=== PATIENT | male | born 1945 | race Caucasian/White ===

== ENCOUNTER 2017-05-13 07:11 | Day surgery (SDC) | payer MEDICARE ==
[~2017-05-13 07:11] MED LIST: DEXAMETHASONE SOD PHOSPHATE 10 MG/ML 1 ML VIAL IV ONE; HEPARIN SODIUM,PORCINE 5,000 UNIT/ML 1 ML VIAL SQ ONE; HYDROmorphone 0.5 MG/0.5 ML SYRINGE IVP PRN; MIDAZOLAM 2 MG/2 ML VIAL IV PRN; ONDANSETRON 4 MG/2 ML VIAL IVP ONE; ceFAZolin IN SWFI 2 GM/20 ML SYRINGE IVP ONE
[2017-05-13] MEDS ORDERED: LIDOCAINE 1% 20 ML VIAL (10MG/ML) FOR IV START INTRADERMA ONE ×2 (07:39→07:49)
[2017-05-13] MEDS: LACTATED RINGERS 1,000 ML IV SCH ×2 (07:39→07:49)
--- NOTE | 2017-05-13 07:51 | P.GSHP ---
History of Present Illness H&P Date: 05/13/17 Chief Complaint: Left inguinal hernia This is a 70-year-old male who presents today for laparoscopic robotic-assisted repair of left inguinal hernia. Patient's complaints of pain in his left groin. He was seen in the office and found have a reducible left inguinal hernia. Past Medical History Past Medical History: Hyperlipidemia Additional Past Medical History / Comment(s): RECENTLY HAD AN ALLERGIC REACTION TO AN UNKNOWN SOURCE; PATIENT STATES HE HAD FACIAL SWELLING; DR. Stephanie ALANIZ HAD ORDERED ALLEGY TESTING. History of Any Multi-Drug Resistant Organisms: None Reported Past Surgical History: Hernia Repair Additional Past Surgical History / Comment(s): RIGHT ING HERNIA. BILATERAL CATARACTS. CIRCUMSION Past Anesthesia/Blood Transfusion Reactions: No Reported Reaction Past Psychological History: No Psychological Hx Reported Smoking Status: Never smoker Past Alcohol Use History: Rare Past Drug Use History: None Reported - Past Family History Father Family Medical History: Cancer Medications and Allergies Home Medications Medication Instructions Recorded Confirmed Type Aspirin [Adult Low Dose Aspirin EC] 81 mg PO DAILY 05/09/17 05/09/17 History Calcium Carbonate/Vitamin D3 1 tab PO DAILY 05/09/17 05/09/17 History [Calcium 500-Vit D3 200 Tablet] Cetirizine HCl [Zyrtec] 10 mg PO QAM 05/09/17 05/09/17 History Simvastatin [Zocor] 40 mg PO QAM 05/09/17 05/09/17 History Allergies Allergy/AdvReac Type Severity Reaction Status Date / Time mold Allergy Nausea & Verified 05/13/17 07:31 Vomiting Surgical - Exam Vital Signs Temp Pulse Resp BP Pulse Ox 97.9 F 62 16 162/91 98 05/13/17 07:34 05/13/17 07:34 05/13/17 07:34 05/13/17 07:34 05/13/17 07:34 - General well developed, no distress - Eyes PERRL - ENT normal pinna - Neck no masses - Respiratory normal expansion - Cardiovascular Rhythm: regular - Abdomen Abdomen: soft, non tender Hernia: inguinal (Reducible left inguinal hernia) Assessment and Plan Assessment: Left inguinal hernia. We'll perform laparoscopic robotic system repair.
[2017-05-13] MEDS ORDERED: NEOSTIGMINE 1 MG/ML 10 ML VIAL ONE (07:58)
[2017-05-13] MEDS ORDERED: KETOROLAC 30 MG/ML 1 ML VIAL ONE (07:58)
[2017-05-13] MEDS ORDERED: LIDOCAINE 1% INJ 10MG/ML (20 ML MDV) ONE (07:58)
[2017-05-13] MEDS ORDERED: GLYCOPYRROLATE 0.2 MG/ML 2 ML VIAL ONE (07:58)
[2017-05-13] MEDS ORDERED: ePHEDrine SULFATE/0.9% NACL/PF 50 MG/5 ML SYRINGE IV ONE (07:58)
[2017-05-13] MEDS ORDERED: PROPOFOL 10 MG/ML 20 ML VIAL IV ONE (07:58)
[2017-05-13] MEDS ORDERED: fentaNYL (PF) 50 MCG/ML 2 ML AMP ONE (07:58)
[2017-05-13] MEDS ORDERED: ROCURONIUM BROMIDE 10 MG/ML 10 ML VIAL IV ONE (07:58)
[2017-05-13] MEDS ORDERED: SUCCINYLCHOLINE CHLORIDE 100 MG/5 ML SYR IV ONE (07:58)
[2017-05-13] MEDS ORDERED: MIDAZOLAM 2 MG/2 ML VIAL ONE (07:58)
[2017-05-13] MEDS ORDERED: BUPIVACAINE (PF) 0.5% 30 ML VIAL SQ ONE (08:27)
[2017-05-13 09:18] VITALS: TEMP 97.1
[2017-05-13 10:07] VITALS: RESP 18
[2017-05-13 10:18] VITALS: PULSE 62
[2017-05-13 10:44] VITALS: BP 118/72
--- NOTE | 2017-05-13 11:16 | P.OP ---
Date of Procedure: 05/13/17 Preoperative Diagnosis: Left inguinal hernia Postoperative Diagnosis: Left inguinal hernia Procedure(s) Performed: Laparoscopic robotic system repair of left internal hernia Excision of left cord lipoma Anesthesia: DENY Surgeon: Ezio Galan Estimated Blood Loss (ml): 5 Pathology: other (Cord lipoma) Condition: stable Disposition: PACU Description of Procedure: The patient's placed on the operating table in the supine position. The patient received general anesthesia. The patient's abdomen was prepped and draped in usual sterile fashion. The skin was anesthetized 1% local Xylocaine at the incision sites. Using an 11 blade a skin incision was made at the umbilicus. The fascia was grasped with a Miriam and then the peritoneal cavity was entered with the Veress needle. Position of the Veress needle was confirmed with a positive drop test. After adequate insufflation a 5 mm trocar was placed into the peritoneal cavity. The Laparoscope was placed the peritoneal cavity. And a robotic 8 mm trocar was placed in the right lateral position and then another 8 mm robotic trochars placed in the left lateral position. The original 5 mm trocar was exchanged for a 12 mm trocar. The patient was placed in reverse Trendelenburg and then the patient was docked to the robot. Next the peritoneum over top of the hernia was incised and then using blunt and sharp dissection and electrocautery the hernia sac was dissected free from the floor of the inguinal canal. The hernia sac was completely reduced into the peritoneal cavity. The cord lipoma was dissected free from the spermatic cord and excised. And then using the Pro director of sports performance mesh the hernia was repaired. The peritoneum was then sutured with 20V lock suture. The patient was then undocked the robot. The needle was withdrawn from the peritoneal cavity. The cord lipoma was removed from the perineal cavity. The umbilical trocar site was closed with 0 Ethibond suture. The skin was closed interrupted 3-0 Monocryl suture. Dermabond dressing was applied. Patient was sent to recovery in stable condition.
== END 2017-05-13 12:17 | disposition home or self-care (01) ==
LOC: OR 07:11
PROVIDERS: ATTEND Surgery
DX: K40.90 Unilateral inguinal hernia, without obstruction or gangrene, not specified as recurrent (principal); D17.6 Benign lipomatous neoplasm of spermatic cord; E78.5 Hyperlipidemia, unspecified; Z91.048 Other nonmedicinal substance allergy status; Z79.82 Long term (current) use of aspirin; Z79.899 Other long term (current) drug therapy; Z80.9 Family history of malignant neoplasm, unspecified
CPT/HCPCS: 49650; 88304; C1781; J2250; J1644; J1100; J2710; J0690; J2405; J2001; J3010; J1885; J0330; J2704

== ENCOUNTER 2017-05-16 11:10 | Emergency (ER) | payer MEDICARE ==
[2017-05-16] MEDS ORDERED: diphenhydrAMINE 50 MG/ML 1 ML VIAL ONE (12:10)
[2017-05-16] MEDS ORDERED: FAMOTIDINE 20 MG/2 ML VIAL ONE (12:10)
[2017-05-16] MEDS ORDERED: methylPREDNISolone SOD SUCCI 125 MG/2 ML VIAL ONE (12:10)
== END 2017-05-16 13:18 | disposition home or self-care (01) ==
LOC: EC 11:10
DX: T78.3XXA Angioneurotic edema, initial encounter (principal); Z79.82 Long term (current) use of aspirin; Z79.899 Other long term (current) drug therapy
CPT/HCPCS: 96374; 96375; 99283

== ENCOUNTER → 2018-04-04 | Outpatient (CLI) | payer MEDICARE ==
[2018-04-04 11:44] LABS: Appearance,Urine Clear (Clear); Bilirubin,Urine Negative (Negative); Blood,Urine Negative (Negative); Color,Urine Yellow; Glucose,Urine (UA) Negative (Negative); Ketones,Urine 1+ (Negative); Leukocyte Esterase,Urine Negative (Negative); Nitrite,Urine Negative (Negative); PH, Urine 5.5 (5.0-8.0); Protein,Urine Negative (Negative); Urobilinogen,Urine <2.0 mg/dL (<2.0)
[2018-04-04 11:48] LABS: HCT 44.2 % (39.0-53.0); HGB 14.2 gm/dL (13.0-17.5); MCH 29.6 pg (25.0-35.0); MCHC 32.1 g/dL (31.0-37.0); MCV 92.2 fL (80.0-100.0); Mean Platelet Volume 7.7; Platelet Count 282 k/uL (150-450); RBC 4.79 m/uL (4.30-5.90); RDW 13.2 % (11.5-15.5); WBC 4.8 k/uL (3.8-10.6)
[2018-04-04 12:23] LABS: Eosinophils # (M) 0.14 k/uL (0-0.7); Lymphocytes # (M) 1.73 k/uL (1.0-4.8); Monocytes # (M) 0.72 k/uL (0-1.0); Neutrophils # (M) 2.21 k/uL (1.3-7.7); Neutrophils % (M) 46 %; Nucleated Red Blood Cells 0 /100 WBC (0-0); Total Cells Counted 100
[2018-04-04 16:55] LABS: Albumin 4.5 g/dL (3.80-4.90); Albumin/Globulin Ratio 1.96 (1.20-2.10); Anion Gap 5.9 mmol/L (4.00-12.00); Calcium 9.4 mg/dL (8.7-10.3); Carbon Dioxide 28.1 mmol/L (21.6-31.8); Globulin 2.3 g/dL (2.1-3.7); LDL Cholesterol,Calculated 76.4 mg/dL (0.0-131.0); Potassium 4.3 mmol/L (3.5-5.5); Total Bilirubin 1.2 mg/dL (0.2-1.2); Total Protein 6.8 g/dL (6.2-8.2); VLDL Calculation 10.6 mg/dL (5.00-40.00)
[2018-04-04 18:32] LABS: Hemoglobin A1C 5.7 % (4.0-6.0)
== END | disposition home or self-care (01) ==
LOC: LABWHC1 10:59
PROVIDERS: ATTEND Family Medicine
DX: N39.0 Urinary tract infection, site not specified (principal); I10 Essential (primary) hypertension; Z79.899 Other long term (current) drug therapy
CPT/HCPCS: 36415; 80053; 80061; 81003; 83036; 84153; 84443; 85025

== ENCOUNTER 2018-12-30 18:12 | Inpatient (IN) | payer MEDICARE ==
[2018-12-30] MEDS ORDERED: MORPHINE SULFATE 2 MG/ML SYRINGE IVP STA (18:31)
[2018-12-30] MEDS ORDERED: SODIUM CHLORIDE 0.9% 500 ML 500 ML IV STA (18:31)
--- NOTE | 2018-12-30 18:41 | ED ---
General Adult HPI - General Chief complaint: Abdominal Pain Stated complaint: abd pain Time Seen by Provider: 12/30/18 18:19 Source: patient, RN notes reviewed Mode of arrival: wheelchair Limitations: no limitations - History of Present Illness Initial comments: 73-year-old male with a past medical history of hyperlipidemia, hernia repair, kidney stones presents to the emergency department for a chief complaint of left lower quadrant pain. Patient states this started about 4 hours ago. Patient has also vomited several times in the past 4 hours. States the pain radiates to his upper abdomen as well. Patient originally presented to urgent care and they referred him here to the emergency department. No fevers or chills. Patient does admit to loose stools as well for the past 4 hours. Patient ate a bologna sandwich earlier today as well as scrambled eggs. Denies any chest pain or shortness of breath.Patient has no other complaints at this time including shortness of breath, chest pain, abdominal pain, nausea or vomiting, headache, or visual changes. - Related Data Home Medications Medication Instructions Recorded Confirmed Aspirin [Adult Low Dose Aspirin EC] 81 mg PO DAILY 05/09/17 12/30/18 Simvastatin [Zocor] 40 mg PO HS 05/09/17 12/30/18 Calcium Carbonate [Calcium] 600 mg PO DAILY 12/30/18 12/30/18 Cetirizine HCl [Zyrtec] 10 mg PO DAILY 12/30/18 12/30/18 Memantine HCl [Namenda] 5 mg PO BID 12/30/18 12/30/18 Multivitamins, Thera [Multivitamin 1 tab PO DAILY 12/30/18 12/30/18 (formulary)] predniSONE See Taper PO DIRECTED 12/30/18 12/30/18 Allergies Allergy/AdvReac Type Severity Reaction Status Date / Time mold Allergy Nausea & Verified 12/30/18 18:28 Vomiting Review of Systems ROS Statement: Those systems with pertinent positive or pertinent negative responses have been documented in the HPI. ROS Other: All systems not noted in ROS Statement are negative. Past Medical History Past Medical History: Hyperlipidemia History of Any Multi-Drug Resistant Organisms: None Reported Past Surgical History: Hernia Repair Additional Past Surgical History / Comment(s): cataract bilateral eyes Past Psychological History: No Psychological Hx Reported Smoking Status: Never smoker Past Alcohol Use History: None Reported Past Drug Use History: None Reported General Exam Limitations: no limitations General appearance: alert, in no apparent distress Head exam: Present: atraumatic, normocephalic, normal inspection Eye exam: Present: normal appearance, PERRL, EOMI. Absent: scleral icterus, conjunctival injection, periorbital swelling ENT exam: Present: normal exam, mucous membranes moist Neck exam: Present: normal inspection, full ROM. Absent: tenderness, meningismus, lymphadenopathy Respiratory exam: Present: normal lung sounds bilaterally. Absent: respiratory distress, wheezes, rales, rhonchi, stridor Cardiovascular Exam: Present: regular rate, normal rhythm, normal heart sounds. Absent: systolic murmur, diastolic murmur, rubs, gallop, clicks GI/Abdominal exam: Present: soft, tenderness (Patient has voluntary guarding in the epigastric area as well as the left lower quadrant. Negative Osuna sign. No significant right upper quadrant tenderness.), normal bowel sounds. Absent: distended, guarding, rebound, rigid Neurological exam: Present: alert, oriented X3 Psychiatric exam: Present: normal affect, normal mood Course Vital Signs 12/30/18 12/30/18 12/30/18 18:13 19:52 22:39 Temperature 97.5 F L 98.1 F 98 F Pulse Rate 53 L 57 L 71 Respiratory 18 18 18 Rate Blood Pressure 143/73 153/79 150/81 O2 Sat by Pulse 100 100 99 Oximetry Procedures - Sepsis Sepsis Focused Exam #1 Sepsis Focused Exam Date: 12/30/18 Sepsis Focused Exam Time: 20:30 Sepsis Focused Exam Complete: Yes Vital Signs & RN Notes Reviewed: Yes Capillary Refill: > 2 Seconds: Fingers, Toes Peripheral Pulses: Strong: Radial (R), Radial (L) Skin Color: Normal for Patient Respiratory Exam: normal lung sounds Cardiovascular Exam: bradycardia Medical Decision Making - Medical Decision Making 73-year-old male with a past medical history of hyperlipidemia, hernia repair, kidney stones presents to the emergency department for a chief complaint of lower left quadrant pain and epigastric pain. States this started about 4 hours ago. He has also been vomiting several times in the past 4 hours. Vitals are stable, patient is afebrile with a mild sinus bradycardia. On presentation patient does have significant epigastric and left lower quadrant abdominal pain with guarding. CBC shows a white blood cell count of 29 as well as a lactic acid of 4.2. Lipase is 20,000 which is likely the cause of the leukocytosis and lactic acidosis. Patient was given 30 mL/kg of fluids based on his ideal body weight of 67.1 kg. He was started on Zosyn less than 3 hours. Lactic acid was repeated after fluids and it decreased to 2.9. CT abdomen and pelvis shows findings consistent with diffuse pancreatitis and fluid seen throughout the entire anterior pararenal space. Ultrasound shows no acute sonographic process. On further history patient denies any alcohol use. Patient however did start on steroids 2 weeks ago for a rash of his lower extremities which is likely the cause of his pancreatitis. Patient will be admitted with pain control, antiemetics, parenteral hydration. He will be kept nothing by mouth. GI will be consulted. - Lab Data Result diagrams: 12/30/18 19:35 12/30/18 19:35 Lab Results 12/30/18 12/30/18 12/30/18 Range/Units 19:35 19:35 19:35 WBC 29.0 H (3.8-10.6) k/uL RBC 5.25 (4.30-5.90) m/uL Hgb 15.5 (13.0-17.5) gm/dL Hct 47.0 (39.0-53.0) % MCV 89.5 (80.0-100.0) fL MCH 29.6 (25.0-35.0) pg MCHC 33.0 (31.0-37.0) g/dL RDW 13.6 (11.5-15.5) % Plt Count 368 (150-450) k/uL Neutrophils % 86 % Lymphocytes % 4 % Monocytes % 9 % Eosinophils % 1 % Basophils % 0 % Neutrophils # 24.9 H (1.3-7.7) k/uL Lymphocytes # 1.1 (1.0-4.8) k/uL Monocytes # 2.5 H (0-1.0) k/uL Eosinophils # 0.3 (0-0.7) k/uL Basophils # 0.1 (0-0.2) k/uL Sodium 138 (137-145) mmol/L Potassium 4.2 (3.5-5.1) mmol/L Chloride 103 (98-107) mmol/L Carbon Dioxide 25 (22-30) mmol/L Anion Gap 10 mmol/L BUN 38 H (9-20) mg/dL Creatinine 1.06 (0.66-1.25) mg/dL Est GFR (CKD-EPI)AfAm 81 (>60 ml/min/1.73 sqM) Est GFR (CKD-EPI)NonAf 70 (>60 ml/min/1.73 sqM) Glucose 190 H (74-99) mg/dL Lactic Ac Sepsis Rflx Plasma Lactic Acid Jack 4.2 H* (0.7-2.0) mmol/L Calcium 10.3 H (8.4-10.2) mg/dL Total Bilirubin 1.1 (0.2-1.3) mg/dL AST 28 (17-59) U/L ALT 32 (21-72) U/L Alkaline Phosphatase 69 (38-126) U/L Total Protein 7.5 (6.3-8.2) g/dL Albumin 4.5 (3.5-5.0) g/dL Amylase 4634 H* (30-110) U/L Lipase >14457 H (23-300) U/L Urine Color Urine Appearance (Clear) Urine pH (5.0-8.0) Ur Specific [place] (1.001-1.035) Urine Protein (Negative) Urine Glucose (UA) (Negative) Urine Ketones (Negative) Urine Blood (Negative) Urine Nitrite (Negative) Urine Bilirubin (Negative) Urine Urobilinogen (<2.0) mg/dL Ur Leukocyte Esterase (Negative) 12/30/18 12/30/18 12/30/18 Range/Units 19:35 20:05 22:10 WBC (3.8-10.6) k/uL RBC (4.30-5.90) m/uL Hgb (13.0-17.5) gm/dL Hct (39.0-53.0) % MCV (80.0-100.0) fL MCH (25.0-35.0) pg MCHC (31.0-37.0) g/dL RDW (11.5-15.5) % Plt Count (150-450) k/uL Neutrophils % % Lymphocytes % % Monocytes % % Eosinophils % % Basophils % % Neutrophils # (1.3-7.7) k/uL Lymphocytes # (1.0-4.8) k/uL Monocytes # (0-1.0) k/uL Eosinophils # (0-0.7) k/uL Basophils # (0-0.2) k/uL Sodium (137-145) mmol/L Potassium (3.5-5.1) mmol/L Chloride (98-107) mmol/L Carbon Dioxide (22-30) mmol/L Anion Gap mmol/L BUN (9-20) mg/dL Creatinine (0.66-1.25) mg/dL Est GFR (CKD-EPI)AfAm (>60 ml/min/1.73 sqM) Est GFR (CKD-EPI)NonAf (>60 ml/min/1.73 sqM) Glucose (74-99) mg/dL Lactic Ac Sepsis Rflx Y Plasma Lactic Acid Jack 2.9 H* (0.7-2.0) mmol/L Calcium (8.4-10.2) mg/dL Total Bilirubin (0.2-1.3) mg/dL AST (17-59) U/L ALT (21-72) U/L Alkaline Phosphatase (38-126) U/L Total Protein (6.3-8.2) g/dL Albumin (3.5-5.0) g/dL Amylase (30-110) U/L Lipase (23-300) U/L Urine Color Yellow Urine Appearance Clear (Clear) Urine pH 6.0 (5.0-8.0) Ur Specific [place] 1.019 (1.001-1.035) Urine Protein Trace H (Negative) Urine Glucose (UA) Negative (Negative) Urine Ketones Trace H (Negative) Urine Blood Negative (Negative) Urine Nitrite Negative (Negative) Urine Bilirubin Negative (Negative) Urine Urobilinogen <2.0 (<2.0) mg/dL Ur Leukocyte Esterase Negative (Negative) Disposition Clinical Impression: Pancreatitis, Leukocytosis Disposition: ADMITTED IP TO THIS HOSP Condition: Fair Is patient prescribed a controlled substance at d/c from ED?: No Referrals: None,Stated [REFERRING] - 1-2 days Time of Disposition: 23:16
[2018-12-30 19:46] LABS: Basophils # (A) 0.1 k/uL (0-0.2); Basophils % (A) 0 %; Eosinophils # (A) 0.3 k/uL (0-0.7); Eosinophils % (A) 1 %; HGB 15.5 gm/dL (13.0-17.5); Lymphocytes # (A) 1.1 k/uL (1.0-4.8); Lymphocytes % (A) 4 %; MCH 29.6 pg (25.0-35.0); MCV 89.5 fL (80.0-100.0); Mean Platelet Volume 8.3; Monocytes # (A) 2.5 k/uL (0-1.0); Monocytes % (A) 9 %; Neutrophils # (A) 24.9 k/uL (1.3-7.7); Neutrophils % (A) 86 %; Platelet Count 368 k/uL (150-450); RBC 5.25 m/uL (4.30-5.90); RDW 13.6 % (11.5-15.5)
[2018-12-30 19:47] LABS: Appearance,Urine Clear (Clear); Bilirubin,Urine Negative (Negative); Blood,Urine Negative (Negative); Color,Urine Yellow; Glucose,Urine (UA) Negative (Negative); Ketones,Urine Trace (Negative); Leukocyte Esterase,Urine Negative (Negative); Nitrite,Urine Negative (Negative); Protein,Urine Trace (Negative); Specific Gravity,Urine 1.019 (1.001-1.035); Urobilinogen,Urine <2.0 mg/dL (<2.0)
[2018-12-30 19:55] LABS: ALT 32 U/L (21-72); AST 28 U/L (17-59); African American GFR (CKD) 81 (>60 ml/min/1.73 sqM); Albumin 4.5 g/dL (3.5-5.0); Alkaline Phosphatase 69 U/L (38-126); Anion Gap 10 mmol/L; Blood Urea Nitrogen 38 mg/dL (9-20); Calcium 10.3 mg/dL (8.4-10.2); Carbon Dioxide 25 mmol/L (22-30); Chloride 103 mmol/L (98-107); Glucose 190 mg/dL (74-99); Non-African American GFR(CKD) 70 (>60 ml/min/1.73 sqM); Potassium 4.2 mmol/L (3.5-5.1); Sodium 138 mmol/L (137-145); Total Bilirubin 1.1 mg/dL (0.2-1.3); Total Protein 7.5 g/dL (6.3-8.2)
[2018-12-30] MEDS ORDERED: SODIUM CHLORIDE 0.9% 1,000 ML IV STA (20:03)
[2018-12-30] MEDS ORDERED: PIPERACILLIN-TAZOBACTAM 3.375 GM in SODIUM CHLORIDE 0.9% 100 ML IVPB STA (20:07)
[2018-12-30 20:20] LABS: Amylase 4634 U/L (30-110)
[2018-12-30] MEDS ORDERED: SODIUM CHLORIDE 0.9% 600 ML IV STA (20:21)
--- NOTE | 2018-12-30 21:40 | CT ---
EXAMINATION TYPE: CT abdomen pelvis w con DATE OF EXAM: 12/30/2018 COMPARISON: None HISTORY: abdomen pain CT DLP: 492.9 mGycm Automated exposure control for dose reduction was used. TECHNIQUE: Helical acquisition of images was performed from the lung bases through the pelvis. CONTRAST: Performed without Oral Contrast and with IV Contrast, patient injected with 100 mL of Isovu e 300. FINDINGS: LUNG BASES: No acute findings. LIVER/GB: No significant liver abnormality noted. Biliary tree is unremarkable. PANCREAS: There is diffuse loss of the pancreatic parenchymal acinar pattern, consistent with diffuse edema. Much more conspicuous is the homogeneous fluid density seen throughout the entire anterior pa rarenal space and extending down along the root of the mesentery within the subperitoneal spaces of t he extraperitoneum. Again, the gallbladder, extrahepatic biliary tree and intrahepatic biliary tree has unremarkable ap pearance. SPLEEN: No significant abnormality is seen. ADRENALS: No significant abnormality is seen. KIDNEYS, URETERS, AND BLADDER: No hydronephrosis or hydroureter or renal masses. Moderate urinary bladder distention noted; no focal bladder findings. Prostate enlargement noted. PERITONEAL CAVITY: No pneumoperitoneum. No peritoneal fluid. RETROPERITONEAL ADENOPATHY: None visualized REPRODUCTIVE ORGANS: No significant abnormality is seen PELVIC ADENOPATHY: None visualized. OSSEOUS STRUCTURES: No significant abnormality is seen. BOWEL: No significant abnormality is seen. OTHER: No acute vascular findings. IMPRESSION: CT FINDINGS CONSISTENT WITH DIFFUSE PANCREATITIS, WITH FLUID SEEN THROUGHOUT THE ENTIRE ANTERIOR PARA RENAL SPACE. SHORT INTERVAL FOLLOW-UP CT RECOMMENDED. Incidental: Prostate enlargement with moderate urinary bladder distention.
--- NOTE | 2018-12-30 22:07 | US ---
EXAMINATION TYPE: US abdomen limited DATE OF EXAM: 12/30/2018 COMPARISON: CT same day CLINICAL HISTORY: RUQ, pancreatitis. RUQ pain x 1 day. Pancreatitis. Hx kidney stones. EXAM MEASUREMENTS: Liver Length: 14.09 cm Gallbladder Wall: 0.24 cm CBD: 0.59 cm Right Kidney: 10.4 x 5.5 x 5.4 cm Pancreas: appears enlarged; slightly heterogeneous Liver: appears wnl. Fluid-filled bowel adjacent to liver/right kidney. Gallbladder: Length: 9.7 cm. Measurement upper limits of normal Evidence for sonographic Osuna's sign: no CBD: Measurement upper limits of normal Right Kidney: No hydronephrosis or masses seen IMPRESSION: No acute sonographic process.
[2018-12-30] MEDS ORDERED: HYDROmorphone 0.5 MG/0.5 ML SYRINGE IVP STA (22:29)
[2018-12-30] MEDS ORDERED: NALOXONE 0.4 MG/ML 1 ML VIAL IV PRN (23:04)
[2018-12-30] MEDS ORDERED: ONDANSETRON 4 MG/2 ML VIAL IVP PRN (23:04)
[2018-12-30] MEDS ORDERED: MORPHINE SULFATE 4 MG/ML SYRINGE IV PRN (23:04)
[2018-12-31] MEDS: SODIUM CHLORIDE 0.9% 1,000 ML IV SCH ×4 (01:56→20:50)
[2018-12-31 02:13] VITALS: BMI 19.2
[2018-12-31] MEDS: HYDROmorphone 0.5 MG/0.5 ML SYRINGE IVP PRN ×4 (03:58→22:43)
[2018-12-31 09:23] LABS: Basophils % (A) 0 %; Eosinophils # (A) 0.1 k/uL (0-0.7); Eosinophils % (A) 0 %; HCT 43.4 % (39.0-53.0); HGB 14.3 gm/dL (13.0-17.5); Lymphocytes # (A) 1.4 k/uL (1.0-4.8); Lymphocytes % (A) 7 %; MCH 30.4 pg (25.0-35.0); MCV 92.2 fL (80.0-100.0); Mean Platelet Volume 9.7; Monocytes % (A) 9 %; Neutrophils # (A) 17.8 k/uL (1.3-7.7); Neutrophils % (A) 83 %; RBC 4.71 m/uL (4.30-5.90); RDW 15.1 % (11.5-15.5); WBC 21.6 k/uL (3.8-10.6)
[2018-12-31 09:39] LABS: Platelet Count 320 k/uL (150-450)
[2018-12-31 09:43] LABS: African American GFR (CKD) >90 (>60 ml/min/1.73 sqM); Anion Gap 7 mmol/L; Blood Urea Nitrogen 33 mg/dL (9-20); Calcium 8.7 mg/dL (8.4-10.2); Carbon Dioxide 24 mmol/L (22-30); Chloride 110 mmol/L (98-107); Glucose 135 mg/dL (74-99); Non-African American GFR(CKD) >90 (>60 ml/min/1.73 sqM); Sodium 141 mmol/L (137-145)
[2018-12-31 09:57] LABS: Amylase 1018 U/L (30-110)
--- NOTE | 2018-12-31 10:56 | P.CONS ---
History of Present Illness - Reason for Consult Consult date: 12/31/18 Pancreatitis Requesting physician: German Galo - Chief Complaint Abdominal pain - History of Present Illness 73-year-old male admitted with acute upper abdominal pain yesterday with nausea vomiting. Admission white count 29 presently 21.6. Hemoglobin 14.3. Lipase greater than 20,000. Amylase 4634. LFTs normal total bilirubin 1.1. AST 20. ALT 32. AP 69. Lactic acid 4.2 with hydration 0.9. Presently lipase is 2981. Amylase 1018. Receiving IV antibiotics. BUN on admission 38 improved today 33. Creatinine 0.7. Denies weight loss, hematemesis hematochezia or melena. No history of pancreatitis. No history of alcoholism. Recent steroids and antibiotic for a foot/leg rash that started less than 2 weeks ago. Ultrasound abdomen no acute process. CT abdomen and pelvis consistent with diffuse pancreatitis, , [place] fluid density seen throughout the entire anterior pararenal space and extending down along the root of the mesentery. Gallbladder extra hepatic and intrahepatic biliary tree unremarkable. Review of Systems Constitutional: Denies fever, chills, sweats, weight gain, or loss. HEENT: Negative for migraines, blurred vision or loss, earaches, drainage, tinnitus, oral mucosal lesions, dysphagia, or odynophagia. Cardiac: Negative for chest pain, arrhythmias, or palpitation. Respiratory: Negative for shortness of breath, hemoptysis, cough, or sputum production. Gastrointestinal: See HPI for pertinent findings. Genitourinary: Negative for hematuria, urgency, frequency, polyuria, dysuria, or penile discharge. Musculoskeletal: Negative for muscle aches, swelling, arthritis, and arthralgias. Neurologic: Negative for stroke or TIA. Endocrine: Negative for thyroid problems. Skin: Negative for rash or itching. Psychiatric: Negative history for depression and anxiety Past Medical History Past Medical History: Hyperlipidemia History of Any Multi-Drug Resistant Organisms: None Reported Past Surgical History: Hernia Repair Additional Past Surgical History / Comment(s): cataract bilateral eyes Past Anesthesia/Blood Transfusion Reactions: No Reported Reaction Past Psychological History: No Psychological Hx Reported Smoking Status: Never smoker Past Alcohol Use History: None Reported Past Drug Use History: None Reported - Past Family History Mother Family Medical History: Liver Disease Additional Family Medical History / Comment(s): heavy drinker Medications and Allergies Home Medications Medication Instructions Recorded Confirmed Type Aspirin [Adult Low Dose Aspirin EC] 81 mg PO DAILY 05/09/17 12/31/18 History Simvastatin [Zocor] 40 mg PO HS 05/09/17 12/31/18 History Calcium Carbonate [Calcium] 600 mg PO DAILY 12/30/18 12/31/18 History Cetirizine HCl [Zyrtec] 10 mg PO DAILY 12/30/18 12/31/18 History Memantine HCl [Namenda] 5 mg PO BID 12/30/18 12/31/18 History Multivitamins, Thera [Multivitamin 1 tab PO DAILY 12/30/18 12/31/18 History (formulary)] Allergies Allergy/AdvReac Type Severity Reaction Status Date / Time mold Allergy Nausea & Verified 12/30/18 18:28 Vomiting Physical Exam Vitals: Vital Signs Temp Pulse Pulse Resp BP BP Pulse Ox 12/31/18 08:00 18 12/31/18 02:20 98.2 F 69 18 152/80 96 12/31/18 02:00 18 12/31/18 01:05 62 18 130/82 96 12/30/18 22:39 98 F 71 18 150/81 99 12/30/18 19:52 98.1 F 57 L 18 153/79 100 12/30/18 18:13 97.5 F L 53 L 18 143/73 100 Intake and Output 12/30/18 12/31/18 12/31/18 22:59 06:59 14:59 Other: Voiding Method Toilet Toilet Urinal Urinal # Voids 1 Weight 55.61 kg General appearance: The patient is alert, oriented, in no acute distress. HET: Head is normocephalic and atraumatic. Pupils are equal and reactive. Oropharynx is clear without lesions. Neck: Supple without lymphadenopathy. Trachea midline. Heart: S1 S2. Regular rate and rhythm. Lungs: No crackles or wheezes are heard. Abdomen: Soft, mild to moderate tenderness upper abdomen but as well as diffusely down midline, nondistended with bowel sounds. No peritoneal signs. No palpable organomegaly or masses. Extremities: Normal skin color and turgor. No cyanosis, rash, ulceration, clubbing, or edema. Radial and pedal pulses are 2/4 bilaterally. Neurological: No focal deficits. Strength and sensation are grossly intact. Results CBC & Chem 7: 12/31/18 06:18 12/31/18 06:18 Labs: Abnormal Lab Results - Last 24 Hours (Table) 12/30/18 12/30/18 12/30/18 Range/Units 19:35 19:35 19:35 WBC 29.0 H (3.8-10.6) k/uL Neutrophils # 24.9 H (1.3-7.7) k/uL Monocytes # 2.5 H (0-1.0) k/uL Chloride (98-107) mmol/L BUN 38 H (9-20) mg/dL Glucose 190 H (74-99) mg/dL Plasma Lactic Acid Jack 4.2 H* (0.7-2.0) mmol/L Calcium 10.3 H (8.4-10.2) mg/dL Amylase 4634 H* (30-110) U/L Lipase >56150 H (23-300) U/L Urine Protein (Negative) Urine Ketones (Negative) 12/30/18 12/30/18 12/31/18 Range/Units 19:35 22:10 01:56 WBC (3.8-10.6) k/uL Neutrophils # (1.3-7.7) k/uL Monocytes # (0-1.0) k/uL Chloride (98-107) mmol/L BUN (9-20) mg/dL Glucose (74-99) mg/dL Plasma Lactic Acid Jack 2.9 H* 2.5 H* (0.7-2.0) mmol/L Calcium (8.4-10.2) mg/dL Amylase (30-110) U/L Lipase (23-300) U/L Urine Protein Trace H (Negative) Urine Ketones Trace H (Negative) 12/31/18 12/31/18 Range/Units 06:18 06:18 WBC 21.6 H (3.8-10.6) k/uL Neutrophils # 17.8 H (1.3-7.7) k/uL Monocytes # 2.0 H (0-1.0) k/uL Chloride 110 H (98-107) mmol/L BUN 33 H (9-20) mg/dL Glucose 135 H (74-99) mg/dL Plasma Lactic Acid Jack (0.7-2.0) mmol/L Calcium (8.4-10.2) mg/dL Amylase 1018 H* (30-110) U/L Lipase 2981 H (23-300) U/L Urine Protein (Negative) Urine Ketones (Negative) CT scan - abdomen: report reviewed (Dr. Sampson) US - abdomen: report reviewed (Dr. Sampson) Assessment and Plan (1) Pancreatitis Narrative/Plan: Severe acute pancreatitis first documented episode etiology unclear with leukocytosis. Current Visit: Yes Status: Acute Code(s): K85.90 - ACUTE PANCREATITIS WITHOUT NECROSIS OR INFECTION, UNSP SNOMED Code(s): 00599021 (2) Leukocytosis Current Visit: Yes Status: Acute Code(s): D72.829 - ELEVATED WHITE BLOOD CELL COUNT, UNSPECIFIED SNOMED Code(s): 307339823 Plan: 1. IV maintenance 125 mL an hour. Merrem 1 g every 8 hours. Daily CBC BMP amylase lipase. Biochemically pancreatic enzymes are improving abdominal pain is improving as well. Nothing by mouth except for medications ice chips and popsicles. We'll request triglyceride VANNA IgG subclass 1-4. Will follow closely with you. Thank you for this kind referral and the opportunity to participate in the care of your patient. This consultation was discussed with Dr. Sampson. The impression and plan of care have been directed as dictated.
[2018-12-31] MEDS: MEROPENEM 1 GM in SODIUM CHLORIDE 0.9% 100 ML IVPB SCH ×3 (11:24→23:38)
--- NOTE | 2018-12-31 13:33 | HP ---
HISTORY AND PHYSICAL CHIEF COMPLAINT: This 73-year-old male came in with acute nausea, vomiting, and abdominal pain. White count was 29, down to 21, hemoglobin is 14.3. Lipase is greater than 20,000. Amylase is 4634. LFTs were normal. He was admitted with acute pancreatitis, unclear etiology. No history of alcoholism or pancreatitis. He was on steroids and antibiotics for foot rash for the past 2 weeks. Ultrasound and CAT scan were reviewed. REVIEW OF SYSTEMS: Fourteen point review of systems negative except for mentioned in HPI. PAST MEDICAL HISTORY: Dyslipidemia, history of cataract surgery. No smoking, no alcohol, no illicit drugs. Mother of liver disease, but was a heavy drinker. HOME MEDICATIONS: Home medications Include: 1. Namenda 5 mg b.i.d. 2. Multivitamin daily. 3. Zyrtec 10 daily. 4. Calcium daily. 5. Zocor 40 daily. 6. Aspirin 81 mg daily. ALLERGIES: Allergies are to MOLD. PHYSICAL EXAMINATION: Temperature 98.2, that is T-max, pulse 62 to 50s, respiratory rate 18 to 20, blood pressure is 130s to 150s over 70s to 80s, O2 96 to 100. CARDIOVASCULAR: S1, S. LUNGS: Transmitted upper airway sounds. HEMATOLOGY: Negative Homans. PSYCH: Fair mood and affect. ABDOMEN: Mild to moderate tenderness in the upper abdomen, nondistended. No peritoneal signs. No organomegaly. EXTREMITIES: Normal skin color. cyanosis. ASSESSMENT: 1. Leukocytosis of unclear etiology, possibly infectious from the skin cellulitis versus cholecystitis. 2. Acute pancreatitis. 3. Lactic acidosis. 4. Dehydration. Unclear cause of pancreatitis with acute nature with leukocytosis. We will get Infectious Disease consult. Start Merrem IV q.8 hours, fluids, Surgical and GI consult, Infectious Disease for elevated white count. Please see further orders. MMODL / IJN: [id number] /
[2018-12-31] MEDS: ATORVASTATIN 20 MG TAB PO SCH (20:49)
[2018-12-31] MEDS: MEMANTINE 5 MG TAB PO SCH (20:49)
--- NOTE | 2018-12-31 22:04 | P.CONS ---
History of Present Illness - Reason for Consult Consult date: 12/31/18 Rash and leukocytosis Requesting physician: German Galo - Chief Complaint Bilateral lower extremity rash x 2 weeks and abdominal pain and vomiting 1 - History of Present Illness Patient is a 73-year-old male who [place] and stayed in [place] in a cabin, the patient developed multiple lesion on his bilateral feet most marked on his left foot with some rash noticed on the bilateral medial thigh area and to lesion on his back patient did not recall any bug bites and none of the other family member with him have the similar rash the patient denies starting any new medication patient was initially evaluated at an urgent care diagnosed with possible staph infection and was treated with oral amoxicillin subsequently treated by his primary care physician with a tapering course of prednisone and antibiotic with the patient is not sure about it subsequently has been reevaluated by his PCP in most regards any different antibiotic afterwards for the patient started having abdominal pain pain has been mostly epigastric area show a burning in nature 5-600 and with associated vomiting multiple times with asymptomatic the patient presented to [facility] ER with the patient was evaluate by the physician patient did have an ultrasound of the gallbladder was negative CT abdominal with evidence of diffuse pancreatitis patient did have elevated white count 29,000 but no fever patient was initially started on Zosyn that has been switched over to meropenem by GI patient did have elevated amylase and lipase also to see the patient for his elevated white count and rash on his lower extremity looking at the pictures pr ovided by the patient and his the lesion has much improved comparing to when it the initially started Review of Systems Positive points has been mentioned in HPI rest of the systems are negative Past Medical History Past Medical History: Hyperlipidemia History of Any Multi-Drug Resistant Organisms: None Reported Past Surgical History: Hernia Repair Additional Past Surgical History / Comment(s): cataract bilateral eyes Past Anesthesia/Blood Transfusion Reactions: No Reported Reaction Past Psychological History: No Psychological Hx Reported Smoking Status: Never smoker Past Alcohol Use History: None Reported Past Drug Use History: None Reported - Past Family History Mother Family Medical History: Liver Disease Additional Family Medical History / Comment(s): heavy drinker Medications and Allergies Home Medications Medication Instructions Recorded Confirmed Type Aspirin [Adult Low Dose Aspirin EC] 81 mg PO DAILY 05/09/17 12/31/18 History Simvastatin [Zocor] 40 mg PO HS 05/09/17 12/31/18 History Calcium Carbonate [Calcium] 600 mg PO DAILY 12/30/18 12/31/18 History Cetirizine HCl [Zyrtec] 10 mg PO DAILY 12/30/18 12/31/18 History Memantine HCl [Namenda] 5 mg PO BID 12/30/18 12/31/18 History Multivitamins, Thera [Multivitamin 1 tab PO DAILY 12/30/18 12/31/18 History (formulary)] Allergies Allergy/AdvReac Type Severity Reaction Status Date / Time mold Allergy Nausea & Verified 12/30/18 18:28 Vomiting Physical Exam Vitals: Vital Signs Temp Pulse Pulse Resp BP BP Pulse Ox 12/31/18 15:46 16 12/31/18 11:55 97.7 F 77 16 145/68 94 L 12/31/18 08:00 18 12/31/18 02:20 98.2 F 69 18 152/80 96 12/31/18 02:00 18 12/31/18 01:05 62 18 130/82 96 12/30/18 22:39 98 F 71 18 150/81 99 12/30/18 19:52 98.1 F 57 L 18 153/79 100 Intake and Output 12/31/18 12/31/18 12/31/18 06:59 14:59 22:59 Other: Voiding Method Toilet Toilet Toilet Urinal Urinal Urinal # Voids 1 1 1 GENERAL DESCRIPTION: Elderly male lying in bed, no distress. No tachypnea or accessory muscle of respiration use. HEENT: Shows Pallor , no scleral icterus. Oral mucous membrane is dry. No ph aryngeal erythema or thrush NECK: Trachea central, no thyromegaly. LUNGS: Unlabored breathing. Clear to auscultation anteriorly. No wheeze or crackle. HEART: S1, S2, regular rate and rhythm. No loud murmur ABDOMEN: Soft, mild epigastric tenderness , no guarding or rigidity, no organomegaly EXTREMITIES: No edema of feet. SKIN: Rash on the foot and the medial thigh area that is currently in the heal ing stages and much improved from when it initially started no masses palpable. NEUROLOGICAL: The patient is awake, alert, oriented x3, mood and affect normal. Results CBC & Chem 7: 12/31/18 06:18 12/31/18 06:18 Labs: Abnormal Lab Results - Last 24 Hours (Table) 12/30/18 12/30/18 12/30/18 Range/Units 19:35 19:35 19:35 WBC 29.0 H (3.8-10.6) k/uL Neutrophils # 24.9 H (1.3-7.7) k/uL Monocytes # 2.5 H (0-1.0) k/uL Chloride (98-107) mmol/L BUN 38 H (9-20) mg/dL Glucose 190 H (74-99) mg/dL Plasma Lactic Acid Jack 4.2 H* (0.7-2.0) mmol/L Calcium 10.3 H (8.4-10.2) mg/dL Amylase 4634 H* (30-110) U/L Lipase >85897 H (23-300) U/L Urine Protein (Negative) Urine Ketones (Negative) 12/30/18 12/30/18 12/31/18 Range/Units 19:35 22:10 01:56 WBC (3.8-10.6) k/uL Neutrophils # (1.3-7.7) k/uL Monocytes # (0-1.0) k/uL Chloride (98-107) mmol/L BUN (9-20) mg/dL Glucose (74-99) mg/dL Plasma Lactic Acid Jack 2.9 H* 2.5 H* (0.7-2.0) mmol/L Calcium (8.4-10.2) mg/dL Amylase (30-110) U/L Lipase (23-300) U/L Urine Protein Trace H (Negative) Urine Ketones Trace H (Negative) 12/31/18 12/31/18 Range/Units 06:18 06:18 WBC 21.6 H (3.8-10.6) k/uL Neutrophils # 17.8 H (1.3-7.7) k/uL Monocytes # 2.0 H (0-1.0) k/uL Chloride 110 H (98-107) mmol/L BUN 33 H (9-20) mg/dL Glucose 135 H (74-99) mg/dL Plasma Lactic Acid Jack (0.7-2.0) mmol/L Calcium (8.4-10.2) mg/dL Amylase 1018 H* (30-110) U/L Lipase 2981 H (23-300) U/L Urine Protein (Negative) Urine Ketones (Negative) Assessment and Plan Assessment: 1-patient with a rash on his lower extremity that seems to have improved comparing to when he started about 2 weeks ago and more likely representing possible insect bite with no evidence of any secondary cellulitis 2-leukocytosis likely multifactorial possibly related to steroid the patient was on in outpatient setting and secondary to his acute pancreatitis more likely drug related Plan: 1-no specific treatment for the rash on his leg which is in the healing stages almost healed up 2-meropenem 1 g. Every 8 hour for his underlying diffuse pancreatitis 3-gentle IV fluid we will follow on clinical condition and culture to further adjust medication if needed Thank you for this consultation will follow this patient along with you Time with Patient: Greater than 30
[2019-01-01] MEDS: ASPIRIN 81 MG PO SCH (08:17)
[2019-01-01] MEDS: MEROPENEM 1 GM in SODIUM CHLORIDE 0.9% 100 ML IVPB SCH ×3 (08:17→23:07)
[2019-01-01] MEDS: MULTIVITAMINS, THERA 1 EACH TAB PO SCH (08:18)
[2019-01-01] MEDS: LORATADINE 10 MG TAB PO SCH (08:18)
[2019-01-01] MEDS: CALCIUM CARBONATE 500 MG CHEWABLE PO SCH (08:18)
[2019-01-01] MEDS: MEMANTINE 5 MG TAB PO SCH ×2 (08:19→20:00)
[2019-01-01 08:47] LABS: Basophils % (A) 0 %; Eosinophils # (A) 0.1 k/uL (0-0.7); Eosinophils % (A) 0 %; HCT 43.4 % (39.0-53.0); HGB 14.2 gm/dL (13.0-17.5); Lymphocytes # (A) 0.8 k/uL (1.0-4.8); Lymphocytes % (A) 4 %; MCH 30.3 pg (25.0-35.0); MCHC 32.6 g/dL (31.0-37.0); MCV 92.8 fL (80.0-100.0); Mean Platelet Volume 7.8; Monocytes # (A) 2.4 k/uL (0-1.0); Monocytes % (A) 12 %; Neutrophils # (A) 16.7 k/uL (1.3-7.7); Neutrophils % (A) 82 %; Platelet Count 281 k/uL (150-450); RBC 4.68 m/uL (4.30-5.90); RDW 13.7 % (11.5-15.5); WBC 20.4 k/uL (3.8-10.6)
[2019-01-01 08:59] LABS: ALT 21 U/L (21-72); AST 18 U/L (17-59); African American GFR (CKD) >90 (>60 ml/min/1.73 sqM); Alkaline Phosphatase 54 U/L (38-126); Amylase 299 U/L (30-110); Anion Gap 5 mmol/L; Blood Urea Nitrogen 21 mg/dL (9-20); Calcium 8.8 mg/dL (8.4-10.2); Carbon Dioxide 28 mmol/L (22-30); Chloride 107 mmol/L (98-107); Glucose 111 mg/dL (74-99); Non-African American GFR(CKD) >90 (>60 ml/min/1.73 sqM); Potassium 4.5 mmol/L (3.5-5.1); Sodium 140 mmol/L (137-145); Total Bilirubin 1.2 mg/dL (0.2-1.3); Total Protein 5.6 g/dL (6.3-8.2); Triglycerides 66 mg/dL (<150)
[2019-01-01 11:04] LABS: IgG Subclass 3 21.7 mg/dL (11.0-85.0); IgG Subclass 4 54.3 mg/dL (3.0-175.0)
--- NOTE | 2019-01-01 12:01 | P.PN ---
Subjective Progress Note Date: 01/01/19 Principal diagnosis: Severe acute pancreatitis Feeling better. [place] reticulocyte enzymes improving. Afebrile. No appetite. No bowel movements or flatus. White count 20.4. BUN improved 21. Lipase 429. Amylase 299. VANNA, IgG subclass 1-4 negative. Objective - Vital Signs Vital signs: Vital Signs Temp 97.7 F 01/01/19 04:50 Pulse 70 01/01/19 04:50 Resp 18 01/01/19 08:00 BP 152/80 01/01/19 04:50 Pulse Ox 95 01/01/19 04:50 Intake & Output 12/31/18 01/01/19 01/01/19 18:59 06:59 18:59 Output Total 700 500 Balance -700 -500 Output: Urine 700 500 Other: Voiding Method Toilet Toilet Urinal Urinal # Voids 1 - Exam General appearance: The patient is alert, oriented, in no acute distress. HET: Head is normocephalic and atraumatic. Pupils are equal and reactive. Oropharynx is clear without lesions. Neck: Supple without lymphadenopathy. Trachea midline. Heart: S1 S2. Regular rate and rhythm. Lungs: No crackles or wheezes are heard. Abdomen: Soft, mild tenderness to the bilateral upper abdomen, nondistended with bowel sounds. No peritoneal signs. No palpable organomegaly or masses. Extremities: Normal skin color and turgor. No cyanosis, rash, ulceration, clubbing, or edema. Radial and pedal pulses are 2/4 bilaterally. Neurological: No focal deficits. Strength and sensation are grossly intact. - Labs CBC & Chem 7: 01/01/19 08:10 01/01/19 08:10 Labs: Abnormal Lab Results - Last 24 Hours (Table) 01/01/19 01/01/19 Range/Units 08:10 08:10 WBC 20.4 H (3.8-10.6) k/uL Neutrophils # 16.7 H (1.3-7.7) k/uL Lymphocytes # 0.8 L (1.0-4.8) k/uL Monocytes # 2.4 H (0-1.0) k/uL BUN 21 H (9-20) mg/dL Creatinine 0.64 L (0.66-1.25) mg/dL Glucose 111 H (74-99) mg/dL Total Protein 5.6 L (6.3-8.2) g/dL Albumin 3.0 L (3.5-5.0) g/dL Amylase 299 H (30-110) U/L Lipase 429 H (23-300) U/L Microbiology - Last 24 Hours (Table) 12/30/18 22:10 Blood Culture - Preliminary Blood No Growth after 24 hours Assessment and Plan (1) Pancreatitis Narrative/Plan: Severe acute pancreatitis first documented episode etiology unclear with leukocytosis. Current Visit: Yes Status: Acute Code(s): K85.90 - ACUTE PANCREATITIS WITHOUT NECROSIS OR INFECTION, UNSP SNOMED Code(s): 13646812 (2) Leukocytosis Current Visit: Yes Status: Acute Code(s): D72.829 - ELEVATED WHITE BLOOD CELL COUNT, UNSPECIFIED SNOMED Code(s): 774739940 Plan: 1. Continue the IV hydration 125 mL an hour. Clear liquids and advance as tolerated. Continue to monitor CBC BMP daily. Discharge when tolerating a diet. Return to office in 3-4 weeks. We'll follow with you. Assessment and plan a care discussed with Dr. Sampson
[2019-01-01] MEDS: SODIUM CHLORIDE 0.9% 1,000 ML IV SCH ×3 (12:50→23:10)
--- NOTE | 2019-01-01 15:58 | P.GSCN ---
History of Present Illness Consult date: 01/01/19 Reason for Consult: pancreatitis Requesting physician: German Galo History of present illness: CHIEF COMPLAINT: abdominal pain HISTORY OF PRESENT ILLNESS: 73-year-old male admitted to hospital secondary to pancreatitis. General surgery was consulted for further evaluation. Patient denies previous episodes of known pancreatitis. He denies alcohol use. lipase greater than 20,000 on admission. Amylase 4634. amylase 299 today. Lipase 429. WBC 20.4. He has been afebrile. On IV antibiotics. Abdominal ultrasound negative for acute process. No gallstones visualized. CT abdomen and pelvis completed revealing findings consistent with diffuse pancreatitis with fluid seen throughout the entire parerenal space. Patient reports improvement in his abdominal pain. Denies nausea or vomiting. He has been NPO. PAST MEDICAL HISTORY: See list. PAST SURGICAL HISTORY: See list. SOCIAL HISTORY: No illicit drug use. REVIEW OF SYSTEMS: CONSTITUTIONAL: Denies fever or chills. HEENT: Denies blurred vision, vision changes, or eye pain. Denies hemoptysis CARDIOVASCULAR: Denies chest pain or pressure. RESPIRATORY: No shortness of breath. GASTROINTESTINAL: Refer to HPI for pertinent findings HEMATOLOGIC: Denies bleeding disorders. GENITOURINARY: Denies any blood in urine. SKIN: Denies pruitis. Denies rash. PHYSICAL EXAM: VITAL SIGNS: Reviewed. GENERAL: Well-developed in no acute distress. HEENT: No sclera icterus. Extraocular movements grossly intact. Moist buccal mucosa. Head is atraumatic, normocephalic. ABDOMEN: Soft. Nondistended. Mild tenderness with palpation. Positive bowel sounds. NEUROLOGIC: Alert and oriented. Cranial nerves II through XII grossly intact. ASSESSMENT: 1. Acute pancreatitis, etiology unclear 2. Leukocytosis 3. Elevated lactic acid PLAN: 1. Begin clear liquid diet 2. Daily CBC, amylase, lipase 3. Continue antibiotics 4. GI consulted and following 5. No surgical intervention recommended Nurse practitioner note has been reviewed by physician. Signing provider agrees with the documented findings, assessment, and plan of care. Past Medical History Past Medical History: Hyperlipidemia History of Any Multi-Drug Resistant Organisms: None Reported Past Surgical History: Hernia Repair Additional Past Surgical History / Comment(s): cataract bilateral eyes Past Anesthesia/Blood Transfusion Reactions: No Reported Reaction Past Psychological History: No Psychological Hx Reported Smoking Status: Never smoker Past Alcohol Use History: None Reported Past Drug Use History: None Reported - Past Family History Mother Family Medical History: Liver Disease Additional Family Medical History / Comment(s): heavy drinker Medications and Allergies Home Medications Medication Instructions Recorded Confirmed Type Aspirin [Adult Low Dose Aspirin EC] 81 mg PO DAILY 05/09/17 12/31/18 History Simvastatin [Zocor] 40 mg PO HS 05/09/17 12/31/18 History Calcium Carbonate [Calcium] 600 mg PO DAILY 12/30/18 12/31/18 History Cetirizine HCl [Zyrtec] 10 mg PO DAILY 12/30/18 12/31/18 History Memantine HCl [Namenda] 5 mg PO BID 12/30/18 12/31/18 History Multivitamins, Thera [Multivitamin 1 tab PO DAILY 12/30/18 12/31/18 History (formulary)] Allergies Allergy/AdvReac Type Severity Reaction Status Date / Time mold Allergy Nausea & Verified 12/30/18 18:28 Vomiting Surgical - Exam Vital Signs Temp Pulse Resp BP Pulse Ox 97.5 F L 53 L 18 143/73 100 12/30/18 18:13 12/30/18 18:13 12/30/18 18:13 12/30/18 18:13 12/30/18 18:13 Results - Labs 01/01/19 08:10 01/01/19 08:10 Abnormal Lab Results - Last 24 Hours (Table) 01/01/19 01/01/19 Range/Units 08:10 08:10 WBC 20.4 H (3.8-10.6) k/uL Neutrophils # 16.7 H (1.3-7.7) k/uL Lymphocytes # 0.8 L (1.0-4.8) k/uL Monocytes # 2.4 H (0-1.0) k/uL BUN 21 H (9-20) mg/dL Creatinine 0.64 L (0.66-1.25) mg/dL Glucose 111 H (74-99) mg/dL Total Protein 5.6 L (6.3-8.2) g/dL Albumin 3.0 L (3.5-5.0) g/dL Amylase 299 H (30-110) U/L Lipase 429 H (23-300) U/L Microbiology - Last 24 Hours (Table) 12/30/18 22:10 Blood Culture - Preliminary Blood No Growth after 24 hours Diabetes panel 01/01/19 Range/Units 08:10 Sodium 140 (137-145) mmol/L Potassium 4.5 (3.5-5.1) mmol/L Chloride 107 (98-107) mmol/L Carbon Dioxide 28 (22-30) mmol/L BUN 21 H (9-20) mg/dL Creatinine 0.64 L (0.66-1.25) mg/dL Glucose 111 H (74-99) mg/dL Calcium 8.8 (8.4-10.2) mg/dL AST 18 (17-59) U/L ALT 21 (21-72) U/L Alkaline Phosphatase 54 (38-126) U/L Total Protein 5.6 L (6.3-8.2) g/dL Albumin 3.0 L (3.5-5.0) g/dL Triglycerides 66 (<150) mg/dL Calcium panel 01/01/19 Range/Units 08:10 Calcium 8.8 (8.4-10.2) mg/dL Albumin 3.0 L (3.5-5.0) g/dL Pituitary panel 01/01/19 Range/Units 08:10 Sodium 140 (137-145) mmol/L Potassium 4.5 (3.5-5.1) mmol/L Chloride 107 (98-107) mmol/L Carbon Dioxide 28 (22-30) mmol/L BUN 21 H (9-20) mg/dL Creatinine 0.64 L (0.66-1.25) mg/dL Glucose 111 H (74-99) mg/dL Calcium 8.8 (8.4-10.2) mg/dL Adrenal panel 01/01/19 Range/Units 08:10 Sodium 140 (137-145) mmol/L Potassium 4.5 (3.5-5.1) mmol/L Chloride 107 (98-107) mmol/L Carbon Dioxide 28 (22-30) mmol/L BUN 21 H (9-20) mg/dL Creatinine 0.64 L (0.66-1.25) mg/dL Glucose 111 H (74-99) mg/dL Calcium 8.8 (8.4-10.2) mg/dL Total Bilirubin 1.2 (0.2-1.3) mg/dL AST 18 (17-59) U/L ALT 21 (21-72) U/L Alkaline Phosphatase 54 (38-126) U/L Total Protein 5.6 L (6.3-8.2) g/dL Albumin 3.0 L (3.5-5.0) g/dL
--- NOTE | 2019-01-01 18:25 | PN ---
PROGRESS NOTE DATE OF SERVICE: 01/01/2019. REASON FOR FOLLOWUP VISIT: 1. Lower extremity rash, possibly a bug bite. 2. Leukocytosis. INTERVAL HISTORY: The patient is currently afebrile. The patient has been breathing comfortably. Abdominal pain is improved. No further nausea, no vomiting. Has been started on a clear liquid diet today. No chest pain, shortness of breath. No cough and no worsening rash. PHYSICAL EXAMINATION: Blood pressure 156/83 with a pulse of 71, temperature 98.7. He is 96% on room air. General description is an elderly male up in the bed in no distress. Respiratory system unlabored breathing. Clear to auscultation anteriorly. Heart S1, S2. Regular rate and rhythm. Abdomen soft, no tenderness. EXTREMITIES: No edema of the feet. LEGS: Rash much improved. LABS: Hemoglobin 14.1, white count 20.4, BUN of 21, creatinine 0.64. DIAGNOSTIC IMPRESSION AND PLAN: 1. Patient with lower extremity rash more likely insect bite [place] this seemed to already has resolved. Will monitor closely. 2. Elevated white count, multifactorial, with possible steroid effect and a component of pancreatitis being managed by Gastroenterology. The patient is currently on merrem to continue. We will monitor clinical course closely. Continue supportive care. MMODL / IJN: [id number] / MTDD
--- NOTE | 2019-01-01 18:33 | P.PN ---
Subjective Progress Note Date: 01/01/19 This is a 73-year-old gentleman admitted with acute pancreatitis, dehydration and multiple other medical issues. Evaluated by infectious disease, surgery, GI with recommendations noted and appreciated. No surgical intervention recommended. Continues on Merrem as per ID, cultures pending. VANNA screen neg ative Afebrile, WBC trending down, 20.4. Significant improvement in amylase and lipase, down to 299 and 429. Renal function improving. Objective - Vital Signs Vital signs: Vital Signs Temp 98.7 F 01/01/19 14:27 Pulse 71 01/01/19 14:27 Resp 16 01/01/19 14:27 BP 166/83 01/01/19 14:27 Pulse Ox 96 01/01/19 14:27 Intake & Output 12/31/18 01/01/19 01/01/19 18:59 06:59 18:59 Output Total 700 1300 Balance -700 -1300 Output: Urine 700 1300 Other: Voiding Method Toilet Toilet Urinal Urinal # Voids 1 - Exam PHYSICAL EXAM: VITAL SIGNS: [As above] GENERAL: Sitting up in bed, no acute distress, HEENT: Pale, Conjunctivae normal. eyes normal. Oral mucosa dry. NECK: No JVD. No thyroid enlargement. No LNs CARDIOVASCULAR: S1, S2 regular.. No murmur RESPIRATION: Breath sounds diminished in the bases. No rhonchi or crackles. No wheezes No bronchial breathing. ABDOMEN: Soft, nondistended, mild upper /mid epigastric tenderness. No gua rding. no masses palpable.Bowel sounds heard. LEGS: No edema. no swelling PSYCHIATRY: Alert and oriented X3, mood and affect normal. NERVOUS SYSTEM: Cranial N 2-12 grossly normal. Moves all 4 limbs. Diffuse weakness No focal deficits. Skin: Medial thigh and foot rash improving - Labs CBC & Chem 7: 01/01/19 08:10 01/01/19 08:10 Labs: Abnormal Lab Results - Last 24 Hours (Table) 01/01/19 01/01/19 Range/Units 08:10 08:10 WBC 20.4 H (3.8-10.6) k/uL Neutrophils # 16.7 H (1.3-7.7) k/uL Lymphocytes # 0.8 L (1.0-4.8) k/uL Monocytes # 2.4 H (0-1.0) k/uL BUN 21 H (9-20) mg/dL Creatinine 0.64 L (0.66-1.25) mg/dL Glucose 111 H (74-99) mg/dL Total Protein 5.6 L (6.3-8.2) g/dL Albumin 3.0 L (3.5-5.0) g/dL Amylase 299 H (30-110) U/L Lipase 429 H (23-300) U/L Microbiology - Last 24 Hours (Table) 12/30/18 22:10 Blood Culture - Preliminary Blood No Growth after 24 hours Assessment and Plan Assessment: -Acute pancreatitis, etiology unclear -Dehydration -Rash on thigh and foot, without cellulitis, suspect insect bite -Leukocytosis secondary to acute pancreatitis and prior steroid use Plan: Continue on current medication regime ,monitoring and symptomatic treatmen t. Maintain IV fluid hydration, IV antibiotics of Merrem. Follow cultures closely. Diet advancement as per GI . Discharge planning in progress. The impression and plan of care has been dictated as directed. : I performed a history and examination of this patient, discussed the same with the dictator. I agree with the dictator's note ,documented as a scribe. Any additional findings or plans will be noted.
[2019-01-01] MEDS: PANTOPRAZOLE 40 MG/10 ML VIAL IVP SCH (20:00)
[2019-01-01] MEDS: ATORVASTATIN 20 MG TAB PO SCH (20:00)
[2019-01-02] MEDS: MEROPENEM 1 GM in SODIUM CHLORIDE 0.9% 100 ML IVPB SCH ×2 (07:28→16:16)
[2019-01-02] MEDS: LORATADINE 10 MG TAB PO SCH (07:33)
[2019-01-02] MEDS: PANTOPRAZOLE 40 MG/10 ML VIAL IVP SCH (07:33)
[2019-01-02] MEDS: MEMANTINE 5 MG TAB PO SCH ×2 (07:33→20:53)
[2019-01-02] MEDS: CALCIUM CARBONATE 500 MG CHEWABLE PO SCH (07:33)
[2019-01-02] MEDS: MULTIVITAMINS, THERA 1 EACH TAB PO SCH (07:33)
[2019-01-02] MEDS: ASPIRIN 81 MG PO SCH (07:33)
[2019-01-02 08:26] LABS: Basophils % (A) 0 %; Eosinophils # (A) 0.2 k/uL (0-0.7); Eosinophils % (A) 1 %; HCT 42.7 % (39.0-53.0); HGB 14.1 gm/dL (13.0-17.5); Lymphocytes # (A) 1.1 k/uL (1.0-4.8); Lymphocytes % (A) 6 %; MCH 30.2 pg (25.0-35.0); MCV 91.4 fL (80.0-100.0); Mean Platelet Volume 8.1; Monocytes # (A) 1.6 k/uL (0-1.0); Monocytes % (A) 9 %; Neutrophils % (A) 83 %; Platelet Count 260 k/uL (150-450); RBC 4.67 m/uL (4.30-5.90); RDW 13.5 % (11.5-15.5); WBC 18.2 k/uL (3.8-10.6)
[2019-01-02 08:37] LABS: African American GFR (CKD) >90 (>60 ml/min/1.73 sqM); Anion Gap 6 mmol/L; Blood Urea Nitrogen 15 mg/dL (9-20); Calcium 8.6 mg/dL (8.4-10.2); Carbon Dioxide 28 mmol/L (22-30); Chloride 103 mmol/L (98-107); Glucose 100 mg/dL (74-99); Non-African American GFR(CKD) >90 (>60 ml/min/1.73 sqM); Potassium 3.9 mmol/L (3.5-5.1); Sodium 137 mmol/L (137-145)
[2019-01-02] MEDS: SODIUM CHLORIDE 0.9% 1,000 ML IV SCH ×2 (08:58→16:13)
--- NOTE | 2019-01-02 10:35 | PN ---
PROGRESS NOTE DATE OF SERVICE: 01/02/2019 The patient is a 73 -year-old pleasant white male admitted to the hospital with 1st episode of acute severe pancreatitis. He is feeling much better today. He still has some epigastric discomfort but no nausea, vomiting. He is not taking any pain medications for the last 2 days. Complains of some constipation. No fever, chills, night sweats. PHYSICAL EXAMINATION: He appears comfortable. No apparent distress. VITAL SIGNS: Stable. Blood pressure is 166/83, pulse 71, temperature 97. HEENT examination unremarkable. Conjunctivae pink. Sclerae anicteric. Oral cavity no lesions. Neck no JVD or lymph node enlargement. Chest was clear to auscultation. HEART: Regular rate and rhythm. ABDOMEN: Soft. Bowel sounds are positive. Mild tenderness in the epigastric area. Extremities: No pedal edema. Skin no rashes. NEUROLOGIC: Alert and oriented x3. No focal deficits. LABS: From today WBC 18.2, hemoglobin 14.1, platelets are normal. BUN 15, creatinine 0.65. Lipase is down to 1 9. Fasting triglycerides 66. IgG4 levels are normal. IMPRESSION: 1. Acute severe pancreatitis, gradually improving. Lipase levels have normalized today. Overall, patient has significant clinical improvement. Etiology of pancreatitis remains unclear. So far, workup has been negative. The patient has no history of alcohol abuse. 2. Leukocytosis, probably related to acute pancreatitis. The patient on broad- spectrum antibiotics also. RECOMMENDATIONS: 1. We will advance to full liquid diet. 2. Pain medications as needed. 3. Increase ambulation. 4. Continue with antibiotics and we will follow the patient closely during her hospital stay. Thank you for this consultation. MMODL / IJN: [id number] /
--- NOTE | 2019-01-02 13:44 | P.PN ---
Subjective Progress Note Date: 01/02/19 CHIEF COMPLAINT: Acute pancreatitis HISTORY OF PRESENT ILLNESS: The patient is a 73-year-old male who presents with acute pancreatitis. He has history of epigastric abdominal pain including sepsis. He reports improvement of his epigastric abdominal pain and tolerated yogurt. He complains of gas pains. ROS: Mild nausea. He has bowel movements. No fevers or chills. No new chest pain. No productive sputum PHYSICAL EXAM: VITAL SIGNS: Reviewed CONSTITUTIONAL: Well developed and in no acute distress. EYES: Conjuctivae without sclera icterus. Extraocular movements grossly intact. HEAD, EARS, NOSE, THROAT: Moist buccal mucosa. Head is atraumatic, normocephalic. Hears conversational speech. No nasal drainage. NECK: Supple. No thyroidomegaly. RESPIRATORY: Non-labored respirations and equal bilateral excursions. CARDIOVASCULAR: Palpable 2+ radial pulses. Regular rate. Regular rhythm. ABDOMEN: Soft, mild tenderness along the epigastrium. No peritonitis. MUSCULOSKELETAL: No gross deformity of the lower extremities noted. No clubbing. No cyanosis. SKIN: Good skin turgor. Well perfused. NEUROLOGIC: Cranial nerves I through XII grossly intact. No focal or lateralizing signs. PSYCH: Appropriate affect. Alert and oriented to person, place and time. CLINCAL LABS: White blood cell count over 18,000 STUDIES: The abdomen and pelvis independently reviewed demonstrated a mild inflammation along the pancreas. Mild free fluid in the pelvis identified. RADIOLOGY: Report reviewed with finding of pancreatitis. ASSESSMENT: 1. Acute pancreatitis PLAN: 1. Continue current diet. 2. Repeat lipase. 3. No acute surgical intervention at this time. Objective - Vital Signs Vital signs: Vital Signs Temp 97.8 F 01/02/19 05:49 Pulse 74 01/02/19 05:49 Resp 14 01/02/19 05:49 BP 155/80 01/02/19 05:49 Pulse Ox 97 01/02/19 05:49 Intake & Output 01/01/19 01/02/19 01/02/19 18:59 06:59 18:59 Intake Total 200 Output Total 1300 600 Balance -1300 -600 200 Intake: Oral 200 Output: Urine 1300 600 Other: Voiding Method Toilet Urinal # Voids 1 - Labs CBC & Chem 7: 01/02/19 08:02 01/02/19 08:02 Labs: Abnormal Lab Results - Last 24 Hours (Table) 01/02/19 01/02/19 Range/Units 08:02 08:02 WBC 18.2 H (3.8-10.6) k/uL Neutrophils # 15.0 H (1.3-7.7) k/uL Monocytes # 1.6 H (0-1.0) k/uL Creatinine 0.65 L (0.66-1.25) mg/dL Glucose 100 H (74-99) mg/dL Microbiology - Last 24 Hours (Table) 12/30/18 22:10 Blood Culture - Preliminary Blood No Growth after 48 hours Assessment and Plan (1) Acute pancreatitis Current Visit: Yes Status: Acute Code(s): K85.90 - ACUTE PANCREATITIS WITHOUT NECROSIS OR INFECTION, UNSP SNOMED Code(s): 235774127 (2) Sepsis Current Visit: Yes Status: Acute Code(s): A41.9 - SEPSIS, UNSPECIFIED ORGANISM SNOMED Code(s): 82388289 (3) Epigastric pain Current Visit: Yes Status: Acute Code(s): R10.13 - EPIGASTRIC PAIN SNOMED Code(s): 45402426 (4) Leukocytosis Current Visit: Yes Status: Acute Code(s): D72.829 - ELEVATED WHITE BLOOD CELL COUNT, UNSPECIFIED SNOMED Code(s): 984397248
[2019-01-02] MEDS ORDERED: methylPREDNISolone SOD SUCCI 125 MG/2 ML VIAL IV STA (19:43)
[2019-01-02] MEDS ORDERED: diphenhydrAMINE 50 MG/ML 1 ML VIAL IVP PRN (19:44)
[2019-01-02] MEDS: ATORVASTATIN 20 MG TAB PO SCH (20:53)
--- NOTE | 2019-01-03 00:23 | PN ---
PROGRESS NOTE SUBJECTIVE: A 73-year-old white male with pancreatitis, leukocytosis, IV meropenem has been discontinued due to lip and mouth swelling and possible allergic reaction. His amylase and lipase are greatly improving. He is going to be added to soft diet from clear liquid diet. Possible discharge home in the next 24 to 48 hours because he is greatly improved. GI increased bowel sounds x4. Cardiovascular S1, S2. Lungs clear. Hematology negative Homans. PLAN: Continue current treatment for pancreatitis and advance diet. Stop antibiotics. His white count is normal and there is no signs of infection of the pancreas at this time and possible drug reaction. MMODL / IJN: [id number] /
[2019-01-03] MEDS: SODIUM CHLORIDE 0.9% 1,000 ML IV SCH ×2 (00:32→07:56)
[2019-01-03 06:07] VITALS: BP 172/85; PULSE 71; RESP 16; TEMP 98
[2019-01-03] MEDS: MULTIVITAMINS, THERA 1 EACH TAB PO SCH (07:30)
[2019-01-03] MEDS: MEMANTINE 5 MG TAB PO SCH (07:30)
[2019-01-03] MEDS: ASPIRIN 81 MG PO SCH (07:30)
[2019-01-03] MEDS: LORATADINE 10 MG TAB PO SCH (07:30)
[2019-01-03] MEDS: PANTOPRAZOLE 40 MG/10 ML VIAL IVP SCH (07:30)
[2019-01-03] MEDS: CALCIUM CARBONATE 500 MG CHEWABLE PO SCH (07:30)
--- NOTE | 2019-01-03 09:10 | P.PN ---
Subjective Progress Note Date: 01/03/19 CHIEF COMPLAINT: Acute pancreatitis HISTORY OF PRESENT ILLNESS: The patient is a 73-year-old male who presents with acute pancreatitis. Family is at bedside. He has tolerated his meal. He denies any abdominal pain. ROS: No fevers or chills. No new chest pain. No productive sputum PHYSICAL EXAM: VITAL SIGNS: Reviewed CONSTITUTIONAL: Well developed and in no acute distress. EYES: Conjuctivae without sclera icterus. Extraocular movements grossly intact. HEAD, EARS, NOSE, THROAT: Moist buccal mucosa. Head is atraumatic, normocephalic. Hears conversational speech. No nasal drainage. NECK: Supple. No thyroidomegaly. RESPIRATORY: Non-labored respirations and equal bilateral excursions. CARDIOVASCULAR: Palpable 2+ radial pulses. Regular rate. Regular rhythm. ABDOMEN: Soft, non-tender to palpation. MUSCULOSKELETAL: No gross deformity of the lower extremities noted. No clubbing. No cyanosis. SKIN: Good skin turgor. Well perfused. NEUROLOGIC: Cranial nerves I through XII grossly intact. No focal or lateralizing signs. PSYCH: Appropriate affect. Alert and oriented to person, place and time. CLINCAL LABS: White blood cell count pending. Previous 18,000. ASSESSMENT: 1. Acute pancreatitis 2. Leukocytosis PLAN: 1. Will advance to low fat diet 2. No surgical intervention needed at this time. Objective - Vital Signs Vital signs: Vital Signs Temp 98.0 F 01/03/19 04:41 Pulse 71 01/03/19 04:41 Resp 16 01/03/19 04:41 BP 172/85 01/03/19 04:41 Pulse Ox 96 01/03/19 04:41 Intake & Output 01/02/19 01/03/19 01/03/19 18:59 06:59 18:59 Intake Total 200 Output Total 900 950 Balance -700 -950 Intake: Oral 200 Output: Urine 900 950 Other: Voiding Method Toilet Toilet # Voids 2 # Bowel Movements 1 - Labs CBC & Chem 7: 01/02/19 08:02 01/02/19 08:02 Labs: Microbiology - Last 24 Hours (Table) 12/30/18 22:10 Blood Culture - Preliminary Blood No Growth after 72 hours Assessment and Plan (1) Acute pancreatitis Current Visit: Yes Status: Acute Code(s): K85.90 - ACUTE PANCREATITIS WITHOUT NECROSIS OR INFECTION, UNSP SNOMED Code(s): 736066351 (2) Sepsis Current Visit: Yes Status: Acute Code(s): A41.9 - SEPSIS, UNSPECIFIED ORGANISM SNOMED Code(s): 83482160 (3) Epigastric pain Current Visit: Yes Status: Acute Code(s): R10.13 - EPIGASTRIC PAIN SNOMED Code(s): 44023976 (4) Leukocytosis Current Visit: Yes Status: Acute Code(s): D72.829 - ELEVATED WHITE BLOOD CELL COUNT, UNSPECIFIED SNOMED Code(s): 396482342
--- NOTE | 2019-01-03 09:48 | PN ---
PROGRESS NOTE Patient is a 73-year-old pleasant white male admitted to the hospital with acute pancreatitis. He is feeling much better today. On a full liquid diet, tolerating well. Occasional epigastric discomfort, but has not taken any pain medications in the last few days. He reports no nausea, vomiting. He had 2 bowel movements this morning. No fever, chills, night sweats. Overall he feels much better. PHYSICAL EXAMINATION: He appears comfortable. No apparent distress. VITAL SIGNS: Stable. Blood pressure 172/85, pulse rate 71, temperature 98. HEENT: Examination unremarkable. Conjunctivae pink. Sclerae anicteric. Oral cavity no lesions. NECK: No JVD or lymph node enlargement. CHEST: Clear to auscultation. HEART: Regular rate and rhythm. ABDOMEN: Soft. There was very minimal tenderness in the epigastric area. Rest of the abdomen was benign. EXTREMITIES: No pedal edema. SKIN: No rashes. NEUROLOGIC: Alert and oriented x3. No focal deficits. LAB: Basic metabolic panel is within normal limits. CBC from today is still pending. IMPRESSION: 1. Acute pancreatitis with significant improvement in his symptoms on full liquid diet, tolerating well. Lipase is normalized yesterday. 2. Leukocytosis related to acute pancreatitis. The patient was started on broad- spectrum antibiotics with Merrem 3 days ago. RECOMMENDATIONS: 1. Repeat labs today. 2. Advance to low fat diet. 3. If his labs show resolving leukocytosis, he can be discharged home today or tomorrow with outpatient followup in 2-3 weeks. Thank you for this consultation. MMODL / IJN: [id number] /
[2019-01-03 09:56] LABS: Basophils % (A) 0 %; Eosinophils # (A) 0.1 k/uL (0-0.7); Eosinophils % (A) 1 %; HCT 40.2 % (39.0-53.0); HGB 13.1 gm/dL (13.0-17.5); Lymphocytes # (A) 0.5 k/uL (1.0-4.8); Lymphocytes % (A) 4 %; MCH 30.2 pg (25.0-35.0); MCHC 32.6 g/dL (31.0-37.0); MCV 92.5 fL (80.0-100.0); Mean Platelet Volume 8.5; Monocytes # (A) 0.5 k/uL (0-1.0); Monocytes % (A) 4 %; Neutrophils # (A) 9.5 k/uL (1.3-7.7); Neutrophils % (A) 90 %; Platelet Count 242 k/uL (150-450); RBC 4.34 m/uL (4.30-5.90); RDW 15.6 % (11.5-15.5); WBC 10.5 k/uL (3.8-10.6)
[2019-01-03 10:01] LABS: ALT 30 U/L (21-72); AST 23 U/L (17-59); African American GFR (CKD) >90 (>60 ml/min/1.73 sqM); Albumin 2.9 g/dL (3.5-5.0); Alkaline Phosphatase 49 U/L (38-126); Anion Gap 7 mmol/L; Blood Urea Nitrogen 19 mg/dL (9-20); Calcium 8.4 mg/dL (8.4-10.2); Carbon Dioxide 26 mmol/L (22-30); Chloride 103 mmol/L (98-107); Glucose 220 mg/dL (74-99); Non-African American GFR(CKD) >90 (>60 ml/min/1.73 sqM); Potassium 3.9 mmol/L (3.5-5.1); Sodium 136 mmol/L (137-145); Total Bilirubin 1.3 mg/dL (0.2-1.3); Total Protein 5.6 g/dL (6.3-8.2)
--- NOTE | 2019-01-04 06:10 | DS ---
DISCHARGE SUMMARY SUBJECTIVE: A 73-year-old white male admitted with pancreatitis, leukocytosis. Lipase is now normal. He is on regular food. Questionable allergic reaction to something possibly meropenem which was discontinued 24 hours ago. His white count is normal. No fevers. He will go home on no antibiotics. He is on regular diet. Lipase is normal. No abdominal pain. MEDS: See list. CONDITION: Stable. PROGNOSIS: Guarded. Ambulate as tolerated. Follow up in the office in 3 to 4 days. MMODL / IJN: [id number] /
== END 2019-01-03 12:25 | disposition home or self-care (01) | DRG 871 ==
LOC: EC 18:12 → 4MS4W 12-31 01:00
PROVIDERS: ADMIT Family Medicine; ATTEND Family Medicine
DX: A41.9 Sepsis, unspecified organism (principal); K85.90 Acute pancreatitis without necrosis or infection, unspecified; E87.2 Acidosis; E78.5 Hyperlipidemia, unspecified; E86.0 Dehydration; K59.00 Constipation, unspecified; Z79.82 Long term (current) use of aspirin; Z79.899 Other long term (current) drug therapy; Z87.442 Personal history of urinary calculi; Z91.048 Other nonmedicinal substance allergy status; S70.369A Insect bite (nonvenomous), unspecified thigh, initial encounter; T36.1X5A Adverse effect of cephalosporins and other beta-lactam antibiotics, initial encounter; R60.9 Edema, unspecified
CPT/HCPCS: 36415; 74177; 76705; 80048; 80053; 81003; 82150; 82787; 83605; 83690; 84478; 85025; 86038; 87040; 96361; 96365; 96375; 99285

== ENCOUNTER 2019-01-27 08:21 | Day surgery (SDC) | payer MEDICARE ==
[2019-01-22 14:49] VITALS: BMI 18.1
[~2019-01-27 08:21] MED LIST changes: +LACTATED RINGERS 1,000 ML IV SCH; -ceFAZolin IN SWFI 2 GM/20 ML SYRINGE IVP ONE
[2019-01-27 10:37] LABS: Glucose,Whole Blood 81 mg/dL (75-99)
--- NOTE | 2019-01-27 10:50 | P.GSHP ---
History of Present Illness H&P Date: 01/27/19 Chief Complaint: Right upper quadrant pain This is a 74-year-old male referred from Dr. German Crespo. Patient's has complaints of with right upper quadrant pain. He is worked up found have cholelithiasis. He presents today for laparoscopic cholecystectomy. Past Medical History Past Medical History: Hearing Disorder / Deafness, Hyperlipidemia, Memory Impairment, Osteoarthritis (OA) Additional Past Medical History / Comment(s): Uses hearing aids. Hx kidney stones X1. Weight loss over last 6 months, recent rash and hospitalization (12/818 - 01/03/19) for pancreatitis. Current generalized weakness, frequent pudding like bowel movements and more weight loss. History of Any Multi-Drug Resistant Organisms: None Reported Past Surgical History: Hernia Repair Additional Past Surgical History / Comment(s): Cataract surgery bilateral eyes, kidney stone surgery, circumcision. Past Anesthesia/Blood Transfusion Reactions: No Reported Reaction Past Psychological History: No Psychological Hx Reported Smoking Status: Former smoker Past Alcohol Use History: None Reported Additional Past Alcohol Use History / Comment(s): Smoked briefly as a teen. Past Drug Use History: None Reported - Past Family History Mother Family Medical History: Liver Disease Additional Family Medical History / Comment(s): Was a heavy drinker. Father Family Medical History: Cancer Additional Family Medical History / Comment(s): Prostate cancer. Medications and Allergies Home Medications Medication Instructions Recorded Confirmed Type Aspirin [Adult Low Dose Aspirin EC] 81 mg PO DAILY 05/09/17 01/22/19 History Simvastatin [Zocor] 40 mg PO HS 05/09/17 01/22/19 History Calcium Carbonate [Calcium] 600 mg PO DAILY 12/30/18 01/22/19 History Cetirizine HCl [Zyrtec] 10 mg PO DAILY 12/30/18 01/22/19 History Memantine HCl [Namenda] 5 mg PO BID 12/30/18 01/22/19 History Multivitamins, Thera [Multivitamin 1 tab PO DAILY 12/30/18 01/22/19 History (formulary)] Sulfamethox-Tmp 800-160Mg [Bactrim 1 tab PO BID 01/22/19 01/22/19 History DS 800-160 mg] Allergies Allergy/AdvReac Type Severity Reaction Status Date / Time meropenem Allergy Swelling Verified 01/27/19 10:04 mold Allergy Nausea & Verified 01/27/19 10:04 Vomiting Surgical - Exam Vital Signs Temp Pulse Resp BP Pulse Ox 98.5 F 59 L 18 157/73 100 01/27/19 10:07 01/27/19 10:07 01/27/19 10:07 01/27/19 10:01/27/19 10:07 - General well developed, well nourished, no distress - Eyes PERRL - ENT normal pinna - Neck no masses - Respiratory normal expansion - Cardiovascular Rhythm: regular - Abdomen Abdomen: soft, non tender Assessment and Plan Assessment: Right upper quadrant pain Cholelithiasis We will perform laparoscopic cholecystectomy.
[2019-01-27] MEDS ORDERED: ROCURONIUM BROMIDE 10 MG/ML 10 ML VIAL IV ONE (11:04)
[2019-01-27] MEDS ORDERED: fentaNYL (PF) 50 MCG/ML 2 ML AMP ONE (11:04)
[2019-01-27] MEDS ORDERED: GLYCOPYRROLATE 0.2 MG/ML 2 ML VIAL ONE (11:04)
[2019-01-27] MEDS ORDERED: LIDOCAINE 1% INJ 10MG/ML (20 ML MDV) ONE (11:04)
[2019-01-27] MEDS ORDERED: ESMOLOL 100 MG/10 ML VIAL ONE (11:04)
[2019-01-27] MEDS ORDERED: NEOSTIGMINE 1 MG/ML 10 ML VIAL ONE (11:04)
[2019-01-27] MEDS ORDERED: PROPOFOL 10 MG/ML 20 ML VIAL IV ONE (11:04)
[2019-01-27] MEDS ORDERED: BUPIVACAIN-EPI 0.25%-1:200,000 30 ML VIAL SQ ONE (11:34)
[2019-01-27] MEDS ORDERED: LACTATED RINGERS 1,000 ML IV ONE ×2 (11:51→14:49)
--- NOTE | 2019-01-27 12:01 | P.OP ---
Date of Procedure: 01/27/19 Preoperative Diagnosis: Cholecystitis Postoperative Diagnosis: Cholecystitis Procedure(s) Performed: Laparoscopic cholecystectomy Anesthesia: DENY Surgeon: Ezio Galan Estimated Blood Loss (ml): 5 Pathology: other (Gallbladder) Condition: stable Disposition: PACU Description of Procedure: The patient was placed on the operating table. The patient received a general endotracheal tube anesthesia. The patients abdomen was prepped and draped in the usual sterile fashion. Through an infraumbilical stab incision, the fascia of the anterior abdominal wall was grasped with a pair of Kochers and then the Veress needle was placed in the peritoneal cavity. Position of the Veress needle was confirmed with positive drop test. The abdomen was then insufflated. After adequate insufflation, the 10 mm trocar was placed in the peritoneal cavity. Following this the laparoscope was placed in the peritoneal cavity. The patient was placed in the head-up, right side up position and then a 5 mm trocar was placed in the right lateral and right subcostal position under direct visualization. A 8 mm trocar was placed in the epigastric position. The gallbladder was grasped in the fundus and infundibulum. Traction on the gallbladder was placed in the lateral and the cephalad positions. The triangle of Calot was visualized.. The cystic duct was bluntly dissected until the union of the cystic duct and common bile duct was seen. A critical view of safety was achieved. The cystic duct was then divided and sealed with the Harmonic scissors. A PDS Endoloop was then placed throughout the cystic duct stump. The cystic artery divided and sealed with the Harmonic scissors. The gallbladder was then removed from the liver bed using Harmonic scissors. The gallbladder was then extracted through the epigastric port site. Operative field was checked for any bleeding spots and Harmonic scissors was used to coagulate the liver bed. The abdomen was irrigated. The trocars were removed. The skin was closed using interrupted 3-0 Vicryl suture. Dermabond dressing were applied. The patient tolerated the procedure well.
[2019-01-27 12:17] VITALS: TEMP 97.1
[2019-01-27 14:37] VITALS: RESP 16
[2019-01-27 16:39] VITALS: BP 135/59; PULSE 54
== END 2019-01-27 17:02 | disposition home or self-care (01) ==
LOC: OR 08:21
PROVIDERS: ATTEND Surgery
DX: K81.1 Chronic cholecystitis (principal); H91.90 Unspecified hearing loss, unspecified ear; E78.5 Hyperlipidemia, unspecified; M19.90 Unspecified osteoarthritis, unspecified site; R41.3 Other amnesia; Z87.442 Personal history of urinary calculi; Z97.4 Presence of external hearing-aid; Z98.890 Other specified postprocedural states; Z98.42 Cataract extraction status, left eye; Z98.41 Cataract extraction status, right eye; Z87.19 Personal history of other diseases of the digestive system; Z87.891 Personal history of nicotine dependence; Z79.82 Long term (current) use of aspirin; Z79.2 Long term (current) use of antibiotics; Z79.899 Other long term (current) drug therapy; Z91.09 Other allergy status, other than to drugs and biological substances; Z88.1 Allergy status to other antibiotic agents; Z80.42 Family history of malignant neoplasm of prostate; Z83.79 Family history of other diseases of the digestive system; Z81.1 Family history of alcohol abuse and dependence
CPT/HCPCS: 88304

== ENCOUNTER → 2019-02-09 | Outpatient (CLI) | payer MEDICARE ==
--- NOTE | 2019-02-12 09:44 | US ---
EXAMINATION TYPE: US bladder DATE OF EXAM: 02/09/2019 COMPARISON: NONE CLINICAL HISTORY: R33.9 Urin Retention. EXAM MEASUREMENTS: Post Void Residual Volume: 254.59 mL Urinary bladder is sonolucent. Posterior wall is normal. Color Doppler performed to assess ureteral jets. Bilateral Jets seen: Yes Normal Post Void Residual (less than 50ml): no, 254.59 ml IMPRESSION: 1. Large post void residual.
== END | disposition home or self-care (01) ==
LOC: RADUSWWP 14:52
PROVIDERS: ATTEND Family Medicine
DX: R33.9 Retention of urine, unspecified (principal)
CPT/HCPCS: 76857

== ENCOUNTER → 2019-04-08 | Outpatient (CLI) | payer MEDICARE ==
[2019-04-08 12:38] LABS: Basophils % (A) 1 %; Eosinophils # (A) 0.1 k/uL (0-0.7); Eosinophils % (A) 3 %; HGB 12.7 gm/dL (13.0-17.5); Lymphocytes # (A) 1.6 k/uL (1.0-4.8); Lymphocytes % (A) 35 %; MCH 30.7 pg (25.0-35.0); MCHC 32.6 g/dL (31.0-37.0); MCV 94.2 fL (80.0-100.0); Monocytes # (A) 0.5 k/uL (0-1.0); Monocytes % (A) 11 %; Neutrophils # (A) 2.2 k/uL (1.3-7.7); Neutrophils % (A) 47 %; Platelet Count 300 k/uL (150-450); RBC 4.14 m/uL (4.30-5.90); RDW 13.1 % (11.5-15.5); WBC 4.6 k/uL (3.8-10.6)
[2019-04-08 19:53] LABS: Hemoglobin A1C 5.3 % (4.0-6.0)
[2019-04-08 20:16] LABS: African American GFR (CKD) 107.7 (60.0-200.0); Albumin 4.3 g/dL (3.80-4.90); Albumin/Globulin Ratio 2.05 (1.60-3.17); Anion Gap 8.2 mmol/L (4.00-12.00); BUN/Creat Ratio 28.57 Ratio (12.00-20.00); Calcium 9.4 mg/dL (8.7-10.3); Carbon Dioxide 27.8 mmol/L (21.6-31.8); Chol/HDL Ratio 2.14; Globulin 2.1 g/dL (1.6-3.3); LDL Cholesterol,Calculated 70.4 mg/dL (0.0-131.0); Potassium 4.7 mmol/L (3.5-5.5); Total Protein 6.4 g/dL (6.2-8.2); VLDL Calculation 11.6 mg/dL (5.00-40.00)
== END ==
LOC: LABWHC1 10:42
PROVIDERS: ATTEND Family Medicine
DX: Z00.00 Encounter for general adult medical examination without abnormal findings (principal); I10 Essential (primary) hypertension; B89 Unspecified parasitic disease; R97.20 Elevated prostate specific antigen [PSA]; Z79.899 Other long term (current) drug therapy
CPT/HCPCS: 36415; 80053; 80061; 83036; 84153; 84443; 85025

== ENCOUNTER → 2019-05-14 | Day surgery (SDC) | payer MEDICARE ==
[2019-05-12 09:33] VITALS: BMI 18.8
[~2019-05-14] MED LIST changes: -DEXAMETHASONE SOD PHOSPHATE 10 MG/ML 1 ML VIAL IV ONE; -HEPARIN SODIUM,PORCINE 5,000 UNIT/ML 1 ML VIAL SQ ONE; -HYDROmorphone 0.5 MG/0.5 ML SYRINGE IVP PRN; -LACTATED RINGERS 1,000 ML IV SCH; -MIDAZOLAM 2 MG/2 ML VIAL IV PRN; -ONDANSETRON 4 MG/2 ML VIAL IVP ONE; +PROPOFOL 10 MG/ML 20 ML VIAL IV ONE
[2019-05-14 09:29] VITALS: TEMP 97.8
[2019-05-14] MEDS: LACTATED RINGERS 1,000 ML IV SCH ×2 (09:38→09:39)
--- NOTE | 2019-05-14 09:57 | P.OP ---
Date of Procedure: 05/14/19 Preoperative Diagnosis: constipation Postoperative Diagnosis: normal colon Procedure(s) Performed: colonoscopy Anesthesia: MAC Surgeon: Ezoi Galan Pathology: none sent Condition: stable Disposition: PACU Description of Procedure: the patient's placed on the endoscopy table in the lateral position. SC IV sedation. Digital rectal exam was performed which revealed no abnormalities. The flexor colonoscope was then placed patient anus pasand passed throughout the colon. The scope was placed into the right colon. The ileocecal valve could not be visualized sigmoid tortuosity the valve. This point the scope was withdrawn. The ascending, transverse, descending and sigmoid colon was normal except for a few scattered diverticula. The patient had a very tortuous colon. Scope was then brought back the rectum this appeared normal. Scope withdrawn for patient.
--- NOTE | 2019-05-14 10:06 | P.GSHP ---
History of Present Illness H&P Date: 05/14/19 Chief Complaint: constipation this a 70 for male with history of constipation. Patient's today for colonoscopy. Past Medical History Past Medical History: Hearing Disorder / Deafness, Hyperlipidemia, Memory Impairment, Osteoarthritis (OA) Additional Past Medical History / Comment(s): Uses hearing aids. Hx kidney stones X1. recent hospitalization (12/818 - 01/03/19) for pancreatitis, had weight loss but slowly putting back on, frequent diarrhea, trouble emptying bladder completely since surg. WAS ON ANTIBIOTICS FOR BACTERIA IN COLON-LAST DOSE 05/08/19 History of Any Multi-Drug Resistant Organisms: None Reported Past Surgical History: Cholecystectomy, Hernia Repair Additional Past Surgical History / Comment(s): Cataract surgery bilateral eyes, kidney stone surgery, circumcision, lap airam 2018, COLONOSCOPY Past Anesthesia/Blood Transfusion Reactions: No Reported Reaction Additional Past Anesthesia/Blood Transfusion Reaction / Comment(s): slow to wake up after lap airam & trouble urinating, ended up w/acuña cath. for week post-op Smoking Status: Former smoker - Past Family History Mother Family Medical History: Liver Disease Additional Family Medical History / Comment(s): Was a heavy drinker. Father Family Medical History: Cancer Additional Family Medical History / Comment(s): Prostate cancer. Medications and Allergies Home Medications Medication Instructions Recorded Confirmed Type Aspirin [Adult Low Dose Aspirin EC] 81 mg PO DAILY 05/09/17 05/14/19 History Simvastatin [Zocor] 40 mg PO HS 05/09/17 05/14/19 History Calcium Carbonate [Calcium] 600 mg PO DAILY 12/30/18 05/14/19 History Cetirizine HCl [Zyrtec] 10 mg PO DAILY 12/30/18 05/14/19 History Memantine HCl [Namenda] 5 mg PO BID 12/30/18 05/14/19 History Multivitamins, Thera [Multivitamin 1 tab PO DAILY 12/30/18 05/14/19 History (formulary)] Alfuzosin HCl [Uroxatral ER] 10 mg PO DAILY 04/16/19 05/14/19 History Cholestyramine (with Sugar) 4 gm PO BID 04/16/19 05/14/19 History [Cholestyramine Packet] Donepezil [Aricept] 10 mg PO HS 04/16/19 05/14/19 History Allergies Allergy/AdvReac Type Severity Reaction Status Date / Time cephalexin Allergy Swelling Verified 05/14/19 09:22 meropenem Allergy Swelling Verified 05/14/19 09:22 mold Allergy Nausea & Verified 05/14/19 09:22 Vomiting Surgical - Exam Vital Signs Temp Pulse Resp BP Pulse Ox 97.8 F 58 L 18 143/66 98 05/14/19 09:27 05/14/19 09:27 05/14/19 09:27 05/14/19 09:27 05/14/19 09:27 - General well developed, well nourished, no distress - Eyes PERRL - ENT normal pinna - Neck no masses - Respiratory normal expansion - Cardiovascular Rhythm: regular - Abdomen Abdomen: soft, non tender Assessment and Plan Assessment: past patient. We'll perform colonoscopy
[2019-05-14 10:33] VITALS: BP 137/65; PULSE 52; RESP 16
== END | disposition home or self-care (01) ==
LOC: ORWHC2ENDO 09:07
PROVIDERS: ATTEND Surgery
DX: K57.30 Diverticulosis of large intestine without perforation or abscess without bleeding (principal); Q43.8 Other specified congenital malformations of intestine; K59.00 Constipation, unspecified; H91.90 Unspecified hearing loss, unspecified ear; E78.5 Hyperlipidemia, unspecified; R41.3 Other amnesia; M19.90 Unspecified osteoarthritis, unspecified site; Z87.442 Personal history of urinary calculi; Z90.49 Acquired absence of other specified parts of digestive tract; Z98.42 Cataract extraction status, left eye; Z98.41 Cataract extraction status, right eye; Z87.891 Personal history of nicotine dependence; Z83.79 Family history of other diseases of the digestive system; Z80.42 Family history of malignant neoplasm of prostate; Z79.82 Long term (current) use of aspirin; Z79.899 Other long term (current) drug therapy; Z88.1 Allergy status to other antibiotic agents; Z91.048 Other nonmedicinal substance allergy status
CPT/HCPCS: 45378; J2704

== ENCOUNTER → 2019-06-21 | Outpatient (CLI) | payer MEDICARE ==
--- NOTE | 2019-06-21 20:50 | XR ---
Thoracic spine HISTORY: Pain 3 views of the thoracic spine There is a spinal curvature present which could be positional. There is multilevel spondylosis. No ev ident paraspinal mass. Thoracic vertebral bodies show preserved height and alignment. There is multil evel spondylosis. Bone mineralization is reduced. IMPRESSION: Degenerative disc disease and osteopenia. Mild spinal curvature.
== END | disposition home or self-care (01) ==
LOC: RADXRMAIN 14:38
PROVIDERS: ATTEND Family Medicine
DX: M51.34 Other intervertebral disc degeneration, thoracic region (principal); M43.8X4 Other specified deforming dorsopathies, thoracic region
CPT/HCPCS: 72072

== ENCOUNTER → 2021-02-08 | Outpatient (CLI) | payer MEDICARE ==
[2021-02-08 11:38] LABS: Basophils # (A) 0.1 k/uL (0-0.2); Basophils % (A) 1 %; Eosinophils # (A) 0.2 k/uL (0-0.7); Eosinophils % (A) 3 %; HCT 40.4 % (39.0-53.0); HGB 13.6 gm/dL (13.0-17.5); Lymphocytes # (A) 1.7 k/uL (1.0-4.8); Lymphocytes % (A) 30 %; MCH 31.2 pg (25.0-35.0); MCHC 33.7 g/dL (31.0-37.0); MCV 92.4 fL (80.0-100.0); Mean Platelet Volume 8.5; Monocytes # (A) 0.6 k/uL (0-1.0); Monocytes % (A) 10 %; Neutrophils # (A) 2.9 k/uL (1.3-7.7); Neutrophils % (A) 53 %; Platelet Count 388 k/uL (150-450); RBC 4.37 m/uL (4.30-5.90); RDW 13.2 % (11.5-15.5); WBC 5.5 k/uL (3.8-10.6)
== END | disposition home or self-care (01) ==
LOC: LABPAT 10:24
PROVIDERS: ATTEND Urology
DX: Z01.812 Encounter for preprocedural laboratory examination (principal); N40.1 Benign prostatic hyperplasia with lower urinary tract symptoms
CPT/HCPCS: 36415; 85025

== ENCOUNTER 2021-02-15 07:00 | Day surgery (SDC) | payer MEDICARE ==
--- NOTE | 2021-02-14 06:53 | P.GSHP ---
History of Present Illness H&P Date: 02/12/21 Chief Complaint: Weak urinary stream The patient is a 76-year-old white male with a long history of BPH. He underwent cystolithotripsy in 2010. He experienced urinary retention in 2019. He is currently taking alfuzosin but feels that his voiding symptoms are inadequately controlled. The postvoid residual is 201 mL. cystoscopy shows bilobar BPH, with no bladder calculi. His primary symptoms are weak urinary stream, straining, intermittency, nocturia, and a feeling of incomplete emptying. - EENT Ears: bilateral: decreased hearing - Genitourinary (Male) Genitourinary: Reports as per HPI Past Medical History Past Medical History: Hearing Disorder / Deafness, Hyperlipidemia, Memory Impairment, Osteoarthritis (OA) Additional Past Medical History / Comment(s): Uses hearing aids. Hx kidney stones X1. recent hospitalization (12/818 - 01/03/19) for pancreatitis, had weight loss but slowly putting back on, frequent diarrhea, trouble emptying bladder completely since surg. WAS ON ANTIBIOTICS FOR BACTERIA IN COLON-LAST DOSE 05/08/19 History of Any Multi-Drug Resistant Organisms: None Reported Past Surgical History: Cholecystectomy, Hernia Repair Additional Past Surgical History / Comment(s): Cataract surgery bilateral eyes, kidney stone surgery, circumcision, lap airam 2018, COLONOSCOPY Past Anesthesia/Blood Transfusion Reactions: No Reported Reaction Additional Past Anesthesia/Blood Transfusion Reaction / Comment(s): slow to wake up after lap airam & trouble urinating, ended up w/acuña cath. for week post-op Past Psychological History: No Psychological Hx Reported Past Alcohol Use History: None Reported Additional Past Alcohol Use History / Comment(s): Smoked briefly as a teen. Past Drug Use History: None Reported - Past Family History Mother Family Medical History: Liver Disease Additional Family Medical History / Comment(s): Was a heavy drinker. Father Family Medical History: Cancer Additional Family Medical History / Comment(s): Prostate cancer. Medications and Allergies Home Medications Medication Instructions Recorded Confirmed Type Aspirin [Adult Low Dose Aspirin EC] 81 mg PO DAILY 05/09/17 05/14/19 History Simvastatin [Zocor] 40 mg PO HS 05/09/17 05/14/19 History Calcium Carbonate [Calcium] 600 mg PO DAILY 12/30/18 05/14/19 History Cetirizine HCl [Zyrtec] 10 mg PO DAILY 12/30/18 05/14/19 History Memantine HCl [Namenda] 5 mg PO BID 12/30/18 05/14/19 History Multivitamins, Thera [Multivitamin 1 tab PO DAILY 12/30/18 05/14/19 History (formulary)] Alfuzosin HCl [Uroxatral ER] 10 mg PO DAILY 04/16/19 05/14/19 History Cholestyramine (with Sugar) 4 gm PO BID 04/16/19 05/14/19 History [Cholestyramine Packet] Donepezil [Aricept] 10 mg PO HS 04/16/19 05/14/19 History Allergies Allergy/AdvReac Type Severity Reaction Status Date / Time cephalexin Allergy Swelling Verified 05/14/19 09:22 meropenem Allergy Swelling Verified 05/14/19 09:22 mold Allergy Nausea & Verified 05/14/19 09:22 Vomiting Surgical - Exam - General well developed, no distress - Respiratory normal respiratory effort - Abdomen Abdomen: soft, non tender, no guarding, no rigid, no rebound - Genitourinary normal penis with no external lesions, testicles non-tender - Psychiatric oriented to time, oriented to person, oriented to place, speech is normal, tara ry intact Assessment and Plan (1) Benign prostatic hyperplasia with lower urinary tract symptoms Status: Acute Code(s): N40.1 - BENIGN PROSTATIC HYPERPLASIA WITH LOWER URINARY TRACT SYMP SNOMED Code(s): 416513908 Plan: I have discussed alternative BPH treatment options with the patient and his ., along with the various treatments. These treatments include continued treatment with alfuzosin, the addition of finasteride, minimally invasive therapies, and transurethral resection of prostate (TURP). After weighing the pros and cons of each, he has elected to undergo a TURP. He is aware of potential risks, which include anesthesia, bleeding, infection, retrograde ejaculation, incontinence, erectile dysfunction, and vesical neck contracture.
[2021-02-14 08:49] VITALS: BMI 18.1
[~2021-02-15 07:00] MED LIST changes: +CLINDAMYCIN 900 MG in DEXTROSE 5% IN WATER 50 ML IVPB PRN; +GENTAMICIN 260 MG in SODIUM CHLORIDE 0.9% 100 ML IVPB PRN; -PROPOFOL 10 MG/ML 20 ML VIAL IV ONE
[2021-02-15] MEDS ORDERED: HYDROmorphone 0.5 MG/0.5 ML SYRINGE IVP PRN (07:22)
[2021-02-15] MEDS ORDERED: ONDANSETRON 4 MG/2 ML VIAL IVP ONE (07:22)
[2021-02-15] MEDS ORDERED: DEXAMETHASONE SOD PHOSPHATE 4 MG/ML 1 ML VIAL IV ONE (07:22)
[2021-02-15] MEDS ORDERED: LACTATED RINGERS 1,000 ML IV SCH (07:22)
[2021-02-15] MEDS ORDERED: NEOSTIGMINE 1 MG/ML 10 ML VIAL ONE (09:04)
[2021-02-15] MEDS ORDERED: LIDOCAINE 1% INJ 10MG/ML (20 ML MDV) ONE (09:04)
[2021-02-15] MEDS ORDERED: SUCCINYLCHOLINE CHLORIDE 100 MG/5 ML SYR IV ONE (09:04)
[2021-02-15] MEDS ORDERED: GLYCOPYRROLATE 0.2 MG/ML 2 ML VIAL ONE (09:04)
[2021-02-15] MEDS ORDERED: PROPOFOL 10 MG/ML 20 ML VIAL IV ONE (09:04)
[2021-02-15] MEDS ORDERED: ROCURONIUM 10 MG/ML (5 ML VIAL) IV ONE (09:04)
[2021-02-15] MEDS ORDERED: fentaNYL (PF) 50 MCG/ML 2 ML AMP ONE (09:04)
--- NOTE | 2021-02-15 10:50 | P.OP ---
Date of Procedure: 02/15/21 Preoperative Diagnosis: BPH with obstruction Postoperative Diagnosis: Same Procedure(s) Performed: Cystoscopy, bipolar transurethral resection of prostate (TURP) Anesthesia: DENY Surgeon: Erik Valencia Estimated Blood Loss (ml): 30 IV fluids (ml): 500 Pathology: other (Prostate tissue, prostatic calculi) Condition: stable Disposition: PACU Indications for Procedure: The patient is a 76-year-old white male with a long history of BPH. He underwent cystolithotripsy in 2010. He experienced urinary retention in 2019. He is currently taking alfuzosin but feels that his voiding symptoms are inadequately controlled. The postvoid residual is 201 mL. cystoscopy shows bilobar BPH, with no bladder calculi. His primary symptoms are weak urinary stream, straining, intermittency, nocturia, and a feeling of incomplete emptying. Operative Findings: Bilobar BPH Description of Procedure: The patient was taken in the operating room and placed in the dorsolithotomy position. The external genitalia was prepped and draped sterilely. The 25- Setswana ACMI resectoscope sheath was introduced into the bladder. The bladder was inspected. Both ureteral orifices were of normal anatomic location and con figuration, and clear urine effluxed from both. No tumors or foreign bodies were seen. Examination of the prostate revealed complete obstruction with a bilobar configuration and a high median bar. Using the bipolar cutting loop, the lateral lobes were resected down to the surgical capsule. The floor of the prostate was then resected, proximal to the verumontanum. Next, the remaining anterior tissue was resected. The residual apical tissue was then carefully resected, with care taken to avoid injury to the external urinary sphincter. The resection was carried down to the surgical capsule in all 4 quadrants. Multiple bladder calculi were removed, particularly from the left apex. The resection didn't extend subtrigonal he to some degree. The prostatic fossa was carefully examined, and any areas of bleeding were controlled with electrocautery. Excellent hemostasis was attained. The resectoscope was withdrawn into the bulbous urethra. The external urinary sphincter remained int act. The prostatic fossa was open. All prostate chips and calculi were removed from the bladder. These were saved and sent for pathologic examination. A 0.038 inch Glidewire was passed through the resectoscope and into the bladder, where it coiled. The resectoscope was removed, and an 18 Setswana Romano catheter was placed over the wire. The return was essentially clear. The patient tolerated the procedure well was taken to the recovery room in stable condition.
[2021-02-15 10:53] VITALS: TEMP 97
[2021-02-15 13:11] VITALS: BP 130/70; PULSE 68; RESP 20
== END 2021-02-15 13:12 | disposition home or self-care (01) ==
LOC: OR 07:00
PROVIDERS: ATTEND Urology
DX: N40.1 Benign prostatic hyperplasia with lower urinary tract symptoms (principal); N13.8 Other obstructive and reflux uropathy; N41.0 Acute prostatitis; N41.1 Chronic prostatitis; R33.8 Other retention of urine; H91.90 Unspecified hearing loss, unspecified ear; R35.1 Nocturia; R39.12 Poor urinary stream; E78.5 Hyperlipidemia, unspecified; F03.90 Unspecified dementia, unspecified severity, without behavioral disturbance, psychotic disturbance, mood disturbance, and anxiety; Z87.442 Personal history of urinary calculi; Z90.49 Acquired absence of other specified parts of digestive tract; Z87.891 Personal history of nicotine dependence; Z97.4 Presence of external hearing-aid; Z88.1 Allergy status to other antibiotic agents; Z91.09 Other allergy status, other than to drugs and biological substances; Z83.79 Family history of other diseases of the digestive system; Z79.899 Other long term (current) drug therapy; Z79.82 Long term (current) use of aspirin
CPT/HCPCS: 52601; 88305; 87635; C1769; J1100; J2710; J2405; J2001; J3010; J1580; J0330; J2704

== ENCOUNTER → 2021-04-12 | Outpatient (CLI) | payer MEDICARE ==
--- NOTE | 2021-04-12 12:43 | NM ---
EXAMINATION TYPE: NM stress lexiscan cardiolite DATE OF EXAM: 04/12/2021 COMPARISON: NONE HISTORY: Abnormal EKG TECHNIQUE: After the intravenous administration of 9.8 mCi Tc 99m Sestamibi - Cardiolite resting SPE CT images acquired 45 minutes post injection. The patient received 0.4mg Lexiscan, 26.1 mCi Tc 99m Sestamibi - Stress images obtained [address] injection FINDINGS: Review of stress and rest SPECT images demonstrates no distinct perfusion abnormality. Gated analysi s shows normal wall motion with an estimated left ventricular ejection fraction of 52 %. IMPRESSION: No scintigraphic evidence for reversible ischemia.
--- NOTE | 2021-04-12 12:44 | P.STRESS ---
- Stress Test Note Stress Test Results/Findings: Exam Performed: NM stress lexiscan cardiolite Exam Date: 04/12/21 Reason for Exam: Abnormal EKG Height: 5 ft 9 in Weight: 56.699 kg Protocol: Lexiscan Stage: na Duration of Exercise: na Resting Heart Rate: 52 Resting Blood Pressure: 115/76 Maximum Achieved Heart Rate: 89 Maximum Achieved Blood Pressure: 140/71 85% PMHR: 122 100% PMHR: 144 METS: na Technologist Comment: Stress Test Results/Findings: At baseline EKG showed normal sinus rhythm, normal axis, incomplete left bundle branch block, nonspecific 0.[address] depressions in the inferior and lateral leads. Patient recieved IV infusion of Lexiscan 0.4mg and at peak infusion EKG showed no significant change from baseline. Conclusions: 1. Normal EKG response to Lexiscan infusion 2. Nuclear imaging to be reported separately.
== END | disposition home or self-care (01) ==
LOC: RADNMMAIN 07:28
PROVIDERS: ATTEND Family Medicine
DX: R94.31 Abnormal electrocardiogram [ECG] [EKG] (principal)
CPT/HCPCS: 93017; 78452; A9500

== ENCOUNTER 2021-06-20 13:34 | Emergency (ER) | payer MEDICARE ==
[2021-06-20 13:44] VITALS: BP 147/77; PULSE 65; RESP 18; TEMP 97.2
[2021-06-20] MEDS ORDERED: DIPH,PERTUS(ACELL)TETVAC-LF 0.5 ML VIAL IM ONE (14:21)
[2021-06-20] MEDS ORDERED: LIDOCAINE/EPINEPHR/TETRACAINE 5 ML BOTTLE TOPICAL ONE (14:26)
[2021-06-20] MEDS ORDERED: LIDOCAINE 1% INJ 10MG/ML (20 ML MDV) SQ ONE (14:27)
--- NOTE | 2021-06-20 14:32 | ED ---
General Adult HPI - General Chief complaint: Wound/Laceration Stated complaint: fall, head injury Time Seen by Provider: 06/20/21 14:20 Source: patient, family, RN notes reviewed Mode of arrival: ambulatory Limitations: no limitations - History of Present Illness Initial comments: Well-appearing 76-year-old male, alert and oriented 4, presents to the e mergency room after tripping and falling over the dog this morning around 9:30 - 10 AM. Patient states he hit the left side of his head on the floor sustaining the laceration. He did not lose consciousness. His family member put a dressing on it. They did go to urgent care and they sent him to ER for CAT scan. Patient denies any pain at this time. He is not sure if his tetnus is up-to-date. -: hour(s) (5) Location: head (Above left eye) Severity scale (1-10): 0 Treatments Prior to Arrival: other (bandage) - Related Data Home Medications Medication Instructions Recorded Confirmed Aspirin [Adult Low Dose Aspirin EC] 81 mg PO DAILY 05/09/17 02/15/21 Simvastatin [Zocor] 40 mg PO DAILY 05/09/17 02/15/21 Calcium Carbonate [Calcium] 600 mg PO DAILY 12/30/18 02/15/21 Cetirizine HCl [Zyrtec] 10 mg PO BID 12/30/18 02/15/21 Memantine HCl [Namenda] 5 mg PO BID 12/30/18 02/15/21 Multivitamins, Thera [Multivitamin 1 tab PO DAILY 12/30/18 02/15/21 (formulary)] Alfuzosin HCl [Uroxatral ER] 10 mg PO DAILY 04/16/19 02/15/21 Donepezil [Aricept] 10 mg PO HS 04/16/19 02/15/21 Dicyclomine HCl 20 mg PO QID 02/14/21 02/15/21 Previous Rx's Medication Instructions Recorded Ciprofloxacin HCl [Cipro] 250 mg PO Q12HR #10 tablet 02/15/21 Allergies Allergy/AdvReac Type Severity Reaction Status Date / Time cephalexin Allergy Swelling Verified 06/20/21 13:44 meropenem Allergy Swelling Verified 06/20/21 13:44 mold Allergy Nausea & Verified 06/20/21 13:44 Vomiting sulfamethoxazole Allergy Swelling Verified 06/20/21 13:44 [From Bactrim] trimethoprim [From Bactrim] Allergy Swelling Verified 06/20/21 13:44 Review of Systems ROS Statement: Those systems with pertinent positive or pertinent negative responses have been documented in the HPI. ROS Other: All systems not noted in ROS Statement are negative. Past Medical History Past Medical History: Hearing Disorder / Deafness, Hyperlipidemia, Memory Impairment, Osteoarthritis (OA) Additional Past Medical History / Comment(s): Uses hearing aids. Hx kidney stones X1. recent hospitalization (12/818 - 01/03/19) for pancreatitis, had weight loss but slowly putting back on, frequent diarrhea, trouble emptying bladder completely since surg. WAS ON ANTIBIOTICS FOR BACTERIA IN COLON-LAST DOSE 05/08/19 History of Any Multi-Drug Resistant Organisms: None Reported Past Surgical History: Bladder Surgery Additional Past Surgical History / Comment(s): Cataract surgery bilateral eyes, kidney stone surgery, circumcision, lap airam 2018, COLONOSCOPY Past Anesthesia/Blood Transfusion Reactions: No Reported Reaction Additional Past Anesthesia/Blood Transfusion Reaction / Comment(s): slow to wake up after lap airam & trouble urinating, ended up w/acuña cath. for week post-op Past Psychological History: No Psychological Hx Reported Smoking Status: Never smoker Past Alcohol Use History: None Reported Past Drug Use History: None Reported - Past Family History Mother Family Medical History: Liver Disease Additional Family Medical History / Comment(s): Was a heavy drinker. Father Family Medical History: Cancer Additional Family Medical History / Comment(s): Prostate cancer. Sister(s) Family Medical History: Unable to Obtain General Exam Limitations: no limitations General appearance: alert, in no apparent distress Head exam: Present: other (Irregular 1 cm laceration left outer edge of eyebrow) Eye exam: Present: normal appearance, EOMI. Absent: scleral icterus, conjunctival injection, nystagmus Neck exam: Present: normal inspection, full ROM. Absent: tenderness, meningismus, lymphadenopathy, thyromegaly Respiratory exam: Present: normal lung sounds bilaterally. Absent: respiratory distress, wheezes, rales, rhonchi, stridor Cardiovascular Exam: Present: regular rate, normal rhythm, normal heart sounds. Absent: systolic murmur, diastolic murmur, rubs, gallop, clicks, JVD GI/Abdominal exam: Present: soft Neurological exam: Present: alert, oriented X3 Psychiatric exam: Present: normal affect, normal mood Skin exam: Present: warm, dry, normal color, other (Irregularly-shaped laceration to the left outer upper orbital edge). Absent: rash, cyanosis, diaphoretic, petechiae, pallor Course Vital Signs 06/20/21 13:38 Temperature 97.2 F L Pulse Rate 65 Respiratory 18 Rate Blood Pressure 147/77 O2 Sat by Pulse 97 Oximetry Procedures - Laceration Laceration #1 Consent Obtained: verbal consent Indication: laceration Site: face Size (cm): 2 Description: irregular Depth: simple, single layer Sedation/Analgesia: none Anesthetic Used: lidocaine 1% (LET) Pre-repair: irrigated extensively Size of Sutures: 6-0 Number of Sutures: 4 Technique: simple, interrupted Patient Tolerated Procedure: well Medical Decision Making - Medical Decision Making 76-year-old male presents to the emergency room after tripping over the dog today hitting his head on the floor in the house. Denies loss of consciousness. He does have a approximately 2 cm irregularly shaped laceration above the left eye. This wound copiously irrigated with saline and was closed with 4 sutures a nd butterfly strips. patient's tetanus shot was updated at this visit. CT of the brain was negative for skull fracture or intracranial bleed, no acute process noted. Patient was instructed to follow up with his primary care doctor within the next 5-7 days for suture removal. Return to the emergency room with any new or concerning symptoms including signs of infection increased pain or drainage. Case discussed with Dr. Hanley Disposition Clinical Impression: Laceration Disposition: HOME SELF-CARE Condition: Good Additional Instructions: Keep wound clean and dry. Return to emergency room if any new or concerning symptoms. Sutures to be removed in the next 5-7 days. You can see your primary care doctor or return to the emergency room for suture removal. Is patient prescribed a controlled substance at d/c from ED?: No Referrals: German Galo MD [Primary Care Provider] - 1-2 days Time of Disposition: 15:34
--- NOTE | 2021-06-20 14:57 | CT ---
EXAMINATION TYPE: CT brain wo con DATE OF EXAM: 06/20/2021 HISTORY: fall, right eye laceration CT DLP: 1099.4 mGycm. Automated Exposure Control for Dose Reduction was Utilized. TECHNIQUE: CT scan of the head is performed without contrast. COMPARISON: None. FINDINGS: There is no acute intracranial hemorrhage or midline shift identified. There is moderate to borderline severe diffuse ventricular and sulcal prominence consistent with diffuse cerebral atrop hy. There is mild to moderate low-attenuation in the periventricular white matter greatest over the bilateral parietal-occipital regions consistent with chronic small vessel ischemic change in patient this age. The globes are intact and the visualized sinuses are clear. The calvarium is intact. Ove rlying bandage or gauze material left lateral supraorbital region. Partial visualization of air fluid level in the left maxillary sinus otherwise paranasal sinuses are clear. There is elongated appearan ce to both lobes only partially imaged. IMPRESSION: No acute intracranial hemorrhage or midline shift. There is moderate to severe diffuse cerebral atrophy and mild to moderate chronic small vessel ischemic change along with left maxillary sinus disease all noted.
== END 2021-06-20 16:04 | disposition home or self-care (01) ==
LOC: EC 13:34
DX: S01.81XA Laceration without foreign body of other part of head, initial encounter (principal); E78.5 Hyperlipidemia, unspecified; Z91.048 Other nonmedicinal substance allergy status; Z88.8 Allergy status to other drugs, medicaments and biological substances; Z88.1 Allergy status to other antibiotic agents; Z88.2 Allergy status to sulfonamides; Z79.899 Other long term (current) drug therapy; Z23 Encounter for immunization; W01.0XXA Fall on same level from slipping, tripping and stumbling without subsequent striking against object, initial encounter; Y92.009 Unspecified place in unspecified non-institutional (private) residence as the place of occurrence of the external cause
CPT/HCPCS: 70450; 90715; 99283; 12011; 90471; J2001

== ENCOUNTER 2023-07-04 20:20 | Inpatient (IN) | payer MEDICARE ==
[2023-07-04 20:54] LABS: Glucose,Whole Blood 152 mg/dL (70-110)
[2023-07-04 20:55] LABS: Basophils % (A) 0 %; Eosinophils # (A) 0.2 k/uL (0-0.7); Eosinophils % (A) 1 %; Lymphocytes # (A) 0.5 k/uL (1.0-4.8); Lymphocytes % (A) 3 %; MCH 30.3 pg (25.0-35.0); MCHC 33.3 g/dL (31.0-37.0); MCV 91.1 fL (80.0-100.0); Monocytes # (A) 0.9 k/uL (0-1.0); Monocytes % (A) 5 %; Neutrophils % (A) 91 %; Platelet Count 206 k/uL (150-450); RBC 4.28 m/uL (4.30-5.90); RDW 12.7 % (11.5-15.5); WBC 18.8 k/uL (3.8-10.6)
[2023-07-04 21:05] LABS: INR 0.9 (<1.2); Partial Thromboplastin Time 25.4 sec (22.0-30.0); Prothrombin Time 10.3 sec (10.0-12.5)
--- NOTE | 2023-07-04 21:12 | ED ---
Fever HPI - General Chief Complaint: Altered Mental Status Stated Complaint: ALTER MENTAL Time Seen by Provider: 07/04/23 20:23 Source: family, EMS, RN notes reviewed, old records reviewed Mode of arrival: EMS Limitations: altered mental status - History of Present Illness Initial Comments: This is a 78-year-old male to the ER for evaluation today. Patient presents today for evaluation of severe altered mental status not acting appropriate for a few days at home now per family, patient has significant fever on arrival to the ER but is completely altered unable to provide history MD Complaint: fever, malaise, weakness -: days(s) Temperature Source: subjective Context: sick contacts Associated Symptoms: chills, rigors, myalgias Treatments Prior to Arrival: none - Related Data Home Medications Medication Instructions Recorded Confirmed Aspirin [Adult Low Dose Aspirin EC] 81 mg PO HS 05/09/17 07/04/23 Simvastatin [Zocor] 40 mg PO HS 05/09/17 07/04/23 Memantine HCl [Namenda] 5 mg PO BID 12/30/18 07/04/23 Donepezil [Aricept] 10 mg PO DAILY 04/16/19 07/04/23 Cyclobenzaprine [Flexeril] 5 mg PO DAILY PRN 07/04/23 07/04/23 Furosemide [Lasix] 20 mg PO DAILY 07/04/23 07/04/23 Lactase [Lactaid] 3,000 unit PO DAILY 07/04/23 07/04/23 Montelukast [Singulair] 10 mg PO DAILY 07/04/23 07/04/23 Omeprazole 40 mg PO DAILY 07/04/23 07/04/23 Previous Rx's Medication Instructions Recorded Acetaminophen Tab [Tylenol] 650 mg PO Q6HR PRN tab 07/11/23 Folic Acid 1 mg PO DAILY@1200 tab 07/11/23 Ibuprofen [Motrin] 400 mg PO Q6HR PRN tab 07/11/23 Lacosamide [Vimpat] 50 mg PO BID #60 tab 07/11/23 Multivitamins, Thera [Multivitamin 1 each PO DAILY@1200 tab 07/11/23 (formulary)] Tamsulosin [Flomax] 0.4 mg PO PC-BRKFST cap 07/11/23 Thiamine [Vitamin B-1] 100 mg PO BID-W/MEALS tab 07/11/23 Allergies Allergy/AdvReac Type Severity Reaction Status Date / Time cephalexin Allergy Swelling Verified 07/04/23 22:35 meropenem Allergy Swelling Verified 07/04/23 22:35 mold Allergy Nausea & Verified 07/04/23 22:35 Vomiting sulfamethoxazole Allergy Swelling Verified 07/04/23 22:35 [From Bactrim] trimethoprim [From Bactrim] Allergy Swelling Verified 07/04/23 22:35 Review of Systems ROS Statement: Those systems with pertinent positive or pertinent negative responses have been documented in the HPI. ROS Other: All systems not noted in ROS Statement are negative. Past Medical History Past Medical History: Hearing Disorder / Deafness, Hyperlipidemia, Memory Impairment, Osteoarthritis (OA) Additional Past Medical History / Comment(s): Uses hearing aids. Hx kidney stones X1. recent hospitalization (12/818 - 01/03/19) for pancreatitis, had weight loss but slowly putting back on, frequent diarrhea, trouble emptying bladder completely since surg. WAS ON ANTIBIOTICS FOR BACTERIA IN COLON-LAST DOSE 05/08/19 History of Any Multi-Drug Resistant Organisms: None Reported Past Surgical History: Bladder Surgery Additional Past Surgical History / Comment(s): Cataract surgery bilateral eyes, kidney stone surgery, circumcision, lap airam 2018, COLONOSCOPY Past Anesthesia/Blood Transfusion Reactions: No Reported Reaction Additional Past Anesthesia/Blood Transfusion Reaction / Comment(s): slow to wake up after lap airam & trouble urinating, ended up w/acuña cath. for week post-op Past Psychological History: No Psychological Hx Reported Smoking Status: Never smoker Past Alcohol Use History: None Reported Past Drug Use History: None Reported - Past Family History Mother Family Medical History: Liver Disease Additional Family Medical History / Comment(s): Was a heavy drinker. Father Family Medical History: Cancer Additional Family Medical History / Comment(s): Prostate cancer. Sister(s) Family Medical History: Unable to Obtain General Exam Limitations: altered mental status General appearance: alert, anxious, in distress Head exam: Present: atraumatic, normocephalic, normal inspection Eye exam: Present: normal appearance, PERRL, EOMI. Absent: scleral icterus, conjunctival injection, periorbital swelling ENT exam: Present: normal exam, mucous membranes moist Neck exam: Present: normal inspection. Absent: tenderness, meningismus, lymp hadenopathy Respiratory exam: Present: normal lung sounds bilaterally. Absent: respiratory distress, wheezes, rales, rhonchi, stridor Cardiovascular Exam: Present: normal rhythm, tachycardia, normal heart sounds. Absent: systolic murmur, diastolic murmur, rubs, gallop, clicks GI/Abdominal exam: Present: soft, normal bowel sounds. Absent: distended, tenderness, guarding, rebound, rigid Extremities exam: Present: normal inspection, full ROM, normal capillary refill. Absent: tenderness, pedal edema, joint swelling, calf tenderness Back exam: Present: normal inspection Neurological exam: Present: alert, oriented X3, CN II-XII intact Psychiatric exam: Present: normal affect, normal mood Skin exam: Present: warm, dry, intact, normal color. Absent: rash Course Vital Signs 07/04/23 07/05/23 07/05/23 20:24 00:27 01:06 Temperature 102.4 F H 97.9 F Pulse Rate 111 H 96 Respiratory 22 22 Rate Blood Pressure 150/85 150/85 O2 Sat by Pulse 96 94 L Oximetry - Reevaluation(s) Reevaluation #1: 07/04/23 23:36 Medical record is reviewed Reevaluation #2: 07/04/23 23:36 Patient symptoms unchanged Reevaluation #3: 07/04/23 23:36 Patient informed of results and questions answered Reevaluation #4: 07/04/23 23:36 Was pt. sent in by a medical professional or institution (, PA, ALODIZE MACHINE OPERATOR, urgent care, hospital, or group home...) When possible be specific @ -no Did you speak to anyone other than the patient for history (EMS, parent, family, police, friend...)? What history was obtained from this source @ -no Did you review nursing and triage notes (agree or disagree)? Why? @ -agree Are old charts reviewed (outside hosp., previous admission, EMS record, old EKG, old radiological studies, urgent care reports/EKG's, group home records)? Report findings @ -yes Differential Diagnosis (chest pain, altered mental status, abdominal pain women, abdominal pain men, vaginal bleeding, weakness, fever, dyspnea, syncope, headache, dizziness, GI bleed, back pain, seizure, CVA, palpatations, mental he alth, musculoskeletal)? @ -prior EKG interpreted by me (3pts min.). @ -yes X-rays interpreted by me (1pt min.). @ -yes negative for acute disease CT interpreted by me (1pt min.). @ -Yes negative for acute disease U/S interpreted by me (1pt. min.). @ -no What testing was considered but not performed or refused? (CT, X-rays, U/S, labs)? Why? @ -none What meds were considered but not given or refused? Why? @ -none Did you discuss the management of the patient with other professionals (chirag ragland i.e. , PA, ALODIZE MACHINE OPERATOR, lab, RT, psych nurse, social media manager, claims assistant, teacher, community arts officer, continuous pillowcase cutter)? Give summary @ -no Was smoking cessation discussed for >3mins.? @ -no Was critical care preformed (if so, how long)? @ -yes31 Were there social determinants of health that impacted care today? How? (Homelessness, low income, unemployed, alcoholism, drug addiction, transportation, low edu. Level, literacy, decrease access to med. care, care home, rehab)? @ -none Was there de-escalation of care discussed even if they declined (Discuss DNR or withdrawal of care, Hospice)? DNR status @ -no What co-morbidities impacted this encounter? (DM, HTN, Smoking, COPD, CAD, Cancer, CVA, ARF, Chemo, Hep., AIDS, mental health diagnosis, sleep apnea, morbid obesity)? @ -none Was patient admitted / discharged? Hospital course, mention meds given and route, prescriptions, significant lab abnormalities, going to OR and other pertinent info. @ - 78 male to ER for evaluation patient presented for evaluation of fever and altered mental status. Patient will be admitted for IV antibiotics and mon itoring of symptoms hydration and fever control Admitted Undiagnosed new problem with uncertain prognosis? @ -no Drug Therapy requiring intensive monitoring for toxicity (Heparin, Nitro, Insulin, Cardizem)? @ -no Were any procedures done? @ -no Diagnosis/symptom? @ -UTI sepsis altered mental status Acute, or Chronic, or Acute on Chronic? @ -Acute Uncomplicated (without systemic symptoms) or Complicated (systemic symptoms)? @ -Complicated Side effects of treatment? @ -no Exacerbation, Progression, or Severe Exacerbation? @ -exacerbation Poses a threat to life or bodily function? How? (Chest pain, [place], [place], pneumonia, PE, COPD, DKA, ARF, appy, cholecystitis, CVA, Diverticulitis, Homicidal, Suicidal, threat to staff... and all critical care pts) @ -yes with significant sepsis Reevaluation #5: 07/04/23 23:37 Differential Fever: Pneumonia, viral URI, endocarditis, myocarditis, pericarditis, otitis, sinusitis, peritonsillar Abscess, retropharyngeal Abscess, epiglottitis, peritonitis, appendicitis, Delfina cystitis, diverticulitis, hepatitis, colitis, UTI, PID, TOA, pyelonephritis, prostatitis, epididymitis, meningitis, encephalitis, pulmonary embolism, CVA, thyroid storm, pancreatitis, adrenal crisis, cavernous sinus thrombosis, this is not meant to be an all-inclusive list. Differential Altered Mental Status: Hypoglycemia, DKA, hypercapnia, ETOH, overdose, CO poisoning, trauma, myxedema coma, HTN encephalopathy, infection, encephalitis, psychosis, intercranial hemorrhage, hepatic encephalopathy, meningitis, CVA, this is not meant to be an all-inclusive list - Consultations Consultation #1: Spoke with admitting who agreed to admit this patient Procedures - Sepsis Sepsis Focused Exam #1 Time Sepsis Criteria Met: 02:55 Sepsis Focused Exam Date: 07/04/23 Sepsis Focused Exam Time: 23:00 Sepsis Focused Exam Complete: Yes Vital Signs & RN Notes Reviewed: Yes Capillary Refill: < 2 Seconds: Fingers Peripheral Pulses: Normal: Radial (R), Radial (L), Posterior Tibialis (R), Posterior Tibialis (L), Dorsalis Pedis (R), Dorsalis Pedis (L) Skin Color: Normal for Patient Respiratory Exam: normal lung sounds Cardiovascular Exam: tachycardia Medical Decision Making - Medical Decision Making 78 male to ER for evaluation patient presented for evaluation of fever and altered mental status. Patient will be admitted for IV antibiotics and monit oring of symptoms hydration and fever control - Lab Data Result diagrams: 07/10/23 12:22 07/10/23 12:22 Lab Results 07/04/23 07/04/23 07/04/23 Range/Units 20:40 20:40 20:40 WBC 18.8 H (3.8-10.6) k/uL RBC 4.28 L (4.30-5.90) m/uL Hgb 13.0 (13.0-17.5) gm/dL Hct 39.0 (39.0-53.0) % MCV 91.1 (80.0-100.0) fL MCH 30.3 (25.0-35.0) pg MCHC 33.3 (31.0-37.0) g/dL RDW 12.7 (11.5-15.5) % Plt Count 206 (150-450) k/uL MPV 9.0 Neutrophils % 91 % Lymphocytes % 3 % Monocytes % 5 % Eosinophils % 1 % Basophils % 0 % Neutrophils # 17.0 H (1.3-7.7) k/uL Lymphocytes # 0.5 L (1.0-4.8) k/uL Monocytes # 0.9 (0-1.0) k/uL Eosinophils # 0.2 (0-0.7) k/uL Basophils # 0.0 (0-0.2) k/uL PT 10.3 (10.0-12.5) sec INR 0.9 (<1.2) APTT 25.4 (22.0-30.0) sec Sodium 137 (137-145) mmol/L Potassium 3.9 (3.5-5.1) mmol/L Chloride 106 (98-107) mmol/L Carbon Dioxide 20 L (22-30) mmol/L Anion Gap 11 mmol/L BUN 34 H (9-20) mg/dL Creatinine 0.87 (0.66-1.25) mg/dL Est GFR (CKD-EPI)AfAm >90 (>60 ml/min/1.73 sqM) Est GFR (CKD-EPI)NonAf 83 (>60 ml/min/1.73 sqM) Glucose 155 H (74-99) mg/dL POC Glucose (mg/dL) (70-110) mg/dL POC Glu Garment Manufacturer ID Calcium 8.8 (8.4-10.2) mg/dL Total Bilirubin 0.7 (0.2-1.3) mg/dL AST 64 H (17-59) U/L ALT 41 (4-49) U/L Alkaline Phosphatase 91 (38-126) U/L Ammonia (<30) umol/L Troponin I (0.000-0.034) ng/mL Total Protein 7.2 (6.3-8.2) g/dL Albumin 4.0 (3.5-5.0) g/dL Serum Alcohol <10 mg/dL 07/04/23 07/04/23 07/04/23 Range/Units 20:40 20:40 20:51 WBC (3.8-10.6) k/uL RBC (4.30-5.90) m/uL Hgb (13.0-17.5) gm/dL Hct (39.0-53.0) % MCV (80.0-100.0) fL MCH (25.0-35.0) pg MCHC (31.0-37.0) g/dL RDW (11.5-15.5) % Plt Count (150-450) k/uL MPV Neutrophils % % Lymphocytes % % Monocytes % % Eosinophils % % Basophils % % Neutrophils # (1.3-7.7) k/uL Lymphocytes # (1.0-4.8) k/uL Monocytes # (0-1.0) k/uL Eosinophils # (0-0.7) k/uL Basophils # (0-0.2) k/uL PT (10.0-12.5) sec INR (<1.2) APTT (22.0-30.0) sec Sodium (137-145) mmol/L Potassium (3.5-5.1) mmol/L Chloride (98-107) mmol/L Carbon Dioxide (22-30) mmol/L Anion Gap mmol/L BUN (9-20) mg/dL Creatinine (0.66-1.25) mg/dL Est GFR (CKD-EPI)AfAm (>60 ml/min/1.73 sqM) Est GFR (CKD-EPI)NonAf (>60 ml/min/1.73 sqM) Glucose (74-99) mg/dL POC Glucose (mg/dL) 152 H (70-110) mg/dL POC Glu Garment Manufacturer ID Diana Morales Calcium (8.4-10.2) mg/dL Total Bilirubin (0.2-1.3) mg/dL AST (17-59) U/L ALT (4-49) U/L Alkaline Phosphatase (38-126) U/L Ammonia <9 (<30) umol/L Troponin I 0.013 (0.000-0.034) ng/mL Total Protein (6.3-8.2) g/dL Albumin (3.5-5.0) g/dL Serum Alcohol mg/dL - EKG Data -: EKG Interpreted by Me (EKG is sinus 109 [place] 199 QRS 100 QTc 393) - Radiology Data Radiology results: report reviewed (Chest x-ray is negative for acute disease), image reviewed Critical Care Time Critical Care Time: Yes Total Critical Care Time: 31 Disposition Clinical Impression: Altered mental status, Fever, UTI (urinary tract infection), Sepsis Disposition: ADMITTED IP TO THIS HOSP Condition: Fair Is patient prescribed a controlled substance at d/c from ED?: No Time of Disposition: 22:25
[2023-07-04 21:19] LABS: ALT 41 U/L (4-49); AST 64 U/L (17-59); African American GFR (CKD) >90 (>60 ml/min/1.73 sqM); Alcohol <10 mg/dL; Alkaline Phosphatase 91 U/L (38-126); Anion Gap 11 mmol/L; Blood Urea Nitrogen 34 mg/dL (9-20); Calcium 8.8 mg/dL (8.4-10.2); Carbon Dioxide 20 mmol/L (22-30); Chloride 106 mmol/L (98-107); Glucose 155 mg/dL (74-99); Non-African American GFR(CKD) 83 (>60 ml/min/1.73 sqM); Potassium 3.9 mmol/L (3.5-5.1); Sodium 137 mmol/L (137-145); Total Bilirubin 0.7 mg/dL (0.2-1.3); Total Protein 7.2 g/dL (6.3-8.2)
--- NOTE | 2023-07-04 21:46 | XR ---
EXAMINATION TYPE: XR chest 1V DATE OF EXAM: 07/04/2023 9:31 PM CLINICAL INDICATION:Male, 78 years old with history of ams; COMPARISON: Chest radiographs from TECHNIQUE: XR chest 1V Frontal view of the chest. FINDINGS: Lungs/Pleura: There is no evidence of pleural effusion, focal consolidation, or pneumothorax. Pulmonary vascularity: Unremarkable. Heart/mediastinum: Cardiomediastinal silhouette is unremarkable. Musculoskeletal: No acute osseous pathology. IMPRESSION: No acute cardiopulmonary disease/process.
[2023-07-04] MEDS: ACETAMINOPHEN IV (For NPO) 1,000 MG in EMPTY BAG 1 BAG IVPB STA (22:12)
[2023-07-04] MEDS: SODIUM CHLORIDE 0.9% 1,000 ML IV ONE (22:17)
[2023-07-04] MEDS ORDERED: NALOXONE 0.4 MG/ML 1 ML VIAL IV PRN (22:21)
[2023-07-04] MEDS ORDERED: MORPHINE SULFATE 4 MG/ML SYRINGE IV PRN (22:21)
[2023-07-04] MEDS ORDERED: ONDANSETRON 4 MG/2 ML VIAL IVP PRN (22:21)
[2023-07-04] MEDS: IBUPROFEN IV 800 MG in SODIUM CHLORIDE 0.9% 250 ML IV ONE (22:55)
[2023-07-04] MEDS: LORazepam 2 MG/ML INJ IV PRN (23:22)
[2023-07-04 23:34] LABS: Appearance,Urine Clear (Clear); Bilirubin,Urine Negative (Negative); Blood,Urine Large (Negative); Color,Urine Light Yellow; Glucose,Urine (UA) Negative (Negative); Hyaline Casts,Urine 1 /lpf (0-2); Ketones,Urine 2+ (Negative); Leukocyte Esterase,Urine Negative (Negative); Mucus,Urine Rare /hpf; Nitrite,Urine Negative (Negative); Protein,Urine 1+ (Negative); RBC,Urine 55 /hpf (0-5); Specific Gravity,Urine 1.021 (1.001-1.035); Squamous Epithelial Cell,Urine <1 /hpf (0-4); Urobilinogen,Urine <2.0 mg/dL (<2.0); WBC,Urine 1 /hpf (0-5)
[2023-07-04 23:52] LABS: Amphetamine Screen,Urine Not Detected (NotDetected); Barbiturate Screen,Urine Not Detected (NotDetected); Benzodiazepines Screen,Urine Not Detected (NotDetected); Cocaine Screen,Urine Not Detected (NotDetected); Methadone Screen, Urine Not Detected (NotDetected); Opiate Screen,Urine Not Detected (NotDetected); Oxycodone Screen, Urine Not Detected (NotDetected); Phencyclidine Screen,Urine Not Detected (NotDetected); Tricyclic Antidepressant,Urine Not Detected (NotDetected); Urn Cannabinoid Scrn Not Detected (NotDetected)
[2023-07-05] MEDS: LEVOFLOXACIN 750MG-D5W PMX 750 MG in DEXTROSE/WATER 1 150ML.BAG IVPB STA (00:13)
--- NOTE | 2023-07-05 00:53 | CT ---
EXAM: CT Head Without Intravenous Contrast CLINICAL HISTORY: ITS.REASON CT Reason: ams TECHNIQUE: Axial computed tomography images of the head/brain without intravenous contrast. CTDI is 49.1 mGy and DLP is 1207.4 mGy-cm. This CT exam was performed using one or more of the following dose reduction techniques: automated exposure control, adjustment of the mA and/or kV according to patient size, and/or use of iterative reconstruction technique. COMPARISON: CT Head dated 06/20/21 FINDINGS: Brain: Volume loss with prominent ventricles and sulci. Periventricular white matter hypoattenuation likely reflects chronic small vessel disease. No hemorrhage. Ventricles: See above. Bones/joints: Unremarkable. No acute fracture. Soft tissues: Unremarkable. Sinuses: Unremarkable as visualized. No acute sinusitis. Mastoid air cells: Unremarkable as visualized. No mastoid effusion. IMPRESSION: No acute findings in the head/brain.
[2023-07-05] MEDS: SODIUM CHLORIDE 0.9% 1,000 ML IV SCH (02:42)
[2023-07-05 08:12] LABS: Basophils % (A) 0 %; Eosinophils % (A) 0 %; HGB 12.3 gm/dL (13.0-17.5); Lymphocytes # (A) 0.6 k/uL (1.0-4.8); Lymphocytes % (A) 4 %; MCH 30.5 pg (25.0-35.0); MCHC 33.2 g/dL (31.0-37.0); MCV 91.8 fL (80.0-100.0); Mean Platelet Volume 10.1; Monocytes # (A) 1.3 k/uL (0-1.0); Monocytes % (A) 7 %; Neutrophils % (A) 86 %; Platelet Count 180 k/uL (150-450); RBC 4.03 m/uL (4.30-5.90); RDW 13.1 % (11.5-15.5); WBC 17.4 k/uL (3.8-10.6)
[2023-07-05 08:25] LABS: ALT 37 U/L (4-49); AST 61 U/L (17-59); African American GFR (CKD) >90 (>60 ml/min/1.73 sqM); Albumin 3.2 g/dL (3.5-5.0); Alkaline Phosphatase 80 U/L (38-126); Anion Gap 4 mmol/L; Blood Urea Nitrogen 23 mg/dL (9-20); Calcium 8.6 mg/dL (8.4-10.2); Carbon Dioxide 25 mmol/L (22-30); Chloride 114 mmol/L (98-107); Glucose 109 mg/dL (74-99); Magnesium 2.4 mg/dL (1.6-2.3); Non-African American GFR(CKD) >90 (>60 ml/min/1.73 sqM); Phosphorus 2.4 mg/dL (2.5-4.5); Potassium 3.5 mmol/L (3.5-5.1); Sodium 143 mmol/L (137-145); Total Bilirubin 0.5 mg/dL (0.2-1.3)
--- NOTE | 2023-07-05 15:13 | HP ---
HISTORY AND PHYSICAL CHIEF COMPLAINT: Change in mental status. HISTORY OF PRESENT ILLNESS: This 78-year-old gentleman with a past medical history of multiple medical problems, including dementia, being followed by Dr. Galo in the outpatient, change in mental status. The noted some incontinence of stool at nighttime and the patient was confused. The patient also had fever, UTI was suspected. The patient was admitted for further evaluation and treatment. The patient is unable to give a coherent history. Most of the history is taken by discussion with staff and as well as discussion with at the bedside. The patient is confused. PAST MEDICAL HISTORY: Reviewed include dementia. Rest of the history and chart was also reviewed. HOME MEDICATIONS: Reviewed, include omeprazole dose and rest of medications reviewed. ALLERGIES: Reviewed, include Keflex. FAMILY HISTORY: History of liver disease in the family. SOCIAL HISTORY: No history of smoke, no history of alcohol intake. REVIEW OF SYSTEMS: Could not be taken. PHYSICAL EXAMINATION: VITAL SIGNS: Pulse 84, blood pressure 141/82, respirations 20. HEENT: Conjunctivae normal. NECK: No jugular venous distention. CARDIOVASCULAR: S1, S2. RESPIRATION: few scattered rhonchi. ABDOMEN: Soft. Nontender. NERVOUS SYSTEM: No focal deficit. LABORATORY DATA: WBC 17.4. ASSESSMENT: 1. Acute urinary tract infection with change in mental status. 2. Dementia with behavioral abnormalities. Rule out seizures. 3. Hyperlipidemia. 4. Degenerative joint disease. 5. Gait dysfunction. 6. Full code. RECOMMENDATIONS: This 78-year-old gentleman presented with multiple complex medical issues, we will monitor the patient closely. We will initiate broad-spectrum IV antibiotics. The patient has allergy to cephalexin. I would recommend Levaquin IV. Follow the cultures, urine and blood. Infectious Disease evaluation with Dr. Gallagher. I would also recommend EEG to rule out possibility of seizures and continue to monitor as well. Cautious IV fluids. Repeat labs. DVT prophylaxis. Prognosis guarded. Further recommendations to follow. See orders for details. MMODL / IJN: [id number] / MTDD
[2023-07-05] MEDS: THIAMINE 100 MG TAB PO SCH (17:17)
[2023-07-05] MEDS: HEPARIN SODIUM,PORCINE 5,000 UNIT/ML 1 ML VIAL SQ SCH (20:41)
[2023-07-05] MEDS: ASPIRIN 81 MG PO SCH (20:41)
[2023-07-05] MEDS: MEMANTINE 5 MG TAB PO SCH (20:41)
[2023-07-05] MEDS: ATORVASTATIN 20 MG TAB PO SCH (20:41)
--- NOTE | 2023-07-05 22:52 | P.CONS ---
History of Present Illness - Reason for Consult Consult date: 07/05/23 - History of Present Illness Patient is a 78-year-old male with a past medical history significant for hyperlipidemia osteoarthritis and memory impairment patient was brought into the ER for evaluation of mental status changes as apparently the patient was not acting herself patient apparently did have diarrhea for 3 days afterwards the patient was noticed to having fever and not acting appropriately with the s ymptoms the patient has been brought into the ER with a history obtained mostly from the at the bedside there was no complaint of any headache nausea vomiting or any abdominal pain symptom has been mostly diarrhea with multiple loose stools no blood or mucus in the stool patient on presentation to the hospital did have a fever of 102.4 F patient was nontachycardic hypertensive was hypoxic with O2 sats of 89% currently on 2 L nasal cannula oxygen patient did have a white count of 18.8 creatinine was normal liver enzymes are normal urine was mildly positive ureteroscopy was negative influenza RSV COVID testing was negative patient did have a chest x-ray no acute cardiopulmonary disease p rocess patient was started on Rocephin infectious disease was consulted for further management of antibiotic therapy at the time my evaluation the patient is more awake and alert he appears that he is in the hospital denies any headache there has no photophobia denies any nausea no vomiting no chest pain shortness of breath or cough and no abdominal pain Past Medical History Past Medical History: Hearing Disorder / Deafness, Hyperlipidemia, Memory Impairment, Osteoarthritis (OA) Additional Past Medical History / Comment(s): Uses hearing aids. Hx kidney stones X1.pancreatitis, had weight loss but slowly putting back on, frequent diarrhea, trouble emptying bladder completely since surg. WAS ON ANTIBIOTICS FOR BACTERIA IN COLON-LAST DOSE 05/08/19 History of Any Multi-Drug Resistant Organisms: None Reported Past Surgical History: Bladder Surgery Additional Past Surgical History / Comment(s): Cataract surgery bilateral eyes, kidney stone surgery, circumcision, lap airam 2018, COLONOSCOPY Past Anesthesia/Blood Transfusion Reactions: No Reported Reaction Additional Past Anesthesia/Blood Transfusion Reaction / Comm: slow to wake up after lap airam & trouble urinating, ended up w/acuña cath. for week post-op Past Psychological History: No Psychological Hx Reported Smoking Status: Never smoker Past Alcohol Use History: None Reported Additional Past Alcohol Use History / Comment(s): Smoked briefly as a teen. Past Drug Use History: None Reported - Past Family History Mother Family Medical History: Liver Disease Additional Family Medical History / Comment(s): Was a heavy drinker. Father Family Medical History: Cancer Additional Family Medical History / Comment(s): Prostate cancer. Sister(s) Family Medical History: Unable to Obtain Medications and Allergies Home Medications Medication Instructions Recorded Confirmed Type Aspirin [Adult Low Dose Aspirin EC] 81 mg PO HS 05/09/17 07/04/23 History Simvastatin [Zocor] 40 mg PO HS 05/09/17 07/04/23 History Memantine HCl [Namenda] 5 mg PO BID 12/30/18 07/04/23 History Donepezil [Aricept] 10 mg PO DAILY 04/16/19 07/04/23 History Dicyclomine HCl 20 mg PO QID 02/14/21 07/04/23 History Cyclobenzaprine [Flexeril] 5 mg PO DAILY PRN 07/04/23 07/04/23 History Furosemide [Lasix] 20 mg PO DAILY 07/04/23 07/04/23 History Lactase [Lactaid] 3,000 unit PO DAILY 07/04/23 07/04/23 History Montelukast [Singulair] 10 mg PO DAILY 07/04/23 07/04/23 History Omeprazole 40 mg PO DAILY 07/04/23 07/04/23 History Allergies Allergy/AdvReac Type Severity Reaction Status Date / Time cephalexin Allergy Swelling Verified 07/04/23 22:35 meropenem Allergy Swelling Verified 07/04/23 22:35 mold Allergy Nausea & Verified 07/04/23 22:35 Vomiting sulfamethoxazole Allergy Swelling Verified 07/04/23 22:35 [From Bactrim] trimethoprim [From Bactrim] Allergy Swelling Verified 07/04/23 22:35 Physical Exam Vitals: Vital Signs Temp Pulse Pulse Resp BP BP Pulse Ox 07/05/23 12:58 98.9 F 95 18 146/73 100 07/05/23 09:35 98 07/05/23 07:08 97.5 F L 84 20 141/82 99 07/05/23 02:00 97.7 F 83 16 163/84 89 L 07/05/23 01:06 97.9 F 07/05/23 00:27 96 22 150/85 94 L Intake and Output 07/05/23 07/05/23 07/05/23 06:59 14:59 22:59 Other: Voiding Method External Catheter # Voids 0 3 # Bowel Movements 3 Weight 63.503 kg Results CBC & Chem 7: 07/06/23 06:10 07/06/23 06:10 Labs: Abnormal Lab Results - Last 24 Hours (Table) 07/04/23 07/05/23 07/05/23 Range/Units 23:00 07:30 07:30 WBC 17.4 H (3.8-10.6) k/uL RBC 4.03 L (4.30-5.90) m/uL Hgb 12.3 L (13.0-17.5) gm/dL Hct 37.0 L (39.0-53.0) % Neutrophils # 15.0 H (1.3-7.7) k/uL Lymphocytes # 0.6 L (1.0-4.8) k/uL Monocytes # 1.3 H (0-1.0) k/uL Chloride 114 H (98-107) mmol/L BUN 23 H (9-20) mg/dL Glucose 109 H (74-99) mg/dL Phosphorus 2.4 L (2.5-4.5) mg/dL Magnesium 2.4 H (1.6-2.3) mg/dL AST 61 H (17-59) U/L Total Protein 6.0 L (6.3-8.2) g/dL Albumin 3.2 L (3.5-5.0) g/dL Urine Protein 1+ H (Negative) Urine Ketones 2+ H (Negative) Urine Blood Large H (Negative) Urine RBC 55 H (0-5) /hpf Urine Mucus Rare H (None) /hpf Assessment and Plan Plan: 1patient presented to hospital with sepsis in this patient with fever elevated white count did have significant diarrhea patient did have a negative UA and a chest x-ray and did not have any neck rigidity or significant tenderness of abdominal wall with main symptom of diarrhea possible source of his sepsis. 2we will obtain stool for C. difficile and stool culture. 3 patient with multiple antibiotic ALLERGIES that would limit the number of antibiotic safe to use 4we will check a CT of abdominal pelvis 5continue with empiric Levaquin and Flagyl while waiting for the workup to be completed We will follow on clinical condition and cultures to further adjust medication if needed Thank you for this consultation we will follow the patient along with you Dictation was produced using [employer] dictation software. please excuse any grammatical, word or spelling errors. Time with Patient: Greater than 30
[2023-07-05] MEDS: metroNIDAZOLE 500 MG TAB PO SCH (23:42)
[2023-07-06] MEDS: LEVOFLOXACIN 750MG-D5W PMX 750 MG in DEXTROSE/WATER 1 150ML.BAG IVPB SCH (01:06)
[2023-07-06] MEDS: PANTOPRAZOLE 40 MG TABLET PO SCH (06:42)
[2023-07-06] MEDS: FUROSEMIDE 20 MG TAB PO SCH (08:49)
[2023-07-06] MEDS: IOPAMIDOL CONTRAST (ORAL USE) VIAL PO PRN (08:49)
[2023-07-06] MEDS: DONEPEZIL 10 MG TAB PO SCH (08:50)
[2023-07-06 09:32] LABS: HCT 33.8 % (39.6-50.0); HGB 11.1 g/dL (13.0-17.0); MCH 29.7 pg (27.0-32.0); MCHC 32.8 g/dL (32.0-37.0); MCV 90.4 FL (80.0-97.0); Mean Platelet Volume 11.8 FL (9.5-12.2); NRBC Per 100 WBC 0 X 10*3/uL (0.00-0.01); Platelet Count 203 X 10*3/uL (140-440); RBC 3.74 X 10*6/uL (4.40-5.60); RDW 13.5 % (11.5-14.5); WBC 13.44 X 10*3/uL (4.50-10.00)
[2023-07-06 09:54] LABS: ALT 33 U/L (10-49); AST 49 U/L (14-35); Alkaline Phosphatase 63 U/L (41-126); BUN/Creat Ratio 14.39 Ratio (12.00-20.00); Blood Urea Nitrogen 33.1 mg/dL (9.0-27.0); Calcium 8.9 mg/dL (8.7-10.3); Carbon Dioxide 20.9 mmol/L (21.6-31.8); Chloride 111 mmol/L (96-109); Globulin 2.3 g/dL (1.6-3.3); Glucose 119 mg/dL (70-110); Potassium 3.5 mmol/L (3.5-5.5); Sodium 144 mmol/L (135-145); Total Bilirubin 0.3 mg/dL (0.3-1.2); Total Protein 5.3 g/dL (6.2-8.2)
[2023-07-06 10:11] LABS: Basophils # (A) 0.02 X 10*3/uL (0.00-0.10); Basophils % (A) 0.1 %; Eosinophils # (A) 0 X 10*3/uL (0.04-0.35); Eosinophils % (A) 0 %; Lymphocytes # (A) 0.87 X 10*3/uL (0.90-5.00); Lymphocytes % (A) 6.5 %; Monocytes # (A) 1.94 X 10*3/uL (0.20-1.00); Monocytes % (A) 14.4 %; Neutrophils # (A) 10.53 X 10*3/uL (1.80-7.70); Neutrophils % (A) 78.4 %; RBC Morphology Normal (Normal)
--- NOTE | 2023-07-06 11:32 | CT ---
EXAMINATION TYPE: CT abdomen pelvis w con DATE OF EXAM: 07/06/2023 COMPARISON: 12/30/2018 HISTORY: Sepsis, diarrhea, UTI, fever. CT DLP: 649 mGycm Automated exposure control for dose reduction was used. TECHNIQUE: Helical acquisition of images was performed from the lung bases through the pelvis. CONTRAST: Performed with Oral Contrast and with IV Contrast, patient injected with 100 mL of Isovue 300. FINDINGS: There are small bilateral pleural effusions and bibasilar atelectasis. There surgical absence of the gallbladder. There is no organomegaly or focal mass within the solid visceral organs of the upper abdomen. There is no solid renal mass but there is [id number] bilateral hydronephrosis and hydroureter i n the urinary bladder is markedly distended measuring 16 cm in AP dimension and 11 cm in transverse d imension. There are multiple large calcifications in the dependent portion of the urinary bladder, th e largest of which measures approximately 11 mm. There is a 12 mm calcification within the prostatic urethra. The findings are consistent with bladder and urethral outlet obstruction. The bowel loops are normal in caliber is no evidence of bowel obstruction. There is no free intraperi toneal air or fluid. The osseous structures are intact. IMPRESSION: 1. Marked bladder and urethral outlet obstruction secondary to calcifications described above. Urinar y bladder is markedly dilated and there is mild to moderate bilateral hydronephrosis and hydroureter. 2. Small bilateral pleural effusions and bibasilar atelectasis.
--- NOTE | 2023-07-06 13:04 | P.PN ---
Subjective Progress Note Date: 07/06/23 Principal diagnosis: Reason for follow-up is sepsis/UTI Patient is a 78-year-old male with a past medical history significant for hyperlipidemia osteoarthritis and memory impairment patient was brought into the ER for evaluation of mental status changes, patient to have a positive UA concerning for UTI also have a significant diarrhea patient did have a CT abdominal pelvis completed with evidence of marked bladder and ureteral or renal obstruction no evidence of any colitis or abscess. On today's evaluation that is 07/06/2023,the patient r did have resolution of his fever and is afebrile today, patient is on 3 L nasal cannula supplemental oxygen and patient slightly more awake and alert denies any chest pain or cough no vomiting and no further diarrhea has been reported. Patient did have a creatinine of 2.3 white count is down to 13.44 cultures are pending Objective - Vital Signs Vital signs: Vital Signs Temp 98.5 F 07/06/23 08:15 Pulse 95 07/06/23 08:15 Resp 21 07/06/23 08:15 BP 143/77 07/06/23 08:15 Pulse Ox 99 07/06/23 08:15 FiO2 Intake & Output 07/05/23 07/06/23 07/06/23 18:59 06:59 18:59 Intake Total 900 Balance 900 Intake: Intake, IV Titration 900 Amount Sodium Chloride 0.9% 1, 900 000 ml @ 75 mls/hr IV . [id number] [facility] Rx#:[id number] Other: Voiding Method External Catheter Diaper # Voids 3 1 # Bowel Movements 3 - Exam GENERAL DESCRIPTION: An elderly male lying in bed in no distress RESPIRATORY SYSTEM: Unlabored breathing , decreased breath sounds at bases HEART: S1 S2 regular rate and rhythm , ABDOMEN: Soft , no tenderness EXTREMITIES: No edema feet - Labs CBC & Chem 7: 07/06/23 06:10 07/06/23 06:10 Labs: Abnormal Lab Results - Last 24 Hours (Table) 07/06/23 07/06/23 07/06/23 Range/Units 06:10 06:10 06:10 WBC 13.44 H (4.50-10.00) X 10*3/uL RBC 3.74 L (4.40-5.60) X 10*6/uL Hgb 11.1 L (13.0-17.0) g/dL Hct 33.8 L (39.6-50.0) % Immature Gran # 0.08 H (0.00-0.04) X 10*3/uL Neutrophils # 10.53 H (1.80-7.70) X 10*3/uL Lymphocytes # 0.87 L (0.90-5.00) X 10*3/uL Monocytes # 1.94 H (0.20-1.00) X 10*3/uL Eosinophils # 0 L (0.04-0.35) X 10*3/uL Chloride 111 H (96-109) mmol/L Carbon Dioxide 20.9 L (21.6-31.8) mmol/L Anion Gap 12.10 H (4.00-12.00) mmol/L BUN 33.1 H (9.0-27.0) mg/dL Creatinine 2.3 H (0.6-1.5) mg/dL Est GFR (CKD-EPI) 28 L (>=60) Glucose 119 H (70-110) mg/dL AST 49 H (14-35) U/L C-Reactive Protein 18.80 H (0.00-0.80) mg/dL Total Protein 5.3 L (6.2-8.2) g/dL Albumin 3.0 L (3.8-4.9) g/dL Albumin/Globulin Ratio 1.30 L (1.60-3.17) Ratio Procalcitonin 1.97 H (0.02-0.09) ng/mL Microbiology - Last 24 Hours (Table) 07/04/23 23:55 Blood Culture - Preliminary Blood Assessment and Plan (1) UTI (urinary tract infection) Current Visit: Yes Status: Acute Code(s): N39.0 - URINARY TRACT INFECTION, SITE NOT SPECIFIED SNOMED Code(s): 27090704 (2) Allergy to cephalosporin Current Visit: Yes Status: Acute Code(s): Z88.1 - ALLERGY STATUS TO OTHER ANTIBIOTIC AGENTS SNOMED Code(s): 556350388 (3) Sepsis Current Visit: No Status: Acute Code(s): A41.9 - SEPSIS, UNSPECIFIED ORGANISM SNOMED Code(s): 76721850 Plan: 1patient presented to hospital with sepsis in this patient with fever elevated white count did have significant diarrhea patient did have a negative UA and a chest x-ray and did not have any neck rigidity or significant tenderness of abdominal wall with main symptom of diarrhea possible source of his sepsis. 2patient did have resolution of his diarrhea and stool studies could not be obtained 3 patient with multiple antibiotic ALLERGIES that would limit the number of antibiotic safe to use 4patient did have a CT of abdominal pelvis with evidence of significant distention of the bladder Romano catheter placement has been ordered 5patient to continue with Levaquin while waiting for the culture to finalize and discontinue Flagyl Dictation was produced using [employer] dictation software. please excuse any grammatical, word or spelling errors. Time with Patient: Less than 30
[2023-07-06] MEDS: FOLIC ACID 1 MG TAB PO SCH (13:56)
[2023-07-06] MEDS: MULTIVITAMINS, THERA 1 EACH TAB PO SCH (13:56)
--- NOTE | 2023-07-06 14:26 | P.CNNES ---
History of Present Illness Consult date: 07/06/23 Requesting physician: Candida Galvez Reason for Consult: AMS acute History of Present Illness: Patient is a 78-year-old right-handed male with history of mild dementia, came to the hospital by ambulance day before yesterday, 07/04/2023 at 8:20 PM Patient's was present, who provided with a history. Patient's ment ions that for 2 days prior to arrival, patient had a very significant black diarrhea, to the point that he was incontinent of the diarrhea, and leaked all over on the bed 2 consecutive nights. 1 time he did all on the bathroom as well. He did not have any nausea or vomiting. No abdominal pain. On the day of admission, patient's noticed that he was slightly foggy, as once he was done with bowel movement, he got up and did not know where to go although was supposed to sit on the pushback chair which was right close to him. He sat in there, and went to sleep at 2 PM. Patient's tried to wake him up at 6 PM to give him his pills, but she could not wake him up, she tried to shake him and he would not respond. Therefore she called the ambulance, and patient was brought to the hospital. Patient's has not noticed any strokelike symptoms like slurred speech, facial droop, problem with the vision focal weakness. Patient denies any headache at this time. As per EMS flow sheet, it was reported that patient has been minimally responsive and not talking since approximately 2 PM this afternoon. Family mentioned patient has history of dementia but usually talks and is able to walk around. Patient has been having diarrhea since yesterday. No other recent history of illness. On examination patient was alert but nonverbal, skin hard and dry. Pupils equal round and reacting. Patient is moving all extremities and has strong gold tooler bilaterally. Patient is agitated and grabbing and everything near him. Cardiac monitoring revealed sinus tachycardia. Patient had temperature of 102.8 axillary. Blood pressure was 150/80, pulse rate 118, respiration 20, saturation 98%, blood glucose 149 mg/dL. Patient's temperature on arrival was 102.4. Blood test shows WBC 18.8, hemoglobin 13.0, platelets 206. PT/PTT normal, electrolytes are normal, BUN 34 creatinine 0.87. AST is 64, ALT 41. Troponin negative, ammonia normal. UA shows no signs of infection. Urine drug screen negative, blood alcohol level negative. Influenza, RSV and Song virus PCR negative. Patient's mentions that patient has dementia, only mild degree. He usually cannot find staff like phone and then gets frustrated. He still drives, knows all his family members everybody around. He goes to [employer] every morning, locks the door and remembers to check to make sure the doors are locked. He walks without use of any assistive device. Review of Systems Constitutional: Reports chills, Reports fever Eyes: denies blurred vision, denies diplopia, denies pain, denies loss of peripheral vision Ears: bilateral: decreased hearing (Aids), deny: ear discharge Ears, nose, mouth and throat: Denies headache, Denies sore throat, Denies vertigo Cardiovascular: Reports lightheadedness, Denies chest pain, Denies shortness of breath Respiratory: Denies cough, Denies excessive sputum Gastrointestinal: Reports abdominal pain, Reports diarrhea, Denies nausea, Denies vomiting Genitourinary: Reports incontinence, Reports nocturia (Now and then), Reports urinary retention Musculoskeletal: Reports low back pain, Denies myalgias, Denies neck pain Integumentary: Denies pruritus, Denies rash Neurological: Reports as per HPI Psychiatric: Denies anxiety, Denies depression Endocrine: Reports fatigue, Denies weight change Hematologic/Lymphatic: Reports easy bleeding, Reports easy bruising Past Medical History Past Medical History: Hearing Disorder / Deafness, Hyperlipidemia, Memory Impairment, Osteoarthritis (OA) Additional Past Medical History / Comment(s): Uses hearing aids. Hx kidney stones X1.pancreatitis, had weight loss but slowly putting back on, frequent diarrhea, trouble emptying bladder completely since surg. WAS ON ANTIBIOTICS FOR BACTERIA IN COLON-LAST DOSE 05/08/19 History of Any Multi-Drug Resistant Organisms: None Reported Past Surgical History: Bladder Surgery Additional Past Surgical History / Comment(s): Cataract surgery bilateral eyes, kidney stone surgery, circumcision, lap airam 2018, COLONOSCOPY Past Anesthesia/Blood Transfusion Reactions: No Reported Reaction Additional Past Anesthesia/Blood Transfusion Reaction / Comment(s): slow to wake up after lap airam & trouble urinating, ended up w/acuña cath. for week post-op Past Psychological History: No Psychological Hx Reported Smoking Status: Never smoker Past Alcohol Use History: None Reported Additional Past Alcohol Use History / Comment(s): Smoked briefly as a teen. Past Drug Use History: None Reported - Past Family History Mother Family Medical History: Liver Disease Additional Family Medical History / Comment(s): Was a heavy drinker. Father Family Medical History: Cancer Additional Family Medical History / Comment(s): Prostate cancer. Sister(s) Family Medical History: Unable to Obtain Medications and Allergies Home Medications Medication Instructions Recorded Confirmed Type Aspirin [Adult Low Dose Aspirin EC] 81 mg PO HS 05/09/17 07/04/23 History Simvastatin [Zocor] 40 mg PO HS 05/09/17 07/04/23 History Memantine HCl [Namenda] 5 mg PO BID 12/30/18 07/04/23 History Donepezil [Aricept] 10 mg PO DAILY 04/16/19 07/04/23 History Dicyclomine HCl 20 mg PO QID 02/14/21 07/04/23 History Cyclobenzaprine [Flexeril] 5 mg PO DAILY PRN 07/04/23 07/04/23 History Furosemide [Lasix] 20 mg PO DAILY 07/04/23 07/04/23 History Lactase [Lactaid] 3,000 unit PO DAILY 07/04/23 07/04/23 History Montelukast [Singulair] 10 mg PO DAILY 07/04/23 07/04/23 History Omeprazole 40 mg PO DAILY 07/04/23 07/04/23 History Allergies Allergy/AdvReac Type Severity Reaction Status Date / Time cephalexin Allergy Swelling Verified 07/04/23 22:35 meropenem Allergy Swelling Verified 07/04/23 22:35 mold Allergy Nausea & Verified 07/04/23 22:35 Vomiting sulfamethoxazole Allergy Swelling Verified 07/04/23 22:35 [From Bactrim] trimethoprim [From Bactrim] Allergy Swelling Verified 07/04/23 22:35 Physical Examination - Vital Signs Vital Signs: Vital Signs Temp Pulse Resp BP Pulse Ox 07/06/23 08:15 98.5 F 95 21 143/77 99 07/06/23 02:00 98.8 F 89 125/66 96 07/05/23 20:00 97.8 F 101 H 152/82 95 07/05/23 12:58 98.9 F 95 18 146/73 100 Intake and Output 07/05/23 07/06/23 07/06/23 22:59 06:59 14:59 Intake Total 900 Output Total 1650 Balance 900 -1650 Intake: Intake, IV Titration 900 Amount Sodium Chloride 0.9% 1, 900 000 ml @ 75 mls/hr IV . [id number] [facility] Rx#:[id number] Output: Urine 1650 Uretheral (Acuña) 1650 Other: Voiding Method Diaper External Catheter # Voids 3 1 # Bowel Movements 3 Patient is an elderly male, who appears somewhat frail, slightly sick but in no obvious respiratory distress. Patient is alert awake, could not tell the current month or the year although he knows that he lives in [facility]. Patient could not tell name of the current president, although he states "I should know that". He knows name of his Marta. Speech and language functions are normal. Patient can name and repeat very well, although he has very delayed response, takes time to respond. No aphasia or dysarthria. Attention, concentration is significantly impaired and fund of knowledge is somewhat limited due to his underlying cognitive impairment. On cranial nerve examination, pupils are equal, round and reacting to light, visual magallanes are full on confrontation, with no neglect on double simultaneous stimulation. Extraocular muscles are intact with no nystagmus. Face is symmetric, tongue protrudes to the midline. Palatal elevation and sensation normal, hearing and shoulder shrug normal, facial sensation normal. His tongue is very dry. Lips are slightly chapped. On muscle strength testing, there is no pronator drift and the strength is normal in arms and legs distally and proximally, except left hip flexion which was about 5-. Deep tendon reflexes are symmetric 2 at the biceps, 1+ brachioradialis, 2 at the knees, 1+ at the ankles and plantars are possible upgoing bilaterally. Sensory to touch is equal with no neglect on double simultaneous stimulation. Cerebellar function showed no ataxia for [id number] testing. No dysdiadochokinesia. No ataxia for [id number] testing on either side. Tone and bulk of muscles normal. Gait deferred.. On general examination, there is no carotid bruit or murmur, S1-S2 audible. Chest is clear on consultation. Abdomen is soft nontender. No organomegaly, bowel sounds present. Peripheral pulses are present. No peripheral edema. Results - Laboratory Findings CBC and BMP: 07/06/23 06:10 07/06/23 06:10 Abnormal Lab Findings: Abnormal Labs 07/04/23 07/04/23 07/04/23 20:40 20:40 20:51 WBC 18.8 H RBC 4.28 L Hgb Hct Immature Gran # Neutrophils # 17.0 H Lymphocytes # 0.5 L Monocytes # Eosinophils # Chloride Carbon Dioxide 20 L Anion Gap BUN 34 H Creatinine Est GFR (CKD-EPI) Glucose 155 H POC Glucose (mg/dL) 152 H Phosphorus Magnesium AST 64 H C-Reactive Protein Total Protein Albumin Albumin/Globulin Ratio Procalcitonin Urine Protein Urine Ketones Urine Blood Urine RBC Urine Mucus 07/04/23 07/05/23 07/05/23 23:00 07:30 07:30 WBC 17.4 H RBC 4.03 L Hgb 12.3 L Hct 37.0 L Immature Gran # Neutrophils # 15.0 H Lymphocytes # 0.6 L Monocytes # 1.3 H Eosinophils # Chloride 114 H Carbon Dioxide Anion Gap BUN 23 H Creatinine Est GFR (CKD-EPI) Glucose 109 H POC Glucose (mg/dL) Phosphorus 2.4 L Magnesium 2.4 H AST 61 H C-Reactive Protein Total Protein 6.0 L Albumin 3.2 L Albumin/Globulin Ratio Procalcitonin Urine Protein 1+ H Urine Ketones 2+ H Urine Blood Large H Urine RBC 55 H Urine Mucus Rare H 07/06/23 07/06/23 07/06/23 06:10 06:10 06:10 WBC 13.44 H RBC 3.74 L Hgb 11.1 L Hct 33.8 L Immature Gran # 0.08 H Neutrophils # 10.53 H Lymphocytes # 0.87 L Monocytes # 1.94 H Eosinophils # 0 L Chloride 111 H Carbon Dioxide 20.9 L Anion Gap 12.10 H BUN 33.1 H Creatinine 2.3 H Est GFR (CKD-EPI) 28 L Glucose 119 H POC Glucose (mg/dL) Phosphorus Magnesium AST 49 H C-Reactive Protein 18.80 H Total Protein 5.3 L Albumin 3.0 L Albumin/Globulin Ratio 1.30 L Procalcitonin 1.97 H Urine Protein Urine Ketones Urine Blood Urine RBC Urine Mucus Assessment and Plan Assessment: * Episode of unresponsiveness, unclear cause. Possible syncope due to sepsis/hypovolemia/dehydration from severe diarrhea. * Altered mental status, likely due to toxic metabolic encephalopathy * Acute gastroenteritis * Acute kidney injury with renal failure * Hydronephrosis with urinary retention * Possible UTI * Mild dementia * Hyperlipidemia Plan: * Patient undergoing EEG in the morning. * Check carotid Doppler * Check B12, folate. * Patient has acute kidney failure. Patient's metabolic encephalopathy is likely related to underlying medical conditions as mentioned above. * Other management as per IM and other specialties. * Dr. Beni Hernandez will resume neurology service in the morning. Thank you for the consult.
--- NOTE | 2023-07-06 15:11 | US ---
EXAMINATION TYPE: US carotid duplex BILAT DATE OF EXAM: 07/06/2023 COMPARISON: NONE CLINICAL INDICATION: Male, 78 years old with history of syncope; could not wake him while sleepi ng, no h/o stroke TECHNIQUE: Carotid duplex ultrasound examination. Indirect Doppler criteria was utilized. FINDINGS: EXAM MEASUREMENTS: RIGHT: Peak Systolic Velocity (PSV) cm/sec ----- Right CCA: 83.2 ----- Right ICA: 90.4 ----- Right ECA: 103 ICA/CCA ratio: 1.1 RIGHT: End Diastole cm/sec ----- Right CCA: 14.9 ----- Right ICA: 27.2 ----- Right ECA: 0.0 LEFT: Peak Systolic Velocity (PSV) cm/sec ----- Left CCA: 91.8 ----- Left ICA: 115.0 ----- Left ECA: 133.0 ICA/CCA ratio: 1.3 LEFT: End Diastole cm/sec ----- Left CCA: 14.9 ----- Left ICA: 32.4 ----- Left ECA: 0.0 Rhythm: Normal IMPRESSION: Mild scattered atherosclerotic disease without significant stenosis.
[2023-07-06] MEDS: ACETAMINOPHEN TAB 325 MG TAB PO PRN (18:17)
--- NOTE | 2023-07-07 00:39 | PN ---
PROGRESS NOTE DATE OF SERVICE: 07/06/2023 SUBJECTIVE: This is a 78-year-old gentleman, who was admitted with acute urinary tract infection and retention. Had a Romano catheter in place. The patient also had an abdominopelvic CAT scan. The patient has also features of sepsis. The patient continues confused. CT scan showed marked bladder and urethral outlet obstruction secondary to calcifications. Urinary bladder is markedly dilated. Bilateral hydronephrosis is also noted. The evaluation with Urology is in progress. PAST MEDICAL HISTORY: Reviewed. REVIEW OF SYSTEMS: Could not be taken. CURRENT MEDICATIONS: Reviewed and include Levaquin. Dose and rest of medications noted. PHYSICAL EXAMINATION: VITAL SIGNS: Pulse is 96, blood pressure 147/99, and respirations 22. CHEST: Clear to auscultation. CARDIOVASCULAR: S1, S2. ABDOMEN: Soft. NERVOUS SYSTEM: Nonfocal. LABORATORY DATA: WBC 13.4, rest of the labs are noted. Procalcitonin 0.97. ASSESSMENT: 1. Acute urinary tract infection with change in mental status, present on admission. 2. Dementia with behavioral abnormalities. 3. Possible bladder outlet obstruction with bilateral hydronephrosis in the CTA scan. 4. Rule out seizures. 5. Hyperlipidemia. 6. Degenerative joint disease. 7. Gait dysfunction. 8. Multiple complex medical issues. 9. Full code. RECOMMENDATIONS: Recommended to continue current management and current treatment. Otherwise, we will follow the patient closely with Infectious Disease. Continue the antibiotics. Follow the cultures. Urology evaluation. Neurology consultation. An EEG has been ordered. Repeat labs will be recommended. See orders for further details. Further recommendations to follow. Prognosis guarded. Discussed with family at length. MMODL / IJN: [id number] /
[2023-07-07 08:33] LABS: Basophils # (A) 0.04 X 10*3/uL (0.00-0.10); Basophils % (A) 0.4 %; Eosinophils # (A) 0 X 10*3/uL (0.04-0.35); Eosinophils % (A) 0 %; HCT 36.5 % (39.6-50.0); HGB 12.2 g/dL (13.0-17.0); Lymphocytes # (A) 1.19 X 10*3/uL (0.90-5.00); Lymphocytes % (A) 11.4 %; MCH 29.7 pg (27.0-32.0); MCHC 33.4 g/dL (32.0-37.0); MCV 88.8 FL (80.0-97.0); Mean Platelet Volume 11.9 FL (9.5-12.2); Monocytes # (A) 1.46 X 10*3/uL (0.20-1.00); NRBC Per 100 WBC 0 X 10*3/uL (0.00-0.01); Neutrophils # (A) 7.69 X 10*3/uL (1.80-7.70); Neutrophils % (A) 73.7 %; Platelet Count 248 X 10*3/uL (140-440); RBC 4.11 X 10*6/uL (4.40-5.60); RDW 13.1 % (11.5-14.5); WBC 10.43 X 10*3/uL (4.50-10.00)
[2023-07-07 08:53] LABS: BUN/Creat Ratio 22.25 Ratio (12.00-20.00); Blood Urea Nitrogen 17.8 mg/dL (9.0-27.0); Calcium 9.1 mg/dL (8.7-10.3); Carbon Dioxide 27.9 mmol/L (21.6-31.8); Chloride 104 mmol/L (96-109); Glucose 101 mg/dL (70-110); Sodium 143 mmol/L (135-145)
[2023-07-07] MEDS ORDERED: Potassium Replacement Protocol 1 EACH MISC MISCELLANE PRN (09:06)
[2023-07-07] MEDS: POTASSIUM CHLORIDE ER 20 MEQ TAB.ER PO SCH ×2 (11:15→21:00)
[2023-07-07] MEDS: LEVOFLOXACIN 750 MG TAB PO SCH (11:20)
--- NOTE | 2023-07-07 11:45 | P.PN ---
Subjective Progress Note Date: 07/07/23 Principal diagnosis: Reason for follow-up is sepsis/UTI Patient is a 78-year-old male with a past medical history significant for hyperlipidemia osteoarthritis and memory impairment patient was brought into the ER for evaluation of mental status changes, patient to have a positive UA concerning for UTI also have a significant diarrhea patient did have a CT abdominal pelvis completed with evidence of marked bladder and ureteral or renal obstruction no evidence of any colitis or abscess. On today's evaluation that is 07/07/2023, the patient continues to be afebrile, the patient is on 3 L nasal cannula oxygen and breathing comfortably, the Pt denies having any chest pain or cough, the patient denies having any abdominal pain no vomiting or any diarrhea has been reported by the nursing staff. Patient white count on 10.43, creatinine 0.8 cultures so far negative Objective - Vital Signs Vital signs: Vital Signs Temp 97.5 F L 07/07/23 07:15 Pulse 75 07/07/23 07:15 Resp 20 07/07/23 07:15 BP 150/75 07/07/23 07:15 Pulse Ox 100 07/07/23 07:15 FiO2 Intake & Output 07/06/23 07/07/23 07/07/23 18:59 06:59 18:59 Intake Total 750 Output Total 4450 2300 Balance -3700 -2300 Intake: Intake, IV Titration 750 Amount Sodium Chloride 0.9% 1, 750 000 ml @ 75 mls/hr IV . [id number] [facility] Rx#:[id number] Output: Urine 4450 2300 Uretheral (Romano) 1650 Other: Voiding Method External Catheter Indwelling Catheter Indwelling Catheter # Voids 2 - Exam GENERAL DESCRIPTION: An elderly male lying in bed in no distress RESPIRATORY SYSTEM: Unlabored breathing , decreased breath sounds at bases HEART: S1 S2 regular rate and rhythm , ABDOMEN: Soft , no tenderness EXTREMITIES: No edema feet - Labs CBC & Chem 7: 07/07/23 05:36 07/07/23 05:36 Labs: Abnormal Lab Results - Last 24 Hours (Table) 07/06/23 07/06/23 07/06/23 Range/Units 06:10 06:10 06:10 WBC (4.50-10.00) X 10*3/uL RBC (4.40-5.60) X 10*6/uL Hgb (13.0-17.0) g/dL Hct (39.6-50.0) % Immature Gran # 0.08 H (0.00-0.04) X 10*3/uL Neutrophils # 10.53 H (1.80-7.70) X 10*3/uL Lymphocytes # 0.87 L (0.90-5.00) X 10*3/uL Monocytes # 1.94 H (0.20-1.00) X 10*3/uL Eosinophils # 0 L (0.04-0.35) X 10*3/uL Potassium (3.5-5.5) mmol/L Chloride 111 H (96-109) mmol/L Carbon Dioxide 20.9 L (21.6-31.8) mmol/L Anion Gap 12.10 H (4.00-12.00) mmol/L BUN 33.1 H (9.0-27.0) mg/dL Creatinine 2.3 H (0.6-1.5) mg/dL Est GFR (CKD-EPI) 28 L (>=60) BUN/Creatinine Ratio (12.00-20.00) Ratio Glucose 119 H (70-110) mg/dL AST 49 H (14-35) U/L C-Reactive Protein 18.80 H (0.00-0.80) mg/dL Total Protein 5.3 L (6.2-8.2) g/dL Albumin 3.0 L (3.8-4.9) g/dL Albumin/Globulin Ratio 1.30 L (1.60-3.17) Ratio Procalcitonin 1.97 H (0.02-0.09) ng/mL 07/07/23 07/07/23 Range/Units 05:36 05:36 WBC 10.43 H (4.50-10.00) X 10*3/uL RBC 4.11 L (4.40-5.60) X 10*6/uL Hgb 12.2 L (13.0-17.0) g/dL Hct 36.5 L (39.6-50.0) % Immature Gran # 0.05 H (0.00-0.04) X 10*3/uL Neutrophils # (1.80-7.70) X 10*3/uL Lymphocytes # (0.90-5.00) X 10*3/uL Monocytes # 1.46 H (0.20-1.00) X 10*3/uL Eosinophils # 0 L (0.04-0.35) X 10*3/uL Potassium 3.0 L (3.5-5.5) mmol/L Chloride (96-109) mmol/L Carbon Dioxide (21.6-31.8) mmol/L Anion Gap (4.00-12.00) mmol/L BUN (9.0-27.0) mg/dL Creatinine (0.6-1.5) mg/dL Est GFR (CKD-EPI) (>=60) BUN/Creatinine Ratio 22.25 H (12.00-20.00) Ratio Glucose (70-110) mg/dL AST (14-35) U/L C-Reactive Protein (0.00-0.80) mg/dL Total Protein (6.2-8.2) g/dL Albumin (3.8-4.9) g/dL Albumin/Globulin Ratio (1.60-3.17) Ratio Procalcitonin (0.02-0.09) ng/mL Microbiology - Last 24 Hours (Table) 07/04/23 23:55 Blood Culture - Preliminary Blood Assessment and Plan (1) UTI (urinary tract infection) Current Visit: Yes Status: Acute Code(s): N39.0 - URINARY TRACT INFECTION, SITE NOT SPECIFIED SNOMED Code(s): 09726389 (2) Allergy to cephalosporin Current Visit: Yes Status: Acute Code(s): Z88.1 - ALLERGY STATUS TO OTHER ANTIBIOTIC AGENTS SNOMED Code(s): 424768917 (3) Sepsis Current Visit: No Status: Acute Code(s): A41.9 - SEPSIS, UNSPECIFIED ORGANISM SNOMED Code(s): 53297267 Plan: 1patient presented to hospital with sepsis in this patient with fever elevated white count did have significant diarrhea patient did have a negative UA and a chest x-ray and did not have any neck rigidity or significant tenderness of abdominal wall with main symptom of diarrhea possible source of his sepsis. 2patient did have resolution of his diarrhea and stool studies could not be obtained 3 patient with multiple antibiotic ALLERGIES that would limit the number of antibiotic safe to use 4patient did have a CT of abdominal pelvis with evidence of significant distention of the bladder Romano catheter has been placed 5patient seem to have shown clinical improvement with resolution of his fever white count is trending down, patient to continue with Levaquin we will repeat his UA and culture Dictation was produced using [employer] dictation software. please excuse any grammatical, word or spelling errors. Time with Patient: Less than 30
[2023-07-07 12:28] LABS: Appearance,Urine Clear (Clear); Bacteria,Urine Rare /hpf; Bilirubin,Urine Negative (Negative); Blood,Urine Large (Negative); Color,Urine Colorless; Glucose,Urine (UA) Negative (Negative); Hyaline Casts,Urine 1 /lpf (0-2); Ketones,Urine Negative (Negative); Leukocyte Esterase,Urine Negative (Negative); Mucus,Urine Rare /hpf; Nitrite,Urine Negative (Negative); PH, Urine 5.5 (5.0-8.0); Protein,Urine Negative (Negative); RBC,Urine 72 /hpf (0-5); Specific Gravity,Urine 1.008 (1.001-1.035); Squamous Epithelial Cell,Urine <1 /hpf (0-4); Urobilinogen,Urine <2.0 mg/dL (<2.0); WBC,Urine 4 /hpf (0-5)
[2023-07-07] MEDS: TAMSULOSIN 0.4 MG CAP.ER.24H PO STA (12:48)
[2023-07-07 17:54] VITALS: BMI 21.2
[2023-07-07 18:04] LABS: Potassium 3.4 mmol/L (3.5-5.1)
--- NOTE | 2023-07-07 19:32 | P.PN ---
Subjective Progress Note Date: 07/07/23 I am seeing the patient for the first time during this admission. Please refer to Dr. Whyte's note for further details. The patient is accompanied with his who stated at home she could not wake him up. No history of seizures. She stated he has mild dementia. Patient feels he is doing well and no compliants. Objective - Vital Signs Vital signs: Vital Signs Temp 99.5 F 07/07/23 13:02 Pulse 96 07/07/23 13:02 Resp 20 07/07/23 13:02 BP 143/92 07/07/23 13:02 Pulse Ox 99 07/07/23 13:02 FiO2 Intake & Output 07/07/23 07/07/23 07/08/23 06:59 18:59 06:59 Output Total 2300 1500 Balance -2300 -1500 Weight 63.503 kg Output: Urine 2300 1500 Other: Voiding Method Indwelling Catheter Indwelling Catheter # Voids 2 - Exam General: Resting on recliner chair. Neuro: Somewhat limited. Patient was sleeping initially but then was wakeable to voice. He is oriented to self and place but not time. Is following simple commands. Is hypophonic. No aphasia. No facial weakness. No dysarthria. Motor: Strength is lifting all extremities above gravity and appears symmetrical. - Labs CBC & Chem 7: 07/07/23 05:36 07/07/23 17:25 Labs: Abnormal Lab Results - Last 24 Hours (Table) 07/07/23 07/07/23 07/07/23 Range/Units 05:36 05:36 12:21 WBC 10.43 H (4.50-10.00) X 10*3/uL RBC 4.11 L (4.40-5.60) X 10*6/uL Hgb 12.2 L (13.0-17.0) g/dL Hct 36.5 L (39.6-50.0) % Immature Gran # 0.05 H (0.00-0.04) X 10*3/uL Monocytes # 1.46 H (0.20-1.00) X 10*3/uL Eosinophils # 0 L (0.04-0.35) X 10*3/uL Potassium 3.0 L (3.5-5.5) mmol/L BUN/Creatinine Ratio 22.25 H (12.00-20.00) Ratio Urine Blood Large H (Negative) Urine RBC 72 H (0-5) /hpf Urine Bacteria Rare H (None) /hpf Urine Mucus Rare H (None) /hpf 07/07/23 Range/Units 17:25 WBC (4.50-10.00) X 10*3/uL RBC (4.40-5.60) X 10*6/uL Hgb (13.0-17.0) g/dL Hct (39.6-50.0) % Immature Gran # (0.00-0.04) X 10*3/uL Monocytes # (0.20-1.00) X 10*3/uL Eosinophils # (0.04-0.35) X 10*3/uL Potassium 3.4 L (3.5-5.5) mmol/L BUN/Creatinine Ratio (12.00-20.00) Ratio Urine Blood (Negative) Urine RBC (0-5) /hpf Urine Bacteria (None) /hpf Urine Mucus (None) /hpf Microbiology - Last 24 Hours (Table) 07/05/23 23:50 Urine Culture - Final Urine,Voided 07/04/23 23:55 Blood Culture - Preliminary Blood Assessment and Plan Assessment: * Episode of unresponsiveness, unclear cause but on EEG preliminary had rare discharges and unsure if he had seizure. Cannot rule out process especially with one time fever with leukoctyosis of unknown cause---currently back to baseline. * Acute gastroenteritis * Acute kidney injury with renal failure * Hydronephrosis with urinary retention * Possible UTI * Mild dementia * Hyperlipidemia Plan: * Routine EEG: Preliminary showed rare discharges but no seizure. I started him on Vimpat 50mg bid. No keppra because side-effects of mood/behavioral issues which was concerned. * I notified the patient to avoid driving for concern for seizure or 6 month until no further episodes, avoid heights, avoids swimming unassisted or using heavy machinery. * Carotid Doppler: Reported as mild scattered atherosclerotic disease without significant stenosis. * B12: 861, ammonia <9 * CT head ir reported as no acute finding in the head/brain. * I ordered MRI Brain w/ and w/o * Pending folate level * Pending C.diff, stool culture ordered by I.D. team. * Patient was notified as well as his that he needs to follow-up with a neurologist as an outpatient within 2 weeks. Time with Patient: Less than 30
[2023-07-07] MEDS: IBUPROFEN 400 MG TAB PO PRN (20:03)
[2023-07-07] MEDS: LACOSAMIDE 50 MG TABLET PO SCH (21:00)
--- NOTE | 2023-07-07 23:46 | PN ---
PROGRESS NOTE DATE OF SERVICE: 07/07/2023 SUBJECTIVE: This is a 78-year-old gentleman who was admitted with change in mental status, possibly UTI, also had retention. The patient had Romano catheter inserted. The neurovascular workup is underway. The patient is also being evaluated to rule out possible seizure as well. WBC is still elevated to 0.43 and the cultures are negative so far. Multiple consultants are following the patient closely. PAST MEDICAL HISTORY: Reviewed. REVIEW OF SYSTEMS: Could not be obtained as the patient is confused. CURRENT MEDICATIONS: Reviewed include dose and rest of medications noted. PHYSICAL EXAMINATION: VITAL SIGNS: Pulse is 75, blood pressure 150/70, respirations 20. CHEST: Clear to auscultation. CARDIOVASCULAR: S1, S2. ABDOMEN: Soft, NERVOUS SYSTEM: Diffusely weak. LABORATORY DATA: Reviewed, potassium 3. ASSESSMENT: 1. Acute urinary UTI with change in mental status, present on admission. 2. Dementia with behavioral abnormalities. 3. Possible bladder outlet obstruction with bilateral hydronephrosis and CAT scan on Romano catheter. 4. Rule out seizures. 5. Hyperlipidemia. 6. Degenerative joint disease. 7. Gait dysfunction. 8. Multiple complex medical issues. 9. Full code. RECOMMENDATIONS: Recommended to continue current management, continue symptomatic treatment. Continue with antibiotics. Nephrology evaluation, otherwise I would replace and supplement potassium. We will continue to monitor the creatinine is normal. IV fluids. Further recommendations to follow. See orders for details. MMODL / IJN: [id number] / MTDD
--- NOTE | 2023-07-08 01:22 | EEG ---
ELECTROENCEPHALOGRAM REPORT CLINICAL HISTORY: This is a 78-year-old gentleman with episode of unresponsiveness. The video EEG is obtained to evaluate for seizure epileptiform activity. RELEVANT MEDICATION: Aricept. EEG TYPE: This is a routine 21-channel EEG with video using the 10/20 electrode placement system. DESCRIPTION: Wakefulness and drowsiness are obtained. During awake state, the posterior- dominant rhythm consists of [id number] voltage of 8.5 hertz activity that is well modulated and sustained. There is no physiological stage 2 sleep architecture. There is temporal slowing over the left temporal-central region. Interictal and ictal: There is questionable rare spike/sharp and slow waves and appears tending from the left temporal-central region. No seizures noted during the study. PHOTIC STIMULATION: There is no photic driving noted during the study. There is no abnormality during the photic stimulation. Hyperventilation is not performed. CLINICAL INTERPRETATION: This is an abnormal routine EEG. The focal slowing is suggestive of cerebral dysfunction in the involved region. There is questionable rare sharply contoured activity over the left temporal-central region that can cause cortical irritability. No seizures noted during the study. Clinical correlation is recommended. MMODL / IJN: [id number] / MTDD
[2023-07-08] MEDS: TAMSULOSIN 0.4 MG CAP.ER.24H PO SCH (08:02)
[2023-07-08 11:41] LABS: BUN/Creat Ratio 23.86 Ratio (12.00-20.00); Blood Urea Nitrogen 16.7 mg/dL (9.0-27.0); Calcium 8.7 mg/dL (8.7-10.3); Carbon Dioxide 28.6 mmol/L (21.6-31.8); Chloride 104 mmol/L (96-109); Glucose 98 mg/dL (70-110); Potassium 4.2 mmol/L (3.5-5.5); Sodium 142 mmol/L (135-145)
[2023-07-08 11:50] LABS: Basophils # (A) 0.04 X 10*3/uL (0.00-0.10); Basophils % (A) 0.4 %; Eosinophils # (A) 0.01 X 10*3/uL (0.04-0.35); Eosinophils % (A) 0.1 %; HCT 37.4 % (39.6-50.0); HGB 12.4 g/dL (13.0-17.0); Lymphocytes # (A) 1.24 X 10*3/uL (0.90-5.00); Lymphocytes % (A) 12.1 %; MCHC 33.2 g/dL (32.0-37.0); MCV 90.6 FL (80.0-97.0); Mean Platelet Volume 11.7 FL (9.5-12.2); Monocytes # (A) 1.57 X 10*3/uL (0.20-1.00); Monocytes % (A) 15.3 %; NRBC Per 100 WBC 0 X 10*3/uL (0.00-0.01); Neutrophils # (A) 7.33 X 10*3/uL (1.80-7.70); Neutrophils % (A) 71.3 %; Platelet Count 243 X 10*3/uL (140-440); RBC 4.13 X 10*6/uL (4.40-5.60); RDW 13.1 % (11.5-14.5); WBC 10.27 X 10*3/uL (4.50-10.00)
--- NOTE | 2023-07-08 12:42 | P.GSCN ---
History of Present Illness Consult date: 07/07/23 Reason for Consult: Urinary retention Requesting physician: Candida Galvez History of present illness: The patient is a 78-year-old white male well-known to me. He has a long history of BPH. He underwent cystolithotripsy in 2010. He then developed urinary retention in 2018. The retention resolved, but he continued to empty his bladder incompletely. Therefore, he underwent a TURP in January 2021. He stated that his urinary stream was much improved following that, and bladder emptying improved. He was last seen in April 2021. Pathology showed no evidence of malignancy. Unfortunately, he now has a history of dementia and presented to the ER with mental status changes. He was found to be in urinary retention, as CT scan showed bilateral mild to moderate hydronephrosis with bladder distention up to the umbilicus. Multiple bladder calculi were seen, including an 11 mm calculus within the prostatic urethra. He was febrile upon initial presentation and noted to have leukocytosis. However, urinalysis did not suggest the presence of a UTI. Review of Systems ROS unobtainable: due to mental status Past Medical History Past Medical History: Hearing Disorder / Deafness, Hyperlipidemia, Memory Impairment, Osteoarthritis (OA) Additional Past Medical History / Comment(s): Uses hearing aids. Hx kidney stones X1.pancreatitis, had weight loss but slowly putting back on, frequent diarrhea, trouble emptying bladder completely since surg. WAS ON ANTIBIOTICS FOR BACTERIA IN COLON-LAST DOSE 05/08/19 History of Any Multi-Drug Resistant Organisms: None Reported Past Surgical History: Bladder Surgery Additional Past Surgical History / Comment(s): Cataract surgery bilateral eyes, kidney stone surgery, circumcision, lap airam 2018, COLONOSCOPY Past Anesthesia/Blood Transfusion Reactions: No Reported Reaction Additional Past Anesthesia/Blood Transfusion Reaction / Comm: slow to wake up after lap airam & trouble urinating, ended up w/acuña cath. for week post-op Past Psychological History: No Psychological Hx Reported Smoking Status: Never smoker Past Alcohol Use History: None Reported Additional Past Alcohol Use History / Comment(s): Smoked briefly as a teen. Past Drug Use History: None Reported - Past Family History Mother Family Medical History: Liver Disease Additional Family Medical History / Comment(s): Was a heavy drinker. Father Family Medical History: Cancer Additional Family Medical History / Comment(s): Prostate cancer. Sister(s) Family Medical History: Unable to Obtain Medications and Allergies Home Medications Medication Instructions Recorded Confirmed Type Aspirin [Adult Low Dose Aspirin EC] 81 mg PO HS 05/09/17 07/04/23 History Simvastatin [Zocor] 40 mg PO HS 05/09/17 07/04/23 History Memantine HCl [Namenda] 5 mg PO BID 12/30/18 07/04/23 History Donepezil [Aricept] 10 mg PO DAILY 04/16/19 07/04/23 History Dicyclomine HCl 20 mg PO QID 02/14/21 07/04/23 History Cyclobenzaprine [Flexeril] 5 mg PO DAILY PRN 07/04/23 07/04/23 History Furosemide [Lasix] 20 mg PO DAILY 07/04/23 07/04/23 History Lactase [Lactaid] 3,000 unit PO DAILY 07/04/23 07/04/23 History Montelukast [Singulair] 10 mg PO DAILY 07/04/23 07/04/23 History Omeprazole 40 mg PO DAILY 07/04/23 07/04/23 History Allergies Allergy/AdvReac Type Severity Reaction Status Date / Time cephalexin Allergy Swelling Verified 07/04/23 22:35 meropenem Allergy Swelling Verified 07/04/23 22:35 mold Allergy Nausea & Verified 07/04/23 22:35 Vomiting sulfamethoxazole Allergy Swelling Verified 07/04/23 22:35 [From Bactrim] trimethoprim [From Bactrim] Allergy Swelling Verified 07/04/23 22:35 Surgical - Exam Vital Signs Temp Pulse Resp BP Pulse Ox 102.4 F H 111 H 22 150/85 96 07/04/23 20:24 07/04/23 20:24 07/04/23 20:24 07/04/23 20:24 07/04/23 20:24 - General well developed, well nourished, no distress - Respiratory normal respiratory effort - Abdomen Abdomen: soft, non tender, no guarding, no rigid, no rebound - Genitourinary normal penis with no external lesions, testicles non-tender - Psychiatric oriented to time, oriented to person, oriented to place, speech is normal, memory intact Results - Labs 07/08/23 05:50 07/08/23 05:50 Abnormal Lab Results - Last 24 Hours (Table) 07/06/23 07/06/23 07/06/23 Range/Units 06:10 06:10 06:10 WBC 13.44 H (4.50-10.00) X 10*3/uL RBC 3.74 L (4.40-5.60) X 10*6/uL Hgb 11.1 L (13.0-17.0) g/dL Hct 33.8 L (39.6-50.0) % Immature Gran # 0.08 H (0.00-0.04) X 10*3/uL Neutrophils # 10.53 H (1.80-7.70) X 10*3/uL Lymphocytes # 0.87 L (0.90-5.00) X 10*3/uL Monocytes # 1.94 H (0.20-1.00) X 10*3/uL Eosinophils # 0 L (0.04-0.35) X 10*3/uL Chloride 111 H (96-109) mmol/L Carbon Dioxide 20.9 L (21.6-31.8) mmol/L Anion Gap 12.10 H (4.00-12.00) mmol/L BUN 33.1 H (9.0-27.0) mg/dL Creatinine 2.3 H (0.6-1.5) mg/dL Est GFR (CKD-EPI) 28 L (>=60) Glucose 119 H (70-110) mg/dL AST 49 H (14-35) U/L C-Reactive Protein 18.80 H (0.00-0.80) mg/dL Total Protein 5.3 L (6.2-8.2) g/dL Albumin 3.0 L (3.8-4.9) g/dL Albumin/Globulin Ratio 1.30 L (1.60-3.17) Ratio Procalcitonin 1.97 H (0.02-0.09) ng/mL Microbiology - Last 24 Hours (Table) 07/04/23 23:55 Blood Culture - Preliminary Blood Diabetes panel 07/06/23 Range/Units 06:10 Sodium 144 (135-145) mmol/L Potassium 3.5 (3.5-5.5) mmol/L Chloride 111 H (96-109) mmol/L Carbon Dioxide 20.9 L (21.6-31.8) mmol/L BUN 33.1 H (9.0-27.0) mg/dL Creatinine 2.3 H (0.6-1.5) mg/dL Glucose 119 H (70-110) mg/dL Calcium 8.9 (8.7-10.3) mg/dL AST 49 H (14-35) U/L ALT 33 (10-49) U/L Alkaline Phosphatase 63 (41-126) U/L Total Protein 5.3 L (6.2-8.2) g/dL Albumin 3.0 L (3.8-4.9) g/dL Calcium panel 07/06/23 Range/Units 06:10 Calcium 8.9 (8.7-10.3) mg/dL Albumin 3.0 L (3.8-4.9) g/dL Pituitary panel 07/06/23 Range/Units 06:10 Sodium 144 (135-145) mmol/L Potassium 3.5 (3.5-5.5) mmol/L Chloride 111 H (96-109) mmol/L Carbon Dioxide 20.9 L (21.6-31.8) mmol/L BUN 33.1 H (9.0-27.0) mg/dL Creatinine 2.3 H (0.6-1.5) mg/dL Glucose 119 H (70-110) mg/dL Calcium 8.9 (8.7-10.3) mg/dL Adrenal panel 07/06/23 Range/Units 06:10 Sodium 144 (135-145) mmol/L Potassium 3.5 (3.5-5.5) mmol/L Chloride 111 H (96-109) mmol/L Carbon Dioxide 20.9 L (21.6-31.8) mmol/L BUN 33.1 H (9.0-27.0) mg/dL Creatinine 2.3 H (0.6-1.5) mg/dL Glucose 119 H (70-110) mg/dL Calcium 8.9 (8.7-10.3) mg/dL Total Bilirubin 0.3 (0.3-1.2) mg/dL AST 49 H (14-35) U/L ALT 33 (10-49) U/L Alkaline Phosphatase 63 (41-126) U/L Total Protein 5.3 L (6.2-8.2) g/dL Albumin 3.0 L (3.8-4.9) g/dL - Imaging CT scan - abdomen: report reviewed, image reviewed Assessment and Plan Assessment: The patient was admitted with mental status changes. Urinalysis did not suggest a UTI. CT scan showed marked bladder distention. A Acuña catheter was placed. The amount of urine obtained upon catheter placement was not recorded, but the patient's states that "4 bottles" was drained from the bladder. The differential diagnosis includes prostatic obstruction from BPH regrowth, prostatic obstruction from an impacted urethral calculus, or an atonic bladder. (1) Retention of urine, unspecified Current Visit: Yes Status: Acute Code(s): R33.9 - RETENTION OF URINE, UNSPECIFIED SNOMED Code(s): 218884616 (2) Calculus in bladder Current Visit: Yes Status: Acute Code(s): N21.0 - CALCULUS IN BLADDER SNOMED Code(s): 47487822 (3) Unspecified hydronephrosis Current Visit: Yes Status: Acute Code(s): N13.30 - UNSPECIFIED HYDRONEPHROSIS SNOMED Code(s): 55367755 Plan: I explained to the patient and his that he will need to be discharged home with a Acuña catheter. Arrangements will be made for him to undergo urodynamic testing and cystoscopy later this month for further evaluation of his urologic condition. He will not require any urologic intervention during this hospitalization. Time with Patient: Greater than 30
--- NOTE | 2023-07-08 12:48 | P.PN ---
Subjective Progress Note Date: 07/08/23 Principal diagnosis: Reason for follow-up is sepsis/UTI Patient is a 78-year-old male with a past medical history significant for hyperlipidemia osteoarthritis and memory impairment patient was brought into the ER for evaluation of mental status changes, patient to have a positive UA concerning for UTI also have a significant diarrhea patient did have a CT abdominal pelvis completed with evidence of marked bladder and ureteral or renal obstruction no evidence of any colitis or abscess. On today's evaluation that is 07/08/2023, Patient is afebrile , patient is cur rently on 3 L nasal cannula oxygen and denies having any shortness of breath, the patient denies any chest pain or cough, the patient denies any nausea vomiting did not have any abdominal pain and no diarrhea. White count is 10.27 blood culture so far pending urine culture remain negative repeat UA is negative Objective - Vital Signs Vital signs: Vital Signs Temp 98.4 F 07/08/23 07:45 Pulse 71 07/08/23 07:45 Resp 16 07/08/23 07:45 BP 149/84 07/08/23 07:45 Pulse Ox 100 07/08/23 07:45 FiO2 Intake & Output 07/07/23 07/08/23 07/08/23 18:59 06:59 18:59 Intake Total 450 90 Output Total 1500 1050 100 Balance -1500 -600 -10 Weight 63.503 kg Intake: Oral 450 90 Output: Urine 1500 1050 100 Uretheral (Romano) 100 Other: Voiding Method Indwelling Catheter Indwelling Catheter Indwelling Catheter - Exam GENERAL DESCRIPTION: An elderly male lying in bed in no distress RESPIRATORY SYSTEM: Unlabored breathing , decreased breath sounds at bases HEART: S1 S2 regular rate and rhythm , ABDOMEN: Soft , no tenderness EXTREMITIES: No edema feet - Labs CBC & Chem 7: 07/08/23 05:50 07/08/23 05:50 Labs: Abnormal Lab Results - Last 24 Hours (Table) 07/07/23 07/08/23 07/08/23 Range/Units 17:25 05:50 05:50 WBC 10.27 H (4.50-10.00) X 10*3/uL RBC 4.13 L (4.40-5.60) X 10*6/uL Hgb 12.4 L (13.0-17.0) g/dL Hct 37.4 L (39.6-50.0) % Immature Gran # 0.08 H (0.00-0.04) X 10*3/uL Monocytes # 1.57 H (0.20-1.00) X 10*3/uL Eosinophils # 0.01 L (0.04-0.35) X 10*3/uL Potassium 3.4 L (3.5-5.1) mmol/L BUN/Creatinine Ratio 23.86 H (12.00-20.00) Ratio Microbiology - Last 24 Hours (Table) 07/04/23 23:55 Blood Culture - Preliminary Blood 07/05/23 23:50 Urine Culture - Final Urine,Voided Assessment and Plan (1) UTI (urinary tract infection) Current Visit: Yes Status: Acute Code(s): N39.0 - URINARY TRACT INFECTION, SITE NOT SPECIFIED SNOMED Code(s): 07556233 (2) Allergy to cephalosporin Current Visit: Yes Status: Acute Code(s): Z88.1 - ALLERGY STATUS TO OTHER ANTIBIOTIC AGENTS SNOMED Code(s): 447188851 (3) Sepsis Current Visit: No Status: Acute Code(s): A41.9 - SEPSIS, UNSPECIFIED ORG ANISM SNOMED Code(s): 46061869 Plan: 1patient presented to hospital with sepsis in this patient with fever elevated white count did have significant diarrhea patient did have a negative UA and a chest x-ray and did not have any neck rigidity or significant tenderness of abdominal wall with main symptom of diarrhea possible source of his sepsis. 2patient did have resolution of his diarrhea and stool studies could not be obtained 3 patient with multiple antibiotic ALLERGIES that would limit the number of antibiotic safe to use 4patient did have a CT of abdominal pelvis with evidence of significant distention of the bladder Romano catheter has been placed 5patient has shown clinical improvement and did have resolution of his fever w canelo count is trending down, patient to continue with Levaquin, repeat UA is clear Family at the bedside questions answered Dictation was produced using [employer] dictation software. please excuse any gr ammatical, word or spelling errors. Time with Patient: Less than 30
--- NOTE | 2023-07-08 13:50 | P.PN ---
Subjective Progress Note Date: 07/08/23 This is a 78-year-old male who was recently admitted with change in mental status, with concerns of acute urinary tract infection also retention requiring indwelling Romano catheter. Patient undergoing neurological workup including EEG which was done yesterday as there was concerns of possible seizure-like activity. Infectious disease following and patient is maintained on antibiotics in the form of Levaquin. Patient with extensive weakness and difficulty with ambulation being evaluated by physical therapy recommending rehab and patient family is agreeable. Patient's fluids have been discontinued and kidney functions are much improved and urology has evaluated the patient. Encouraged oral intake and increased activity as tolerated. Patient is currently afebrile with no reports of chest pain or shortness of breath. No reported nausea or vomiting noted. Continue with indwelling Romano catheter for now and Flomax has been added. Review of systems: Constitutional: No reports of fatigue, fever, or chills Cardiovascular: No reports of chest pain or palpitations Respiratory: No reports of shortness of breath or cough GI: No reports of nausea, no reports of vomiting, no diarrhea : No reports of dysuria, patient was retaining requiring indwelling Romano catheter Neurovascular: reports of generalized weakness, difficulty ambulating All medications have been reviewed Active Medications Acetaminophen (Acetaminophen Tab 325 Mg Tab) 650 mg PO Q6HR PRN PRN Reason: Mild Pain or Fever > 100.5 Last Admin: 07/07/23 16:41 Dose: 650 mg Aspirin (Aspirin 81 Mg) 81 mg PO [facility] Last Admin: 07/07/23 21:00 Dose: 81 mg Atorvastatin Calcium (Atorvastatin 20 Mg Tab) 20 mg PO [facility] Last Admin: 07/07/23 21:00 Dose: 20 mg Donepezil HCl (Donepezil 10 Mg Tab) 10 mg PO DAILY [facility] Last Admin: 07/08/23 08:02 Dose: 10 mg Folic Acid (Folic Acid 1 Mg Tab) 1 mg PO DAILY@1200 [facility] Last Admin: 07/08/23 13:13 Dose: 1 mg Furosemide (Furosemide 20 Mg Tab) 20 mg PO DAILY [facility] Last Admin: 07/08/23 08:00 Dose: 20 mg Heparin Sodium (Porcine) (Heparin Sodium,Porcine 5,000 Unit/Ml 1 Ml Vial) 5,000 unit SQ Q12HR [facility] Last Admin: 07/08/23 08:00 Dose: 5,000 unit Ibuprofen (Ibuprofen 400 Mg Tab) 400 mg PO Q6HR PRN PRN Reason: Mild Pain or Fever > 100.5 Last Admin: 07/08/23 12:02 Dose: 400 mg Lacosamide (Lacosamide 50 Mg Tablet) 50 mg PO BID [facility] Last Admin: 07/08/23 08:02 Dose: 50 mg Levofloxacin (Levofloxacin 750 Mg Tab) 750 mg PO Q24H [facility] Last Admin: 07/08/23 10:07 Dose: 750 mg Lorazepam (Lorazepam 2 Mg/Ml Inj) 1 mg IV Q6HR PRN PRN Reason: Anxiety Last Admin: 07/04/23 23:22 Dose: 1 mg Memantine (Memantine 5 Mg Tab) 5 mg PO BID [facility] Last Admin: 07/08/23 08:02 Dose: 5 mg Miscellaneous Information (Potassium Replacement Protocol 1 Each Misc) 1 each MISCELLANE DAILY PRN; Protocol PRN Reason: Per Protocol Morphine Sulfate (Morphine Sulfate 4 Mg/Ml Syringe) 4 mg IV Q4HR PRN PRN Reason: Severe Pain (Scale 7 to 10) Multivitamins (Multivitamins, Thera 1 Each Tab) 1 each PO DAILY@1200 [facility] Last Admin: 07/08/23 13:13 Dose: 1 each Naloxone HCl (Naloxone 0.4 Mg/Ml 1 Ml Vial) 0.2 mg IV Q2M PRN PRN Reason: Opioid Reversal Ondansetron HCl (Ondansetron 4 Mg/2 Ml Vial) 4 mg IVP Q8HR PRN PRN Reason: Nausea And Vomiting Pantoprazole Sodium (Pantoprazole 40 Mg Tablet) 40 mg PO AC-BRKFST [facility] Last Admin: 07/08/23 07:14 Dose: 40 mg Petrolatum (Zinc Oxide Paste (Z-Guard) 1 Applic) 1 applic TOPICAL Q2HR PRN; Protocol PRN Reason: Wound Healing Tamsulosin HCl (Tamsulosin 0.4 Mg Cap.Er.24h) 0.4 mg PO -KFST [facility] Last Admin: 07/08/23 08:02 Dose: 0.4 mg Thiamine HCl (Thiamine 100 Mg Tab) 100 mg PO BID-W/MEALS [facility] Last Admin: 07/08/23 07:14 Dose: 100 mg PHYSICAL EXAMINATION: GENERAL: The patient is alert and oriented x2 baseline, Well developed, thin built, elderly appearing HEENT: Pupils are round and equally reacting to light. EOMI. no scleral icterus. No conjunctival pallor. Normocephalic, atraumatic. No pharyngeal erythema. No thyromegaly. CARDIOVASCULAR: S1 and S2 muffled PULMONARY: diminished breath sounds bilaterally with no wheezing or rhonchi noted. ABDOMEN: soft. Nontender on exam. non-distended, normoactive bowel sounds. No palpable organomegaly. MUSCULOSKELETAL: No joint swelling or deformity. EXTREMITIES: No cyanosis, clubbing, or pedal edema. NEUROLOGICAL: Gross neurological examination did not reveal any focal deficits. Diffuse weakness SKIN: No rashes. Assessment: Acute urinary tract infection with change in mental status, present on admission with features of sepsis, procalcitonin was 1.97 Dementia with behavioral abnormalities Possible seizure, undergoing neurological workup. EEG showed rare discharges but no seizure-like activity, started on Vimpat Acute kidney injury possibly secondary to urinary tract infection, improving Bladder outlet obstruction with bilateral hydronephrosis on CT scan requiring indwelling Romano catheter Hyperlipidemia Degenerative joint disease Gait dysfunction GI prophylaxis DVT prophylaxis Full code Plan: Recommend to continue with current medications and management with neurology, infectious disease, and urology following. Patient will need outpatient follow- up with urology for cystoscopy and was instructed to continue with indwelling Romano catheter. Continue Flomax Patient is continued on antibiotics in the form of Levaquin and will continue Encouraged increase activity as tolerated and will follow-up on repeat labs Neurology following and patient is continued on Vimpat Patient with significant weakness seen and evaluated by physical therapy recommending rehab and patient family is agreeable Case management consulted and will discuss further with discharge planning The impression and plan of care has been dictated by Maricel Waldrop, nurse practitioner as directed. Dr. Lenny MD I have performed a history and examination and MDM of this patient, discussed the same with the dictator, and agree with the dictator's assessment and plan as written ,documented as a scribe. Based on total visit time, I have performed more than 50% of the visit. Any additional findings or plans will be noted. Objective - Vital Signs Vital signs: Vital Signs Temp 98.4 F 07/08/23 07:45 Pulse 71 07/08/23 07:45 Resp 16 07/08/23 07:45 BP 149/84 07/08/23 07:45 Pulse Ox 100 07/08/23 07:45 FiO2 Intake & Output 07/07/23 07/08/23 07/08/23 18:59 06:59 18:59 Intake Total 450 90 Output Total 1500 1050 100 Balance -1500 -600 -10 Weight 63.503 kg Intake: Oral 450 90 Output: Urine 1500 1050 100 Uretheral (Romano) 100 Other: Voiding Method Indwelling Catheter Indwelling Catheter Indwelling Catheter - Labs CBC & Chem 7: 07/08/23 05:50 07/08/23 05:50 Labs: Abnormal Lab Results - Last 24 Hours (Table) 07/07/23 07/08/23 07/08/23 Range/Units 17:25 05:50 05:50 WBC 10.27 H (4.50-10.00) X 10*3/uL RBC 4.13 L (4.40-5.60) X 10*6/uL Hgb 12.4 L (13.0-17.0) g/dL Hct 37.4 L (39.6-50.0) % Immature Gran # 0.08 H (0.00-0.04) X 10*3/uL Monocytes # 1.57 H (0.20-1.00) X 10*3/uL Eosinophils # 0.01 L (0.04-0.35) X 10*3/uL Potassium 3.4 L (3.5-5.1) mmol/L BUN/Creatinine Ratio 23.86 H (12.00-20.00) Ratio Microbiology - Last 24 Hours (Table) 07/04/23 23:55 Blood Culture - Preliminary Blood 07/05/23 23:50 Urine Culture - Final Urine,Voided
--- NOTE | 2023-07-08 14:29 | XR ---
EXAMINATION TYPE: XR chest 2V DATE OF EXAM: 07/08/2023 2:24 PM CLINICAL INDICATION:Male, 78 years old with history of Fever/pneumonia; [facility] COMPARISON: Chest radiographs from 07/04/2023. TECHNIQUE: XR chest 2V Frontal and lateral views of the chest. FINDINGS: Lungs/Pleura: There is flattening of the diaphragm with increased lucency of the lungs. No evidence o f pneumothorax, pleural effusion or focal consolidation. Pulmonary vascularity: Unremarkable. Heart/mediastinum: Cardiomediastinal silhouette is unremarkable. Musculoskeletal: No acute osseous pathology. IMPRESSION: 1. No acute cardiopulmonary disease process. 2. COPD changes.
[2023-07-09] MEDS: ZINC OXIDE PASTE (Z-GUARD) 1 APPLIC TOPICAL PRN (06:24)
[2023-07-09 10:45] LABS: Basophils % (A) 0 %; Eosinophils # (A) 0.1 k/uL (0-0.7); Eosinophils % (A) 1 %; HGB 12.6 gm/dL (13.0-17.5); Lymphocytes # (A) 1.2 k/uL (1.0-4.8); Lymphocytes % (A) 12 %; MCH 29.7 pg (25.0-35.0); MCHC 32.4 g/dL (31.0-37.0); MCV 91.5 fL (80.0-100.0); Mean Platelet Volume 8.5; Monocytes # (A) 1.1 k/uL (0-1.0); Monocytes % (A) 11 %; Neutrophils # (A) 7.1 k/uL (1.3-7.7); Neutrophils % (A) 72 %; Platelet Count 316 k/uL (150-450); RBC 4.26 m/uL (4.30-5.90); RDW 12.5 % (11.5-15.5); WBC 9.8 k/uL (3.8-10.6)
[2023-07-09 10:58] LABS: African American GFR (CKD) >90 (>60 ml/min/1.73 sqM); Anion Gap 3 mmol/L; Blood Urea Nitrogen 20 mg/dL (9-20); Calcium 8.9 mg/dL (8.4-10.2); Carbon Dioxide 35 mmol/L (22-30); Chloride 96 mmol/L (98-107); Glucose 136 mg/dL (74-99); Magnesium 1.8 mg/dL (1.6-2.3); Non-African American GFR(CKD) >90 (>60 ml/min/1.73 sqM); Potassium 3.8 mmol/L (3.5-5.1); Sodium 134 mmol/L (137-145)
--- NOTE | 2023-07-09 11:08 | P.PN ---
Subjective Progress Note Date: 07/09/23 Principal diagnosis: Reason for follow-up is sepsis/UTI Patient is a 78-year-old male with a past medical history significant for hyperlipidemia osteoarthritis and memory impairment patient was brought into the ER for evaluation of mental status changes, patient to have a positive UA concerning for UTI also have a significant diarrhea patient did have a CT abdominal pelvis completed with evidence of marked bladder and ureteral or renal obstruction no evidence of any colitis or abscess. On today's evaluation that is 07/09/2023,the patient remains to be afebrile and is currently breathing comfortably on room air patient remains to have a mental status changes per the at the bedside patient himself was not to provide any history no vomiting diarrhea or any other changes reported. The patient white normalized to 9.8, creatinine 0.6 4 repeat chest x-ray was negative for acute infiltrate blood and urine culture have been negative Objective - Vital Signs Vital signs: Vital Signs Temp 99.2 F 07/09/23 08:00 Pulse 87 07/09/23 08:00 Resp 17 07/09/23 08:00 BP 158/87 07/09/23 08:00 Pulse Ox 98 07/09/23 09:35 FiO2 Intake & Output 07/08/23 07/09/23 07/09/23 18:59 06:59 18:59 Intake Total 570 Output Total 100 2600 600 Balance 470 -2600 -600 Intake: Oral 570 Output: Urine 100 2600 600 Uretheral (Romano) 100 600 Other: Voiding Method Indwelling Catheter Indwelling Catheter Indwelling Catheter # Voids 0 2 - Exam GENERAL DESCRIPTION: An elderly male lying in bed in no distress RESPIRATORY SYSTEM: Unlabored breathing , decreased breath sounds at bases HEART: S1 S2 regular rate and rhythm , ABDOMEN: Soft , no tenderness EXTREMITIES: No edema feet - Labs CBC & Chem 7: 07/09/23 10:21 07/09/23 10:21 Labs: Abnormal Lab Results - Last 24 Hours (Table) 07/08/23 07/08/23 Range/Units 05:50 05:50 WBC 10.27 H (4.50-10.00) X 10*3/uL RBC 4.13 L (4.40-5.60) X 10*6/uL Hgb 12.4 L (13.0-17.0) g/dL Hct 37.4 L (39.6-50.0) % Immature Gran # 0.08 H (0.00-0.04) X 10*3/uL Monocytes # 1.57 H (0.20-1.00) X 10*3/uL Eosinophils # 0.01 L (0.04-0.35) X 10*3/uL BUN/Creatinine Ratio 23.86 H (12.00-20.00) Ratio Microbiology - Last 24 Hours (Table) 07/04/23 23:55 Blood Culture - Preliminary Blood Assessment and Plan (1) UTI (urinary tract infection) Current Visit: Yes Status: Acute Code(s): N39.0 - URINARY TRACT INFECTION, SITE NOT SPECIFIED SNOMED Code(s): 85858718 (2) Allergy to cephalosporin Current Visit: Yes Status: Acute Code(s): Z88.1 - ALLERGY STATUS TO OTHER ANTIBIOTIC AGENTS SNOMED Code(s): 012051965 (3) Sepsis Current Visit: No Status: Acute Code(s): A41.9 - SEPSIS, UNSPECIFIED ORGANISM SNOMED Code(s): 08344192 Plan: 1patient presented to hospital with sepsis in this patient with fever elevated white count did have significant diarrhea patient did have a negative UA and a chest x-ray and did not have any neck rigidity or significant tenderness of abdominal wall with main symptom of diarrhea possible source of his sepsis. 2 patient with multiple antibiotic ALLERGIES that would limit the number of antibiotic safe to use 3patient did have a CT of abdominal pelvis with evidence of significant distention of the bladder Romano catheter has been placed 4patient did have persistent mental status changes and most of the workup has been negative including repeat chest x-ray was negative for pneumonia urine culture has been negative concern for possible FINE UN[employer]IRER infection and this is a has been consulted to LP we will send CSF for glucose protein cell count differential and adjust medication further on the basis of CSF results This has been discussed with the patient nurse as well as the family at the bedside question concern answered Dictation was produced using [employer] dictation software. please excuse any grammatical, word or spelling errors. Time with Patient: Greater than 30
--- NOTE | 2023-07-09 13:30 | P.PN ---
Subjective Progress Note Date: 07/09/23 This is a 78-year-old male who was recently admitted with change in mental status, with concerns of acute urinary tract infection also retention requiring indwelling Romano catheter. Patient undergoing neurological workup including EEG which was done yesterday as there was concerns of possible seizure-like activity. Infectious disease following and patient is maintained on antibiotics in the form of Levaquin. Patient with extensive weakness and difficulty with ambulation being evaluated by physical therapy recommending rehab and patient family is agreeable. Patient's fluids have been discontinued and kidney functions are much improved and urology has evaluated the patient. Encouraged oral intake and increased activity as tolerated. Patient is currently afebrile with no reports of chest pain or shortness of breath. No reported nausea or vomiting noted. Continue with indwelling Romano catheter for now and Flomax has been added. 07/09/2023 Patient is seen in follow-up today continues to be lethargic and somewhat confused per family at bedside with no significant changes noted. Patient does have history of dementia. Patient's room was completely dark with shades down and discussed with the patient's family about frequent reorientation and keeping the shades open during the day and having the patient sit up out of the bed more frequently. Patient's family reported he did not want the light it was bothering his eyes. Patient being followed by infectious disease along with ne urology undergoing workup including MRI of the brain which is pending for today. Patient to continue with indwelling Romano catheter per urology and outpatient follow-up. Review of systems: Constitutional: No reports of fatigue, fever, or chills Cardiovascular: No reports of chest pain or palpitations Respiratory: No reports of shortness of breath or cough GI: No reports of nausea, no reports of vomiting, no diarrhea : No reports of dysuria, patient was retaining requiring indwelling Romano ca theter Neurovascular: reports of generalized weakness, difficulty ambulating All medications have been reviewed PHYSICAL EXAMINATION: GENERAL: The patient is alert and oriented x1-2 baseline, Well developed, thin built, elderly appearing HEENT: Pupils are round and equally reacting to light. EOMI. no scleral icterus. No conjunctival pallor. Normocephalic, atraumatic. No pharyngeal erythema. No thyromegaly. CARDIOVASCULAR: S1 and S2 muffled PULMONARY: diminished breath sounds bilaterally with no wheezing or rhonchi noted. ABDOMEN: soft. Nontender on exam. non-distended, normoactive bowel sounds. No palpable organomegaly. MUSCULOSKELETAL: No joint swelling or deformity. EXTREMITIES: No cyanosis, clubbing, or pedal edema. NEUROLOGICAL: Gross neurological examination did not reveal any focal deficits. Diffuse weakness SKIN: No rashes. Assessment: Acute urinary tract infection with change in mental status, present on admission with features of sepsis, procalcitonin was 1.97 Dementia with behavioral abnormalities Possible seizure, undergoing neurological workup. EEG showed rare discharges but no seizure-like activity, started on Vimpat Acute kidney injury possibly secondary to urinary tract infection, improving Bladder outlet obstruction with bilateral hydronephrosis on CT scan requiring indwelling Romano catheter Hyperlipidemia Degenerative joint disease Gait dysfunction GI prophylaxis DVT prophylaxis Full code Plan: Recommend to continue with current medications and management with neurology, infectious disease, and urology following. Patient will need outpatient follow- up with urology for cystoscopy and was instructed to continue with indwelling Romano catheter. Continue Flomax Patient is continued on antibiotics in the form of Levaquin and will continue Encouraged increase activity as tolerated and will follow-up on repeat labs, kidney functions stable and patient is afebrile with no white count Neurology following and patient is continued on Vimpat. MRI of the brain was ordered although there appears to be some artifact with a possible BB per radiology report and unable to perform the MRI of the brain. Patient with significant weakness seen and evaluated by physical therapy recommending rehab and patient family is agreeable Case management following and awaiting family choices about possible ECF will discuss further with discharge planning Possible discharge in the next 24 to 48 hours The impression and plan of care has been dictated by Maricel Waldrop, nurse practitioner as directed. Dr. Lenny MD I have performed a history and examination and MDM of this patient, discussed the same with the dictator, and agree with the dictator's assessment and plan as written ,documented as a scribe. Based on total visit time, I have performed more than 50% of the visit. Any additional findings or plans will be noted. Objective - Vital Signs Vital signs: Vital Signs Temp 99.2 F 07/09/23 08:00 Pulse 87 07/09/23 08:00 Resp 17 07/09/23 08:00 BP 158/87 07/09/23 08:00 Pulse Ox 100 07/09/23 08:00 FiO2 Intake & Output 07/08/23 07/09/23 07/09/23 18:59 06:59 18:59 Intake Total 570 Output Total 100 2600 600 Balance 470 -2600 -600 Intake: Oral 570 Output: Urine 100 2600 600 Uretheral (Romano) 100 600 Other: Voiding Method Indwelling Catheter Indwelling Catheter Indwelling Catheter # Voids 0 2 - Labs CBC & Chem 7: 07/09/23 10:21 07/09/23 10:21 Labs: Abnormal Lab Results - Last 24 Hours (Table) 07/08/23 07/08/23 Range/Units 05:50 05:50 WBC 10.27 H (4.50-10.00) X 10*3/uL RBC 4.13 L (4.40-5.60) X 10*6/uL Hgb 12.4 L (13.0-17.0) g/dL Hct 37.4 L (39.6-50.0) % Immature Gran # 0.08 H (0.00-0.04) X 10*3/uL Monocytes # 1.57 H (0.20-1.00) X 10*3/uL Eosinophils # 0.01 L (0.04-0.35) X 10*3/uL BUN/Creatinine Ratio 23.86 H (12.00-20.00) Ratio Microbiology - Last 24 Hours (Table) 07/04/23 23:55 Blood Culture - Preliminary Blood
[2023-07-09 19:27] LABS: Glucose,CSF 50 mg/dL (40-70); Total Protein,CSF 207 mg/dL (12-60)
--- NOTE | 2023-07-09 19:39 | P.PCN ---
Date of Procedure: 07/09/23 Procedure(s) Performed: Preoperative diagnosis:Altered mental status Post operative diagnoses: Altered mental status Procedure= lumbar puncture Anesthesia= lidocaine 1% 3 mL Condition: stable Complication: none. Description of the procedure procedure risk and benefits discussed with the patient and family, consent signed. Patient and the procedure area placed in sitting position, back prepped with chlorhexidine 3 times been local infiltration of the skin and subcutaneous tissue with lidocaine 1% 3 mL for skin and subcu interstitial frustrations at L4 5 levels then 22-gauge Quincke-type needle advanced slowly at L4- 5 interlaminar space there was positive cerebrospinal fluid which was clear, no heme, no paresthesia ,total of 9 ML of clear cerebrospinal fluid collected in 4 different tubes 2-2-1/2 mL in each, then the needle removed and a Band-Aid applied and patient tolerated the procedure well without any complications.
[2023-07-09 20:51] LABS: Appearance,CSF Clear; CSF Tube Number 4
[2023-07-09 20:53] LABS: Nucleated Cells, CSF 21 u/L (0-5)
[2023-07-09 20:54] LABS: Red Blood Cell,CSF 1 u/L (0-10)
[2023-07-09 21:06] LABS: Diff, Total Cells Cnt, CSF 100; Mononuclear WBC,CSF 64 %; Polynuclear WBC,CSF 36 %
[2023-07-10] MEDS: ACYCLOVIR SODIUM 500 MG in SODIUM CHLORIDE 0.9% 100 ML IVPB SCH (09:39)
--- NOTE | 2023-07-10 11:44 | P.PN ---
Subjective Progress Note Date: 07/10/23 Principal diagnosis: Reason for follow-up is sepsis/UTI Patient is a 78-year-old male with a past medical history significant for hyperlipidemia osteoarthritis and memory impairment patient was brought into the ER for evaluation of mental status changes, patient to have a positive UA concerning for UTI also have a significant diarrhea patient did have a CT abdominal pelvis completed with evidence of marked bladder and ureteral or renal obstruction no evidence of any colitis or abscess. On today's evaluation that is 07/10/2023,the patient did have a low-grade fever of 99.8 F the patient is afebrile since then, patient is on 2 L nasal cannula supplemental oxygen, the patient is more awake and alert today and denies any shortness of breath no chest pain or cough.Patient denies having any nausea or vomiting, no abdominal pain and no diarrhea has been reported. Patient white count was 9.8 as of yesterday no labs drawn today patient also have LP completed last night protein was high at 207 glucose was 52 L it was 21 Objective - Vital Signs Vital signs: Vital Signs Temp 98.3 F 07/10/23 07:32 Pulse 77 07/10/23 07:50 Resp 19 07/10/23 07:50 BP 149/82 07/10/23 07:32 Pulse Ox 98 07/10/23 07:32 FiO2 Intake & Output 07/09/23 07/10/23 07/10/23 18:59 06:59 18:59 Intake Total 358 Output Total 1700 325 Balance -1342 -325 Intake: Oral 358 Output: Urine 1700 325 Uretheral (Romano) 600 Other: Voiding Method Indwelling Catheter Indwelling Catheter Indwelling Catheter - Exam GENERAL DESCRIPTION: An elderly male lying in bed in no distress RESPIRATORY SYSTEM: Unlabored breathing , decreased breath sounds at bases HEART: S1 S2 regular rate and rhythm , ABDOMEN: Soft , no tenderness EXTREMITIES: No edema feet - Labs CBC & Chem 7: 07/09/23 10:21 07/09/23 10:21 Labs: Abnormal Lab Results - Last 24 Hours (Table) 07/09/23 Range/Units 18:40 CSF Tot Nucleated Cells 21 H* (0-5) u/L CSF Total Protein 207 H (12-60) mg/dL Microbiology - Last 24 Hours (Table) 07/09/23 18:40 CSF Gram Stain - Preliminary Cerebral Spinal Fluid 07/04/23 23:55 Blood Culture - Final Blood Assessment and Plan (1) UTI (urinary tract infection) Current Visit: Yes Status: Acute Code(s): N39.0 - URINARY TRACT INFECTION, SITE NOT SPECIFIED SNOMED Code(s): 02188185 (2) Allergy to cephalosporin Current Visit: Yes Status: Acute Code(s): Z88.1 - ALLERGY STATUS TO OTHER ANTIBIOTIC AGENTS SNOMED Code(s): 853903434 (3) Encephalitis Current Visit: Yes Status: Acute Code(s): G04.90 - ENCEPHALITIS AND ENCEPHALOMYELITIS, UNSPECIFIED SNOMED Code(s): 76469579 Plan: 1patient presented to hospital with sepsis in this patient with fever elevated white count did have significant diarrhea patient did have a negative UA and a chest x-ray and did not have any neck rigidity or significant tenderness of abdominal wall with main symptom of diarrhea possible source of his sepsis. 2 patient with multiple antibiotic ALLERGIES that would limit the number of antibiotic safe to use 3patient did have a CT of abdominal pelvis with evidence of significant distention of the bladder Romano catheter has been placed 4patient did have persistent mental status changes, for the patient did have LP completed yesterday did have elevated protein and glucose is normal white count is 21 suspicious for possible encephalitis likely herpes encephalitis Acyclovir has been added we will see clinical spots and wait for CSF viral PCR to be completed, discussed with the neurologist Dictation was produced using [employer] dictation software. please excuse any grammatical, word or spelling errors. Time with Patient: Less than 30
[2023-07-10 12:48] LABS: Basophils # (A) 0.1 k/uL (0-0.2); Basophils % (A) 1 %; Eosinophils # (A) 0.1 k/uL (0-0.7); Eosinophils % (A) 1 %; HCT 39.2 % (39.0-53.0); HGB 12.9 gm/dL (13.0-17.5); Lymphocytes # (A) 1.2 k/uL (1.0-4.8); Lymphocytes % (A) 12 %; MCH 29.9 pg (25.0-35.0); MCHC 32.9 g/dL (31.0-37.0); Monocytes % (A) 10 %; Neutrophils # (A) 7.5 k/uL (1.3-7.7); Neutrophils % (A) 74 %; Platelet Count 396 k/uL (150-450); RBC 4.31 m/uL (4.30-5.90); RDW 12.4 % (11.5-15.5); WBC 10.2 k/uL (3.8-10.6)
[2023-07-10 13:11] LABS: African American GFR (CKD) >90 (>60 ml/min/1.73 sqM); Anion Gap 8 mmol/L; Blood Urea Nitrogen 24 mg/dL (9-20); Calcium 9.3 mg/dL (8.4-10.2); Carbon Dioxide 29 mmol/L (22-30); Chloride 97 mmol/L (98-107); Glucose 129 mg/dL (74-99); Magnesium 1.9 mg/dL (1.6-2.3); Non-African American GFR(CKD) >90 (>60 ml/min/1.73 sqM); Sodium 134 mmol/L (137-145)
--- NOTE | 2023-07-10 14:56 | P.PN ---
Subjective Progress Note Date: 07/10/23 During this hospital visit, he continued to be confused and unresponsive per his and yesterday he had lumbar puncture which showed white cell count of 21 and then started on Acyclovir. Today he is accompanied with his and she states he is doing drastically better. He denies of headache, focal weakness. He could not perform MRI since has metal in face. Objective - Vital Signs Vital signs: Vital Signs Temp 98.1 F 07/10/23 14:00 Pulse 96 07/10/23 14:00 Resp 19 07/10/23 14:00 BP 114/61 07/10/23 14:00 Pulse Ox 98 07/10/23 14:00 FiO2 Intake & Output 07/09/23 07/10/23 07/10/23 18:59 06:59 18:59 Intake Total 358 Output Total 1700 325 Balance -1342 -325 Intake: Oral 358 Output: Urine 1700 325 Uretheral (Romano) 600 Other: Voiding Method Indwelling Catheter Indwelling Catheter Indwelling Catheter - Exam General: Lying in bed and is not in acute distress. HENT: Supple. Neuro: Somewhat limited. The patient is awake, alert, oriented to self, place. He is somewhat slow responding. Has hypophonia. No aphasia from limited language. No facial weakness. No dysarthria. Motor: Strength is lifting all extremities above gravity and appears symmetrical. - Labs CBC & Chem 7: 07/10/23 12:22 07/10/23 12:22 Labs: Abnormal Lab Results - Last 24 Hours (Table) 07/09/23 07/10/23 07/10/23 Range/Units 18:40 12:22 12:22 Hgb 12.9 L (13.0-17.5) gm/dL Sodium 134 L (137-145) mmol/L Chloride 97 L (98-107) mmol/L BUN 24 H (9-20) mg/dL Glucose 129 H (74-99) mg/dL CSF Tot Nucleated Cells 21 H* (0-5) u/L CSF Total Protein 207 H (12-60) mg/dL Microbiology - Last 24 Hours (Table) 07/09/23 18:40 CSF Gram Stain - Preliminary Cerebral Spinal Fluid 07/04/23 23:55 Blood Culture - Final Blood Assessment and Plan Assessment: * Episode of unresponsiveness, with fever and leukocytosis: Appear encephalitis. Also EEG had rare discharges but no seizure on EEG---mentation improved. CSF nucleated cells 21. * Acute gastroenteritis * Acute kidney injury with renal failure * Hydronephrosis with urinary retention * Possible UTI * Mild dementia * Hyperlipidemia Plan: * CSF: clear, colorless, rbc 1, total nucleated cells 21, protein 207. CSF gram stain: rare polymorphonuclear leukocytes. No organism seen. * Patient is started on Acylovir 600mg every 8 hours. Does not appear meningitis. Earlier today I attempted to start him on Cefriaxone 2gm bid but he has cephalexin allergy so it was not started. He is showing improvement with Acylcovir. Will defer medication modification to I.D. team. * Pending CSF viral, herpes I/II. * Routine EEG: showed rare discharges but no seizure. I started him on Vimpat 50mg bid. No keppra because side-effects of mood/behavioral issues which was concerned. * I notified the patient to avoid driving for concern for seizure or 6 month until no further episodes, avoid heights, avoids swimming unassisted or using heavy machinery. * Carotid Doppler: Reported as mild scattered atherosclerotic disease without significant stenosis. * B12: 861, ammonia <9 * CT head ir reported as no acute finding in the head/brain. * Cannot obtain MRI Brain w/ and w/o since has metal on his face. * folate level: 11.60 * Patient was notified as well as his that he needs to follow-up with a neurologist as an outpatient within 2 weeks. The plan is discussed with his , primary attending N.P. and I.D. team Time with Patient: Less than 30
[2023-07-10] MEDS: ACYCLOVIR SODIUM 600 MG in SODIUM CHLORIDE 0.9% 100 ML IVPB SCH (15:15)
--- NOTE | 2023-07-10 15:34 | P.PN ---
Subjective Progress Note Date: 07/10/23 This is a 78-year-old male who was recently admitted with change in mental status, with concerns of acute urinary tract infection also retention requiring indwelling Romano catheter. Patient undergoing neurological workup including EEG which was done yesterday as there was concerns of possible seizure-like activity. Infectious disease following and patient is maintained on antibiotics in the form of Levaquin. Patient with extensive weakness and difficulty with ambulation being evaluated by physical therapy recommending rehab and patient family is agreeable. Patient's fluids have been discontinued and kidney functions are much improved and urology has evaluated the patient. Encouraged oral intake and increased activity as tolerated. Patient is currently afebrile with no reports of chest pain or shortness of breath. No reported nausea or vomiting noted. Continue with indwelling Romano catheter for now and Flomax has been added. 07/09/2023 Patient is seen in follow-up today continues to be lethargic and somewhat confused per family at bedside with no significant changes noted. Patient does have history of dementia. Patient's room was completely dark with shades down and discussed with the patient's family about frequent reorientation and keeping the shades open during the day and having the patient sit up out of the bed more frequently. Patient's family reported he did not want the light it was bothering his eyes. Patient being followed by infectious disease along with ne urology undergoing workup including MRI of the brain which is pending for today. Patient to continue with indwelling Romano catheter per urology and outpatient follow-up. 07/10/2023 Patient is seen and evaluated in follow-up currently sitting up in the chair eating and feeding himself and mentation is improved. Patient was started on acyclovir as patient underwent LP yesterday showing elevated protein and elevated nucleated cells awaiting CSF culture which is pending at this time. Other cultures have been negative and patient is also continued on Levaquin for now. Patient to continue on Vimpat per neurology recommending outpatient follow-up with neurologist in 1 to 2 weeks. Patient with significant weakness with family agreeable to rehab and has received insurance authorization and ac cepted at [facility]. Awaiting cultures and will discuss further with infectious disease on discharge planning. Patient is currently afebrile with no reported chest pain or shortness of breath. Patient currently maintained on 2 L via nasal cannula with an oxygen saturation of 98%. Patient wears oxygen as needed at night at home reports at the bedside. Wean FiO2 as tolerated. Patient did have a low-grade temp of 99.8 early this morning and is afebrile currently. Review of systems: Constitutional: No reports of fatigue, fever, or chills Cardiovascular: No reports of chest pain or palpitations Respiratory: No reports of shortness of breath or cough GI: No reports of nausea, no reports of vomiting, no diarrhea : No reports of dysuria, patient was retaining requiring indwelling Romano catheter Neurovascular: reports of generalized weakness, difficulty ambulating All medications have been reviewed PHYSICAL EXAMINATION: GENERAL: The patient is alert and oriented x2 baseline, Well developed, thin built, elderly appearing HEENT: Pupils are round and equally reacting to light. EOMI. no scleral icterus. No conjunctival pallor. Normocephalic, atraumatic. No pharyngeal erythema. No thyromegaly. CARDIOVASCULAR: S1 and S2 muffled PULMONARY: diminished breath sounds bilaterally with no wheezing or rhonchi noted. ABDOMEN: soft. Nontender on exam. non-distended, normoactive bowel sounds. No palpable organomegaly. MUSCULOSKELETAL: No joint swelling or deformity. EXTREMITIES: No cyanosis, clubbing, or pedal edema. NEUROLOGICAL: Gross neurological examination did not reveal any focal deficits. Diffuse weakness SKIN: No rashes. Assessment: Acute urinary tract infection with change in mental status, present on admission with features of sepsis, procalcitonin was 1.97 Dementia with behavioral abnormalities Possible seizure, undergoing neurological workup. EEG showed rare discharges but no seizure-like activity, started on Vimpat Patient is status post LP showing an elevated total nucleated cells of 21 and an elevated protein of 207, glucose was 50 with concerns of possible encephalitis and awaiting cultures at this time. Patient is continued on acyclovir and showing improvements in mentation. Will continue Levaquin with infectious disease following as well. Acute kidney injury possibly secondary to urinary tract infection, improving Bladder outlet obstruction with bilateral hydronephrosis on CT scan requiring indwelling Romano catheter Hyperlipidemia Degenerative joint disease Gait dysfunction GI prophylaxis DVT prophylaxis Full code Plan: Recommend to continue with current medications and management with neurology, infectious disease, and urology following. Patient will need outpatient follow- up with urology for cystoscopy and was instructed to continue with indwelling Romano catheter. Continue Flomax Patient is continued on antibiotics in the form of Levaquin and will continue. Patient is status post LP and unable to obtain MRI as there is possible BBs in his face. Did have elevated protein as well as total nucleated cells and a glucose of 50 was started on acyclovir showing some improvements in mentation. Awaiting CSF cultures to finalize and will discuss further with infectious disease on discharge planning Encouraged increase activity as tolerated and will follow-up on repeat labs, kidney functions stable and patient is currently afebrile with no white count. Patient did have a low-grade temp of 99.8 earlier this morning. Neurology following and patient is continued on Vimpat. Recommend to continue and have outpatient follow-up with neurology Patient with significant weakness seen and evaluated by physical therapy recommending rehab and patient family is agreeable. Patient has been accepted at [facility] and insurance authorization was obtained. Case management following and will discuss discharge planning once CSF cultures are finalized to discuss further with infectious disease about treatment plan Possible discharge in the next 24 to 48 hours The impression and plan of care has been dictated by Maricel Waldrop, nurse practitioner as directed. Dr. Varun MD I have performed a history and examination and MDM of this patient, discussed the same with the dictator, and agree with the dictator's assessment and plan as written ,documented as a scribe. Based on total visit time, I have performed more than 50% of the visit. Any additional findings or plans will be noted. Objective - Vital Signs Vital signs: Vital Signs Temp 98.3 F 07/10/23 07:32 Pulse 77 07/10/23 07:50 Resp 19 07/10/23 07:50 BP 149/82 07/10/23 07:32 Pulse Ox 98 07/10/23 07:32 FiO2 Intake & Output 07/09/23 07/10/23 07/10/23 18:59 06:59 18:59 Intake Total 358 Output Total 1700 325 Balance -1342 -325 Intake: Oral 358 Output: Urine 1700 325 Uretheral (Romano) 600 Other: Voiding Method Indwelling Catheter Indwelling Catheter Indwelling Catheter - Labs CBC & Chem 7: 07/10/23 12:22 07/10/23 12:22 Labs: Abnormal Lab Results - Last 24 Hours (Table) 07/09/23 07/09/23 07/09/23 Range/Units 10:21 10:21 18:40 RBC 4.26 L (4.30-5.90) m/uL Hgb 12.6 L (13.0-17.5) gm/dL Monocytes # 1.1 H (0-1.0) k/uL Sodium 134 L (137-145) mmol/L Chloride 96 L (98-107) mmol/L Carbon Dioxide 35 H (22-30) mmol/L Creatinine 0.64 L (0.66-1.25) mg/dL Glucose 136 H (74-99) mg/dL CSF Tot Nucleated Cells 21 H* (0-5) u/L CSF Total Protein 207 H (12-60) mg/dL Microbiology - Last 24 Hours (Table) 07/09/23 18:40 CSF Gram Stain - Preliminary Cerebral Spinal Fluid 07/04/23 23:55 Blood Culture - Final Blood
[2023-07-11 07:39] VITALS: BP 128/70; PULSE 82; RESP 17; TEMP 97.9
--- NOTE | 2023-07-11 15:11 | P.PN ---
Subjective Progress Note Date: 07/11/23 Principal diagnosis: Reason for follow-up is sepsis/UTI Patient is a 78-year-old male with a past medical history significant for hyperlipidemia osteoarthritis and memory impairment patient was brought into the ER for evaluation of mental status changes, patient to have a positive UA concerning for UTI also have a significant diarrhea patient did have a CT abdominal pelvis completed with evidence of marked bladder and ureteral or renal obstruction no evidence of any colitis or abscess. On today's evaluation that is 07/11/2023, the patient continues to be afebrile, the patient is on 3 L nasal cannula oxygen and breathing comfortably, the Pt denies having any chest pain or cough, the patient denies having any abdominal pain no vomiting or any diarrhea has been reported by the nursing staff. Patient did not have any new labs today viral PCR is currently pending Objective - Vital Signs Vital signs: Vital Signs Temp 97.9 F 07/11/23 07:34 Pulse 82 07/11/23 07:45 Resp 17 07/11/23 07:45 BP 128/70 07/11/23 07:34 Pulse Ox 99 07/11/23 07:34 FiO2 Intake & Output 07/10/23 07/11/23 07/11/23 18:59 06:59 18:59 Output Total 1900 900 Balance -1900 -900 Output: Urine 1900 900 Other: Voiding Method Indwelling Catheter Indwelling Catheter Indwelling Catheter - Exam GENERAL DESCRIPTION: An elderly male lying in bed in no distress RESPIRATORY SYSTEM: Unlabored breathing , decreased breath sounds at bases HEART: S1 S2 regular rate and rhythm , ABDOMEN: Soft , no tenderness EXTREMITIES: No edema feet - Labs CBC & Chem 7: 07/10/23 12:22 07/10/23 12:22 Labs: Microbiology - Last 24 Hours (Table) 07/09/23 18:40 CSF Gram Stain - Preliminary Cerebral Spinal Fluid CSF Culture - Preliminary Assessment and Plan (1) UTI (urinary tract infection) Current Visit: Yes Status: Acute Code(s): N39.0 - URINARY TRACT INFECTION, SITE NOT SPECIFIED SNOMED Code(s): 35541522 (2) Allergy to cephalosporin Current Visit: Yes Status: Acute Code(s): Z88.1 - ALLERGY STATUS TO OTHER ANTIBIOTIC AGENTS SNOMED Code(s): 472505170 (3) Encephalitis Current Visit: Yes Status: Acute Code(s): G04.90 - ENCEPHALITIS AND ENCEPHALOMYELITIS, UNSPECIFIED SNOMED Code(s): 73040304 Plan: 1patient presented to hospital with sepsis in this patient with fever elevated white count did have significant diarrhea patient did have a negative UA and a chest x-ray and did not have any neck rigidity or significant tenderness of abdominal wall with main symptom of diarrhea possible source of his sepsis. 2 patient with multiple antibiotic ALLERGIES that would limit the number of antibiotic safe to use 3patient did have a CT of abdominal pelvis with evidence of significant distention of the bladder Romano catheter has been placed 4patient did have persistent mental status changes, for the patient did have LP completed, patient did have elevated protein and glucose is normal white count is 21 suspicious for possible encephalitis, we are currently waiting for the HSV DNA by PCR to be completed continue with acyclovir. at the bedside questions were answered Dictation was produced using [employer] dictation software. please excuse any g rammatical, word or spelling errors. Time with Patient: Less than 30
--- NOTE | 2023-07-11 15:24 | P.DS ---
Providers Date of admission: 07/04/23 22:22 Expected date of discharge: 07/11/23 Attending physician: Candida Galvez Consults: 07/05/23 12:23 Consult Physician Routine Consulting Provider: Miriam Whyte Consult Reason/Comments: AMS acute Do you want consulting provider notified?: Yes 07/05/23 13:31 Consult Physician Routine Consulting Provider: Fareed Gallagher Consult Reason/Comments: sepsis Do you want consulting provider notified?: Yes 07/06/23 16:46 Consult Physician Routine Consulting Provider: Erik Valencia Consult Reason/Comments: urinary retention CT showed obstruction Do you want consulting provider notified?: Yes 07/09/23 11:04 Consult to Anesthesia Routine Consulting Provider: Anesthesia,Services Consult Reason/Comments: LP/CSF Primary care physician: German Manmtcurtis [facility] Course: Final diagnosis Acute urinary tract infection with change in mental status, present on admission with features of sepsis, procalcitonin was 1.97 Dementia with behavioral abnormalities Possible seizure, EEG showed rare discharges but no seizure-like activity, started on Vimpat Patient is status post LP showing an elevated total nucleated cells of 21 and an elevated protein of 207, glucose was 50 with concerns of possible encephalitis, cultures and HSV testing has been negative Acute kidney injury possibly secondary to urinary tract infection, improving Bladder outlet obstruction with bilateral hydronephrosis on CT scan requiring indwelling Romano catheter Hyperlipidemia Degenerative joint disease Gait dysfunction GI prophylaxis DVT prophylaxis Full code Discharge disposition Patient is being discharged in a stable condition with guarded prognosis to [facility]. Patient will follow-up with Dr. German Galo in the outpatient setting upon discharge. Patient is to continue with Vimpat and outpatient follow-up with neurology as scheduled. Total time taken is greater than 35 minutes. Hospital course This is a 78-year-old male who was recently admitted with change in mental status with concerns of urinary tract infection along with retention requiring indwelling Romano catheter. Patient also underwent neurological workup with attempted MRI of the brain although has shrapnel in the face and unable to continue it appeared to be a BB of some sorts. Patient underwent LP which did have a mildly elevated nucleated cell count and elevated protein and was started on acyclovir. HSV testing including cultures have been negative. Patient also underwent EEG with concerns of possible discharges and started on Vimpat. Neurology evaluating the patient recommending outpatient follow-up with neurologist in 1 to 2 weeks. Patient also requiring indwelling Romano catheter for retention and was evaluated by urology recommending to continue with indwelling Romano catheter and outpatient follow follow-up in the next few weeks for reevaluation. Patient's mentation has improved and per infectious disease will not require antibiotics or viral medications on discharge. Patient has been started on Vimpat and will need outpatient follow-up with neurology. Currently no reports of chest pain, shortness of breath, or palpitations. Patient is afebrile. No reports of nausea or vomiting and patient is tolerating diet. Patient will be going to [facility] [place] [facility]. Guarded prognosis and high risk for readmissions. Physical exam: Gen: This is a 78-year-old male who is awake, alert and oriented x 2, thin built, elderly appearing HEENT: Head is atraumatic, normocephalic. Pupils equal, round. Sclerae is anicteric. NECK: Supple. No JVD. No lymphadenopathy. No thyromegaly. LUNGS: Diminished breath sounds bilaterally otherwise clear to auscultation. No wheezes or rhonchi. No intercostal retractions. HEART: S1, S2 are muffled ABDOMEN: Soft. Bowel sounds are present. No masses. No tenderness. EXTREMITIES: No pedal edema. No calf tenderness. NEUROLOGICAL: Patient is awake, alert and oriented x3. Cranial nerves 2 through 12 are grossly intact. Diffusely weak Please refer to medication reconciliation sheet for a list of medications. The impression and plan of care has been dictated by Maricel Waldrop, Nurse Practitioner as directed. Dr. Varun MD I have performed a history and examination and MDM of this patient, discussed the same with the dictator, and agree with the dictator's assessment and plan as written ,documented as a scribe. Based on total visit time, I have performed more than 50% of the visit. Patient Condition at Discharge: Fair Plan - Discharge Summary New Discharge Prescriptions: New Tamsulosin [Flomax] 0.4 mg PO PC-BRKFST cap Folic Acid 1 mg PO DAILY@1200 tab Ibuprofen [Motrin] 400 mg PO Q6HR PRN tab PRN Reason: Mild Pain Or Fever > 100.5 Acetaminophen Tab [Tylenol] 650 mg PO Q6HR PRN tab PRN Reason: Mild Pain Or Fever > 100.5 Multivitamins, Thera [Multivitamin (formulary)] 1 each PO DAILY@1200 tab Lacosamide [Vimpat] 50 mg PO BID #60 tab Thiamine [Vitamin B-1] 100 mg PO BID-W/MEALS tab Continue Simvastatin [Zocor] 40 mg PO HS Aspirin [Adult Low Dose Aspirin EC] 81 mg PO HS Memantine HCl [Namenda] 5 mg PO BID Donepezil [Aricept] 10 mg PO DAILY Furosemide [Lasix] 20 mg PO DAILY Cyclobenzaprine [Flexeril] 5 mg PO DAILY PRN PRN Reason: Muscle Pain Montelukast [Singulair] 10 mg PO DAILY Lactase [Lactaid] 3,000 unit PO DAILY Omeprazole 40 mg PO DAILY Discontinued Dicyclomine HCl 20 mg PO QID Discharge Medication List Aspirin [Adult Low Dose Aspirin EC] 81 mg PO HS 05/09/17 [History] Simvastatin [Zocor] 40 mg PO HS 05/09/17 [History] Memantine HCl [Namenda] 5 mg PO BID 12/30/18 [History] Donepezil [Aricept] 10 mg PO DAILY 04/16/19 [History] Cyclobenzaprine [Flexeril] 5 mg PO DAILY PRN 07/04/23 [History] Furosemide [Lasix] 20 mg PO DAILY 07/04/23 [History] Lactase [Lactaid] 3,000 unit PO DAILY 07/04/23 [History] Montelukast [Singulair] 10 mg PO DAILY 07/04/23 [History] Omeprazole 40 mg PO DAILY 07/04/23 [History] Acetaminophen Tab [Tylenol] 650 mg PO Q6HR PRN tab 07/11/23 [Rx] Folic Acid 1 mg PO DAILY@1200 tab 07/11/23 [Rx] Ibuprofen [Motrin] 400 mg PO Q6HR PRN tab 07/11/23 [Rx] Lacosamide [Vimpat] 50 mg PO BID #60 tab 07/11/23 [Rx] Multivitamins, Thera [Multivitamin (formulary)] 1 each PO DAILY@1200 tab 07/11/23 [Rx] Tamsulosin [Flomax] 0.4 mg PO PC-BRKFST cap 07/11/23 [Rx] Thiamine [Vitamin B-1] 100 mg PO BID-W/MEALS tab 07/11/23 [Rx] Follow up Appointment(s)/Referral(s): German Galo MD [Primary Care Provider] - 1-[address] [facility] [place], [NON-STAFF] - As Needed Activity/Diet/Wound Care/Special Instructions: Patient is going to [facility] [place] Activity as tolerated Follow-up with primary care provider on discharge Continue regular diet with no pork or beef as patient has intolerance Follow-up with urology outpatient and continue with indwelling Romano catheter Continue with Ensure and live supplements 3 times daily with meals chocolate Discharge Disposition: TRANSFER TO SNF/ECF
== END 2023-07-11 19:37 | DRG 871 ==
LOC: EC 20:20 → 4SSUR 22:22
PROVIDERS: ADMIT Hospitalist; ATTEND Hospitalist
PROC: 009U3ZX Drainage of Spinal Canal, Percutaneous Approach, Diagnostic (ICD-10-PCS; principal; 2023-07-09)
DX: A41.9 Sepsis, unspecified organism (principal); G92.8 Other toxic encephalopathy; F03.A18 Unspecified dementia, mild, with other behavioral disturbance; N13.6 Pyonephrosis; N17.9 Acute kidney failure, unspecified; N13.8 Other obstructive and reflux uropathy; M54.50 Low back pain, unspecified; E78.5 Hyperlipidemia, unspecified; H91.90 Unspecified hearing loss, unspecified ear; E86.0 Dehydration; K52.9 Noninfective gastroenteritis and colitis, unspecified; M19.90 Unspecified osteoarthritis, unspecified site; N21.0 Calculus in bladder; N32.89 Other specified disorders of bladder; N40.1 Benign prostatic hyperplasia with lower urinary tract symptoms; N39.498 Other specified urinary incontinence; R33.8 Other retention of urine; R26.9 Unspecified abnormalities of gait and mobility; R47.81 Slurred speech; R29.810 Facial weakness; R56.9 Unspecified convulsions; Z97.4 Presence of external hearing-aid; Z11.52 Encounter for screening for COVID-19; Z71.3 Dietary counseling and surveillance; Z87.442 Personal history of urinary calculi; Z88.1 Allergy status to other antibiotic agents; Z88.2 Allergy status to sulfonamides
CPT/HCPCS: 36415; 70450; 71045; 71046; 74177; 80048; 80051; 80053; 80306; 80320; 81001; 82140; 82607; 82746; 82945; 83690; 83735; 84100; 84145; 84157; 84484; 85025; 85610; 85730; 86140; 87040; 87070; 87086; 87205; 87496; 87498; 87529; 87636; 87798; 89050; 93005; 93880; 94760; 95816; 96365; 96367; 96368; 96375; 99291

== ENCOUNTER 2023-07-30 17:48 | Emergency (ER) | payer MEDICARE ==
--- NOTE | 2023-07-30 18:00 | ED ---
General Adult HPI - General Source: patient, family, RN notes reviewed Mode of arrival: wheelchair Limitations: physical limitation <Shahida Bermudez - Last Filed: 07/31/23 17:18> <Gene Ball - Last Filed: 07/31/23 18:23> - General Stated complaint: Back pain Time Seen by Provider: 07/30/23 17:59 - History of Present Illness Initial comments: Quick note: Patient is a 78-year-old male presented to the ER with chief complaint of back pain. Patient reports that started about an hour prior to arrival. Does have a history of kidney stones. Patient recently discharged here for UTI. Patient does currently have a urinary catheter in place. Denies any fevers, chills, nausea, vomiting. (Shahida Bermudez) This is a 78-year-old male who presents to the emergency department complaining of right-sided back pain at the bottom of the rib cage area. Patient states this started about an hour prior to his arrival to the emergency department. Patient states he was doing some exercises that he was told to do when he left the hospital and shortly thereafter he started having pain in that area. Patient states the more pressure that is applied to the area is better and feels. Patient denies any radiation of pain around to the front. Patient [place] any chest pain patient has any palpitations. Patient denies any recent injury. Patient states pressure on the area makes the pain considerably better. (Gene Ball) - Related Data Home Medications Medication Instructions Recorded Confirmed Aspirin [Adult Low Dose Aspirin EC] 81 mg PO HS 05/09/17 07/04/23 Simvastatin [Zocor] 40 mg PO HS 05/09/17 07/04/23 Memantine HCl [Namenda] 5 mg PO BID 12/30/18 07/04/23 Donepezil [Aricept] 10 mg PO DAILY 04/16/19 07/04/23 Cyclobenzaprine [Flexeril] 5 mg PO DAILY PRN 07/04/23 07/04/23 Furosemide [Lasix] 20 mg PO DAILY 07/04/23 07/04/23 Lactase [Lactaid] 3,000 unit PO DAILY 07/04/23 07/04/23 Montelukast [Singulair] 10 mg PO DAILY 07/04/23 07/04/23 Omeprazole 40 mg PO DAILY 07/04/23 07/04/23 Previous Rx's Medication Instructions Recorded Acetaminophen Tab [Tylenol] 650 mg PO Q6HR PRN tab 07/11/23 Folic Acid 1 mg PO DAILY@1200 tab 07/11/23 Ibuprofen [Motrin] 400 mg PO Q6HR PRN tab 07/11/23 Lacosamide [Vimpat] 50 mg PO BID #60 tab 07/11/23 Multivitamins, Thera [Multivitamin 1 each PO DAILY@1200 tab 07/11/23 (formulary)] Tamsulosin [Flomax] 0.4 mg PO PC-BRKFST cap 07/11/23 Thiamine [Vitamin B-1] 100 mg PO BID-W/MEALS tab 07/11/23 Ciprofloxacin HCl [Cipro] 500 mg PO Q12HR #20 tablet 07/30/23 Cyclobenzaprine [Flexeril] 5 mg PO TID #20 tab 07/30/23 Ketorolac [Toradol] 10 mg PO Q6HR #15 tab 07/30/23 Allergies Allergy/AdvReac Type Severity Reaction Status Date / Time cephalexin Allergy Swelling Verified 07/30/23 18:27 meropenem Allergy Swelling Verified 07/30/23 18:27 mold Allergy Nausea & Verified 07/30/23 18:27 Vomiting sulfamethoxazole Allergy Swelling Verified 07/30/23 18:27 [From Bactrim] trimethoprim [From Bactrim] Allergy Swelling Verified 07/30/23 18:27 Review of Systems ROS Other: All systems not noted in ROS Statement are negative. <Shahida Bermudez - Last Filed: 07/31/23 17:18> ROS Other: All systems not noted in ROS Statement are negative. <Gene Ball - Last Filed: 07/31/23 18:23> ROS Statement: Those systems with pertinent positive or pertinent negative responses have been documented in the HPI. Past Medical History Past Medical History: Hearing Disorder / Deafness, Hyperlipidemia, Memory Impairment, Osteoarthritis (OA) Additional Past Medical History / Comment(s): Uses hearing aids. Hx kidney stones X1.pancreatitis, had weight loss but slowly putting back on, frequent diarrhea, trouble emptying bladder completely since surg. WAS ON ANTIBIOTICS FOR BACTERIA IN COLON-LAST DOSE 05/08/19 History of Any Multi-Drug Resistant Organisms: None Reported Past Surgical History: Bladder Surgery Additional Past Surgical History / Comment(s): Cataract surgery bilateral eyes, kidney stone surgery, circumcision, lap airam 2018, COLONOSCOPY Past Anesthesia/Blood Transfusion Reactions: No Reported Reaction Additional Past Anesthesia/Blood Transfusion Reaction / Comment(s): slow to wake up after lap airam & trouble urinating, ended up w/acuña cath. for week post-op Past Psychological History: No Psychological Hx Reported Smoking Status: Never smoker Past Alcohol Use History: None Reported Additional Past Alcohol Use History / Comment(s): Smoked briefly as a teen. Past Drug Use History: None Reported - Past Family History Mother Family Medical History: Liver Disease Additional Family Medical History / Comment(s): Was a heavy drinker. Father Family Medical History: Cancer Additional Family Medical History / Comment(s): Prostate cancer. Sister(s) Family Medical History: Unable to Obtain <Shahida Bermudez - Last Filed: 07/31/23 17:18> General Exam <Shahida Bermudez - Last Filed: 07/31/23 17:18> <Gene Ball - Last Filed: 07/31/23 18:23> - General Exam Comments Initial Comments: Visual Physical Exam Vital signs reviewed General: Well-appearing, nontoxic, no acute distress. Head: Normocephalic, atraumatic Eyes: PERRLA, EOMI ENT: Airway patent Chest: Nonlabored breathing Skin: No visual rash, normal skin tone Neuro: Alert and oriented 3 Musculoskeletal: No gross abnormalities (Shahida Bermudez) GENERAL: Patient is well-developed and well-nourished. Patient is nontoxic and well- hydrated and is in mild distress. ENT: Neck is soft and supple. No significant lymphadenopathy is noted. Oropharynx is clear. Moist mucous membranes. Neck has full range of motion without eliciting any pain. EYES: The sclera were anicteric and conjunctiva were pink and moist. Extraocular movements were intact and pupils were equal round and reactive to light. Eyelids were unremarkable. PULMONARY: Unlabored respirations. Good breath sounds bilaterally. No audible rales rhonchi or wheezing was noted. CARDIOVASCULAR: There is a regular rate and rhythm without any murmurs gallops or rubs. ABDOMEN: Soft and nontender with normal bowel sounds. SKIN: Skin is clear with no lesions or rashes and otherwise unremarkable. NEUROLOGIC: Patient is alert and oriented x3. Cranial nerves II through XII are grossly intact. Motor and sensory are also intact. Normal speech, volume and content. Symmetrical smile. MUSCULOSKELETAL: Normal extremities with adequate strength and full range of motion. Putting pressure on the lower thoracic ribs on the right helped with his pressure and he stated that rubbing that area help with the pain considerably. LYMPHATICS: No significant lymphadenopathy is noted PSYCHIATRIC: Normal psychiatric evaluation. (Gene Ball) Course Vital Signs 07/30/23 07/30/23 18:20 21:48 Temperature 98.5 F Pulse Rate 90 72 Respiratory 18 18 Rate Blood Pressure 139/77 143/89 O2 Sat by Pulse 100 97 Oximetry Medical Decision Making - Lab Data Result diagrams: 07/30/23 18:36 07/30/23 18:36 <Shahida Bermudez - Last Filed: 07/31/23 17:18> - Lab Data Result diagrams: 07/30/23 18:36 07/30/23 18:36 <Gene Ball - Last Filed: 07/31/23 18:23> - Medical Decision Making I performed the quick note portion of this chart. Electronically signed by Shahida Bermudez PA-C (Shahida Bermudez) Was pt. sent in by a medical professional or institution ([facility], CNC SUPERVISOR, urgent care, hospital, or penitentiary...) When possible be specific @ -No Did you speak to anyone other than the patient for history (EMS, parent, family, police, friend...)? What history was obtained from this source @ -No Did you review nursing and triage notes (agree or disagree)? Why? @ -I reviewed and agree with nursing and triage notes Were old charts reviewed (outside hosp., previous admission, EMS record, old EKG, old radiological studies, urgent care reports/EKG's, penitentiary records)? Report findings @ -I reviewed prior charts and prior lab work on the patient Differential Diagnosis (chest pain, altered mental status, abdominal pain women, abdominal pain men, vaginal bleeding, weakness, fever, dyspnea, syncope, hea dache, dizziness, GI bleed, back pain, seizure, CVA, palpatations, mental health, musculoskeletal)? @ -Differential Back Pain: Strain, zoster, cauda equina syndrome, epidural abscess, vertebral osteo myelitis, discitis, fracture, subluxation, disc herniation, DJD, spinal stenosis, dissection, AAA, pancreatitis, peptic ulcer disease, pyelonephritis, kidney stone, this is not meant to be an all-inclusive list. EKG interpreted by me (3pts min.). @ -As above X-rays interpreted by me (1pt min.). @ -None done CT interpreted by me (1pt min.). @ -CT scan show stones in the bladder. U/S interpreted by me (1pt. min.). @ -None done What testing was considered but not performed or refused? (CT, X-rays, U/S, labs)? Why? @ -None What meds were considered but not given or refused? Why? @ -None Did you discuss the management of the patient with other professionals (professionals i.e. , PA, CNC SUPERVISOR, lab, RT, psych nurse, social secretary, registered nurses, teacher, field crop technical officer, wrapper caser)? Give summary @ -No Was smoking cessation discussed for >3mins.? @ -No Was critical care preformed (if so, how long)? @ -No Were there social determinants of health that impacted care today? How? (Homelessness, low income, unemployed, alcoholism, drug addiction, transportation, low edu. Level, literacy, decrease access to med. care, long-term, rehab)? @ -No Was there de-escalation of care discussed even if they declined (Discuss DNR or withdrawal of care, Hospice)? DNR status @ -No What co-morbidities impacted this encounter? (DM, HTN, Smoking, COPD, CAD, Cancer, CVA, ARF, Chemo, Hep., AIDS, mental health diagnosis, sleep apnea, morbid obesity)? @ -None Was patient admitted / discharged? Hospital course, mention meds given and route, prescriptions, significant lab abnormalities, going to OR and other pertinent info. @ -Patient received Norflex and Toradol and was feeling a little bit better but still had some pain and continued to feel as though if he was pressing on it would feel better. Patient did receive a 0.5 mg Dilaudid at that point in time. Undiagnosed new problem with uncertain prognosis? @ -No Drug Therapy requiring intensive monitoring for toxicity (Heparin, Nitro, Insulin, Cardizem)? @ -No Were any procedures done? @ -No Diagnosis/symptom? @ -Musculoskeletal back pain Acute, or Chronic, or Acute on Chronic? @ -Acute Uncomplicated (without systemic symptoms) or Complicated (systemic symptoms)? @ -Uncomplicated Side effects of treatment? @ -No Exacerbation, Progression, or Severe Exacerbation? @ -No Poses a threat to life or bodily function? How? (Chest pain, [place], [place], pneumonia, PE, COPD, DKA, ARF, appy, cholecystitis, CVA, Diverticulitis, Homicidal, Suicidal, threat to staff... and all critical care pts) @ -No Diagnosis/symptom? @ -Urinary tract infection Acute, or Chronic, or Acute on Chronic? @ -Acute Uncomplicated (without systemic symptoms) or Complicated (systemic symptoms)? @ -Complicated Side effects of treatment? @ -None Exacerbation, Progression, or Severe Exacerbation] @ -No Poses a threat to life or bodily function? @ -No (Gene Ball) - Lab Data Lab Results 07/30/23 07/30/23 07/30/23 Range/Units 18:36 18:36 18:36 WBC 10.3 (3.8-10.6) k/uL RBC 3.59 L (4.30-5.90) m/uL Hgb 10.9 L (13.0-17.5) gm/dL Hct 33.2 L (39.0-53.0) % MCV 92.6 (80.0-100.0) fL MCH 30.5 (25.0-35.0) pg MCHC 32.9 (31.0-37.0) g/dL RDW 13.5 (11.5-15.5) % Plt Count 273 (150-450) k/uL MPV 8.1 Sodium 140 (137-145) mmol/L Potassium 4.4 (3.5-5.1) mmol/L Chloride 105 (98-107) mmol/L Carbon Dioxide 27 (22-30) mmol/L Anion Gap 8 mmol/L BUN 21 H (9-20) mg/dL Creatinine 0.71 (0.66-1.25) mg/dL Est GFR (CKD-EPI)AfAm >90 (>60 ml/min/1.73 sqM) Est GFR (CKD-EPI)NonAf >90 (>60 ml/min/1.73 sqM) Glucose 119 H (74-99) mg/dL Lactic Ac Sepsis Rflx Plasma Lactic Acid Jack 2.1 H* (0.7-2.0) mmol/L Calcium 9.1 (8.4-10.2) mg/dL Total Bilirubin 0.4 (0.2-1.3) mg/dL AST 23 (17-59) U/L ALT 19 (4-49) U/L Alkaline Phosphatase 77 (38-126) U/L Total Protein 6.6 (6.3-8.2) g/dL Albumin 3.8 (3.5-5.0) g/dL Urine Color Urine Appearance (Clear) Urine pH (5.0-8.0) Ur Specific [place] (1.001-1.035) Urine Protein (Negative) Urine Glucose (UA) (Negative) Urine Ketones (Negative) Urine Blood (Negative) Urine Nitrite (Negative) Urine Bilirubin (Negative) Urine Urobilinogen (<2.0) mg/dL Ur Leukocyte Esterase (Negative) Urine RBC (0-5) /hpf Urine WBC (0-5) /hpf Urine WBC Clumps (None) /hpf Calcium Oxalate Crystal (None) /hpf Urine Bacteria (None) /hpf Urine Mucus (None) /hpf 07/30/23 07/30/23 07/30/23 Range/Units 18:36 19:22 20:42 WBC (3.8-10.6) k/uL RBC (4.30-5.90) m/uL Hgb (13.0-17.5) gm/dL Hct (39.0-53.0) % MCV (80.0-100.0) fL MCH (25.0-35.0) pg MCHC (31.0-37.0) g/dL RDW (11.5-15.5) % Plt Count (150-450) k/uL MPV Sodium (137-145) mmol/L Potassium (3.5-5.1) mmol/L Chloride (98-107) mmol/L Carbon Dioxide (22-30) mmol/L Anion Gap mmol/L BUN (9-20) mg/dL Creatinine (0.66-1.25) mg/dL Est GFR (CKD-EPI)AfAm (>60 ml/min/1.73 sqM) Est GFR (CKD-EPI)NonAf (>60 ml/min/1.73 sqM) Glucose (74-99) mg/dL Lactic Ac Sepsis Rflx Y Plasma Lactic Acid Jack (0.7-2.0) mmol/L Calcium (8.4-10.2) mg/dL Total Bilirubin (0.2-1.3) mg/dL AST (17-59) U/L ALT (4-49) U/L Alkaline Phosphatase (38-126) U/L Total Protein (6.3-8.2) g/dL Albumin (3.5-5.0) g/dL Urine Color Colorless Colorless Urine Appearance Cloudy Cloudy (Clear) Urine pH 6.0 7.5 (5.0-8.0) Ur Specific [place] 1.013 1.008 (1.001-1.035) Urine Protein Trace H Trace H (Negative) Urine Glucose (UA) Negative Negative (Negative) Urine Ketones Negative Negative (Negative) Urine Blood Small H Small H (Negative) Urine Nitrite Positive Negative (Negative) Urine Bilirubin Negative Negative (Negative) Urine Urobilinogen <2.0 <2.0 (<2.0) mg/dL Ur Leukocyte Esterase Large H Large H (Negative) Urine RBC >182 H 23 H (0-5) /hpf Urine WBC 65 H 68 H (0-5) /hpf Urine WBC Clumps Occasional H (None) /hpf Calcium Oxalate Crystal Occasional H (None) /hpf Urine Bacteria Few H Occasional H (None) /hpf Urine Mucus Rare H Rare H (None) /hpf Disposition <Shahida Bermudez - Last Filed: 07/31/23 17:18> Is patient prescribed a controlled substance at d/c from ED?: No Time of Disposition: 21:43 <Gene Ball - Last Filed: 07/31/23 18:23> Clinical Impression: Musculoskeletal back pain, UTI (urinary tract infection) Disposition: HOME SELF-CARE Instructions (If sedation given, give patient instructions): Urinary Tract Infection in Men (ED), Back Pain (ED) Prescriptions: Ciprofloxacin HCl [Cipro] 500 mg PO Q12HR #20 tablet Cyclobenzaprine [Flexeril] 5 mg PO TID #20 tab Ketorolac [Toradol] 10 mg PO Q6HR #15 tab Referrals: Nonstaff,Physician [REFERRING] - 1-2 days
[2023-07-30 18:32] VITALS: RESP 18; TEMP 98.5
[2023-07-30 19:00] LABS: Appearance,Urine Cloudy (Clear); Bacteria,Urine Few /hpf; Bilirubin,Urine Negative (Negative); Blood,Urine Small (Negative); Calcium Oxalate Crystals,Urine Occasional /hpf; Color,Urine Colorless; Glucose,Urine (UA) Negative (Negative); Ketones,Urine Negative (Negative); Leukocyte Esterase,Urine Large (Negative); Mucus,Urine Rare /hpf; Nitrite,Urine Positive (Negative); Protein,Urine Trace (Negative); RBC,Urine >182 /hpf (0-5); Specific Gravity,Urine 1.013 (1.001-1.035); Urobilinogen,Urine <2.0 mg/dL (<2.0); WBC,Urine 65 /hpf (0-5)
[2023-07-30 19:19] LABS: ALT 19 U/L (4-49); AST 23 U/L (17-59); African American GFR (CKD) >90 (>60 ml/min/1.73 sqM); Albumin 3.8 g/dL (3.5-5.0); Alkaline Phosphatase 77 U/L (38-126); Anion Gap 8 mmol/L; Blood Urea Nitrogen 21 mg/dL (9-20); Calcium 9.1 mg/dL (8.4-10.2); Carbon Dioxide 27 mmol/L (22-30); Chloride 105 mmol/L (98-107); Glucose 119 mg/dL (74-99); Non-African American GFR(CKD) >90 (>60 ml/min/1.73 sqM); Potassium 4.4 mmol/L (3.5-5.1); Sodium 140 mmol/L (137-145); Total Bilirubin 0.4 mg/dL (0.2-1.3); Total Protein 6.6 g/dL (6.3-8.2)
--- NOTE | 2023-07-30 19:25 | CT ---
EXAMINATION TYPE: CT abdomen pelvis wo con DATE OF EXAM: 07/30/2023 COMPARISON: 07/06/2023 HISTORY: flank pain. known kidney stones with urinary catheter CT DLP: 322.1 mGycm Examination of the solid and hollow viscera is limited given the lack of contrast. FINDINGS: LUNG BASES: No evidence for nodule. No evidence for infiltrate. LIVER/GB: The gallbladder is unremarkable. No space-occupying hepatic lesion. PANCREAS: No pancreatic mass identified. No inflammatory process seen. SPLEEN: No evidence for splenomegaly. No intrasplenic lesions seen. ADRENALS: No adrenal nodules identified. No evidence for thickening. KIDNEYS: No evidence for renal mass. No nephrolithiasis. No hydronephrosis. Romano catheter is noted t o be in place. Numerous calculi are redemonstrated within a mildly distended urinary bladder. Urinary bladder wall appears to be mildly thickened and this could reflect underlying cystitis. Correlate cl inically. BOWEL: Appendix has a normal appearance. No evidence of bowel obstruction. No inflammatory process. Lymph nodes: No evidence for adenopathy greater than 1 cm. Abdominal aorta: Atheromatous changes seen. No evidence for aneurysm. Genital organs: No significant abnormality. Other: No significant abnormality. IMPRESSION: Romano catheter is noted to be in place. Numerous calculi are redemonstrated within a mildly distended urinary bladder. Urinary bladder wall appears to be mildly thickened and this could reflect underlyi ng cystitis. Correlate clinically.
[2023-07-30 20:12] LABS: HCT 33.2 % (39.0-53.0); HGB 10.9 gm/dL (13.0-17.5); MCH 30.5 pg (25.0-35.0); MCHC 32.9 g/dL (31.0-37.0); MCV 92.6 fL (80.0-100.0); Mean Platelet Volume 8.1; Platelet Count 273 k/uL (150-450); RBC 3.59 m/uL (4.30-5.90); RDW 13.5 % (11.5-15.5); WBC 10.3 k/uL (3.8-10.6)
[2023-07-30] MEDS: ORPHENADRINE 30 MG/ML 2 ML VIAL IM STA (20:16)
[2023-07-30] MEDS: KETOROLAC 15 MG/ML 1 ML VIAL IM STA (20:16)
[2023-07-30] MEDS: HYDROmorphone 0.5 MG/0.5 ML SYRINGE IM STA (21:35)
[2023-07-30 21:38] LABS: Appearance,Urine Cloudy (Clear); Bacteria,Urine Occasional /hpf; Bilirubin,Urine Negative (Negative); Blood,Urine Small (Negative); Color,Urine Colorless; Glucose,Urine (UA) Negative (Negative); Ketones,Urine Negative (Negative); Leukocyte Esterase,Urine Large (Negative); Mucus,Urine Rare /hpf; Nitrite,Urine Negative (Negative); PH, Urine 7.5 (5.0-8.0); Protein,Urine Trace (Negative); RBC,Urine 23 /hpf (0-5); Specific Gravity,Urine 1.008 (1.001-1.035); Urobilinogen,Urine <2.0 mg/dL (<2.0); WBC,Urine 68 /hpf (0-5)
[2023-07-30] MEDS: CIPROFLOXACIN HCL 500 MG TAB PO STA (21:54)
[2023-07-30 21:58] VITALS: BP 143/89; PULSE 72
== END 2023-07-30 22:07 | disposition home or self-care (01) ==
LOC: EC 17:48
DX: N39.0 Urinary tract infection, site not specified (principal); N21.0 Calculus in bladder; B95.2 Enterococcus as the cause of diseases classified elsewhere; E78.5 Hyperlipidemia, unspecified; M19.90 Unspecified osteoarthritis, unspecified site; Z88.1 Allergy status to other antibiotic agents; Z88.2 Allergy status to sulfonamides; Z91.09 Other allergy status, other than to drugs and biological substances; Z90.49 Acquired absence of other specified parts of digestive tract; Z79.899 Other long term (current) drug therapy
CPT/HCPCS: 96372 ×4; 99284 ×2; 51702 ×2; 36415; 80053; 83605; 85027; 81001; 87086; 87077; 87186; 74176; J2360; J1885; J1170

== ENCOUNTER 2023-08-09 19:49 | Emergency (ER) | payer MEDICARE ==
[2023-08-09 20:00] VITALS: TEMP 97.4
[2023-08-09] MEDS: ACETAMINOPHEN TAB 325 MG TAB PO STA (20:29)
[2023-08-09] MEDS: SODIUM CHLORIDE 0.9% 1,000 ML IV ONE (20:38)
--- NOTE | 2023-08-09 21:04 | ED ---
Back Pain HPI - General Chief Complaint: Back Pain/Injury Stated Complaint: Back pain Time Seen by Provider: 08/09/23 19:56 Source: patient, family Limitations: no limitations - History of Present Illness Initial Comments: 78-year-old male presenting chief complaint of back pain. 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 When asked where the pain is at the worst patient gestures towards the right flank. Patient does have history of kidney stones. Patient also currently has a Acuña catheter in for urinary retention. He has been seen by Dr. Valencia in the past. states that his urine output has been much darker lately. No fevers. States that his pain is a 2 out of 10 at this time. No nausea or vomiting. No numbness or tingling. - Related Data Home Medications Medication Instructions Recorded Confirmed Aspirin [Adult Low Dose Aspirin EC] 81 mg PO HS 05/09/17 07/04/23 Simvastatin [Zocor] 40 mg PO HS 05/09/17 07/04/23 Memantine HCl [Namenda] 5 mg PO BID 12/30/18 07/04/23 Donepezil [Aricept] 10 mg PO DAILY 04/16/19 07/04/23 Cyclobenzaprine [Flexeril] 5 mg PO DAILY PRN 07/04/23 07/04/23 Furosemide [Lasix] 20 mg PO DAILY 07/04/23 07/04/23 Lactase [Lactaid] 3,000 unit PO DAILY 07/04/23 07/04/23 Montelukast [Singulair] 10 mg PO DAILY 07/04/23 07/04/23 Omeprazole 40 mg PO DAILY 07/04/23 07/04/23 Previous Rx's Medication Instructions Recorded Acetaminophen Tab [Tylenol] 650 mg PO Q6HR PRN tab 07/11/23 Folic Acid 1 mg PO DAILY@1200 tab 07/11/23 Ibuprofen [Motrin] 400 mg PO Q6HR PRN tab 07/11/23 Lacosamide [Vimpat] 50 mg PO BID #60 tab 07/11/23 Multivitamins, Thera [Multivitamin 1 each PO DAILY@1200 tab 07/11/23 (formulary)] Tamsulosin [Flomax] 0.4 mg PO PC-BRKFST cap 07/11/23 Thiamine [Vitamin B-1] 100 mg PO BID-W/MEALS tab 07/11/23 Ciprofloxacin HCl [Cipro] 500 mg PO Q12HR #20 tablet 07/30/23 Cyclobenzaprine [Flexeril] 5 mg PO TID #20 tab 07/30/23 Ketorolac [Toradol] 10 mg PO Q6HR #15 tab 07/30/23 Levofloxacin [Levaquin] 750 mg PO DAILY 5 Days #5 tab 08/10/23 Allergies Allergy/AdvReac Type Severity Reaction Status Date / Time cephalexin Allergy Swelling Verified 07/30/23 18:27 meropenem Allergy Swelling Verified 07/30/23 18:27 mold Allergy Nausea & Verified 07/30/23 18:27 Vomiting sulfamethoxazole Allergy Swelling Verified 07/30/23 18:27 [From Bactrim] trimethoprim [From Bactrim] Allergy Swelling Verified 07/30/23 18:27 Review of Systems ROS Statement: Those systems with pertinent positive or pertinent negative responses have been documented in the HPI. ROS Other: All systems not noted in ROS Statement are negative. Past Medical History Past Medical History: Hearing Disorder / Deafness, Hyperlipidemia, Memory Impairment, Osteoarthritis (OA) Additional Past Medical History / Comment(s): Uses hearing aids. Hx kidney stones X1.pancreatitis, had weight loss but slowly putting back on, frequent diarrhea, trouble emptying bladder completely since surg. WAS ON ANTIBIOTICS FOR BACTERIA IN COLON-LAST DOSE 05/08/19 History of Any Multi-Drug Resistant Organisms: None Reported Past Surgical History: Bladder Surgery Additional Past Surgical History / Comment(s): Cataract surgery bilateral eyes, kidney stone surgery, circumcision, lap airam 2018, COLONOSCOPY Past Anesthesia/Blood Transfusion Reactions: No Reported Reaction Additional Past Anesthesia/Blood Transfusion Reaction / Comment(s): slow to wake up after lap airam & trouble urinating, ended up w/acuña cath. for week post-op Past Psychological History: No Psychological Hx Reported Smoking Status: Never smoker Past Alcohol Use History: None Reported Past Drug Use History: None Reported - Past Family History Mother Family Medical History: Liver Disease Additional Family Medical History / Comment(s): Was a heavy drinker. Father Family Medical History: Cancer Additional Family Medical History / Comment(s): Prostate cancer. Sister(s) Family Medical History: Unable to Obtain General Exam Limitations: no limitations General appearance: alert, in no apparent distress Head exam: Present: atraumatic, normocephalic Eye exam: Present: normal appearance Neck exam: Present: normal inspection Respiratory exam: Present: normal lung sounds bilaterally. Absent: respiratory distress, wheezes, rales, rhonchi, stridor Cardiovascular Exam: Present: regular rate, normal rhythm, normal heart sounds. Absent: systolic murmur, diastolic murmur, rubs, gallop, clicks Back exam: Present: normal inspection. Absent: tenderness Neurological exam: Present: alert, oriented X3 Psychiatric exam: Present: normal affect, normal mood Skin exam: Present: warm, dry Course Vital Signs 08/09/23 08/09/23 08/09/23 19:50 22:38 23:28 Temperature 97.4 F L Pulse Rate 87 75 64 Respiratory 16 13 18 Rate Blood Pressure 136/72 125/64 140/76 O2 Sat by Pulse 94 L 99 99 Oximetry 08/10/23 00:24 Temperature Pulse Rate 70 Respiratory 17 Rate Blood Pressure 123/71 O2 Sat by Pulse 99 Oximetry Medical Decision Making - Medical Decision Making Was pt. sent in by a medical professional or institution (, PA, STAY CUTTER, urgent care, hospital, or senior care...) When possible be specific @ -No Did you speak to anyone other than the patient for history (EMS, parent, family, police, friend...)? What history was obtained from this source @ -History supplemented by at bedside Did you review nursing and triage notes (agree or disagree)? Why? @ -I reviewed and agree with nursing and triage notes Were old charts reviewed (outside hosp., previous admission, EMS record, old EKG, old radiological studies, urgent care reports/EKG's, senior care records)? Report findings @ -No old charts were reviewed Differential Diagnosis (chest pain, altered mental status, abdominal pain women, abdominal pain men, vaginal bleeding, weakness, fever, dyspnea, syncope, headache, dizziness, GI bleed, back pain, seizure, CVA, palpatations, mental health, musculoskeletal)? @ - MDM Differential Back Pain: Strain, zoster, cauda equina syndrome, epidural abscess, vertebral osteomyelitis, discitis, fracture, subluxation, disc herniation, DJD, spinal stenosis, dissection, AAA, pancreatitis, peptic ulcer disease, pyelonephritis, kidney stone this is not meant to be an all-inclusive list. EKG interpreted by me (3pts min.). @ -As above X-rays interpreted by me (1pt min.). @ -None done CT interpreted by me (1pt min.). @ -CT shows no evidence for acute abdominal process. Acuña catheter in place with multiple bilateral bladder stones. Some of the stones may be in the distal ureters at the UVJ bilaterally. There is no evidence for dilation of the renal pelvis and renal calyces however. Colonic diverticulosis. U/S interpreted by me (1pt. min.). @ -None done What testing was considered but not performed or refused? (CT, X-rays, U/S, labs)? Why? @ -None What meds were considered but not given or refused? Why? @ -None Did you discuss the management of the patient with other professionals (professionals i.e. , PA, STAY CUTTER, lab, RT, psych nurse, social services designee, top lift nailer, teacher, chief legal officer, caser)? Give summary @ -No Was smoking cessation discussed for >3mins.? @ -No Was critical care preformed (if so, how long)? @ -No Were there social determinants of health that impacted care today? How? (Homelessness, low income, unemployed, alcoholism, drug addiction, transportation, low edu. Level, literacy, decrease access to med. care, long-term, rehab)? @ -No Was there de-escalation of care discussed even if they declined (Discuss DNR or withdrawal of care, Hospice)? DNR status @ -No What co-morbidities impacted this encounter? (DM, HTN, Smoking, COPD, CAD, Cancer, CVA, ARF, Chemo, Hep., AIDS, mental health diagnosis, sleep apnea, morbid obesity)? @ -None Was patient admitted / discharged? Hospital course, mention meds given and route, prescriptions, significant lab abnormalities, going to OR and other pertinent info. @ -78-year-old male presenting with chief complaint of back pain. History of chronic back pain, worsened today by lifting a large package of water bottles. No red flag symptoms. On exam he does somewhat point towards the region of the right flank. Patient currently has a Acuña catheter in place for recurrent urinary retention. He did have a recent UTI, states that he was prescribed an antibiotic, however later she was contacted saying that the antibiotic was going to be changed and sent to their pharmacy and she has not had a chance to pick it up yet. His pain is well-controlled at this time. Lab work shows no leukocytosis or anemia. Urine shows moderate blood and leukocytes with 80 RBCs and [address] shows no acute process. There are numerous bladder stones. On reassessment patient is resting comfortably with no signs of distress. Patient received 1 L fluid bolus while here in the ER. Patient and are educated on today's findings. He will be sent levofloxacin for his UTI based on his most recent culture results. He is given his first dose here in the ER. Discharged home. Follow-up with PCP. Report back to ER with any new or worsening symptoms. Discussed return parameters and answered all questions. Patient conveyed verbal understanding and agreed to the plan. I discussed this case in detail with my attending Dr. Cisneros Undiagnosed new problem with uncertain prognosis? @ -No Drug Therapy requiring intensive monitoring for toxicity (Heparin, Nitro, Insul in, Cardizem)? @ -No Were any procedures done? @ -No Diagnosis/symptom? @ -UTI Acute, or Chronic, or Acute on Chronic? @ -Acute Uncomplicated (without systemic symptoms) or Complicated (systemic symptoms)? @ -Uncomplicated Side effects of treatment? @ -No Exacerbation, Progression, or Severe Exacerbation? @ -No Poses a threat to life or bodily function? How? (Chest pain, USA, NM, pneumonia, PE, COPD, DKA, ARF, appy, cholecystitis, CVA, Diverticulitis, Homicidal, Suicidal, threat to staff... and all critical care pts) @ -No - Lab Data Result diagrams: 08/09/23 20:40 08/09/23 20:40 Lab Results 08/09/23 08/09/23 08/09/23 Range/Units 20:40 20:40 20:40 WBC 9.2 (3.8-10.6) k/uL RBC 4.58 (4.30-5.90) m/uL Hgb 13.5 (13.0-17.5) gm/dL Hct 41.7 (39.0-53.0) % MCV 91.0 (80.0-100.0) fL MCH 29.5 (25.0-35.0) pg MCHC 32.4 (31.0-37.0) g/dL RDW 13.5 (11.5-15.5) % Plt Count 357 (150-450) k/uL MPV 9.3 Neutrophils % 69 % Lymphocytes % 19 % Monocytes % 9 % Eosinophils % 1 % Basophils % 1 % Neutrophils # 6.3 (1.3-7.7) k/uL Lymphocytes # 1.7 (1.0-4.8) k/uL Monocytes # 0.8 (0-1.0) k/uL Eosinophils # 0.1 (0-0.7) k/uL Basophils # 0.1 (0-0.2) k/uL Sodium 141 (137-145) mmol/L Potassium 3.8 (3.5-5.1) mmol/L Chloride 102 (98-107) mmol/L Carbon Dioxide 30 (22-30) mmol/L Anion Gap 9 mmol/L BUN 25 H (9-20) mg/dL Creatinine 0.94 (0.66-1.25) mg/dL Est GFR (CKD-EPI)AfAm 90 (>60 ml/min/1.73 sqM) Est GFR (CKD-EPI)NonAf 78 (>60 ml/min/1.73 sqM) Glucose 146 H (74-99) mg/dL Plasma Lactic Acid Jack 2.0 (0.7-2.0) mmol/L Calcium 10.3 H (8.4-10.2) mg/dL Total Bilirubin 0.7 (0.2-1.3) mg/dL AST 26 (17-59) U/L ALT 17 (4-49) U/L Alkaline Phosphatase 78 (38-126) U/L Total Protein 7.3 (6.3-8.2) g/dL Albumin 4.2 (3.5-5.0) g/dL Urine Color Urine Appearance (Clear) Urine pH (5.0-8.0) Ur Specific Boswell (1.001-1.035) Urine Protein (Negative) Urine Glucose (UA) (Negative) Urine Ketones (Negative) Urine Blood (Negative) Urine Nitrite (Negative) Urine Bilirubin (Negative) Urine Urobilinogen (<2.0) mg/dL Ur Leukocyte Esterase (Negative) Urine RBC (0-5) /hpf Urine WBC (0-5) /hpf Ur Squamous Epith Cells (0-4) /hpf Urine Bacteria (None) /hpf Hyaline Casts (0-2) /lpf Urine Mucus (None) /hpf 08/09/23 Range/Units 22:38 WBC (3.8-10.6) k/uL RBC (4.30-5.90) m/uL Hgb (13.0-17.5) gm/dL Hct (39.0-53.0) % MCV (80.0-100.0) fL MCH (25.0-35.0) pg MCHC (31.0-37.0) g/dL RDW (11.5-15.5) % Plt Count (150-450) k/uL MPV Neutrophils % % Lymphocytes % % Monocytes % % Eosinophils % % Basophils % % Neutrophils # (1.3-7.7) k/uL Lymphocytes # (1.0-4.8) k/uL Monocytes # (0-1.0) k/uL Eosinophils # (0-0.7) k/uL Basophils # (0-0.2) k/uL Sodium (137-145) mmol/L Potassium (3.5-5.1) mmol/L Chloride (98-107) mmol/L Carbon Dioxide (22-30) mmol/L Anion Gap mmol/L BUN (9-20) mg/dL Creatinine (0.66-1.25) mg/dL Est GFR (CKD-EPI)AfAm (>60 ml/min/1.73 sqM) Est GFR (CKD-EPI)NonAf (>60 ml/min/1.73 sqM) Glucose (74-99) mg/dL Plasma Lactic Acid Jack (0.7-2.0) mmol/L Calcium (8.4-10.2) mg/dL Total Bilirubin (0.2-1.3) mg/dL AST (17-59) U/L ALT (4-49) U/L Alkaline Phosphatase (38-126) U/L Total Protein (6.3-8.2) g/dL Albumin (3.5-5.0) g/dL Urine Color Colorless Urine Appearance Cloudy (Clear) Urine pH 6.0 (5.0-8.0) Ur Specific Boswell 1.013 (1.001-1.035) Urine Protein Trace H (Negative) Urine Glucose (UA) Negative (Negative) Urine Ketones Negative (Negative) Urine Blood Moderate H (Negative) Urine Nitrite Negative (Negative) Urine Bilirubin Negative (Negative) Urine Urobilinogen <2.0 (<2.0) mg/dL Ur Leukocyte Esterase Moderate H (Negative) Urine RBC 80 H (0-5) /hpf Urine WBC 27 H (0-5) /hpf Ur Squamous Epith Cells <1 (0-4) /hpf Urine Bacteria Few H (None) /hpf Hyaline Casts 41 H (0-2) /lpf Urine Mucus Rare H (None) /hpf Disposition Clinical Impression: Mechanical back pain, UTI (urinary tract infection) Disposition: HOME SELF-CARE Condition: Good Instructions (If sedation given, give patient instructions): Urinary Tract Infection in Men (ED) Additional Instructions: Follow-up with PCP. Report back to ER with any new or worsening symptoms. Take medication as prescribed. Prescriptions: Levofloxacin [Levaquin] 750 mg PO DAILY 5 Days #5 tab Is patient prescribed a controlled substance at d/c from ED?: No Referrals: German Galo MD [Primary Care Provider] - 1-2 days Time of Disposition: 00:04
[2023-08-09 21:09] LABS: ALT 17 U/L (4-49); AST 26 U/L (17-59); African American GFR (CKD) 90 (>60 ml/min/1.73 sqM); Albumin 4.2 g/dL (3.5-5.0); Alkaline Phosphatase 78 U/L (38-126); Anion Gap 9 mmol/L; Blood Urea Nitrogen 25 mg/dL (9-20); Calcium 10.3 mg/dL (8.4-10.2); Carbon Dioxide 30 mmol/L (22-30); Chloride 102 mmol/L (98-107); Glucose 146 mg/dL (74-99); Non-African American GFR(CKD) 78 (>60 ml/min/1.73 sqM); Potassium 3.8 mmol/L (3.5-5.1); Sodium 141 mmol/L (137-145); Total Bilirubin 0.7 mg/dL (0.2-1.3); Total Protein 7.3 g/dL (6.3-8.2)
--- NOTE | 2023-08-09 21:51 | CT ---
EXAMINATION TYPE: CT abdomen pelvis wo con CT DLP: 295.9 mGycm, Automated exposure control for dose reduction was used. DATE OF EXAM: 08/09/2023 9:34 PM COMPARISON: 07/30/2023 CLINICAL INDICATION:Male, 78 years old with history of R flank pain; Rt side flank pain. TECHNIQUE: Axial CT abdomen pelvis wo con;Sagittal and coronal reformats were created on a separate workstation. Contrast used: mL of , (none if empty) Oral contrast used: without Oral Contrast (none if empty) FINDINGS: LOWER CHEST: Unremarkable ABDOMEN LIVER: Unremarkable GALLBLADDER AND BILE DUCTS: Unremarkable. PANCREAS: Unremarkable. SPLEEN: Unremarkable. ADRENAL GLANDS: Unremarkable. KIDNEYS AND URETERS: No evidence of hydronephrosis or renal calculus. The ureters are unremarkable. PELVIS BLADDER: Romano catheter in place with more visible bladder stones bilaterally. REPRODUCTIVE: Unremarkable. ABDOMEN & PELVIS STOMACH AND BOWEL: No evidence of bowel obstruction. Scattered colonic diverticula. The appendix is n ormal. PERITONEUM/RETROPERITONEUM: No evidence of pneumoperitoneum or free fluid. VASCULATURE: No evidence of aortic aneurysm. MUSCULOSKELETAL: No acute osseous abnormalities LYMPH NODES: No gross evidence for lymphadenopathy. SOFT TISSUE/ABDOMINAL WALL: Unremarkable IMPRESSION: 1. No evidence for acute abdominal process. 2. Romano catheter in place with multiple bilateral bladder stones. Some the stones may be in the dis get ureters at the ureterovesicular junctions bilaterally. There is no evidence for dilation of the r enal pelvis and renal calyces however. 3. Colonic diverticulosis.
[2023-08-09 22:34] LABS: Basophils # (A) 0.1 k/uL (0-0.2); Basophils % (A) 1 %; Eosinophils # (A) 0.1 k/uL (0-0.7); Eosinophils % (A) 1 %; HCT 41.7 % (39.0-53.0); HGB 13.5 gm/dL (13.0-17.5); Lymphocytes # (A) 1.7 k/uL (1.0-4.8); Lymphocytes % (A) 19 %; MCH 29.5 pg (25.0-35.0); MCHC 32.4 g/dL (31.0-37.0); Mean Platelet Volume 9.3; Monocytes # (A) 0.8 k/uL (0-1.0); Monocytes % (A) 9 %; Neutrophils # (A) 6.3 k/uL (1.3-7.7); Neutrophils % (A) 69 %; Platelet Count 357 k/uL (150-450); RBC 4.58 m/uL (4.30-5.90); RDW 13.5 % (11.5-15.5); WBC 9.2 k/uL (3.8-10.6)
[2023-08-09 23:42] LABS: Appearance,Urine Cloudy (Clear); Bacteria,Urine Few /hpf; Bilirubin,Urine Negative (Negative); Blood,Urine Moderate (Negative); Color,Urine Colorless; Glucose,Urine (UA) Negative (Negative); Hyaline Casts,Urine 41 /lpf (0-2); Ketones,Urine Negative (Negative); Leukocyte Esterase,Urine Moderate (Negative); Mucus,Urine Rare /hpf; Nitrite,Urine Negative (Negative); Protein,Urine Trace (Negative); RBC,Urine 80 /hpf (0-5); Specific Gravity,Urine 1.013 (1.001-1.035); Squamous Epithelial Cell,Urine <1 /hpf (0-4); Urobilinogen,Urine <2.0 mg/dL (<2.0); WBC,Urine 27 /hpf (0-5)
[2023-08-10] MEDS: LEVOFLOXACIN 750 MG TAB PO STA (00:22)
[2023-08-10 00:49] VITALS: BP 123/71; PULSE 70; RESP 17
== END 2023-08-10 00:45 | disposition home or self-care (01) ==
LOC: EC 19:49
DX: N39.0 Urinary tract infection, site not specified (principal); N21.0 Calculus in bladder; K57.30 Diverticulosis of large intestine without perforation or abscess without bleeding; E78.5 Hyperlipidemia, unspecified; Z79.899 Other long term (current) drug therapy; M19.90 Unspecified osteoarthritis, unspecified site; Z88.1 Allergy status to other antibiotic agents; Z88.2 Allergy status to sulfonamides; Z91.09 Other allergy status, other than to drugs and biological substances; Z90.49 Acquired absence of other specified parts of digestive tract
CPT/HCPCS: 36415; 74176; 80053; 81001; 83605; 85025; 87086; 96360; 99284

== ENCOUNTER 2023-12-09 16:41 | Emergency (ER) | payer MEDICARE ==
[2023-12-09 16:59] VITALS: BP 112/71; PULSE 88; RESP 16; TEMP 98.2
--- NOTE | 2023-12-09 17:02 | ED ---
Altered Mental Status HPI - General Source: patient Mode of arrival: ambulatory Limitations: no limitations <Chioma Napoles - Last Filed: 12/09/23 17:01> - General Source: patient, RN notes reviewed, old records reviewed Mode of arrival: ambulatory Limitations: no limitations - History of Present Illness MD Complaint: altered mental status, confusion, weakness -: unknown Severity: mild Consistency of Symptoms: waxing and waning, getting worse Associated Symptoms: denies other symptoms Treatments Prior to Arrival: other pre-hospital medication <Gene Jarrett - Last Filed: 12/16/23 03:18> - General Chief Complaint: Altered Mental Status Stated Complaint: AMS Time Seen by Provider: 12/09/23 17:01 - History of Present Illness Initial Comments: 78-year-old male arrives with his presenting with chief complaint of increased confusion. Has been ongoing for few days. denies any falls or seizure-like activity. (Chioma Napoles) This is a 78-year-old male for increased confusion worsening increased confusion here in the emergency department patient is brought in as called primary care and wanted patient checked out (Gene Jarrett) - Related Data Home Medications Medication Instructions Recorded Confirmed Aspirin [Adult Low Dose Aspirin EC] 81 mg PO HS 05/09/17 07/04/23 Simvastatin [Zocor] 40 mg PO HS 05/09/17 07/04/23 Memantine HCl [Namenda] 5 mg PO BID 12/30/18 07/04/23 Donepezil [Aricept] 10 mg PO DAILY 04/16/19 07/04/23 Cyclobenzaprine [Flexeril] 5 mg PO DAILY PRN 07/04/23 07/04/23 Furosemide [Lasix] 20 mg PO DAILY 07/04/23 07/04/23 Lactase [Lactaid] 3,000 unit PO DAILY 07/04/23 07/04/23 Montelukast [Singulair] 10 mg PO DAILY 07/04/23 07/04/23 Omeprazole 40 mg PO DAILY 07/04/23 07/04/23 Previous Rx's Medication Instructions Recorded Acetaminophen Tab [Tylenol] 650 mg PO Q6HR PRN tab 07/11/23 Folic Acid 1 mg PO DAILY@1200 tab 07/11/23 Ibuprofen [Motrin] 400 mg PO Q6HR PRN tab 07/11/23 Lacosamide [Vimpat] 50 mg PO BID #60 tab 07/11/23 Multivitamins, Thera [Multivitamin 1 each PO DAILY@1200 tab 07/11/23 (formulary)] Tamsulosin [Flomax] 0.4 mg PO PC-BRKFST cap 07/11/23 Thiamine [Vitamin B-1] 100 mg PO BID-W/MEALS tab 07/11/23 Ciprofloxacin HCl [Cipro] 500 mg PO Q12HR #20 tablet 07/30/23 Cyclobenzaprine [Flexeril] 5 mg PO TID #20 tab 07/30/23 Ketorolac [Toradol] 10 mg PO Q6HR #15 tab 07/30/23 Levofloxacin [Levaquin] 750 mg PO DAILY 5 Days #5 tab 08/10/23 Allergies Allergy/AdvReac Type Severity Reaction Status Date / Time cephalexin Allergy Swelling Verified 12/09/23 16:58 meropenem Allergy Swelling Verified 12/09/23 16:58 mold Allergy Nausea & Verified 12/09/23 16:58 Vomiting sulfamethoxazole Allergy Swelling Verified 12/09/23 16:58 [From Bactrim] trimethoprim [From Bactrim] Allergy Swelling Verified 12/09/23 16:58 Review of Systems ROS Other: All systems not noted in ROS Statement are negative. <Chioma Napoles - Last Filed: 12/09/23 17:01> ROS Other: All systems not noted in ROS Statement are negative. <Gene Jarrett - Last Filed: 12/16/23 03:18> ROS Statement: Those systems with pertinent positive or pertinent negative responses have been documented in the HPI. Past Medical History Past Medical History: Hearing Disorder / Deafness, Hyperlipidemia, Memory Impairment, Osteoarthritis (OA) Additional Past Medical History / Comment(s): Uses hearing aids. Hx kidney stones X1.pancreatitis, had weight loss but slowly putting back on, frequent diarrhea, trouble emptying bladder completely since surg. WAS ON ANTIBIOTICS FOR BACTERIA IN COLON-LAST DOSE 05/08/19 History of Any Multi-Drug Resistant Organisms: CRE, Other MDRO Date of last positivie culture/infection: 08/09/23 CP-CRE KPC Carbapenemase Detected by [facility] Lab MDRO Source:: [id number] Past Surgical History: Bladder Surgery Additional Past Surgical History / Comment(s): Cataract surgery bilateral eyes, kidney stone surgery, circumcision, lap airam 2018, COLONOSCOPY Past Anesthesia/Blood Transfusion Reactions: No Reported Reaction Additional Past Anesthesia/Blood Transfusion Reaction / Comment(s): slow to wake up after lap airam & trouble urinating, ended up w/acuña cath. for week post-op Past Psychological History: No Psychological Hx Reported Smoking Status: Never smoker Past Alcohol Use History: None Reported Past Drug Use History: None Reported - Past Family History Mother Family Medical History: Liver Disease Additional Family Medical History / Comment(s): Was a heavy drinker. Father Family Medical History: Cancer Additional Family Medical History / Comment(s): Prostate cancer. Sister(s) Family Medical History: Unable to Obtain <Chioma Napoles - Last Filed: 12/09/23 17:01> General Exam Limitations: no limitations <Chioma Napoles - Last Filed: 12/09/23 17:01> General appearance: alert, in no apparent distress Head exam: Present: atraumatic, normocephalic, normal inspection Eye exam: Present: normal appearance, PERRL, EOMI. Absent: scleral icterus, conjunctival injection, periorbital swelling ENT exam: Present: normal exam, mucous membranes moist Neck exam: Present: normal inspection. Absent: tenderness, meningismus, lymphadenopathy Respiratory exam: Present: normal lung sounds bilaterally. Absent: respiratory distress, wheezes, rales, rhonchi, stridor Cardiovascular Exam: Present: regular rate, normal rhythm, normal heart sounds. Absent: systolic murmur, diastolic murmur, rubs, gallop, clicks GI/Abdominal exam: Present: soft, normal bowel sounds. Absent: distended, tenderness, guarding, rebound, rigid Extremities exam: Present: normal inspection, full ROM, normal capillary refill. Absent: tenderness, pedal edema, joint swelling, calf tenderness Back exam: Present: normal inspection Neurological exam: Present: alert, oriented X3, CN II-XII intact Psychiatric exam: Present: normal affect, normal mood Skin exam: Present: warm, dry, intact, normal color. Absent: rash <Gene Jarrett - Last Filed: 12/16/23 03:18> - General Exam Comments Initial Comments: Visual Physical Exam Vital signs reviewed General: Well-appearing, nontoxic, no acute distress. Head: Normocephalic, atraumatic Eyes: PERRLA, EOMI ENT: Airway patent Chest: Nonlabored breathing Skin: No visual rash, normal skin tone Neuro: Alert and oriented 3 Musculoskeletal: No gross abnormalities (Chioma Napoles) Course <Gene Jarrett - Last Filed: 12/16/23 03:18> Vital Signs 12/09/23 16:53 Temperature 98.2 F Pulse Rate 88 Respiratory 16 Rate Blood Pressure 112/71 O2 Sat by Pulse 96 Oximetry - Reevaluation(s) Reevaluation #1: Medical records reviewed (Gene Jarrett) Reevaluation #2: Patient symptoms unchanged (Gene Jarrett) Reevaluation #3: Patient informed of results questions answered (Gene Jarrett) Reevaluation #4: Was pt. sent in by a medical professional or institution (, PA, MOCK UP BUILDER, urgent care, hospital, or custodial...) When possible be specific @ -no Did you speak to anyone other than the patient for history (EMS, parent, family, police, friend...)? What history was obtained from this source @ -no Did you review nursing and triage notes (agree or disagree)? Why? @ -agree Are old charts reviewed (outside hosp., previous admission, EMS record, old EKG, old radiological studies, urgent care reports/EKG's, custodial records)? Report findings @ -yes Differential Diagnosis (chest pain, altered mental status, abdominal pain women, abdominal pain men, vaginal bleeding, weakness, fever, dyspnea, syncope, headache, dizziness, GI bleed, back pain, seizure, CVA, palpatations, mental health, musculoskeletal)? @ -prior EKG interpreted by me (3pts min.). @ -yes X-rays interpreted by me (1pt min.). @ -yes negative for acute disease CT interpreted by me (1pt min.). @ -no U/S interpreted by me (1pt. min.). @ -no What testing was considered but not performed or refused? (CT, X-rays, U/S, labs)? Why? @ -none What meds were considered but not given or refused? Why? @ -none Did you discuss the management of the patient with other professionals (professionals i.e. , PA, MOCK UP BUILDER, lab, RT, psych nurse, older adult social work specialist, diesel powerplant mechanic, teacher, special forces warrant officer, caseworker protective services)? Give summary @ -no Was smoking cessation discussed for >3mins.? @ -no Was critical care preformed (if so, how long)? @ -no Were there social determinants of health that impacted care today? How? (Homelessness, low income, unemployed, alcoholism, drug addiction, transportation, low edu. Level, literacy, decrease access to med. care, skilled nursing, re hab)? @ -none Was there de-escalation of care discussed even if they declined (Discuss DNR or withdrawal of care, Hospice)? DNR status @ -no What co-morbidities impacted this encounter? (DM, HTN, Smoking, COPD, CAD, Cancer, CVA, ARF, Chemo, Hep., AIDS, mental health diagnosis, sleep apnea, morbid obesity)? @ -none Was patient admitted / discharged? Hospital course, mention meds given and route, prescriptions, significant lab abnormalities, going to OR and other pertinent info. @ - 78 male to ER for evaluation of urinary tract infection altered mental status found here in the ER patient can be discharged home Discharge Undiagnosed new problem with uncertain prognosis? @ -no Drug Therapy requiring intensive monitoring for toxicity (Heparin, Nitro, Insulin, Cardizem)? @ -no Were any procedures done? @ -no Diagnosis/symptom? @ -AMS Acute, or Chronic, or Acute on Chronic? @ -Acute Uncomplicated (without systemic symptoms) or Complicated (systemic symptoms)? @ -Complicated Side effects of treatment? @ -no Exacerbation, Progression, or Severe Exacerbation? @ -exacerbation Poses a threat to life or bodily function? How? (Chest pain, USA, LA, pneumonia, PE, COPD, DKA, ARF, appy, cholecystitis, CVA, Diverticulitis, Homicidal, Suicidal, threat to staff... and all critical care pts) @ -yes AMS and extremies of age (Gene Jarrett) Reevaluation #5: Differential Altered Mental Status: Hypoglycemia, DKA, hypercapnia, ETOH, overdose, CO poisoning, trauma, myxedema coma, HTN encephalopathy, infection, encephalitis, psychosis, intercranial hemorrhage, hepatic encephalopathy, meningitis, CVA, this is not meant to be an all-inclusive list (Gene Jarrett) Medical Decision Making <Chioma Napoles - Last Filed: 12/09/23 17:01> - Lab Data Result diagrams: 12/09/23 18:36 12/09/23 18:36 - EKG Data -: EKG Interpreted by Me (EKG is sinus 88 RI 114 QRS 79 QTc 444) - Radiology Data Radiology results: report reviewed (Chest x-ray is negative for acute disease), image reviewed <Gene Jarrett - Last Filed: 12/16/23 03:18> - Medical Decision Making I performed the quick note portion of this visit, electronically signed Chioma Napoles PA-C (Chioma Napoles) 78 male to ER for evaluation of urinary tract infection altered mental status found here in the ER patient can be discharged home (Gene Jarrett) - Lab Data Lab Results 12/09/23 12/09/23 12/09/23 Range/Units 18:36 18:36 18:36 WBC 8.8 (3.8-10.6) k/uL RBC 3.81 L (4.30-5.90) m/uL Hgb 13.0 (13.0-17.5) gm/dL Hct 34.6 L (39.0-53.0) % MCV 90.9 (80.0-100.0) fL MCH 34.1 (25.0-35.0) pg MCHC 37.5 H (31.0-37.0) g/dL RDW 12.7 (11.5-15.5) % Plt Count 257 (150-450) k/uL MPV 9.3 Neutrophils % 68 % Lymphocytes % 19 % Monocytes % 8 % Eosinophils % 2 % Basophils % 1 % Neutrophils # 6.1 (1.3-7.7) k/uL Lymphocytes # 1.7 (1.0-4.8) k/uL Monocytes # 0.7 (0-1.0) k/uL Eosinophils # 0.2 (0-0.7) k/uL Basophils # 0.0 (0-0.2) k/uL PT 10.6 (10.0-12.5) sec INR 1.0 (<1.2) APTT 21.4 L (22.0-30.0) sec Sodium (137-145) mmol/L Potassium (3.5-5.1) mmol/L Chloride (98-107) mmol/L Carbon Dioxide (22-30) mmol/L Anion Gap mmol/L BUN (9-20) mg/dL Creatinine (0.66-1.25) mg/dL Est GFR (CKD-EPI)AfAm (>60 ml/min/1.73 sqM) Est GFR (CKD-EPI)NonAf (>60 ml/min/1.73 sqM) Glucose (74-99) mg/dL Calcium (8.4-10.2) mg/dL Total Bilirubin (0.2-1.3) mg/dL AST (17-59) U/L ALT (4-49) U/L Alkaline Phosphatase (38-126) U/L Ammonia (<30) umol/L Total Protein (6.3-8.2) g/dL Albumin (3.5-5.0) g/dL Urine Color Yellow Urine Appearance Cloudy (Clear) Urine pH 5.5 (5.0-8.0) Ur Specific [place] 1.016 (1.001-1.035) Urine Protein Trace H (Negative) Urine Glucose (UA) Negative (Negative) Urine Ketones Negative (Negative) Urine Blood Small H (Negative) Urine Nitrite Positive (Negative) Urine Bilirubin Negative (Negative) Urine Urobilinogen <2.0 (<2.0) mg/dL Ur Leukocyte Esterase Large H (Negative) Urine RBC 25 H (0-5) /hpf Urine WBC 18 H (0-5) /hpf Urine WBC Clumps Rare H (None) /hpf Calcium Oxalate Crystal Rare H (None) /hpf Urine Bacteria Moderate H (None) /hpf Hyaline Casts 5 H (0-2) /lpf Urine Mucus Few H (None) /hpf Urine Yeast (Budding) Rare H (None) /hpf 12/09/23 12/09/23 Range/Units 18:36 18:36 WBC (3.8-10.6) k/uL RBC (4.30-5.90) m/uL Hgb (13.0-17.5) gm/dL Hct (39.0-53.0) % MCV (80.0-100.0) fL MCH (25.0-35.0) pg MCHC (31.0-37.0) g/dL RDW (11.5-15.5) % Plt Count (150-450) k/uL MPV Neutrophils % % Lymphocytes % % Monocytes % % Eosinophils % % Basophils % % Neutrophils # (1.3-7.7) k/uL Lymphocytes # (1.0-4.8) k/uL Monocytes # (0-1.0) k/uL Eosinophils # (0-0.7) k/uL Basophils # (0-0.2) k/uL PT (10.0-12.5) sec INR (<1.2) APTT (22.0-30.0) sec Sodium 140 (137-145) mmol/L Potassium 5.0 (3.5-5.1) mmol/L Chloride 107 (98-107) mmol/L Carbon Dioxide 27 (22-30) mmol/L Anion Gap 6 mmol/L BUN 31 H (9-20) mg/dL Creatinine 0.92 (0.66-1.25) mg/dL Est GFR (CKD-EPI)AfAm >90 (>60 ml/min/1.73 sqM) Est GFR (CKD-EPI)NonAf 80 (>60 ml/min/1.73 sqM) Glucose 116 H (74-99) mg/dL Calcium 9.3 (8.4-10.2) mg/dL Total Bilirubin 0.8 (0.2-1.3) mg/dL AST 33 (17-59) U/L ALT 16 (4-49) U/L Alkaline Phosphatase 56 (38-126) U/L Ammonia 19 (<30) umol/L Total Protein 7.6 (6.3-8.2) g/dL Albumin 4.5 (3.5-5.0) g/dL Urine Color Urine Appearance (Clear) Urine pH (5.0-8.0) Ur Specific [place] (1.001-1.035) Urine Protein (Negative) Urine Glucose (UA) (Negative) Urine Ketones (Negative) Urine Blood (Negative) Urine Nitrite (Negative) Urine Bilirubin (Negative) Urine Urobilinogen (<2.0) mg/dL Ur Leukocyte Esterase (Negative) Urine RBC (0-5) /hpf Urine WBC (0-5) /hpf Urine WBC Clumps (None) /hpf Calcium Oxalate Crystal (None) /hpf Urine Bacteria (None) /hpf Hyaline Casts (0-2) /lpf Urine Mucus (None) /hpf Urine Yeast (Budding) (None) /hpf Disposition <Chioma Napoles - Last Filed: 12/09/23 17:01> Is patient prescribed a controlled substance at d/c from ED?: No Time of Disposition: 22:00 <Gene Jarrett - Last Filed: 12/16/23 03:18> Clinical Impression: Delirium due to general medical condition, Altered mental status, UTI (urinary tract infection) Disposition: HOME SELF-CARE Condition: Fair Instructions (If sedation given, give patient instructions): Altered Mental Status (ED) Referrals: German Galo MD [Primary Care Provider] - 1-2 days
[2023-12-09 18:49] LABS: Basophils % (A) 1 %; Eosinophils # (A) 0.2 k/uL (0-0.7); Eosinophils % (A) 2 %; HCT 34.6 % (39.0-53.0); Lymphocytes # (A) 1.7 k/uL (1.0-4.8); Lymphocytes % (A) 19 %; MCH 34.1 pg (25.0-35.0); MCHC 37.5 g/dL (31.0-37.0); MCV 90.9 fL (80.0-100.0); Mean Platelet Volume 9.3; Monocytes # (A) 0.7 k/uL (0-1.0); Monocytes % (A) 8 %; Neutrophils # (A) 6.1 k/uL (1.3-7.7); Neutrophils % (A) 68 %; Platelet Count 257 k/uL (150-450); RBC 3.81 m/uL (4.30-5.90); RDW 12.7 % (11.5-15.5); WBC 8.8 k/uL (3.8-10.6)
[2023-12-09 19:02] LABS: African American GFR (CKD) >90 (>60 ml/min/1.73 sqM); Anion Gap 6 mmol/L; Blood Urea Nitrogen 31 mg/dL (9-20); Calcium 9.3 mg/dL (8.4-10.2); Carbon Dioxide 27 mmol/L (22-30); Chloride 107 mmol/L (98-107); Glucose 116 mg/dL (74-99); Non-African American GFR(CKD) 80 (>60 ml/min/1.73 sqM); Sodium 140 mmol/L (137-145); Total Bilirubin 0.8 mg/dL (0.2-1.3)
[2023-12-09 19:04] LABS: Prothrombin Time 10.6 sec (10.0-12.5)
[2023-12-09 19:13] LABS: Appearance,Urine Cloudy (Clear); Bacteria,Urine Moderate /hpf; Bilirubin,Urine Negative (Negative); Blood,Urine Small (Negative); Budding Yeast,Urine Rare /hpf; Calcium Oxalate Crystals,Urine Rare /hpf; Color,Urine Yellow; Glucose,Urine (UA) Negative (Negative); Hyaline Casts,Urine 5 /lpf (0-2); Ketones,Urine Negative (Negative); Leukocyte Esterase,Urine Large (Negative); Mucus,Urine Few /hpf; Nitrite,Urine Positive (Negative); PH, Urine 5.5 (5.0-8.0); Protein,Urine Trace (Negative); RBC,Urine 25 /hpf (0-5); Specific Gravity,Urine 1.016 (1.001-1.035); Urobilinogen,Urine <2.0 mg/dL (<2.0); WBC,Urine 18 /hpf (0-5)
--- NOTE | 2023-12-09 19:16 | XR ---
EXAMINATION TYPE: XR chest 2V DATE OF EXAM: 12/09/2023 COMPARISON: 07/08/2023 INDICATION: Altered mental status TECHNIQUE: Frontal and lateral views of the chest are obtained. FINDINGS: The heart size is normal. The pulmonary vasculature is normal. The lungs are clear. IMPRESSION: 1. No acute pulmonary process.
[2023-12-09 19:18] LABS: ALT 16 U/L (4-49); AST 33 U/L (17-59); Albumin 4.5 g/dL (3.5-5.0); Alkaline Phosphatase 56 U/L (38-126); Total Protein 7.6 g/dL (6.3-8.2)
[2023-12-09 19:57] LABS: Partial Thromboplastin Time 21.4 sec (22.0-30.0)
== END 2023-12-09 22:38 | disposition home or self-care (01) ==
LOC: EC 16:41
DX: R41.82 Altered mental status, unspecified (principal); N39.0 Urinary tract infection, site not specified; F05 Delirium due to known physiological condition; B95.2 Enterococcus as the cause of diseases classified elsewhere; B96.89 Other specified bacterial agents as the cause of diseases classified elsewhere; Z88.1 Allergy status to other antibiotic agents; Z88.2 Allergy status to sulfonamides; Z91.09 Other allergy status, other than to drugs and biological substances
CPT/HCPCS: 36415; 71046; 80053; 81001; 82140; 85025; 85610; 85730; 87086; 93005; 99285

== ENCOUNTER 2023-12-19 14:59 | Emergency (ER) | payer MEDICARE ==
[2023-12-19 15:30] VITALS: RESP 18
--- NOTE | 2023-12-19 16:18 | ED ---
Male Urogenital HPI - General Chief complaint: Urogenital Stated complaint: Cath Issues Time Seen by Provider: 12/19/23 15:15 Source: patient, RN notes reviewed Mode of arrival: ambulatory Limitations: no limitations - History of Present Illness Initial comments: This is a 78-year-old male presents emergency department chief complaint of a complication of his urinary cath. Patient had at home nurse, 1300 this afternoon they were unable to change his catheter and requested that he report to the emergency department for catheter insertion. it was stated that the catheter attempted to use was too large. Denies systemic symptoms such as fevers, chills, nausea, vomiting, abdominal pain. Patient's primary care provider is requesting a urinary sample sent for culture. - Related Data Home Medications Medication Instructions Recorded Confirmed Aspirin [Adult Low Dose Aspirin EC] 81 mg PO HS 05/09/17 07/04/23 Simvastatin [Zocor] 40 mg PO HS 05/09/17 07/04/23 Memantine HCl [Namenda] 5 mg PO BID 12/30/18 07/04/23 Donepezil [Aricept] 10 mg PO DAILY 04/16/19 07/04/23 Cyclobenzaprine [Flexeril] 5 mg PO DAILY PRN 07/04/23 07/04/23 Furosemide [Lasix] 20 mg PO DAILY 07/04/23 07/04/23 Lactase [Lactaid] 3,000 unit PO DAILY 07/04/23 07/04/23 Montelukast [Singulair] 10 mg PO DAILY 07/04/23 07/04/23 Omeprazole 40 mg PO DAILY 07/04/23 07/04/23 Previous Rx's Medication Instructions Recorded Acetaminophen Tab [Tylenol] 650 mg PO Q6HR PRN tab 07/11/23 Folic Acid 1 mg PO DAILY@1200 tab 07/11/23 Ibuprofen [Motrin] 400 mg PO Q6HR PRN tab 07/11/23 Lacosamide [Vimpat] 50 mg PO BID #60 tab 07/11/23 Multivitamins, Thera [Multivitamin 1 each PO DAILY@1200 tab 07/11/23 (formulary)] Tamsulosin [Flomax] 0.4 mg PO PC-BRKFST cap 07/11/23 Thiamine [Vitamin B-1] 100 mg PO BID-W/MEALS tab 07/11/23 Ciprofloxacin HCl [Cipro] 500 mg PO Q12HR #20 tablet 07/30/23 Cyclobenzaprine [Flexeril] 5 mg PO TID #20 tab 07/30/23 Ketorolac [Toradol] 10 mg PO Q6HR #15 tab 07/30/23 Levofloxacin [Levaquin] 750 mg PO DAILY 5 Days #5 tab 08/10/23 Allergies Allergy/AdvReac Type Severity Reaction Status Date / Time cephalexin Allergy Swelling Verified 12/19/23 15:30 meropenem Allergy Swelling Verified 12/19/23 15:30 mold Allergy Nausea & Verified 12/19/23 15:30 Vomiting sulfamethoxazole Allergy Swelling Verified 12/19/23 15:30 [From Bactrim] trimethoprim [From Bactrim] Allergy Swelling Verified 12/19/23 15:30 Review of Systems ROS Statement: Those systems with pertinent positive or pertinent negative responses have been documented in the HPI. ROS Other: All systems not noted in ROS Statement are negative. Past Medical History Past Medical History: Hearing Disorder / Deafness, Hyperlipidemia, Memory Impairment, Osteoarthritis (OA) Additional Past Medical History / Comment(s): Uses hearing aids. Hx kidney stones X1.pancreatitis, had weight loss but slowly putting back on, frequent diarrhea, trouble emptying bladder completely since surg. WAS ON ANTIBIOTICS FOR BACTERIA IN COLON-LAST DOSE 05/08/19 History of Any Multi-Drug Resistant Organisms: CRE, Other MDRO Date of last positivie culture/infection: 08/09/23 CP-CRE KPC Carbapenemase Detected by [facility] Lab MDRO Source:: [id number] Past Surgical History: Bladder Surgery Additional Past Surgical History / Comment(s): Cataract surgery bilateral eyes, kidney stone surgery, circumcision, lap airam 2018, COLONOSCOPY Past Anesthesia/Blood Transfusion Reactions: No Reported Reaction Additional Past Anesthesia/Blood Transfusion Reaction / Comment(s): slow to wake up after lap airam & trouble urinating, ended up w/acuña cath. for week post-op Past Psychological History: No Psychological Hx Reported Smoking Status: Never smoker Past Alcohol Use History: None Reported Past Drug Use History: None Reported - Past Family History Mother Family Medical History: Liver Disease Additional Family Medical History / Comment(s): Was a heavy drinker. Father Family Medical History: Cancer Additional Family Medical History / Comment(s): Prostate cancer. Sister(s) Family Medical History: Unable to Obtain General Exam Limitations: no limitations General appearance: alert, in no apparent distress Head exam: Present: atraumatic, normocephalic, normal inspection Eye exam: Present: normal appearance, PERRL, EOMI. Absent: scleral icterus, conjunctival injection, periorbital swelling ENT exam: Present: normal exam, mucous membranes moist Neck exam: Present: normal inspection. Absent: tenderness, meningismus, lymphadenopathy Respiratory exam: Present: normal lung sounds bilaterally. Absent: respiratory distress, wheezes, rales, rhonchi, stridor Cardiovascular Exam: Present: regular rate, normal rhythm, normal heart sounds. Absent: systolic murmur, diastolic murmur, rubs, gallop, clicks GI/Abdominal exam: Present: soft, normal bowel sounds. Absent: distended, tenderness, guarding, rebound, rigid Extremities exam: Present: normal inspection, full ROM, normal capillary refill. Absent: tenderness, pedal edema, joint swelling, calf tenderness Back exam: Present: normal inspection Neurological exam: Present: alert, oriented X3, CN II-XII intact Psychiatric exam: Present: normal affect, normal mood Skin exam: Present: warm, dry, intact, normal color. Absent: rash Course Vital Signs 12/19/23 15:27 Temperature 97.9 F Pulse Rate 76 Respiratory 18 Rate Blood Pressure 108/70 O2 Sat by Pulse 98 Oximetry Medical Decision Making - Medical Decision Making Was pt. sent in by a medical professional or institution ([facility] Jorge, CIVIL ENGINEERING TEACHER, urgent care, hospital, or halfway...) When possible be specific @ -Was urged by at home nurse to report to the emergency department for insertion of urinary catheter Did you speak to anyone other than the patient for history (EMS, parent, family, police, friend...)? What history was obtained from this source @ -No Did you review nursing and triage notes (agree or disagree)? Why? @ -I reviewed and agree with nursing and triage notes Were old charts reviewed (outside hosp., previous admission, EMS record, old EKG, old radiological studies, urgent care reports/EKG's, halfway records)? Report findings @ -No old charts were reviewed Differential Diagnosis (chest pain, altered mental status, abdominal pain women, abdominal pain men, vaginal bleeding, weakness, fever, dyspnea, syncope, headache, dizziness, GI bleed, back pain, seizure, CVA, palpatations, mental health, musculoskeletal)? @ -urinary catheter malfunction EKG interpreted by me (3pts min.). @ -none X-rays interpreted by me (1pt min.). @ -None done CT interpreted by me (1pt min.). @ -None done U/S interpreted by me (1pt. min.). @ -None done What testing was considered but not performed or refused? (CT, X-rays, U/S, labs)? Why? @ -None What meds were considered but not given or refused? Why? @ -None Did you discuss the management of the patient with other professionals (professionals i.e. , PA, CIVIL ENGINEERING TEACHER, lab, RT, psych nurse, social work case manager, laborer airport maintenance, teacher, real estate utilization officer, bilingual patient support caseworker)? Give summary @ -No Was smoking cessation discussed for >3mins.? @ -No Was critical care preformed (if so, how long)? @ -No Were there social determinants of health that impacted care today? How? (Homelessness, low income, unemployed, alcoholism, drug addiction, transportation, low edu. Level, literacy, decrease access to med. care, skilled nursing, rehab)? @ -No Was there de-escalation of care discussed even if they declined (Discuss DNR or withdrawal of care, Hospice)? DNR status @ -No What co-morbidities impacted this encounter? (DM, HTN, Smoking, COPD, CAD, Cancer, CVA, ARF, Chemo, Hep., AIDS, mental health diagnosis, sleep apnea, morbid obesity)? @ -None Was patient admitted / discharged? Hospital course, mention meds given and route, prescriptions, significant lab abnormalities, going to OR and other pertinent info. @ -Discharged. 78-year-old male with urinary catheter malfunction. Nursing staff successfully placed a urinary catheter with good output. Physical examination no acute findings. States that he has been a mild amount of pain after the procedure and he is provided with a dose of Tylenol in the emergency department. There is minimal clinical concern for systemic infection. Additionally, however there was a urinary flush that was completed while placing the catheter therefore the urine sample has a large amount of saline and is not a clean-catch. She is provided with 2 sterile urine sample cups to take at home and recommend that he hold a cup and drop it off at his primary care office on Friday at way we are able to send out the urine culture. All questions answered at bedside and strict return parameters discussed with the patient he is verbalized understanding. Case discussed with Dr. Garcia Undiagnosed new problem with uncertain prognosis? @ -No Drug Therapy requiring intensive monitoring for toxicity (Heparin, Nitro, Insulin, Cardizem)? @ -No Were any procedures done? @ -No Diagnosis/symptom? @ -urinary cathather malfunction Acute, or Chronic, or Acute on Chronic? @ -acute Uncomplicated (without systemic symptoms) or Complicated (systemic symptoms)? @ -uncomplicated Side effects of treatment? @ -No Exacerbation, Progression, or Severe Exacerbation? @ -No Poses a threat to life or bodily function? How? (Chest pain, [place], [place], pneumonia, PE, COPD, DKA, ARF, appy, cholecystitis, CVA, Diverticulitis, Homicidal, Luiza cidal, threat to staff... and all critical care pts) @ -No Disposition Clinical Impression: Urinary catheter change required Disposition: HOME SELF-CARE Condition: Good Instructions (If sedation given, give patient instructions): Acuña Catheter Placement and Care (ED) Additional Instructions: Recommend that you provide a clean urinary sample with provided sterile cup and drop off at your primary care provider's office. Return to the emergency depart ment for any new or worsening symptoms. Is patient prescribed a controlled substance at d/c from ED?: No Referrals: German Galo MD [Primary Care Provider] - 1-2 days Time of Disposition: 16:48
[2023-12-19] MEDS: ACETAMINOPHEN TAB 325 MG TAB PO STA (16:56)
[2023-12-19 17:31] LABS: Amorphous Sediment,Urine Rare /hpf; Appearance,Urine Cloudy (Clear); Bilirubin,Urine Negative (Negative); Blood,Urine Large (Negative); Color,Urine Yellow; Glucose,Urine (UA) Negative (Negative); Ketones,Urine Negative (Negative); Leukocyte Esterase,Urine Large (Negative); Mucus,Urine Rare /hpf; Nitrite,Urine Positive (Negative); Protein,Urine 1+ (Negative); RBC,Urine >182 /hpf (0-5); Specific Gravity,Urine 1.017 (1.001-1.035); Squamous Epithelial Cell,Urine <1 /hpf (0-4); Urobilinogen,Urine <2.0 mg/dL (<2.0); WBC,Urine 42 /hpf (0-5)
[2023-12-19 17:38] VITALS: BP 106/68; PULSE 88; TEMP 98
== END 2023-12-19 17:37 | disposition home or self-care (01) ==
LOC: EC 14:59
DX: Z46.6 Encounter for fitting and adjustment of urinary device (principal); B95.2 Enterococcus as the cause of diseases classified elsewhere; Z88.2 Allergy status to sulfonamides; Z88.1 Allergy status to other antibiotic agents; Z88.8 Allergy status to other drugs, medicaments and biological substances
CPT/HCPCS: 51702; 51798; 81001; 87077; 87086; 87186; 99283; 99284

== ENCOUNTER 2024-02-03 09:51 | Emergency (ER) | payer MEDICARE ==
--- NOTE | 2024-02-03 11:07 | ED ---
Male Urogenital HPI - General Chief complaint: Recheck/Abnormal Lab/Rx Stated complaint: catheter issues Time Seen by Provider: 02/03/24 10:18 Source: patient, RN notes reviewed Mode of arrival: ambulatory Limitations: no limitations - History of Present Illness Initial comments: This is a 79-year-old male who presents to the emergency department for problems with his urinary catheter. His states that he went to empty the catheter bag this morning and accidentally pulled out or dislodged his catheter. He has had urine dribbling down his leg and increasing pain. - Related Data Home Medications Medication Instructions Recorded Confirmed Aspirin [Adult Low Dose Aspirin EC] 81 mg PO HS 05/09/17 07/04/23 Simvastatin [Zocor] 40 mg PO HS 05/09/17 07/04/23 Memantine HCl [Namenda] 5 mg PO BID 12/30/18 07/04/23 Donepezil [Aricept] 10 mg PO DAILY 04/16/19 07/04/23 Cyclobenzaprine [Flexeril] 5 mg PO DAILY PRN 07/04/23 07/04/23 Furosemide [Lasix] 20 mg PO DAILY 07/04/23 07/04/23 Lactase [Lactaid] 3,000 unit PO DAILY 07/04/23 07/04/23 Montelukast [Singulair] 10 mg PO DAILY 07/04/23 07/04/23 Omeprazole 40 mg PO DAILY 07/04/23 07/04/23 Previous Rx's Medication Instructions Recorded Acetaminophen Tab [Tylenol] 650 mg PO Q6HR PRN tab 07/11/23 Folic Acid 1 mg PO DAILY@1200 tab 07/11/23 Ibuprofen [Motrin] 400 mg PO Q6HR PRN tab 07/11/23 Lacosamide [Vimpat] 50 mg PO BID #60 tab 07/11/23 Multivitamins, Thera [Multivitamin 1 each PO DAILY@1200 tab 07/11/23 (formulary)] Tamsulosin [Flomax] 0.4 mg PO PC-BRKFST cap 07/11/23 Thiamine [Vitamin B-1] 100 mg PO BID-W/MEALS tab 07/11/23 Ciprofloxacin HCl [Cipro] 500 mg PO Q12HR #20 tablet 07/30/23 Cyclobenzaprine [Flexeril] 5 mg PO TID #20 tab 07/30/23 Ketorolac [Toradol] 10 mg PO Q6HR #15 tab 07/30/23 Levofloxacin [Levaquin] 750 mg PO DAILY 5 Days #5 tab 08/10/23 Levofloxacin [Levaquin] 750 mg PO DAILY 5 Days #5 tab 02/03/24 Allergies Allergy/AdvReac Type Severity Reaction Status Date / Time cephalexin Allergy Swelling Verified 02/03/24 10:10 meropenem Allergy Swelling Verified 02/03/24 10:10 mold Allergy Nausea & Verified 02/03/24 10:10 Vomiting sulfamethoxazole Allergy Swelling Verified 02/03/24 10:10 [From Bactrim] trimethoprim [From Bactrim] Allergy Swelling Verified 02/03/24 10:10 Review of Systems ROS Statement: Those systems with pertinent positive or pertinent negative responses have been documented in the HPI. ROS Other: All systems not noted in ROS Statement are negative. Past Medical History Past Medical History: Hearing Disorder / Deafness, Hyperlipidemia, Memory Impairment, Osteoarthritis (OA) Additional Past Medical History / Comment(s): Uses hearing aids. Hx kidney stones X1.pancreatitis, had weight loss but slowly putting back on, frequent diarrhea, trouble emptying bladder completely since surg. WAS ON ANTIBIOTICS FOR BACTERIA IN COLON-LAST DOSE 05/08/19 History of Any Multi-Drug Resistant Organisms: CRE, Other MDRO Date of last positivie culture/infection: 08/09/23 CP-CRE KPC Carbapenemase Detec nelsy by [facility] Lab MDRO Source:: [id number] Past Surgical History: Bladder Surgery Additional Past Surgical History / Comment(s): Cataract surgery bilateral eyes, kidney stone surgery, circumcision, lap airam 2018, COLONOSCOPY Past Anesthesia/Blood Transfusion Reactions: No Reported Reaction Additional Past Anesthesia/Blood Transfusion Reaction / Comment(s): slow to wake up after lap airam & trouble urinating, ended up w/acuña cath. for week post-op Past Psychological History: No Psychological Hx Reported Smoking Status: Never smoker Past Alcohol Use History: None Reported Past Drug Use History: None Reported - Past Family History Mother Family Medical History: Liver Disease Additional Family Medical History / Comment(s): Was a heavy drinker. Father Family Medical History: Cancer Additional Family Medical History / Comment(s): Prostate cancer. Sister(s) Family Medical History: Unable to Obtain General Exam Limitations: no limitations General appearance: alert, in no apparent distress Head exam: Present: atraumatic, normocephalic, normal inspection Respiratory exam: Present: normal lung sounds bilaterally. Absent: respiratory distress, wheezes, rales, rhonchi, stridor Cardiovascular Exam: Present: regular rate, normal rhythm, normal heart sounds. Absent: systolic murmur, diastolic murmur, rubs, gallop, clicks GI/Abdominal exam: Present: soft, tenderness (Suprapubic). Absent: distended Neurological exam: Present: alert, oriented X3, CN II-XII intact Psychiatric exam: Present: normal affect, normal mood Skin exam: Present: warm, dry, intact, normal color. Absent: rash Course Vital Signs 02/03/24 02/03/24 10:08 13:05 Temperature 98 F 97.8 F Pulse Rate 77 81 Respiratory 20 18 Rate Blood Pressure 140/79 131/78 O2 Sat by Pulse 97 98 Oximetry Medical Decision Making - Medical Decision Making This is a 79-year-old male who presents to the emergency department for problems with his urinary catheter. Was pt. sent in by a medical professional or institution? @ -No Did you speak to anyone other than the patient for history? @ -No Did you review nursing and triage notes? @ -Yes, and I agree, it is accurate with regards to the patient's symptoms. Were old charts reviewed? @ -Urine culture from 01/22/2024 demonstrating Morganella morganii, E. coli, and Proteus vulgaris Differential Diagnosis? @ -Differential Acuña Catheter Problems: Malposition, blood clot, infection, this is not meant to be an all-inclusive list. EKG interpreted by me (3pts min.)? @ -Not obtained X-rays interpreted by me (1pt min.)? @ -Not obtained CT interpreted by me (1pt min.)? @ -Not obtained U/S interpreted by me (1pt. min.)? @ -Not obtained What testing was considered but not performed? (CT, X-rays, U/S, labs)? Why? @ -None What meds were considered but not given? Why? @ -None Did you discuss the management of the patient with other professionals? @ -No Did you reconcile home meds? @ -No Was smoking cessation discussed for >3mins.? @ -No Was critical care preformed (if so, how long)? @ -No Were there social determinants of health that impacted care today? How? (Homelessness, low income, unemployed, alcoholism, drug addiction, transportation, low edu. Level, literacy, decrease access to med. care, penitentiary, rehab)? @ -No Was there de-escalation of care discussed even if they declined? (Discuss DNR or withdrawal of care, Hospice)? @ -No What co-morbidities impacted this encounter? (DM, HTN, Smoking, COPD, CAD, Cancer, CVA, Hep., AIDS, mental health diagnosis, sleep apnea, morbid obesity)? @ -Urinary retention Was patient admitted / discharged? @ -Discharged. Patient's catheter was not draining when he arrived. This was replaced by nursing staff and found to be draining appropriately. Patient noted significant relief in pain afterwards. Urinalysis does appear to be consistent with infection and urine was sent for culture. Most recent urine culture was reviewed and all bacteria are shown to be susceptible to Levaquin. Prescription for Levaquin subsequently provided. Advised follow-up with his PCP for reevaluation. Patient discharged home in stable condition. Case discussed with ED attending Dr. Hanley. Undiagnosed new problem with uncertain prognosis? @ -None Drug Therapy requiring intensive monitoring for toxicity (Heparin, Nitro, Insulin, Cardizem)? @ -None Were any procedures done? @ -None Diagnosis/symptom? @ -UTI, Acuña catheter malfunction Acute, or Chronic, or Acute on Chronic? @ -Acute Uncomplicated (without systemic symptoms) or Complicated (systemic symptoms)? @ -Uncomplicated Side effects of treatment? @ -None Exacerbation, Progression, or Severe Exacerbation] @ -Not applicable Poses a threat to life or bodily function? @ -No - Lab Data Lab Results 02/03/24 Range/Units 11:24 Urine Color Light Yellow Urine Appearance Cloudy (Clear) Urine pH 8.0 (5.0-8.0) Ur Specific [place] 1.017 (1.001-1.035) Urine Protein 1+ H (Negative) Urine Glucose (UA) Negative (Negative) Urine Ketones Negative (Negative) Urine Blood Trace H (Negative) Urine Nitrite Positive (Negative) Urine Bilirubin Negative (Negative) Urine Urobilinogen <2.0 (<2.0) mg/dL Ur Leukocyte Esterase Large H (Negative) Urine RBC 15 H (0-5) /hpf Urine WBC >182 H (0-5) /hpf Triple Phos Crystals Few H (None) /hpf Urine Bacteria Rare H (None) /hpf Urine Mucus Rare H (None) /hpf Disposition Clinical Impression: UTI (urinary tract infection), Urinary retention, Acuña catheter problem Disposition: HOME SELF-CARE Instructions (If sedation given, give patient instructions): Urinary Tract Infection in Men (ED), Catheter-associated Urinary Tract Infection (ED) Additional Instructions: Return to the emergency department with any new, worsening, or concerning symptoms. Take the antibiotic as prescribed for 5 days. Follow up with your primary care provider in 1-2 days. Prescriptions: Levofloxacin [Levaquin] 750 mg PO DAILY 5 Days #5 tab Is patient prescribed a controlled substance at d/c from ED?: No Referrals: German Galo MD [Primary Care Provider] - 1-2 days Time of Disposition: 12:32
[2024-02-03 12:23] LABS: Appearance,Urine Cloudy (Clear); Bacteria,Urine Rare /hpf; Bilirubin,Urine Negative (Negative); Blood,Urine Trace (Negative); Color,Urine Light Yellow; Glucose,Urine (UA) Negative (Negative); Ketones,Urine Negative (Negative); Leukocyte Esterase,Urine Large (Negative); Mucus,Urine Rare /hpf; Nitrite,Urine Positive (Negative); Protein,Urine 1+ (Negative); RBC,Urine 15 /hpf (0-5); Specific Gravity,Urine 1.017 (1.001-1.035); Triple Phosphate Crystal,Urine Few /hpf; Urobilinogen,Urine <2.0 mg/dL (<2.0); WBC,Urine >182 /hpf (0-5)
[2024-02-03 13:07] VITALS: BP 131/78; PULSE 81; RESP 18; TEMP 97.8
== END 2024-02-03 13:07 | disposition home or self-care (01) ==
LOC: EC 09:51
DX: T83.018A Breakdown (mechanical) of other urinary catheter, initial encounter (principal); N39.0 Urinary tract infection, site not specified; Z88.8 Allergy status to other drugs, medicaments and biological substances; Z88.2 Allergy status to sulfonamides; Z91.048 Other nonmedicinal substance allergy status
CPT/HCPCS: 81001; 87077; 87086; 87186; 99283

== ENCOUNTER 2024-03-26 10:15 | Observation (INO) | payer MEDICARE ==
--- NOTE | 2024-03-26 10:46 | ED ---
General Adult HPI - General Chief complaint: Fall Stated complaint: Weakness Time Seen by Provider: 03/26/24 10:24 Source: patient, RN notes reviewed Mode of arrival: EMS Limitations: no limitations - History of Present Illness Initial comments: 79-year-old male with past medical history of dementia and indwelling Acuña catheter presents to the emergency department for evaluation of fall. Patient states that he lost his footing causing him to fall down. According to EMS, the patient has had increased weakness over the past 2 weeks. Patient's corroborates the increased weakness. She reports that when her and her daughter attempted to pick the patient up he was unable to stand following this. He is denying any symptoms currently. He does report that he hit his head. He is unsure if he is on blood thinners. Denies loss of consciousness. Denies preceding symptoms including chest pain, shortness of breath, dizziness. - Related Data Home Medications Medication Instructions Recorded Confirmed Simvastatin [Zocor] 40 mg PO HS 05/09/17 03/26/24 Montelukast [Singulair] 10 mg PO DAILY 07/04/23 03/26/24 Omeprazole 40 mg PO HS 07/04/23 03/26/24 Cetirizine HCl [Zyrtec] 10 mg PO DAILY 03/26/24 03/26/24 Lacosamide [Vimpat] 50 mg PO HS 03/26/24 03/26/24 Memantine [Namenda] 10 mg PO BID 03/26/24 03/26/24 Mv-Min/Folic/K1/Lycopen/Lutein 1 tab PO DAILY 03/26/24 03/26/24 [Centrum Silver Men Tablet] Tamsulosin [Flomax] 0.4 mg PO HS 03/26/24 03/26/24 Allergies Allergy/AdvReac Type Severity Reaction Status Date / Time cephalexin Allergy Swelling Verified 03/26/24 11:11 meropenem Allergy Swelling Verified 03/26/24 11:11 mold Allergy Nausea & Verified 03/26/24 11:11 Vomiting sulfamethoxazole Allergy Swelling Verified 03/26/24 11:11 [From Bactrim] trimethoprim [From Bactrim] Allergy Swelling Verified 03/26/24 11:11 Review of Systems ROS Statement: Those systems with pertinent positive or pertinent negative responses have been documented in the HPI. ROS Other: All systems not noted in ROS Statement are negative. Past Medical History Past Medical History: Hearing Disorder / Deafness, Hyperlipidemia, Memory Impai rment, Osteoarthritis (OA) Additional Past Medical History / Comment(s): Uses hearing aids. Hx kidney stones X1.pancreatitis, had weight loss but slowly putting back on, frequent diarrhea, trouble emptying bladder completely since surg. WAS ON ANTIBIOTICS FOR BACTERIA IN COLON-LAST DOSE 05/08/19 History of Any Multi-Drug Resistant Organisms: CRE, Other MDRO Date of last positivie culture/infection: 08/09/23 CP-CRE KPC Carbapenemase Detected by [facility] Lab MDRO Source:: [id number] Past Surgical History: Bladder Surgery Additional Past Surgical History / Comment(s): Cataract surgery bilateral eyes, kidney stone surgery, circumcision, lap airam 2018, COLONOSCOPY Past Anesthesia/Blood Transfusion Reactions: No Reported Reaction Additional Past Anesthesia/Blood Transfusion Reaction / Comment(s): slow to wake up after lap airam & trouble urinating, ended up w/acuña cath. for week post-op Past Psychological History: No Psychological Hx Reported Smoking Status: Never smoker Past Alcohol Use History: None Reported Past Drug Use History: None Reported - Past Family History Mother Family Medical History: Liver Disease Additional Family Medical History / Comment(s): Was a heavy drinker. Father Family Medical History: Cancer Additional Family Medical History / Comment(s): Prostate cancer. Sister(s) Family Medical History: Unable to Obtain General Exam Limitations: no limitations General appearance: alert, in no apparent distress Head exam: Present: atraumatic, normocephalic, normal inspection Eye exam: Present: normal appearance, PERRL, EOMI. Absent: scleral icterus, conjunctival injection, periorbital swelling ENT exam: Present: normal exam, mucous membranes moist Neck exam: Present: normal inspection, full ROM. Absent: tenderness, meningismu s, lymphadenopathy Respiratory exam: Present: normal lung sounds bilaterally. Absent: respiratory distress, wheezes, rales, rhonchi, stridor Cardiovascular Exam: Present: regular rate, normal rhythm, normal heart sounds. Absent: systolic murmur, diastolic murmur, rubs, gallop, clicks GI/Abdominal exam: Present: soft, normal bowel sounds. Absent: distended, tenderness, guarding, rebound, rigid Extremities exam: Present: full ROM, tenderness (left distal leg), normal capillary refill, other (DP and PT pulses 2+ ). Absent: pedal edema, joint swelling, calf tenderness Back exam: Present: tenderness (low lumbar) Neurological exam: Present: alert Psychiatric exam: Present: normal affect, normal mood Skin exam: Present: warm, dry, intact, normal color. Absent: rash Course Vital Signs 03/26/24 03/26/24 03/26/24 10:16 13:00 15:56 Temperature 97.8 F 97.6 F Pulse Rate 76 73 76 Respiratory 18 16 18 Rate Blood Pressure 134/76 128/67 115/68 O2 Sat by Pulse 97 98 97 Oximetry Medical Decision Making - Medical Decision Making Was pt. sent in by a medical professional or institution (, PA, CANDY DECORATOR, urgent care, hospital, or jail...) When possible be specific @ -No Did you speak to anyone other than the patient for history (EMS, parent, family, police, friend...)? What history was obtained from this source @ -No Did you review nursing and triage notes (agree or disagree)? Why? @ -I reviewed and agree with nursing and triage notes Were old charts reviewed (outside hosp., previous admission, EMS record, old EKG, old radiological studies, urgent care reports/EKG's, jail records)? Report findings @ -No old charts were reviewed Differential Diagnosis (chest pain, altered mental status, abdominal pain women, abdominal pain men, vaginal bleeding, weakness, fever, dyspnea, syncope, headache, dizziness, GI bleed, back pain, seizure, CVA, palpatations, mental health, musculoskeletal)? @ -Differential Weakness: Hypoglycemia, shock, sepsis, hyponatremia, anemia, infection, CA, ETOH, adverse medicine reaction, overdose, stroke, this is not meant to be an all-inclusive list. EKG interpreted by me (3pts min.). @ -EKG at 1020 shows sinus rhythm rate 75, PA 167, QRS 96, QTQTc [id number], no significant T wave abnormalities X-rays interpreted by me (1pt min.). @ -X-ray of the left tib-fib and foot revealed no acute fracture or dislocation CT interpreted by me (1pt min.). @ -CT brain shows no acute process AT lumbar spine shows no acute process U/S interpreted by me (1pt. min.). @ -None done What testing was considered but not performed or refused? (CT, X-rays, U/S, labs)? Why? @ -None What meds were considered but not given or refused? Why? @ -None Did you discuss the management of the patient with other professionals (professionals i.e. , PA, CANDY DECORATOR, lab, RT, psych nurse, social security benefits interviewer, manager labor delivery, teacher, public records officer, lead case manager)? Give summary @ -Case discussed with Dr. Galo who is accepting of the admission Was smoking cessation discussed for >3mins.? @ -No Was critical care preformed (if so, how long)? @ -No Were there social determinants of health that impacted care today? How? (Homelessness, low income, unemployed, alcoholism, drug addiction, transportation, low edu. Level, literacy, decrease access to med. care, prison, rehab)? @ -No Was there de-escalation of care discussed even if they declined (Discuss DNR or withdrawal of care, Hospice)? DNR status @ -No What co-morbidities impacted this encounter? (DM, HTN, Smoking, COPD, CAD, Cancer, CVA, ARF, Chemo, Hep., AIDS, mental health diagnosis, sleep apnea, morbid obesity)? @ -Dementia Was patient admitted / discharged? Hospital course, mention meds given and route, prescriptions, significant lab abnormalities, going to OR and other pertinent info. @ -Admitted. Patient presented to the emergency department for evaluation of generalized weakness and fall. Patient underwent laboratory studies revealing mild leukocytosis at 11.7. Patient had normal creatinine, negative troponin. Patient has indwelling Acuña catheter, UA was obtained revealing 37 white blood cells, large leukocyte esterase. Patient underwent CT brain and C-spine with no acute process, CT lumbar spine shows no acute fracture or traumatic malalignment. X-ray of the left tib-fib and foot showed no acute fracture or dislocation. Patient attempted to ambulate but was unable to ambulate unassisted. Patient will be admitted for treatment of urinary tract infection and generalized weakness. Case was discussed with Dr. Galo who is accepting of the admission. Case discussed with Dr. Carrion. Undiagnosed new problem with uncertain prognosis? @ -No Drug Therapy requiring intensive monitoring for toxicity (Heparin, Nitro, Insulin, Cardizem)? @ -No Were any procedures done? @ -No Diagnosis/symptom? @ -Generalized weakness, UTI Acute, or Chronic, or Acute on Chronic? @ -Acute Uncomplicated (without systemic symptoms) or Complicated (systemic symptoms)? @ -Uncomplicated Side effects of treatment? @ -No Exacerbation, Progression, or Severe Exacerbation? @ -No Poses a threat to life or bodily function? How? (Chest pain, USA, CA, pneumonia, PE, COPD, DKA, ARF, appy, cholecystitis, CVA, Diverticulitis, Homicidal, Suicidal, threat to staff... and all critical care pts) @ -No - Lab Data Result diagrams: 03/26/24 11:03/26/24 11: Lab Results 03/26/24 03/26/24 03/26/24 Range/Units 11: 11: 11: WBC 11.7 H (3.8-10.6) k/uL RBC 3.97 L (4.30-5.90) m/uL Hgb 12.0 L (13.0-17.5) gm/dL Hct 36.6 L (39.0-53.0) % MCV 92.2 (80.0-100.0) fL MCH 30.3 (25.0-35.0) pg MCHC 32.8 (31.0-37.0) g/dL RDW 12.7 (11.5-15.5) % Plt Count 291 (150-450) k/uL MPV 8.6 Neutrophils % 68 % Lymphocytes % 18 % Monocytes % 9 % Eosinophils % 2 % Basophils % 0 % Neutrophils # 8.0 H (1.3-7.7) k/uL Lymphocytes # 2.1 (1.0-4.8) k/uL Monocytes # 1.1 H (0-1.0) k/uL Eosinophils # 0.3 (0-0.7) k/uL Basophils # 0.1 (0-0.2) k/uL PT 10.5 (10.0-12.5) sec INR 1.0 (<1.2) APTT 23.4 (22.0-30.0) sec Sodium 140 (137-145) mmol/L Potassium 4.3 (3.5-5.1) mmol/L Chloride 107 (98-107) mmol/L Carbon Dioxide 29 (22-30) mmol/L Anion Gap 4 mmol/L BUN 22 H (9-20) mg/dL Creatinine 0.78 (0.66-1.25) mg/dL Est GFR (CKD-EPI)AfAm >90 (>60 ml/min/1.73 sqM) Est GFR (CKD-EPI)NonAf 86 (>60 ml/min/1.73 sqM) Glucose 92 (74-99) mg/dL Calcium 9.3 (8.4-10.2) mg/dL Total Bilirubin 0.9 (0.2-1.3) mg/dL AST 25 (17-59) U/L ALT 12 (4-49) U/L Alkaline Phosphatase 80 (38-126) U/L Troponin I (0.000-0.034) ng/mL Total Protein 6.7 (6.3-8.2) g/dL Albumin 3.8 (3.5-5.0) g/dL Urine Color Urine Appearance (Clear) Urine pH (5.0-8.0) Ur Specific [place] (1.001-1.035) Urine Protein (Negative) Urine Glucose (UA) (Negative) Urine Ketones (Negative) Urine Blood (Negative) Urine Nitrite (Negative) Urine Bilirubin (Negative) Urine Urobilinogen (<2.0) mg/dL Ur Leukocyte Esterase (Negative) Urine RBC (0-5) /hpf Urine WBC (0-5) /hpf Amorphous Sediment (None) /hpf Urine Bacteria (None) /hpf Urine Mucus (None) /hpf 03/26/24 03/26/24 Range/Units 11:01 13:47 WBC (3.8-10.6) k/uL RBC (4.30-5.90) m/uL Hgb (13.0-17.5) gm/dL Hct (39.0-53.0) % MCV (80.0-100.0) fL MCH (25.0-35.0) pg MCHC (31.0-37.0) g/dL RDW (11.5-15.5) % Plt Count (150-450) k/uL MPV Neutrophils % % Lymphocytes % % Monocytes % % Eosinophils % % Basophils % % Neutrophils # (1.3-7.7) k/uL Lymphocytes # (1.0-4.8) k/uL Monocytes # (0-1.0) k/uL Eosinophils # (0-0.7) k/uL Basophils # (0-0.2) k/uL PT (10.0-12.5) sec INR (<1.2) APTT (22.0-30.0) sec Sodium (137-145) mmol/L Potassium (3.5-5.1) mmol/L Chloride (98-107) mmol/L Carbon Dioxide (22-30) mmol/L Anion Gap mmol/L BUN (9-20) mg/dL Creatinine (0.66-1.25) mg/dL Est GFR (CKD-EPI)AfAm (>60 ml/min/1.73 sqM) Est GFR (CKD-EPI)NonAf (>60 ml/min/1.73 sqM) Glucose (74-99) mg/dL Calcium (8.4-10.2) mg/dL Total Bilirubin (0.2-1.3) mg/dL AST (17-59) U/L ALT (4-49) U/L Alkaline Phosphatase (38-126) U/L Troponin I <0.012 (0.000-0.034) ng/mL Total Protein (6.3-8.2) g/dL Albumin (3.5-5.0) g/dL Urine Color Colorless Urine Appearance Cloudy (Clear) Urine pH 8.0 (5.0-8.0) Ur Specific [place] 1.013 (1.001-1.035) Urine Protein Negative (Negative) Urine Glucose (UA) Negative (Negative) Urine Ketones 1+ H (Negative) Urine Blood Trace H (Negative) Urine Nitrite Negative (Negative) Urine Bilirubin Negative (Negative) Urine Urobilinogen <2.0 (<2.0) mg/dL Ur Leukocyte Esterase Large H (Negative) Urine RBC 7 H (0-5) /hpf Urine WBC 37 H (0-5) /hpf Amorphous Sediment Rare H (None) /hpf Urine Bacteria Rare H (None) /hpf Urine Mucus Rare H (None) /hpf Disposition Clinical Impression: Fall, UTI (urinary tract infection) Disposition: ADMITTED IP TO THIS [facility] Condition: Stable Is patient prescribed a controlled substance at d/c from ED?: No
[2024-03-26 11:09] LABS: Basophils # (A) 0.1 k/uL (0-0.2); Basophils % (A) 0 %; Eosinophils # (A) 0.3 k/uL (0-0.7); Eosinophils % (A) 2 %; HCT 36.6 % (39.0-53.0); Lymphocytes # (A) 2.1 k/uL (1.0-4.8); Lymphocytes % (A) 18 %; MCH 30.3 pg (25.0-35.0); MCHC 32.8 g/dL (31.0-37.0); MCV 92.2 fL (80.0-100.0); Mean Platelet Volume 8.6; Monocytes # (A) 1.1 k/uL (0-1.0); Monocytes % (A) 9 %; Neutrophils % (A) 68 %; Platelet Count 291 k/uL (150-450); RBC 3.97 m/uL (4.30-5.90); RDW 12.7 % (11.5-15.5); WBC 11.7 k/uL (3.8-10.6)
[2024-03-26 11:20] LABS: ALT 12 U/L (4-49); AST 25 U/L (17-59); African American GFR (CKD) >90 (>60 ml/min/1.73 sqM); Albumin 3.8 g/dL (3.5-5.0); Alkaline Phosphatase 80 U/L (38-126); Anion Gap 4 mmol/L; Blood Urea Nitrogen 22 mg/dL (9-20); Calcium 9.3 mg/dL (8.4-10.2); Carbon Dioxide 29 mmol/L (22-30); Chloride 107 mmol/L (98-107); Glucose 92 mg/dL (74-99); Non-African American GFR(CKD) 86 (>60 ml/min/1.73 sqM); Potassium 4.3 mmol/L (3.5-5.1); Sodium 140 mmol/L (137-145); Total Bilirubin 0.9 mg/dL (0.2-1.3); Total Protein 6.7 g/dL (6.3-8.2)
[2024-03-26 11:28] LABS: Partial Thromboplastin Time 23.4 sec (22.0-30.0); Prothrombin Time 10.5 sec (10.0-12.5)
--- NOTE | 2024-03-26 12:36 | CT ---
EXAMINATION TYPE: CT brain raiza wo con DATE OF EXAM: 03/26/2024 COMPARISON: 07/04/[address] CLINICAL INDICATION: Male, 79 years old with history of fall; PHH, Fall TECHNIQUE: CT scan of the head and cervical spine are performed without contrast. CT DLP: 2103.6 mGycm Automated exposure control for dose reduction was used. Findings: Head CT: The ventricles, basal cisterns and sulci over convexities are markedly enlarged consistent marked gen eralized atrophy. There is moderate decreased density in the periventricular white matter consistent with chronic ische noa white matter demyelination. There is no mass effect or shift of the midline structures. There is no acute intra or extra-axial hemorrhage. Posterior fossa including the brainstem, fourth ventricle and cerebellar pontine angles are grossly n ormal. Intraorbital contents appear normal and symmetric. There is complete opacification of the left maxillary sinus. The remaining paranasal sinuses and mast oid air cells are well aerated. CT cervical spine: Craniovertebral junction relationships and prevertebral soft tissues are normal. The cervical vertebral segments are normal in height and alignment and there is no fracture subluxati on. Mild disc space narrowing at the C4-5 and C5-6 levels indicating mild degenerative disc disease. Ther e is mild facet arthropathy in the upper cervical spine. There is moderate osteoarthritis of the uncovertebral joints in the mid lower cervical spine. The bony cervical canal is widely patent and there is no bony encroachment of the neural foramina. The paraspinal soft tissues unremarkable. IMPRESSION: 1. Head CT: No acute bleed or mass effect. Marked generalized atrophy and chronic ischemic white noemy er demyelination. 2. CT cervical spine: No acute trauma. Mild degenerative disc disease and osteoarthritic change of th e facets and uncovertebral joints as described above. [facility], , 03/26/2024 12:34 PM
--- NOTE | 2024-03-26 12:39 | CT ---
EXAMINATION TYPE: CT lumbar spine wo con DATE OF EXAM: 03/26/2024 12:28 PM COMPARISON: None CLINICAL INDICATION: Male, 79 years old with history of fall; PHH, Fall TECHNIQUE: Unenhanced CT of the lumbar spine was performed. Bone and soft tissue window settings are submitted as well as coronal and sagittal reconstructions. CT DLP: 2533.6 mGycm Automated exposure control for dose reduction was used. FINDINGS: The lumbar vertebral segments are normal in height and alignment and there is no fracture or subluxat ion. The disc spaces are well preserved and there is no significant degenerative disc disease. There is no large disc herniation. There is no spinal stenosis. The facet joints are intact. Visualized sacrum and SI joints are normal. IMPRESSION: No significant abnormality seen. [facility], , 03/26/2024 12:36 PM
--- NOTE | 2024-03-26 13:21 | XR ---
EXAMINATION TYPE: XR tibia fibula LT DATE OF EXAM: 03/26/2024 12:36 PM COMPARISON: None CLINICAL INDICATION: Male, 79 years old with history of fall; pain. TECHNIQUE: XR tibia fibula LT; examined in AP and lateral projections. FINDINGS: No evidence of any acute osseous pathology, joint dislocation, or soft tissue swelling is n oted. Calcaneal plantar spurring. Mild edema throughout the leg. IMPRESSION: No evidence of acute fracture. [facility], , 03/26/2024 1:19 PM
--- NOTE | 2024-03-26 13:25 | XR ---
EXAMINATION TYPE: XR foot complete LT DATE OF EXAM: 03/26/2024 12:36 PM COMPARISON: CLINICAL INDICATION: Male, 79 years old with history of fall; pain TECHNIQUE: XR foot complete LT examined in the AP, oblique, and lateral projections. FINDINGS: No evidence of any acute osseous pathology. Calcaneal plantar spurring is present. Multifocal degener ation changes throughout the joints of the foot with osteophyte formation and joint space narrowing. Mild subcutaneous edema noted. IMPRESSION: 1. No evidence of acute fracture. 2. Multifocal degeneration changes throughout the joints of the foot. [facility], , 03/26/2024 1:23 PM
[2024-03-26 14:05] LABS: Amorphous Sediment,Urine Rare /hpf; Appearance,Urine Cloudy (Clear); Bacteria,Urine Rare /hpf; Bilirubin,Urine Negative (Negative); Blood,Urine Trace (Negative); Color,Urine Colorless; Glucose,Urine (UA) Negative (Negative); Ketones,Urine 1+ (Negative); Leukocyte Esterase,Urine Large (Negative); Mucus,Urine Rare /hpf; Nitrite,Urine Negative (Negative); Protein,Urine Negative (Negative); RBC,Urine 7 /hpf (0-5); Specific Gravity,Urine 1.013 (1.001-1.035); Urobilinogen,Urine <2.0 mg/dL (<2.0); WBC,Urine 37 /hpf (0-5)
[2024-03-26] MEDS: SODIUM CHLORIDE 0.9% 500 ML 500 ML IV ONE (15:59)
[2024-03-26] MEDS: LEVOFLOXACIN 250MG-D5W PMX 250 MG in DEXTROSE/WATER 1 50ML.BAG IVPB STA (16:00)
[2024-03-26] MEDS ORDERED: ACETAMINOPHEN TAB 325 MG TAB PO PRN (16:32)
[2024-03-26] MEDS ORDERED: NALOXONE 0.4 MG/ML 1 ML VIAL IV PRN (16:32)
[2024-03-26] MEDS: PANTOPRAZOLE 40 MG TABLET PO SCH (20:08)
[2024-03-26] MEDS: LACOSAMIDE 50 MG TABLET PO SCH (20:08)
[2024-03-26] MEDS: TAMSULOSIN 0.4 MG CAP.ER.24H PO SCH (20:08)
[2024-03-26] MEDS: ATORVASTATIN 20 MG TAB PO SCH (20:08)
[2024-03-26] MEDS: MEMANTINE 10 MG TAB PO SCH (20:25)
[2024-03-27] MEDS: MULTIVITAMINS, THERA 1 EACH TAB PO SCH (08:35)
[2024-03-27] MEDS: LORATADINE 10 MG TAB PO SCH (08:35)
[2024-03-27] MEDS: MONTELUKAST 10 MG TAB PO SCH (08:35)
[2024-03-27] MEDS: SODIUM CHLORIDE 0.9% 1,000 ML IV SCH (12:49)
[2024-03-27] MEDS: IPRATROPIUM-ALBUTEROL 3 ML NEB INHALATION SCH (13:05)
[2024-03-27] MEDS: AZTREONAM 1 GM in SODIUM CHLORIDE 0.9% 50 ML IVPB SCH (16:59)
--- NOTE | 2024-03-27 23:22 | P.CONS ---
History of Present Illness - Reason for Consult Consult date: 03/27/24 UTI Requesting physician: German Galo - Chief Complaint Weakness and fall x few days - History of Present Illness Patient is a 79-year-old male with a past medical history significant for hyperlipidemia osteoarthritis memory impairment patient did have urine r etention with a chronic indwelling Acuña catheter that is changed every few weeks however the is not very clear when the last time it was changed before presentation to the hospital patient has been brought in and the hospital for evaluation apparently the patient did have a fall with the patient seem to have tripped however the patient has been complaining of increasing weakness over the last 2 weeks before presentation to the hospital the daughter tried to pick the patient up however he was unable to stand up has been complaining of feeling weak and no energy no loss of consciousness patient denies having any fever or any chills and no fever was recorded on presentation to the hospital patient was nontachycardic hypotensive or hypoxic and no need for supplemental oxygen he did have a white count of 11.7 creatinine was normal urine has been positive with light leukocyte esterase more than 37 WBC patient has been admitted to hospital concerning for catheter assisted UTI Acuña catheter has been changed infectious disease was consulted this morning for further management of antibiotic therapy Review of Systems Positive point and negatives has been mentioned in the HPI, complete review of systems was performed and all other systems are negative Past Medical History Past Medical History: Hearing Disorder / Deafness, Hyperlipidemia, Memory Impairment, Osteoarthritis (OA) Additional Past Medical History / Comment(s): Hx kidney stones X1.pancreatitis, frequent diarrhea, chronic acuña History of Any Multi-Drug Resistant Organisms: CRE, Other MDRO Year Discovered:: 08/09/23 CP-CRE KPC Carbapenemase Detected by [facility] Lab MDRO Source:: [id number] Past Surgical History: Bladder Surgery Additional Past Surgical History / Comment(s): Cataract surgery bilateral eyes, kidney stone surgery, circumcision, lap airam 2018, COLONOSCOPY Past Anesthesia/Blood Transfusion Reactions: No Reported Reaction Additional Past Anesthesia/Blood Transfusion Reaction / Comm: slow to wake up after lap airam & trouble urinating, ended up w/acuña cath. for week post-op Past Psychological History: No Psychological Hx Reported Smoking Status: Never smoker Past Alcohol Use History: None Reported Additional Past Alcohol Use History / Comment(s): Smoked briefly as a teen. Past Drug Use History: None Reported - Past Family History Mother Family Medical History: Liver Disease Additional Family Medical History / Comment(s): Was a heavy drinker. Father Family Medical History: Cancer Additional Family Medical History / Comment(s): Prostate cancer. Sister(s) Family Medical History: Unable to Obtain Medications and Allergies Home Medications Medication Instructions Recorded Confirmed Type Simvastatin [Zocor] 40 mg PO HS 05/09/17 03/26/24 History Montelukast [Singulair] 10 mg PO DAILY 07/04/23 03/26/24 History Omeprazole 40 mg PO HS 07/04/23 03/26/24 History Cetirizine HCl [Zyrtec] 10 mg PO DAILY 03/26/24 03/26/24 History Lacosamide [Vimpat] 50 mg PO HS 03/26/24 03/26/24 History Memantine [Namenda] 10 mg PO BID 03/26/24 03/26/24 History Mv-Min/Folic/K1/Lycopen/Lutein 1 tab PO DAILY 03/26/24 03/26/24 History [Centrum Silver Men Tablet] Tamsulosin [Flomax] 0.4 mg PO HS 03/26/24 03/26/24 History Allergies Allergy/AdvReac Type Severity Reaction Status Date / Time cephalexin Allergy Swelling Verified 03/26/24 11:11 meropenem Allergy Swelling Verified 03/26/24 11:11 mold Allergy Nausea & Verified 03/26/24 11:11 Vomiting sulfamethoxazole Allergy Swelling Verified 03/26/24 11:11 [From Bactrim] trimethoprim [From Bactrim] Allergy Swelling Verified 03/26/24 11:11 Physical Exam Vitals: Vital Signs Temp Pulse Pulse Resp BP BP Pulse Ox 03/27/24 07:00 98.0 F 69 16 131/75 97 03/27/24 02:00 98 F 76 16 123/73 97 03/26/24 19:50 98 F 72 16 127/74 96 03/26/24 18:05 70 18 131/81 95 03/26/24 15:56 97.6 F 76 18 115/68 97 Intake and Output 03/26/24 03/27/24 03/27/24 22:59 06:59 14:59 Output Total 400 500 Balance -400 -500 Output: Urine 400 500 Other: Voiding Method Indwelling Catheter Indwelling Catheter Weight 63.503 kg GENERAL DESCRIPTION: Elderly male lying in bed, no distress. No tachypnea or accessory muscle of respiration use. HEENT: Shows Pallor , no scleral icterus. Oral mucous membrane is dry. NECK: Trachea central, no thyromegaly. LUNGS: Unlabored breathing. Clear to auscultation anteriorly. No wheeze or crackle. HEART: S1, S2, regular rate and rhythm. No loud murmur ABDOMEN: Soft, no tenderness , guarding or rigidity, no organomegaly EXTREMITIES: No edema of feet. SKIN: No rash, no masses palpable. NEUROLOGICAL: The patient is awake, alert, oriented x3, mood and affect normal. Results CBC & Chem 7: 03/26/24 11:03/26/24 11:01 Labs: Abnormal Lab Results - Last 24 Hours (Table) 03/26/24 Range/Units 13:47 Urine Ketones 1+ H (Negative) Urine Blood Trace H (Negative) Ur Leukocyte Esterase Large H (Negative) Urine RBC 7 H (0-5) /hpf Urine WBC 37 H (0-5) /hpf Amorphous Sediment Rare H (None) /hpf Urine Bacteria Rare H (None) /hpf Urine Mucus Rare H (None) /hpf Assessment and Plan (1) Catheter-associated urinary tract infection Current Visit: Yes Status: Acute Code(s): T83.511A - I/I REACT D/T INDWELLING URETHRAL CATHETER, INIT; N39.0 - URINARY TRACT INFECTION, SITE NOT SPECIFIED SNOMED Code(s): 131019309 (2) Allergy to multiple antibiotics Current Visit: No Status: Acute Code(s): Z88.1 - ALLERGY STATUS TO OTHER ANTIBIOTIC AGENTS SNOMED Code(s): 829170720 (3) Leukocytosis Current Visit: No Status: Acute Code(s): D72.829 - ELEVATED WHITE BLOOD CELL COUNT, UNSPECIFIED SNOMED Code(s): 172602836 Plan: 1patient presented to hospital with weakness and fall which is likely multifactorial patient did have elevated white count significantly positive UA with chronic indwelling Acuña catheter concerning for possible component of catheter assisted UTI likely from enteric gram-negative pathogen. 2patient with multiple antibiotic ALLERGIES that would limit the number of antibiotic safe to use. 3we will start the patient on Azactam 1 g every 8 hours while waiting for the culture to finalize to determine his discharge antibiotics at the bedside questions answered we will follow on clinical condition and cultures to further adjust medication if needed Thank you for this consultation we will follow the patient along with you Dictation was produced using [employer] dictation software. please excuse any grammatical, word or spelling errors.
--- NOTE | 2024-03-28 00:02 | PN ---
PROGRESS NOTE SUBJECTIVE: He is admitted with altered mental status. He had an EKG showing a sinus rhythm. He had a foot x-ray that showed no fractures. He had a tib-fib x-ray that showed no fracture, lumbar spine CT that showed no abnormalities. Had cervical spine CT that showed complete opacification of the left maxillary sinus. antibiotics for sinus infection, otherwise doing well. Prognosis guarded. Medications were reviewed and reordered. Possible early dementia, but he had a fall indwelling Romano catheter. He came in possibly for UTI for generalized weakness and inability to stay at home. Medications have been reordered. Allergies are reviewed. PAST MEDICAL HISTORY: Mild dementia, hearing disorder, deafness, memory impairment, osteoarthritis, history of kidney stones, hearing aids, bladder surgery. OBJECTIVE: VITAL SIGNS: Temperature 97.8, pulse 73 to 76, respiratory rate 16 to 18, blood pressure 115 to 130s over 60s to 70s. O2 sat 97 to 98 on room air. CARDIOVASCULAR: S1, S2. LUNGS: Transmitted upper sounds. GI: Soft. HEMATOLOGY: Negative Homans. PSYCH: Fair mood and affect. NEUROLOGIC: Alert and oriented x3. Hemoglobin is 12, white count 7.7, neutrophils 8, BUN is 22, creatinine 0.78. ASSESSMENT: 1. Fall. 2. Urinary tract infection. 3. Generalized weakness. Rehydrate. IV antibiotics. Prognosis guarded. Continue current treatments. MMODL / LETAN: [id number] /
--- NOTE | 2024-03-28 15:08 | P.PN ---
Subjective Progress Note Date: 03/28/24 Principal diagnosis: Reason for follow-up is a catheter associated UTI Patient is a 79-year-old male with a past medical history significant for hyperlipidemia osteoarthritis memory impairment patient did have urine retention with a chronic indwelling Romano catheter present to the hospital for evaluation of fall mental status changes did have a positive UA elevated white count concerning for symptomatic urinary tract infection. On today's evaluation that is 03/28/2024, patient has been afebrile, patient is breathing comfortably and is currently on room air, patient denies having any significant cough no chest pain, patient denies nausea vomiting or diarrhea and no abdominal pain. No new lab has been obtained today cultures are pending Objective - Vital Signs Vital signs: Vital Signs Temp 98.5 F 03/28/24 14:31 Pulse 82 03/28/24 14:31 Resp 16 03/28/24 14:31 BP 130/69 03/28/24 14:31 Pulse Ox 96 03/28/24 14:31 FiO2 Intake & Output 03/27/24 03/28/24 03/28/24 19:59 06:59 18:59 Intake Total 236 Output Total 1999 Balance -1764 Intake: Oral 236 Output: Urine 1999 Other: Voiding Method Indwelling Catheter - Exam GENERAL DESCRIPTION: An elderly male lying in bed in no distress RESPIRATORY SYSTEM: Unlabored breathing , decreased breath sounds at bases HEART: S1 S2 regular rate and rhythm , ABDOMEN: Soft , no tenderness EXTREMITIES: No edema feet - Labs CBC & Chem 7: 03/26/24 11:01 03/26/24 11:01 Labs: Microbiology - Last 24 Hours (Table) 03/26/24 13:47 Urine Culture - Preliminary Urine,Voided Assessment and Plan (1) Catheter-associated urinary tract infection Current Visit: Yes Status: Acute Code(s): T83.511A - I/I REACT D/T INDWELLING URETHRAL CATHETER, INIT; N39.0 - URINARY TRACT INFECTION, SITE NOT SPECIFIED SNOMED Code(s): 534767396 (2) Allergy to multiple antibiotics Current Visit: No Status: Acute Code(s): Z88.1 - ALLERGY STATUS TO OTHER ANTIBIOTIC AGENTS SNOMED Code(s): 142247439 (3) Leukocytosis Current Visit: No Status: Acute Code(s): D72.829 - ELEVATED WHITE BLOOD CELL COUNT, UNSPECIFIED SNOMED Code(s): 844720322 Plan: 1patient presented to hospital with weakness and fall which is likely multifactorial patient did have elevated white count significantly positive UA with chronic indwelling Romano catheter concerning for possible component of catheter assisted UTI likely from enteric gram-negative pathogen. 2patient with multiple antibiotic ALLERGIES that would limit the number of antibiotic safe to use. 3patient to continue with n Azactam 1 g every 8 hours while waiting for the culture to finalize to determine his discharge antibiotics Dictation was produced using [employer] dictation software. please excuse any grammatical, word or spelling errors. Time with Patient: Less than 30
[2024-03-28 20:14] LABS: Glucose,Whole Blood 116 mg/dL (70-110)
--- NOTE | 2024-03-28 21:43 | PN ---
PROGRESS NOTE SUBJECTIVE: A 79-year-old white male. He is on DuoNeb, Lipitor, has been treating him for a drug- resistant UTI, Vimpat for seizures, Namenda for dementia. The patient says he feels better. He wants to be discharged home soon. OBJECTIVE: VITAL SIGNS: Blood pressure 130/69, O2 of 96%, pulse 80 to 82, respiratory rate 16 to 18, temp 98.5. CARDIOVASCULAR: S1, S2. LUNGS: Transmitted upper sounds. GI: Soft. HEMATOLOGY: Negative Homans. PSYCH: Fair mood and affect. LABORATORY DATA: White count 7.7, hemoglobin is 12. BUN is 22, creatinine 0.7, GFR is 86. Urine culture prelim is still in progress. Prognosis guarded. Wait for urine culture prior to discharge. Wait for Dr. Gallagher's recommendations. DIVYA / GREG: [id number] /
[2024-03-29 06:05] LABS: Glucose,Whole Blood 99 mg/dL (70-110)
[2024-03-29 07:30] VITALS: RESP 16
[2024-03-29 08:18] LABS: Basophils # (A) 0.07 X 10*3/uL (0.00-0.10); Basophils % (A) 1.1 %; Eosinophils # (A) 0.29 X 10*3/uL (0.04-0.35); Eosinophils % (A) 4.5 %; HCT 36.2 % (39.6-50.0); HGB 11.9 g/dL (13.0-17.0); Lymphocytes % (A) 27.6 %; MCH 29.8 pg (27.0-32.0); MCHC 32.9 g/dL (32.0-37.0); MCV 90.5 FL (80.0-97.0); Mean Platelet Volume 11.5 FL (9.5-12.2); Monocytes # (A) 0.93 X 10*3/uL (0.20-1.00); Monocytes % (A) 14.3 %; NRBC Per 100 WBC 0 X 10*3/uL (0.00-0.01); Neutrophils % (A) 52.2 %; Platelet Count 324 X 10*3/uL (140-440); RDW 12.9 % (11.5-14.5); WBC 6.51 X 10*3/uL (4.50-10.00)
[2024-03-29 08:37] LABS: ALT 10 U/L (10-49); AST 14 U/L (14-35); Albumin/Globulin Ratio 1.43 Ratio (1.60-3.17); Alkaline Phosphatase 81 U/L (41-126); BUN/Creat Ratio 23.62 Ratio (12.00-20.00); Blood Urea Nitrogen 18.9 mg/dL (9.0-27.0); Calcium 9.5 mg/dL (8.7-10.3); Carbon Dioxide 24.8 mmol/L (21.6-31.8); Chloride 107 mmol/L (96-109); Globulin 2.8 g/dL (1.6-3.3); Glucose 104 mg/dL (70-110); Potassium 4.7 mmol/L (3.5-5.5); Sodium 142 mmol/L (135-145); Total Bilirubin 0.2 mg/dL (0.3-1.2); Total Protein 6.8 g/dL (6.2-8.2)
--- NOTE | 2024-03-29 12:22 | P.PN ---
Subjective Progress Note Date: 03/29/24 Principal diagnosis: Reason for follow-up is a catheter associated UTI Patient is a 79-year-old male with a past medical history significant for hyperlipidemia osteoarthritis memory impairment patient did have urine retention with a chronic indwelling Romano catheter present to the hospital for evaluation of fall mental status changes did have a positive UA elevated white count concerning for symptomatic urinary tract infection. On today's evaluation that is 03/29/2024, Patient is afebrile this morning patient denies having any chest pain shortness of breath or cough, the patient is currently on room air, patient denies any abdominal pain no diarrhea no nausea no vomiting. Patient white count 6.51, creatinine 0.8 urine has been finalized with [facility] Objective - Vital Signs Vital signs: Vital Signs Temp 97.3 F L 03/29/24 07:00 Pulse 70 03/29/24 08:11 Resp 16 03/29/24 07:00 BP 136/76 03/29/24 07:00 Pulse Ox 94 L 03/29/24 02:00 FiO2 Intake & Output 03/28/24 03/29/24 03/29/24 18:59 06:59 18:59 Intake Total 236 118 Output Total 2200 1200 1000 Balance -1964 -1200 -882 Intake: Oral 236 118 Output: Urine 2200 1200 1000 Other: Voiding Method Indwelling Catheter Indwelling Catheter # Bowel Movements 1 - Exam GENERAL DESCRIPTION: An elderly male lying in bed in no distress RESPIRATORY SYSTEM: Unlabored breathing , decreased breath sounds at bases HEART: S1 S2 regular rate and rhythm , ABDOMEN: Soft , no tenderness EXTREMITIES: No edema feet - Labs CBC & Chem 7: 03/29/24 04:01 03/29/24 04:01 Labs: Abnormal Lab Results - Last 24 Hours (Table) 03/28/24 03/29/24 03/29/24 Range/Units 20:13 04:01 04:01 RBC 4.00 L (4.40-5.60) X 10*6/uL Hgb 11.9 L (13.0-17.0) g/dL Hct 36.2 L (39.6-50.0) % BUN/Creatinine Ratio 23.62 H (12.00-20.00) Ratio POC Glucose (mg/dL) 116 H (70-110) mg/dL Total Bilirubin 0.2 L (0.3-1.2) mg/dL Albumin/Globulin Ratio 1.43 L (1.60-3.17) Ratio Microbiology - Last 24 Hours (Table) 03/26/24 13:47 Urine Culture - Final Urine,Voided Staphylococcus aureus Assessment and Plan (1) Catheter-associated urinary tract infection Current Visit: Yes Status: Acute Code(s): T83.511A - I/I REACT D/T INDWELLING URETHRAL CATHETER, INIT; N39.0 - URINARY TRACT INFECTION, SITE NOT SPECIFIED SNOMED Code(s): 689575216 (2) Allergy to multiple antibiotics Current Visit: No Status: Acute Code(s): Z88.1 - ALLERGY STATUS TO OTHER ANTIBIOTIC AGENTS SNOMED Code(s): 783454951 (3) Leukocytosis Current Visit: No Status: Acute Code(s): D72.829 - ELEVATED WHITE BLOOD CELL COUNT, UNSPECIFIED SNOMED Code(s): 183418838 Plan: 1patient presented to hospital with weakness and fall which is likely mult ifactorial patient did have elevated white count significantly positive UA with chronic indwelling Romano catheter concerning for possible component of catheter assisted UTI likely from enteric gram-negative pathogen. 2patient with multiple antibiotic ALLERGIES that would limit the number of antibiotic safe to use. 3patient urine has been finalized with MSSA patient is allergic both to Keflex as well as Bactrim we will suggest a short course of oral Zyvox to finish his course of therapy prescriptions sent Dictation was produced using [employer] dictation software. please excuse any grammatical, word or spelling errors.
[2024-03-29] MEDS: LINEZOLID 600 MG TAB PO STA (14:26)
[2024-03-29 14:50] VITALS: BP 135/71; TEMP 98
[2024-03-29 15:25] VITALS: PULSE 74
[2024-03-29 16:27] VITALS: BMI 17.9
[2024-03-29] MEDS ORDERED: LINEZOLID 600 MG TAB PO SCH (21:00)
== END 2024-03-29 18:53 | disposition home or self-care (01) ==
LOC: EC 10:15 → 6NMEDSUR 15:06
PROVIDERS: ADMIT Family Medicine; ATTEND Family Medicine
DX: T83.518A Infection and inflammatory reaction due to other urinary catheter, initial encounter (principal); N39.0 Urinary tract infection, site not specified; Y84.6 Urinary catheterization as the cause of abnormal reaction of the patient, or of later complication, without mention of misadventure at the time of the procedure; R53.1 Weakness; E78.5 Hyperlipidemia, unspecified; F03.90 Unspecified dementia, unspecified severity, without behavioral disturbance, psychotic disturbance, mood disturbance, and anxiety; Z79.899 Other long term (current) drug therapy; Z88.1 Allergy status to other antibiotic agents; Z88.2 Allergy status to sulfonamides
CPT/HCPCS: 96366 ×3; 96367; 96365; 99285; 36415; 94640 ×6; 94760 ×2; 93005; 97161; 80053 ×2; 84484; 85025 ×2; 85610; 85730; 81001; 87086; 87077; 87186; 73590; 73630; 72125; 72131; 70450; G0378 ×4; J1956; J0457 ×3

== ENCOUNTER 2024-05-25 09:47 | Emergency (ER) | payer MEDICARE ==
--- NOTE | 2024-05-25 10:13 | ED ---
General Adult HPI - General Chief complaint: Urogenital Stated complaint: catheter pain Time Seen by Provider: 05/25/24 09:56 Source: patient Mode of arrival: wheelchair Limitations: physical limitation - History of Present Illness Initial comments: Dictation was produced using [employer] dictation software. please excuse any grammatical, word or spelling errors. Chief Complaint: 79-year-old male with Acuña catheter issues History of Present Illness: Patient 79-year-old male he has chronic indwelling Acuña catheter. at the bedside states that he has a large prostate. Patient had this current Acuña catheter in for 3 weeks. States that over the last couple days there has been some dribbling that has been going around his catheter out down his leg. P she denies any fever, chills or night sweats. States that there is like a pulling sensation to his pelvis area. The ROS documented in this emergency department record has been reviewed and confirmed by me. Those systems with pertinent positive or negative responses have been documented in the HPI. All other systems are other negative and/or noncontributory. - Related Data Home Medications Medication Instructions Recorded Confirmed Simvastatin [Zocor] 40 mg PO HS 05/09/17 03/26/24 Montelukast [Singulair] 10 mg PO DAILY 07/04/23 03/26/24 Omeprazole 40 mg PO HS 07/04/23 03/26/24 Cetirizine HCl [Zyrtec] 10 mg PO DAILY 03/26/24 03/26/24 Lacosamide [Vimpat] 50 mg PO HS 03/26/24 03/26/24 Memantine [Namenda] 10 mg PO BID 03/26/24 03/26/24 Mv-Min/Folic/K1/Lycopen/Lutein 1 tab PO DAILY 03/26/24 03/26/24 [Centrum Silver Men Tablet] Tamsulosin [Flomax] 0.4 mg PO HS 03/26/24 03/26/24 Previous Rx's Medication Instructions Recorded Acetaminophen Tab [Tylenol] 650 mg PO Q6HR PRN tab 03/29/24 Ipratropium-Albuterol Nebulize 3 ml INHALATION RT-QID 30 Days 03/29/24 [Duoneb 0.5 mg-3 mg/3 ml Soln] #120 each Linezolid [Zyvox] 600 mg PO Q12H #6 tab 03/29/24 Allergies Allergy/AdvReac Type Severity Reaction Status Date / Time cephalexin Allergy Swelling Verified 05/25/24 09:48 meropenem Allergy Swelling Verified 05/25/24 09:48 mold Allergy Nausea & Verified 05/25/24 09:48 Vomiting sulfamethoxazole Allergy Swelling Verified 05/25/24 09:48 [From Bactrim] trimethoprim [From Bactrim] Allergy Swelling Verified 05/25/24 09:48 Review of Systems ROS Statement: Those systems with pertinent positive or pertinent negative responses have been documented in the HPI. ROS Other: All systems not noted in ROS Statement are negative. 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 for week post-op Past Psychological History: No Psychological Hx Reported Smoking Status: Never smoker Past Alcohol Use History: None Reported Past Drug Use History: None Reported - Past Family History Mother Family Medical History: Liver Disease Additional Family Medical History / Comment(s): Was a heavy drinker. Father Family Medical History: Cancer Additional Family Medical History / Comment(s): Prostate cancer. Sister(s) Family Medical History: Unable to Obtain General Exam - General Exam Comments Initial Comments: General: Well-appearing, nontoxic, no acute distress. Head: Normocephalic, atraumatic Eyes: PERRLA, EOMI ENT: Airway patent Chest: Nonlabored breathing Skin: No visual rash, normal skin tone Neuro: Alert and oriented 3 Musculoskeletal: No gross abnormalities Limitations: physical limitation Course Vital Signs 12/31/24 09:49 Temperature 97.4 F L Pulse Rate 80 Respiratory 20 Rate Blood Pressure 173/93 O2 Sat by Pulse 95 Oximetry Medical Decision Making - Medical Decision Making Was pt. sent in by a medical professional or institution (, PA, CAM MILLING MACHINE OPERATOR, urgent care, hospital, or prison...) When possible be specific @ -No Did you speak to anyone other than the patient for history (EMS, parent, family, police, friend...)? What history was obtained from this source @ -No Did you review nursing and triage notes (agree or disagree)? Why? @ -I reviewed and agree with nursing and triage notes Were old charts reviewed (outside hosp., previous admission, EMS record, old EKG, old radiological studies, urgent care reports/EKG's, prison records)? Report findings @ -No old charts were reviewed Differential Diagnosis (chest pain, altered mental status, abdominal pain women, abdominal pain men, vaginal bleeding, musculoskeletal, weakness, fever, dyspnea, syncope, headache, dizziness, GI bleed, back pain, seizure, CVA, palpatations, mental health)? @ -Acuña catheter obstruction, hematuria, UTI EKG interpreted by me (3pts min.). @ -None done X-rays interpreted by me (1pt min.). @ -None done CT interpreted by me (1pt min.). @ -None done U/S interpreted by me (1pt. min.). @ -None done What testing was considered but not performed or refused? (CT, X-rays, U/S, labs)? Why? @ -None What meds were considered but not given or refused? Why? @ -None Was smoking cessation discussed for >3mins.? @ -No Were there social determinants of health that impacted care today? How? (Homelessness, low income, unemployed, alcoholism, drug addiction, transportation, low edu. Level, literacy, decrease access to med. care, fci, rehab)? @ -No Was there de-escalation of care discussed even if they declined (Discuss DNR or withdrawal of care, Hospice)? DNR status @ -No What co-morbidities impacted this encounter? (DM, HTN, Smoking, COPD, CAD, Cancer, CVA, ARF, Chemo, Hep., AIDS, mental health diagnosis, sleep apnea, morbid obesity)? @ -None Was patient admitted / discharged? Hospital course, mention meds given and route, prescriptions, significant lab abnormalities, going to OR and other pertinent info. @ -79-year-old male with Acuña malfunction. Vital signs stable. Patient well- appearing with no systemic complaints. Acuña catheter was replaced. Acuña catheter functioning well. Urinalysis pending. Patient discharged Did you discuss the management of the patient with other professionals (professionals i.e. , PA, CAM MILLING MACHINE OPERATOR, lab, RT, psych nurse, psych social worker, electronic die maker, teacher, benefits officer, case finisher)? Give summary @ -No Was critical care preformed (if so, how long)? @ -No Undiagnosed new problem with uncertain prognosis? @ -No Drug Therapy requiring intensive monitoring for toxicity (Heparin, Nitro, Insulin, Cardizem)? @ -No Were any procedures done? @ -No Diagnosis/symptom? Acute, or Chronic, or Acute on Chronic? Uncomplicated (without systemic symptoms) or Complicated (systemic symptoms)? @ -Acuña catheter malfunction Side effects of treatment? @ -No Exacerbation, Progression, or Severe Exacerbation? @ -No Poses a threat to life or bodily function? How? (Chest pain, [place], [place], pneumonia, PE, COPD, DKA, ARF, appy, cholecystitis, CVA, Diverticulitis, Homicidal, Suicidal, threat to staff... and all critical care pts) @ -yes Disposition Clinical Impression: Malfunction of Acuña catheter Disposition: HOME SELF-CARE Condition: Good Instructions (If sedation given, give patient instructions): Acuña Catheter Placement and Care (ED) Is patient prescribed a controlled substance at d/c from ED?: No Referrals: German Galo MD [Primary Care Provider] - 1-2 days Time of Disposition: 10:24
[2024-05-25 10:33] LABS: Appearance,Urine Cloudy (Clear); Bacteria,Urine Rare /hpf; Bilirubin,Urine Negative (Negative); Blood,Urine Small (Negative); Color,Urine Colorless; Glucose,Urine (UA) Negative (Negative); Ketones,Urine Negative (Negative); Leukocyte Esterase,Urine Large (Negative); Mucus,Urine Rare /hpf; Nitrite,Urine Positive (Negative); PH, Urine 6.5 (5.0-8.0); Protein,Urine Trace (Negative); RBC,Urine 20 /hpf (0-5); Specific Gravity,Urine 1.017 (1.001-1.035); Urobilinogen,Urine <2.0 mg/dL (<2.0); WBC,Urine >182 /hpf (0-5)
[2024-05-25 10:57] VITALS: BP 158/89; PULSE 8; RESP 18; TEMP 97.7
== END 2024-05-25 11:00 | disposition home or self-care (01) ==
LOC: EC 09:47
DX: T83.098A Other mechanical complication of other urinary catheter, initial encounter (principal); Z88.8 Allergy status to other drugs, medicaments and biological substances; Z88.2 Allergy status to sulfonamides; Z88.1 Allergy status to other antibiotic agents
CPT/HCPCS: 51702; 81001; 99283

== ENCOUNTER 2024-06-15 10:46 | Emergency (ER) | payer MEDICARE ==
[2024-06-15 11:15] VITALS: RESP 16
--- NOTE | 2024-06-15 11:28 | ED ---
Male Urogenital HPI - General Chief complaint: Urogenital Stated complaint: Cath issue Time Seen by Provider: 06/15/24 11:02 Source: patient, family, RN notes reviewed Mode of arrival: wheelchair Limitations: no limitations - History of Present Illness Initial comments: This is a 79-year-old male with history of chronic Acuña and bladder surgery presenting with Acuña catheter leakage starting yesterday. Patient states he has had the catheter for the past 3 weeks with an upcoming neurology appointment on 06/23/2024. Also endorses increased sensation of urgency and right mid back pain. Denies fever, chills, dysuria, hematuria. Onset/Timin -: days(s) Radiation: none Consistency: constant Reports: other (Urgency, mid back pain) - Related Data Home Medications Medication Instructions Recorded Confirmed Simvastatin [Zocor] 40 mg PO HS 05/09/17 03/26/24 Montelukast [Singulair] 10 mg PO DAILY 07/04/23 03/26/24 Omeprazole 40 mg PO HS 07/04/23 03/26/24 Cetirizine HCl [Zyrtec] 10 mg PO DAILY 03/26/24 03/26/24 Lacosamide [Vimpat] 50 mg PO HS 03/26/24 03/26/24 Memantine [Namenda] 10 mg PO BID 03/26/24 03/26/24 Mv-Min/Folic/K1/Lycopen/Lutein 1 tab PO DAILY 03/26/24 03/26/24 [Centrum Silver Men Tablet] Tamsulosin [Flomax] 0.4 mg PO HS 03/26/24 03/26/24 Previous Rx's Medication Instructions Recorded Acetaminophen Tab [Tylenol] 650 mg PO Q6HR PRN tab 03/29/24 Ipratropium-Albuterol Nebulize 3 ml INHALATION RT-QID 30 Days 03/29/24 [Duoneb 0.5 mg-3 mg/3 ml Soln] #120 each Linezolid [Zyvox] 600 mg PO Q12H #6 tab 03/29/24 Levofloxacin [Levaquin] 750 mg PO DAILY 1 Days #7 tab 06/15/24 Allergies Allergy/AdvReac Type Severity Reaction Status Date / Time cephalexin Allergy Swelling Verified 06/15/24 11:16 meropenem Allergy Swelling Verified 06/15/24 11:16 mold Allergy Nausea & Verified 06/15/24 11:16 Vomiting sulfamethoxazole Allergy Swelling Verified 06/15/24 11:16 [From Bactrim] trimethoprim [From Bactrim] Allergy Swelling Verified 06/15/24 11:16 Review of Systems ROS Statement: Those systems with pertinent positive or pertinent negative responses have been documented in the HPI. ROS Other: All systems not noted in ROS Statement are negative. 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 for week post-op Past Psychological History: No Psychological Hx Reported Smoking Status: Never smoker Past Alcohol Use History: None Reported Past Drug Use History: None Reported - Past Family History Mother Family Medical History: Liver Disease Additional Family Medical History / Comment(s): Was a heavy drinker. Father Family Medical History: Cancer Additional Family Medical History / Comment(s): Prostate cancer. Sister(s) Family Medical History: Unable to Obtain General Exam General appearance: alert, in no apparent distress Head exam: Present: atraumatic, normocephalic, normal inspection Eye exam: Present: normal appearance, PERRL, EOMI. Absent: scleral icterus, conjunctival injection, periorbital swelling ENT exam: Present: normal exam, mucous membranes moist Neck exam: Present: normal inspection. Absent: tenderness, meningismus, lymphadenopathy Respiratory exam: Present: normal lung sounds bilaterally. Absent: respiratory distress, wheezes, rales, rhonchi, stridor Cardiovascular Exam: Present: regular rate, normal rhythm, normal heart sounds. Absent: systolic murmur, diastolic murmur, rubs, gallop, clicks GI/Abdominal exam: Present: soft, tenderness (Positive suprapubic tenderness without guarding), normal bowel sounds. Absent: distended, guarding, rebound, rigid Extremities exam: Present: normal inspection, full ROM, normal capillary refill. Absent: tenderness, pedal edema, joint swelling, calf tenderness Back exam: Present: normal inspection. Absent: CVA tenderness (R), CVA tenderness (L) Neurological exam: Present: alert, oriented X3, CN II-XII intact Psychiatric exam: Present: normal affect, normal mood Skin exam: Present: warm, dry, intact, normal color. Absent: rash Course Vital Signs 06/15/24 06/15/24 11:11 13:21 Temperature 98.3 F Pulse Rate 69 78 Respiratory 16 16 Rate Blood Pressure 145/66 134/69 O2 Sat by Pulse 96 95 Oximetry Medical Decision Making - Medical Decision Making Was pt. sent in by a medical professional or institution (, PA, CONTRACTING ANALYST, urgent care, hospital, or fpc...) When possible be specific @ -[No] Did you speak to anyone other than the patient for history (EMS, parent, family, police, friend...)? What history was obtained from this source @ -[No] Did you review nursing and triage notes (agree or disagree)? Why? @ -[I reviewed and agree with nursing and triage notes] Were old charts reviewed (outside hosp., previous admission, EMS record, old EKG, old radiological studies, urgent care reports/EKG's, fpc records)? Report findings @ -[No old charts were reviewed] Differential Diagnosis (chest pain, altered mental status, abdominal pain women, abdominal pain men, vaginal bleeding, weakness, fever, dyspnea, syncope, headache, dizziness, GI bleed, back pain, seizure, CVA, palpatations, mental health, musculoskeletal)? @ -Differential Abdominal Pain Men: Appendicitis, cholecystitis, diverticulosis, ischemic bowel, pancreatitis, hepatitis, UTI, gastroenteritis, AAA, incarcerated hernia, bowel obstruction, constipation, inflammatory bowel, hepatitis, peptic ulcer disease, splenic infarction, perforated viscus, testicular torsion, this is not meant to be an all-inclusive list EKG interpreted by me (3pts min.). @ -Not done X-rays interpreted by me (1pt min.). @ -[None done] CT interpreted by me (1pt min.). @ -[None done] U/S interpreted by me (1pt. min.). @ -[None done] What testing was considered but not performed or refused? (CT, X-rays, U/S, labs)? Why? @ -[None] What meds were considered but not given or refused? Why? @ -[None] Did you discuss the management of the patient with other professionals (professionals i.e. , PA, CONTRACTING ANALYST, lab, RT, psych nurse, medical social consultant, security and privacy consultant, teacher, control systems drafting officer, case sealer)? Give summary @ -[No] Was smoking cessation discussed for >3mins.? @ -[No] Was critical care preformed (if so, how long)? @ -[No] Were there social determinants of health that impacted care today? How? (Homelessness, low income, unemployed, alcoholism, drug addiction, transportation, low edu. Level, literacy, decrease access to med. care, [facility], rehab)? @ -[No] Was there de-escalation of care discussed even if they declined (Discuss DNR or withdrawal of care, Hospice)? DNR status @ -[No] What co-morbidities impacted this encounter? (DM, HTN, Smoking, COPD, CAD, Cancer, CVA, ARF, Chemo, Hep., AIDS, mental health diagnosis, sleep apnea, morbid obesity)? @ -Chronic Acuña Was patient admitted / discharged? Hospital course, mention meds given and route, prescriptions, significant lab abnormalities, going to OR and other pertinent info. @ -[hospital course] Undiagnosed new problem with uncertain prognosis? @ -[No] Drug Therapy requiring intensive monitoring for toxicity (Heparin, Nitro, Insulin, Cardizem)? @ -[No] Were any procedures done? @ -[No] Diagnosis/symptom? @ -[default] Acute, or Chronic, or Acute on Chronic? @ -Acute Uncomplicated (without systemic symptoms) or Complicated (systemic symptoms)? @ -Uncomplicated Side effects of treatment? @ -[No] Exacerbation, Progression, or Severe Exacerbation? @ -[No] Poses a threat to life or bodily function? How? (Chest pain, USA, AR, pneumonia, PE, COPD, DKA, ARF, appy, cholecystitis, CVA, Diverticulitis, Homicidal, Suicidal, threat to staff... and all critical care pts) @ -[No] - Lab Data Lab Results 06/15/24 Range/Units 12:25 Urine Color Light Yellow Urine Appearance Cloudy (Clear) Urine pH 6.5 (5.0-8.0) Ur Specific Howell 1.019 (1.001-1.035) Urine Protein Trace H (Negative) Urine Glucose (UA) Negative (Negative) Urine Ketones Negative (Negative) Urine Blood Trace H (Negative) Urine Nitrite Negative (Negative) Urine Bilirubin Negative (Negative) Urine Urobilinogen <2.0 (<2.0) mg/dL Ur Leukocyte Esterase Large H (Negative) Urine RBC 8 H (0-5) /hpf Urine WBC >182 H (0-5) /hpf Urine Mucus Rare H (None) /hpf Disposition Clinical Impression: UTI (urinary tract infection), Acuña catheter problem Disposition: HOME SELF-CARE Condition: Good Instructions (If sedation given, give patient instructions): Urinary Tract Infection in Men (ED) Prescriptions: Levofloxacin [Levaquin] 750 mg PO DAILY 1 Days #7 tab Is patient prescribed a controlled substance at d/c from ED?: No Referrals: German Galo MD [Primary Care Provider] - 1-2 days Time of Disposition: 14:10
[2024-06-15 12:51] LABS: Appearance,Urine Cloudy (Clear); Bilirubin,Urine Negative (Negative); Blood,Urine Trace (Negative); Color,Urine Light Yellow; Glucose,Urine (UA) Negative (Negative); Ketones,Urine Negative (Negative); Leukocyte Esterase,Urine Large (Negative); Mucus,Urine Rare /hpf; Nitrite,Urine Negative (Negative); PH, Urine 6.5 (5.0-8.0); Protein,Urine Trace (Negative); RBC,Urine 8 /hpf (0-5); Specific Gravity,Urine 1.019 (1.001-1.035); Urobilinogen,Urine <2.0 mg/dL (<2.0); WBC,Urine >182 /hpf (0-5)
[2024-06-15 14:33] VITALS: BP 132/74; PULSE 72; TEMP 98.1
== END 2024-06-15 14:34 | disposition home or self-care (01) ==
LOC: EC 10:46
DX: N39.0 Urinary tract infection, site not specified (principal); T83.038A Leakage of other urinary catheter, initial encounter; Z88.1 Allergy status to other antibiotic agents; Z88.2 Allergy status to sulfonamides; Z88.8 Allergy status to other drugs, medicaments and biological substances; Z77.120 Contact with and (suspected) exposure to mold (toxic)
CPT/HCPCS: 51702; 81001; 87086; 99283